=== PATIENT | male | born 1960 | race Caucasian/White ===

== ENCOUNTER → 2021-05-13 14:52 | Outpatient (REF) | payer OTHER, SELFPAY ==
--- NOTE | 2021-05-13 14:55 | CA_ITS ---
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 The visually estimated ejection fraction is between 55-60%. - No obvious valvular pathology seen on this study. - There is mild dilatation of the ascending aorta measuring 4.10 cm. Findings Left Ventricle Normal left ventricular cavity size. There is normal left ventricular wall thickness. The left ventricular systolic function is normal. The visually estimated ejection fraction is between 55-60%. There is no evidence of regional wall motion abnormalities. Diastolic function is normal for age. Right Ventricle Normal right ventricular cavity size and systolic function. Atria Both atria are normal in size. Aortic Valve There is mild calcification of the aortic valve. There is no aortic valve stenosis. There is no aortic valve regurgitation. Mitral Valve The mitral valve appears normal. There is no mitral valve regurgitation. There is no mitral valve stenosis. Pulmonic Valve The pulmonic valve was not well visualized. Tricuspid Valve Normal tricuspid valve structure. There is trace tricuspid valve regurgitation. Tricuspid regurgitation envelope is inadequate for calculation of right ventricular systolic pressure. Great Vessels There is mild dilatation of the ascending aorta measuring 4.10 cm. Venous The inferior vena cava is normal in size and collapses greater than 50% with inspiration. Pericardium/Pleural There is no evidence of pericardial effusion. Prior Study Comparison No prior study available for comparison. Recommendations, Care & Conclusions No obvious valvular pathology seen on this study. Measurements M-Mode Liner Measurements Normals - Women/Men AOV Cusps: 1.70 1.5-2.6 cm/m2 2D Linear Measurements IVSd: 0.84 0.6-0.9/0.6-1.0 cm LVIDd: 4.91 3.9-5.3/4.2-5.9 cm LVIDd Index: 2.15 2.4-3.2/2.2-3.1 cm/m2 LVIDs: 3.50 2.0-3.6 cm LVPWd: 0.91 0.7-1.1 cm Ao Root: 3.10 2.1-3.5 cm LA Diam: 4.10 2.7-3.8/3.0-4.0 cm LAIDs Index: 1.80 1.5-2.3 cm/m2 LV Mass: 182.88 67-162/88-224 g LV Mass Index: 80.21 43-95/49-115 g/m2 LVOT Diam: 2.20 3.0+(-)1.3 cm 2D Systolic Function EF 4C: 55.00 >55% EF 2C: 52.10 >55% EF BiP: 52.50 >55% Mitral Valve MV Pk E: 0.75 MV PK A: 0.76 MV Decel Time: 251.00 E/A: 1.00 E'Lateral: 15.10 E'Medial: 7.83 E/E' Med: 9.60 E/E' Lat: 5.00 PHT: 74.00 MVA PHT: 2.97 Decel [place]: 2.98 Aortic Valve AoV Pk Misael: 1.49 AoV Mn Misael: 1.19 AoV VTI: 0.35 AoV Pk Grad: 9.00 Aov Mn Grad: 6.00 ADOLFO Cont.VTI: 2.84 LVOT LVOT Pk Misael: 1.15 LVOT Mn Misael: 0.85 LVOT VTI: 0.26 LVOT Pk Grad: 5.00 LVOT Mn Grad: 3.00 LVOT Diam: 2.20 LVOT Area: 3.80 Diastolic Function MV Pk E: 0.75 MV Pk A: 0.76 E/A: 1.00 E'Medial: 7.83 E/E' Med: 9.60 E' Laterial: 15.10 E/E' Lat: 5.00 Tricuspid Valve RA Press: 3.00 Great Vessels Aorta Ao Root-2D: 3.10 2.0-3.7 cm Ao Asc: 4.10 2.1-3.4 cm Ao Arch: 3.00 Updated in Other Vendor System with Status of Final Jan Roberts MD electronically signed on 05/15/2021 12:45:57 PM with status of Final
== END ==
LOC: HO.CARD 14:52
PROVIDERS: Visit Provider Nurse Practitioner Family
DX: R01.1 Cardiac murmur, unspecified (principal)
CPT/HCPCS: 93306

== ENCOUNTER 2021-05-24 06:30 | Outpatient (REF) | payer OTHER, SELFPAY ==
[2021-05-24 11:55] LABS: Alanine Aminotransferase 40 U/L (0-40); Albumin Level 4.3 g/dL (3.5-5.0); Alkaline Phosphatase 83 U/L (39-117); Anion Gap 11 (12-20); Aspartate Amino Transferase 25 U/L (5-37); Bilirubin Total 2.1 mg/dL (0.0-1.0); Blood Urea Nitrogen 16 mg/dL (9-16); Calcium 9.7 mg/dL (8.4-10.2); Carbon Dioxide 29 mmol/L (22-29); Chloride 104 mmol/L (96-108); Cholesterol 246 mg/dL; Estimated Glomerular Filt Rate > 60; Glucose Fasting 91 mg/dL (60-99); HDL Cholesterol 36 mg/dL; LDL Cholesterol Calculated 174 mg/dl; Potassium 4.1 mmol/L (3.3-5.1); Sodium 140 mmol/L (135-145); Total Protein 7.4 g/dL (6.5-8.0); Triglycerides 181 mg/dL
[2021-05-24 12:10] LABS: TSH reflex Free T4 1.13 uIU/mL (0.32-4.0)
[2021-05-24 12:43] LABS: Prostate Specific Antigen Scr 2.33 ng/mL (<0.05-4.0)
== END 2021-05-24 06:31 | disposition home or self-care (01) ==
LOC: HO.HMGCLDS 06:30
PROVIDERS: PCP Nurse Practitioner Family; Visit Provider Nurse Practitioner Family
DX: Z12.5 Encounter for screening for malignant neoplasm of prostate (principal); I10 Essential (primary) hypertension
CPT/HCPCS: 36415; 80053; 80061; 84153; 84443

== ENCOUNTER 2021-05-29 09:30 | Outpatient (REF) | payer OTHER, SELFPAY ==
[2021-05-29 11:44] LABS: Bilirubin Direct 0.4 mg/dL (0.0-0.5); Bilirubin Total 1.3 mg/dL (0.0-1.0); Cholesterol 231 mg/dL; HDL Cholesterol 34 mg/dL; LDL Cholesterol Calculated 169 mg/dl; Triglycerides 141 mg/dL
== END 2021-05-29 09:31 | disposition home or self-care (01) ==
LOC: HO.HMGCLDS 09:30
PROVIDERS: PCP Nurse Practitioner Family; Visit Provider Nurse Practitioner Family
DX: R17 Unspecified jaundice (principal); E78.5 Hyperlipidemia, unspecified
CPT/HCPCS: 36415; 80061; 82247; 82248

== ENCOUNTER 2021-06-03 13:51 | Outpatient (REF) | payer OTHER, SELFPAY ==
--- NOTE | ~2021-06-03 | CT_ITS ---
CT SOFT TISSUE NECK WITH CONTRAST CLINICAL INFORMATION: Disease of salivary gland. COMPARISON: Neck CTA 08/18/2017. TECHNIQUE: Following the intravenous administration of 100 mL of Omnipaque 350 intravenous contrast, helical imaging was performed in the axial plane with generation of coronal and sagittal reformatted images. This CT examination was performed using dose optimization techniques as appropriate, variously including the following: *Automated exposure control *Adjustment of mA and/or kV according to patient size (this includes techniques or standardized protocols for targeted exams where dose is matched to indication/reason for exam; i.e. 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 There is a calcification along the medial border of the lesion that has mildly increased in size. There are no new intraparotid lesions. There are nonpathologic size criteria lymph nodes throughout the suprahyoid and infrahyoid neck without pathologic size criteria lymphadenopathy. Orbital soft tissues, the submandibular glands, and the thyroid gland are unremarkable. The laryngeal structures are difficult to evaluate secondary to motion artifact. The cervical arterial vasculature remains widely patent. Imaged upper lungs are clear. There are no retropharyngeal fluid collections. The partially imaged intracranial compartment is unremarkable. Stable rounded sclerotic focus within the clivus when compared to multiple prior studies dated back to 09/01/2016. There is multilevel cervical spondylosis. Mild mucosal thickening within the ethmoid air cells, frontal sinuses, and maxillary sinuses bilaterally. There is rightward deviation of the nasal septum with a large rightward directed septal spur and there is a large tish bullosa within the left middle turbinate. 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 There is a calcification along the medial border of the lesion that has mildly increased in size.
[2021-06-03] MEDS: iohexoL 350 MG/ML 100 ML INFUS..BTL IV (14:40)
== END 2021-06-03 13:52 | disposition home or self-care (01) ==
LOC: HO.CT 13:51
PROVIDERS: Visit Provider Nurse Practitioner Family
DX: K11.9 Disease of salivary gland, unspecified (principal)
CPT/HCPCS: 70491; Q9967

== ENCOUNTER → 2021-07-16 14:36 | Outpatient (BNVA) | payer OTHER, SELFPAY | PROVIDERS: PCP Nurse Practitioner Family; Visit Provider Nurse Practitioner Family ==

== ENCOUNTER 2021-08-10 08:25 | Outpatient (REF) | payer OTHER, SELFPAY ==
--- NOTE | ~2021-08-10 | US_ITS ---
EXAMINATION: US ABDOMEN COMPLETE CLINICAL INFORMATION: Unspecified jaundice. COMPARISON: Ultrasound abdomen 01/18/2014. CT abdomen and pelvis 10/22/2011. TECHNIQUE: Real-time imaging of the abdominal viscera. Technically difficult study secondary to bowel gas and body habitus. FINDINGS: PANCREAS: The pancreas is obscured by overlying gas. ABDOMINAL AORTA: The proximal, mid, and distal segments are normal in caliber. INFERIOR VENA CAVA: Visualized portions are normal. LIVER: The left lobe of liver is not well-visualized. The liver is normal in size. The liver contour is normal. Parenchymal echogenicity is normal. No focal hepatic lesion. There is no intrahepatic biliary duct dilatation seen. GALLBLADDER: Surgically absent. COMMON BILE DUCT: Normal in caliber measuring 0.5 cm in diameter. RIGHT KIDNEY: Normal. No hydronephrosis. No renal calculi or focal parenchymal lesions. The kidney measures 12.4 cm in maximum dimension. LEFT KIDNEY: Normal. No hydronephrosis. No renal calculi or focal parenchymal lesions. The kidney measures 12.2 cm in maximum dimension. SPLEEN: Normal. The spleen measures 10.8 cm in maximum dimension. FREE FLUID: None. US/US abdomen complete IMPRESSION: Left lobe of liver not visualized. The rest of the abdominal ultrasound is unremarkable.
== END 2021-08-10 08:26 | disposition home or self-care (01) ==
LOC: HO.US 08:25
PROVIDERS: PCP Nurse Practitioner Family; Visit Provider Nurse Practitioner Family
DX: R17 Unspecified jaundice (principal)
CPT/HCPCS: 76700

== ENCOUNTER → 2021-09-17 14:24 | Outpatient (BNVA) | payer OTHER, SELFPAY | PROVIDERS: PCP Nurse Practitioner Family; Referring Provider Nurse Practitioner Family; Visit Provider Nurse Practitioner Family ==

== ENCOUNTER 2022-02-03 08:20 | Outpatient (REF) | payer OTHER, SELFPAY ==
[2022-02-03 11:31] LABS: MANUAL DIFF FLAG NO
[2022-02-03 11:51] LABS: Basophils Percent Auto 0.7 % (0-2); Eosinophils Absolute Auto 0.2 X10*3/uL (0.0-0.4); Eosinophils Percent Auto 3.3 % (0-4); Hematocrit 45.2 % (42.0-52.0); Hemoglobin 14.6 g/dl (14.0-18.0); Imm Gran Abs Auto 0.01 X10*3/uL (0.00-0.03); Imm Gran Pct Auto 0.2 % (0.0-0.4); Lymphocytes Absolute Auto 1.7 X10*3/uL (1.2-4.9); Lymphocytes Percent Auto 30.5 % (20-40); Mean Corpuscular HGB Conc 32.3 g/dl (31.0-36.0); Mean Corpuscular Hemoglobin 31.5 pg (27.0-33.0); Mean Corpuscular Volume 97.6 fL (80.0-98.0); Mean Platelet Volume 10.3 fL (9.4-12.4); Monocytes Absolute Auto 0.7 X10*3/uL (0.1-1.2); Monocytes Percent Auto 12.1 % (2-11); Neutrophils Absolute Auto 2.9 x10*3/uL (2.0-8.3); Neutrophils Percent Auto 53.2 % (45-73); Platelet Count 310 X10*3/uL (160-400); Red Blood Count 4.63 X10*6/uL (4.60-5.80); Red Cell Distribution Width 11.8 % (11.0-16.0); White Blood Count 5.4 X10*3/uL (4.8-10.8)
[2022-02-03 12:08] LABS: Cholesterol 213 mg/dL; HDL Cholesterol 36 mg/dL; Iron 110 mcg/dL (45-160); LDL Cholesterol Calculated 136 mg/dl; Percent Iron Saturation 34 % (15-50); Total Iron Binding Capacity 325 mcg/dL (228-428); Triglycerides 206 mg/dL; Unsaturated Iron Binding 215 ug/dL
[2022-02-03 12:30] LABS: Ferritin 525 ng/mL (20-250); TSH reflex Free T4 1.19 uIU/mL (0.32-4.0)
[2022-02-03 12:52] LABS: Vitamin B12 751 pg/mL (200-900)
== END 2022-02-03 08:21 | disposition home or self-care (01) ==
LOC: HO.HMGCLDS 08:20
PROVIDERS: Visit Provider Nurse Practitioner Family
DX: E78.5 Hyperlipidemia, unspecified (principal); R53.83 Other fatigue
CPT/HCPCS: 36415; 80061; 82607; 82728; 82746; 83540; 84443; 85025

== ENCOUNTER 2022-02-28 08:12 | Outpatient (REF) | payer OTHER, SELFPAY ==
[2022-02-28 09:28] LABS: Alanine Aminotransferase 25 U/L (0-40); Albumin Level 4.3 g/dL (3.5-5.0); Alkaline Phosphatase 85 U/L (39-117); Anion Gap 11 (12-20); Aspartate Amino Transferase 19 U/L (5-37); Bilirubin Direct 0.5 mg/dL (0.0-0.5); Bilirubin Total 1.5 mg/dL (0.0-1.0); Blood Urea Nitrogen 23 mg/dL (9-16); Calcium 9.8 mg/dL (8.4-10.2); Carbon Dioxide 25 mmol/L (22-29); Chloride 106 mmol/L (96-108); Estimated Glomerular Filt Rate > 60; Glucose Fasting 96 mg/dL (60-99); Potassium 4.4 mmol/L (3.3-5.1); Sodium 138 mmol/L (135-145); Total Protein 7.4 g/dL (6.5-8.0)
[2022-02-28 09:49] LABS: TSH reflex Free T4 1.34 uIU/mL (0.32-4.0)
[2022-02-28 10:52] LABS: Prostate Specific Antigen Scr 2.34 ng/mL (<0.05-4.0)
== END 2022-02-28 08:13 | disposition home or self-care (01) ==
LOC: HO.LAB 08:12
PROVIDERS: PCP Nurse Practitioner Family; Visit Provider Nurse Practitioner Family
DX: E78.5 Hyperlipidemia, unspecified (principal); Z12.5 Encounter for screening for malignant neoplasm of prostate
CPT/HCPCS: 36415; 80053; 80076; 82248; 84153; 84443

== ENCOUNTER 2022-03-01 08:00 | Outpatient (REF) | payer OTHER, SELFPAY ==
[2022-03-01 11:36] LABS: Appearance Urine CLEAR; Color Urine YELLOW; Glucose Urine UA NEG (NEG); Leukocyte Esterase Urine NEG (NEG); Nitrite Urine NEG (NEG); PH 5.5 (5.0-8.0); Specific Gravity - Urine 1.015 (1.005-1.025); Urine Blood NEG (NEG); Urine Ketones NEG (NEG); Urine Protein NEG (NEG-TRACE)
[2022-03-01 11:51] LABS: Cholesterol 147 mg/dL; HDL Cholesterol 32 mg/dL; LDL Cholesterol Calculated 103 mg/dl; Triglycerides 62 mg/dL
== END 2022-03-01 08:01 | disposition home or self-care (01) ==
LOC: HO.HMGCLDS 08:00
PROVIDERS: PCP Nurse Practitioner Family; Visit Provider Nurse Practitioner Family
DX: E78.5 Hyperlipidemia, unspecified (principal)
CPT/HCPCS: 36415; 80061; 81003

== ENCOUNTER 2022-03-08 08:45 | Outpatient (REF) | payer OTHER, SELFPAY ==
[2022-03-08 11:22] LABS: Iron 57 mcg/dL (45-160); Lipase 32 U/L (8-78); Percent Iron Saturation 19 % (15-50); Total Iron Binding Capacity 293 mcg/dL (228-428); Unsaturated Iron Binding 236 ug/dL
[2022-03-08 11:39] LABS: Ferritin 565 ng/mL (20-250)
== END 2022-03-08 08:46 | disposition home or self-care (01) ==
LOC: HO.LAB 08:45
PROVIDERS: PCP Nurse Practitioner Family; Referring Provider Nurse Practitioner Family; Visit Provider Nurse Practitioner Family
DX: R10.9 Unspecified abdominal pain (principal); R74.8 Abnormal levels of other serum enzymes; K92.2 Gastrointestinal hemorrhage, unspecified; R79.89 Other specified abnormal findings of blood chemistry
CPT/HCPCS: 36415; 81256; 82728; 83540; 83690

== ENCOUNTER → 2022-03-10 15:14 | Outpatient (BNV) | payer OTHER, SELFPAY | PROVIDERS: PCP Nurse Practitioner Family; Referring Provider Nurse Practitioner Family; Visit Provider Internal Medicine Medical Oncology | DX: R79.89 Other specified abnormal findings of blood chemistry (principal) | CPT/HCPCS: 99203; 99213 ==

== ENCOUNTER 2022-03-10 15:55 | Outpatient (REF) | payer OTHER, SELFPAY ==
[2022-03-21 19:57] LABS: Pancreatic Elastase-1 >500 mcg/g
== END 2022-03-10 15:56 | disposition home or self-care (01) ==
LOC: HO.LNP 15:55
PROVIDERS: Visit Provider Nurse Practitioner Family
DX: R10.9 Unspecified abdominal pain (principal)
CPT/HCPCS: 82656

== ENCOUNTER → 2022-07-05 14:57 | Outpatient (BNVA) | payer OTHER, SELFPAY | PROVIDERS: PCP Nurse Practitioner Family | DX: R39.11 Hesitancy of micturition (principal); R33.9 Retention of urine, unspecified | CPT/HCPCS: 51798 ==

== ENCOUNTER 2022-07-14 06:38 | Outpatient (REF) | payer OTHER, SELFPAY ==
[2022-07-14 12:06] LABS: PSA,Total (Free>4and<10) 1.91 ng/mL (0.00-4.00)
== END 2022-07-14 06:39 | disposition home or self-care (01) ==
LOC: HO.HMGCLDS 06:38
PROVIDERS: Visit Provider Urology
DX: R33.9 Retention of urine, unspecified (principal); Z12.5 Encounter for screening for malignant neoplasm of prostate
CPT/HCPCS: 36415; 84153

== ENCOUNTER 2022-07-28 15:19 | Outpatient (REF) | payer OTHER, SELFPAY ==
--- NOTE | ~2022-07-28 | US_ITS ---
EXAMINATION: US PELVIS LIMITED (BLADDER) CLINICAL INFORMATION: Retention of urine, unspecified. COMPARISON: Ultrasound abdomen complete 08/10/2021 and 01/18/2014. TECHNIQUE: Real-time imaging of the bladder. FINDINGS: BLADDER: Bladder is well-distended. Bilateral ureteral jets are demonstrated. Prevoid bladder volume is 686 mL. Postvoid bladder volume is 236 mL. Urinary bladder wall is thickened to 4 mm in diameter. There is floating debris seen dependently within the urinary bladder. ADDITIONAL FINDINGS: Prostate volume is 51 mL. US/US bladder IMPRESSION: Large postvoid residual. Debris within the urinary bladder. Bilateral ureteral jets without evidence of obstructive uropathy..
== END 2022-07-28 15:20 | disposition home or self-care (01) ==
LOC: HO.HMGCX 15:19
DX: R33.9 Retention of urine, unspecified (principal)
CPT/HCPCS: 76857

== ENCOUNTER 2022-08-12 06:37 | Outpatient (REF) | payer OTHER, SELFPAY ==
[2022-08-12 11:24] LABS: MANUAL DIFF FLAG NO
[2022-08-12 11:25] LABS: Appearance Urine Clear; Color Urine Yellow; Glucose Urine UA Negative (Negative); Leukocyte Esterase Urine Negative (Negative); Nitrite Urine Negative (Negative); Urine Blood Negative (Negative); Urine Ketones Negative (Negative); Urine Protein Negative (Neg-Trace)
[2022-08-12 11:31] LABS: Basophils Percent Auto 0.6 % (0-2); Eosinophils Absolute Auto 0.2 X10*3/uL (0.0-0.4); Eosinophils Percent Auto 3.4 % (0-4); Hemoglobin 13.9 g/dl (14.0-18.0); Imm Gran Abs Auto 0.02 X10*3/uL (0.00-0.03); Imm Gran Pct Auto 0.4 % (0.0-0.4); Lymphocytes Absolute Auto 1.7 X10*3/uL (1.2-4.9); Lymphocytes Percent Auto 31.3 % (20-40); Mean Corpuscular HGB Conc 32.3 g/dl (31.0-36.0); Mean Corpuscular Hemoglobin 31.9 pg (27.0-33.0); Mean Corpuscular Volume 98.6 fL (80.0-98.0); Mean Platelet Volume 10.1 fL (9.4-12.4); Monocytes Absolute Auto 0.5 X10*3/uL (0.1-1.2); Monocytes Percent Auto 10.1 % (2-11); Neutrophils Absolute Auto 2.9 x10*3/uL (2.0-8.3); Neutrophils Percent Auto 54.2 % (45-73); Platelet Count 296 X10*3/uL (160-400); Red Blood Count 4.36 X10*6/uL (4.60-5.80); Red Cell Distribution Width 11.6 % (11.0-16.0); White Blood Count 5.4 X10*3/uL (4.8-10.8)
[2022-08-12 11:58] LABS: Alanine Aminotransferase 31 U/L (0-40); Albumin Level 3.9 g/dL (3.5-5.0); Alkaline Phosphatase 87 U/L (39-117); Anion Gap 15 (12-20); Aspartate Amino Transferase 17 U/L (5-37); Bilirubin Total 1.4 mg/dL (0.0-1.0); Blood Urea Nitrogen 17 mg/dL (9-16); Calcium 9.6 mg/dL (8.4-10.2); Carbon Dioxide 28 mmol/L (22-29); Chloride 102 mmol/L (96-108); Cholesterol 198 mg/dL; Estimated Glomerular Filt Rate > 60; Glucose Fasting 96 mg/dL (60-99); HDL Cholesterol 35 mg/dL; LDL Cholesterol Calculated 129 mg/dl; Potassium 4.5 mmol/L (3.3-5.1); Sodium 140 mmol/L (135-145); Total Protein 6.9 g/dL (6.5-8.0); Triglycerides 170 mg/dL
[2022-08-12 12:02] LABS: TSH reflex Free T4 2.35 uIU/mL (0.32-4.0)
== END 2022-08-12 06:38 | disposition home or self-care (01) ==
LOC: HO.HMGCLDS 06:37
PROVIDERS: PCP Nurse Practitioner Family; Visit Provider Nurse Practitioner Family
DX: Z00.00 Encounter for general adult medical examination without abnormal findings (principal)
CPT/HCPCS: 36415; 80053; 80061; 81003; 84443; 85025

== ENCOUNTER → 2022-10-11 14:48 | Outpatient (BNVA) | payer OTHER, SELFPAY | PROVIDERS: Visit Provider Urology | DX: N40.1 Benign prostatic hyperplasia with lower urinary tract symptoms (principal); N13.8 Other obstructive and reflux uropathy; R33.9 Retention of urine, unspecified; Z79.899 Other long term (current) drug therapy | CPT/HCPCS: 51798 ==

== ENCOUNTER 2022-11-04 09:53 | Outpatient (REF) | payer OTHER, SELFPAY ==
--- NOTE | ~2022-11-04 | US_ITS ---
EXAMINATION: US PELVIS LIMITED (BLADDER) CLINICAL INFORMATION: Benign prostatic hyperplasia with lower urinary tract symptoms. COMPARISON: Ultrasound bladder 07/28/2022. Ultrasound abdomen complete 08/10/2021. TECHNIQUE: Real-time imaging of the bladder. FINDINGS: BLADDER: Well distended and normal. Bilateral ureteral jets are demonstrated. Prevoid bladder volume is 397 mL. Postvoid bladder volume is 54.5 mL. Floating debris can be seen within the bladder with trabeculation of the posterior wall. ADDITIONAL FINDINGS: The prostate is enlarged measuring 74 g with a prominent median lobe protruding into the bladder. US/US bladder IMPRESSION: 1. Prostatomegaly with 54.5 mL postvoid residual. 2. Floating debris in the bladder with trabeculation of the posterior wall. 3. Similar findings noted at the time of the prior study although prostate volume appears increased from 51 mL to 74 mL.
[2022-11-04 11:27] LABS: MANUAL DIFF FLAG NO
[2022-11-04 11:53] LABS: Basophils Percent Auto 0.5 % (0-2); Eosinophils Absolute Auto 0.1 X10*3/uL (0.0-0.4); Eosinophils Percent Auto 2.2 % (0-4); Hematocrit 44.3 % (42.0-52.0); Hemoglobin 14.4 g/dl (14.0-18.0); Imm Gran Abs Auto 0.02 X10*3/uL (0.00-0.03); Imm Gran Pct Auto 0.3 % (0.0-0.4); Lymphocytes Absolute Auto 1.8 X10*3/uL (1.2-4.9); Lymphocytes Percent Auto 31.3 % (20-40); Mean Corpuscular HGB Conc 32.5 g/dl (31.0-36.0); Mean Corpuscular Hemoglobin 31.9 pg (27.0-33.0); Mean Corpuscular Volume 98.2 fL (80.0-98.0); Mean Platelet Volume 10.1 fL (9.4-12.4); Monocytes Absolute Auto 0.6 X10*3/uL (0.1-1.2); Monocytes Percent Auto 9.8 % (2-11); Neutrophils Absolute Auto 3.3 x10*3/uL (2.0-8.3); Neutrophils Percent Auto 55.9 % (45-73); Platelet Count 291 X10*3/uL (160-400); Red Blood Count 4.51 X10*6/uL (4.60-5.80); Red Cell Distribution Width 11.5 % (11.0-16.0); White Blood Count 5.8 X10*3/uL (4.8-10.8)
== END 2022-11-04 09:54 | disposition home or self-care (01) ==
LOC: HO.HMGCX 09:53
PROVIDERS: Absent Provider Nurse Practitioner Family; PCP Nurse Practitioner Family; Visit Provider Urology
DX: N40.1 Benign prostatic hyperplasia with lower urinary tract symptoms (principal); N13.8 Other obstructive and reflux uropathy; D64.9 Anemia, unspecified
CPT/HCPCS: 36415; 76857; 85025

== ENCOUNTER → 2022-12-02 14:55 | Outpatient (BNVA) | payer OTHER, SELFPAY | PROVIDERS: PCP Nurse Practitioner Family; Visit Provider Urology | DX: N40.1 Benign prostatic hyperplasia with lower urinary tract symptoms (principal); N13.8 Other obstructive and reflux uropathy; R33.9 Retention of urine, unspecified | CPT/HCPCS: 52000 ==

== ENCOUNTER 2022-12-07 07:12 | Emergency (ER) | payer OTHER, SELFPAY ==
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
[2022-12-07 07:22] VITALS: BP 146/96; BP 169/85; PULSE 66; PULSE 78; RESP 16; TEMP 36.4; O2SAT 96; O2SAT 98; BMI 29.1
--- NOTE | 2022-12-07 07:40 | PC.NURSE ---
patient a/ox4 . imeldarla . heart rate regular at 76 beats per minute . breathing even and unlabored . lungs clear throughout . superficial scratch located to left denominational . skin pink warm and dry abdomen soft , positive bowel sound throughout . patient currently on c-spin precautions in collar . Reporting 8 out of 10 neck pain does . patient changed into a gown and on property assessment monitor at this time . patient is aware of plan of care .
--- NOTE | 2022-12-07 07:45 | PC.NURSE ---
patient to C.T to for images . patient aware of plan of care .
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
--- NOTE | 2022-12-07 09:15 | PC.NURSE ---
Patient has been cleared from C-spine precautions by Dr. Luong after CT results returned . Collar removed . patient aware of plan of care .
[2022-12-07 09:30] VITALS: BP 158/135; PULSE 70; RESP 12; TEMP 36.7; O2SAT 98
--- NOTE | 2022-12-07 09:58 | PC.NURSE ---
A/ox4 . vss . Went over discharge instructions as ordered by provider . patient to return if symptoms worsen . patient to follow up with primary care .no questions at this time
== END 2022-12-07 10:01 | disposition home or self-care (01) ==
PROVIDERS: Emergency Provider Student in an Organized Health Care Education/Training Program; PCP Nurse Practitioner Family
DX: M54.2 Cervicalgia (principal); R51.9 Headache, unspecified; I10 Essential (primary) hypertension; Z79.899 Other long term (current) drug therapy
CPT/HCPCS: 70450; 72125; 99284

== ENCOUNTER 2023-01-03 09:43 | Outpatient (REF) | payer OTHER, SELFPAY ==
--- NOTE | ~2023-01-03 | MR_ITS ---
EXAMINATION: MR BRAIN WITHOUT AND WITH CONTRAST CLINICAL INFORMATION: Head pain in the back and neck. COMPARISON: CT head from 12/07/2021. Brain MRI from 09/01/2016. TECHNIQUE: MRI of the brain was obtained using routine sequences without and following the administration of 10 mL of Gadavist intravenous contrast. FINDINGS: No focal restricted diffusion is demonstrated to suggest acute or subacute cerebral ischemia. No evidence of acute or chronic hemorrhagic products on heme-sensitive imaging. Scattered periventricular and deep white matter T2 FLAIR hyperintensities consistent with mild underlying microangiopathy. Chronic lacunar infarct of the right cerebellar hemisphere. Proportional prominence of the ventricles and sulcal spaces without evidence of obstructive hydrocephalus. No abnormal mass effect. No midline shift. Normal appearance of the pituitary gland. The cerebellar tonsils are positioned at the level the foramen magnum. Normal arterial and venous vascular flow voids are present. No abnormal contrast enhancement. Normal, homogeneous marrow signal. Mild mucosal thickening of the paranasal sinuses. Moderate rightward nasal septal deviation. No signal abnormalities within the mastoids. MR/MR head/brain wo/w con IMPRESSION: 1. No acute intracranial abnormalities. No abnormal intracranial enhancement. 2. Mild underlying microangiopathy and generalized cerebral volume loss. Chronic lacunar infarct of the right cerebellar hemisphere.
== END 2023-01-03 09:44 | disposition home or self-care (01) ==
LOC: HO.MRI 09:43
PROVIDERS: Visit Provider Nurse Practitioner Family
DX: G93.9 Disorder of brain, unspecified (principal)
CPT/HCPCS: 70553; A9585

== ENCOUNTER 2023-01-18 12:07 | Outpatient (REF) | payer OTHER, SELFPAY ==
[2023-01-18 14:38] LABS: MANUAL DIFF FLAG NO
[2023-01-18 14:51] LABS: Basophils Percent Auto 0.5 % (0-2); Eosinophils Absolute Auto 0.1 X10*3/uL (0.0-0.4); Eosinophils Percent Auto 1.3 % (0-4); Hematocrit 44.6 % (42.0-52.0); Hemoglobin 14.8 g/dl (14.0-18.0); Imm Gran Abs Auto 0.01 X10*3/uL (0.00-0.03); Imm Gran Pct Auto 0.2 % (0.0-0.4); Lymphocytes Absolute Auto 1.8 X10*3/uL (1.2-4.9); Lymphocytes Percent Auto 30.4 % (20-40); Mean Corpuscular HGB Conc 33.2 g/dl (31.0-36.0); Mean Corpuscular Volume 96.5 fL (80.0-98.0); Mean Platelet Volume 10.3 fL (9.4-12.4); Monocytes Absolute Auto 0.5 X10*3/uL (0.1-1.2); Monocytes Percent Auto 7.8 % (2-11); Neutrophils Absolute Auto 3.6 x10*3/uL (2.0-8.3); Neutrophils Percent Auto 59.8 % (45-73); Platelet Count 326 X10*3/uL (160-400); Red Blood Count 4.62 X10*6/uL (4.60-5.80); Red Cell Distribution Width 11.6 % (11.0-16.0); White Blood Count 6.1 X10*3/uL (4.8-10.8)
[2023-01-18 14:52] LABS: Prothrombin Time 11.6 SEC (10.0-13.1)
[2023-01-18 14:55] LABS: Partial Thromboplastin Time 36.2 SEC (26.0-36.4)
[2023-01-18 15:16] LABS: Alanine Aminotransferase 23 U/L (0-40); Albumin Level 4.4 g/dL (3.5-5.0); Alkaline Phosphatase 83 U/L (39-117); Anion Gap 12 (12-20); Aspartate Amino Transferase 17 U/L (5-37); Bilirubin Total 2.2 mg/dL (0.0-1.0); Blood Urea Nitrogen 21 mg/dL (9-16); Calcium 9.8 mg/dL (8.4-10.2); Carbon Dioxide 29 mmol/L (22-29); Chloride 105 mmol/L (96-108); Estimated Glomerular Filt Rate > 60; Glucose Random 89 mg/dL (60-115); Iron 55 mcg/dL (45-160); Percent Iron Saturation 19 % (15-50); Potassium 4.6 mmol/L (3.3-5.1); Sodium 141 mmol/L (135-145); Total Iron Binding Capacity 284 mcg/dL (228-428); Total Protein 7.5 g/dL (6.5-8.0); Unsaturated Iron Binding 229 ug/dL
== END 2023-01-18 12:08 | disposition home or self-care (01) ==
LOC: HO.HMGCLDS 12:07
PROVIDERS: Internal Medicine Medical Oncology; PCP Nurse Practitioner Family; Visit Provider Nurse Practitioner Family
DX: Z01.818 Encounter for other preprocedural examination (principal); R79.89 Other specified abnormal findings of blood chemistry; I63.81 Other cerebral infarction due to occlusion or stenosis of small artery
CPT/HCPCS: 36415; 80053; 83540; 85025; 85610; 85730

== ENCOUNTER 2023-01-23 09:32 | Day surgery (SDC) | payer OTHER, SELFPAY ==
[2023-01-19 10:56] VITALS: BMI 29.4
[2023-01-23] VITALS (12 sets, daily range): BP systolic 125–156; BP diastolic 63–102; PULSE 50–72; RESP 14–16; TEMP 36.2–36.3; O2SAT 95–98
--- NOTE | 2023-01-23 09:42 | PC.NURSE ---
no meds taken today
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
[2023-01-23] MEDS: Lactated Ringers 1,000 ML 50 ML IVCONT (09:53)
--- NOTE | 2023-01-23 11:45 | MHC.SHP ---
Pre-Procedural Eval Section A Date of Service: 01/23/23 The patient is an INPATIENT: No Changes since office visit: No Cold of Flu in the past 2 weeks, No New Medical Problems, No Changes in Medication and No Patient answered all questions The History & Physical has been completed within 30 days and I have reviewed it.: Yes Section B Chief Complaint: Benign prostatic hyperplasia with lower urinary tr Allergies: Allergies Allergy/AdvReac Type Severity Reaction Status Date / Time lisinopril AdvReac Intermediate cough Verified 01/19/23 10:46 Plan Diagnosis/Plan: Unchanged ( laser enucleation of the prostate) I have reviewed the history and physical and performed a pertinent physical examination on my patient. No changes have occurred unless specified. Time Spent With Patient Time: Total time managing care of this patient today ____ minutes.
--- NOTE | 2023-01-23 13:01 | P.OP_ITS ---
Operative Note Operative Note Date of Service: 01/23/23 Narrative: PreOperative Diagnosis: Bladder outlet obstruction Post Operative Diagnosis: Bladder outlet obstruction Procedure: GreenLight Laser Enucleation of the prostate Surgeon: Dr Dago Walls Anesthesia: General History of bladder outlet obstruction. Treated with alpha-leslie and other medications. Still with symptoms. On cystoscopy in office has trilobar prostate 75 g on ultrasound. Recommendation for prostate procedure with laser enucleation of prostate. Risks and benefits have been discussed. Focus was placed on development of retrograde ejaculation which is a normal part of this procedure. Procedure: After informed consent was verified the patient was brought to the operating room and placed in a supine position. Anesthesia was administered per protocol. Patient was placed in modified dorsal lithotomy position and prepped and draped in a sterile fashion. Safety pause time-out was confirmed. Antibiotics have been given. A Twenty-four [place] Citizen laser cystoscope was inserted per urethra. No abnormalities were found of the anterior and bulbar urethra. The bladder was examined and both ureteric orifices were seen in their normal positions away from the area of interest. Using a GreenLight laser with settings of 80 w incisions were made at the 5 and 7 o'clock position. The incisions were taken down from the bladder neck down to the level of the veru. These were gradually deepened in order to define the lateral aspects of the median lobe area. Once clearly defined they will also extended in the lateral directions in order to create a deep groove. The median lobe was then ablated and enucleated tissue released into the bladder with the laser power increased to 120 W. Once the median lobe area had been cleared attention was directed to the lateral lobes. Starting with the patient's left lateral lobe. First the 05:00 o'clock groove was further developed. This was moved in the lateral direction to undermine the tissue on the lateral side running from the bladder neck to the prostate apex. Focus was then placed on the laser at the 1 o'clock position to developing a secondary groove down to the level of bladder fibers. The creation of a second deep groove defined a segment of intervening tissue similar to a slice of orange. At the apex of the prostate the 2 grooves were linked the us releasing the intervening tissue. This tissue was then removed with a combination of enucleation and ablation working from the apex toward the bladder neck. A similar procedure was repeated on the patient's right-hand side. The only differences being the position of the lateral groove at he 7 'oclock positioin and the secondary groove at the 11 o'clock position, Otherwise the procedure was developed in a mirror fashion. After the majority of tissue had been debulked remnant tissue was ablated with the side fire laser and the curve of the prostate followed up each side wall clearly defining the anterior remnant strip that remained between the 11 and 1 o'clock positions. When this was had been completed debris and pieces of prostate were removed from the bladder with irrigation. Both ureteric orifices were reviewed again in shown to be patent in away from any areas of energy damage. The apical area was reviewed in any stray ooze was controlled. A 22 [place] Citizen 30 cc balloon Poole catheter was placed over a stylet into the bladder. Clear efflux was obtained upopn irrigation with a Myesha piston syringe. 45 cc was placed in the balloon and gentle traction was placed. A snap was used to hold tension on the catheter to control bleeding during patient moved and transported. A drainage bag was placed. Once transportation is complete to the PACU the snap will be removed. The patient tolerated the procedure well, he was extubated in the operating and transferred in a stable condition to the recovery area. Total Power 190 kW Lasing time 34:49 Pathology: Prostate tissue Drains: Poole catheter
[2023-01-23] MEDS: fentaNYL citrate/PF 100 MCG/2 ML VIAL 25 MCG IVPUSH ×3 (13:19→14:25)
[2023-01-23] MEDS: Acetaminophen 325 MG TABLET 975 MG PO (13:20)
[2023-01-23] MEDS: oxyCODONE HCl Immed Release 5 MG TABLET PO ×2 (13:20→14:33)
[2023-01-23] MEDS: ondansetron HCL 4 MG/2 ML VIAL IVPUSH (15:01)
== END 2023-01-23 15:40 | disposition home or self-care (01) ==
PROVIDERS: PCP Nurse Practitioner Family; Visit Provider Urology
PROC: (CPT 52648; principal; 2023-01-23 11:20)
DX: N40.1 Benign prostatic hyperplasia with lower urinary tract symptoms (principal); N32.0 Bladder-neck obstruction; R39.12 Poor urinary stream; R33.8 Other retention of urine; I10 Essential (primary) hypertension; E78.5 Hyperlipidemia, unspecified; R01.1 Cardiac murmur, unspecified; Z86.73 Personal history of transient ischemic attack (TIA), and cerebral infarction without residual deficits; Z79.899 Other long term (current) drug therapy; Z88.8 Allergy status to other drugs, medicaments and biological substances; F12.90 Cannabis use, unspecified, uncomplicated
CPT/HCPCS: 52649; 88305; J1956; J2405; J3010

== ENCOUNTER → 2023-01-26 10:21 | Outpatient (BNVA) | payer OTHER, SELFPAY | PROVIDERS: PCP Nurse Practitioner Family; Visit Provider Urology | DX: N13.8 Other obstructive and reflux uropathy (principal) | CPT/HCPCS: 51700; 51798 ==

== ENCOUNTER → 2023-01-27 07:52 | Outpatient (REF) | payer OTHER, SELFPAY ==
--- NOTE | 2023-01-27 07:55 | CA_ITS ---
Transthoracic Echocardiogram Patient (Last, First, Middle): Doug Colon, Gender: Male Date of : 1960 Age: 62 Procedure Date: 01/27/2023 Procedure Type: Transthoracic Echocardiogram Location: OP Height: 182.88 cm Weight: 96.62 kg BSA: 2.19 m2 Heart Rate: bpm BP: 128 / 78 mmHg Epic Cadence Specialists: TO Referring MD: Clovis Lopez [facility]- Acquisition Advisor: Rolando Rose MD Symptoms: I77.819 - Aortic ectasia, unspecified site Study Quality: Fair ECG Rhythm: Sinus Conclusions: - 1. Normal LV systolic function with impaired relaxation filling pattern 2. Normal cardiac valvular Doppler 3. Normal RV systolic pressure 4. Mildly dilated ascending aorta at 4.1 cm 5. No gross pericardial effusion Findings Left Ventricle Normal left ventricular size, thickness, and systolic function. The visually estimated ejection fraction is between 65-70%. Spectral Doppler is indicative of an impaired relaxation filling pattern. E/E prime ratio is between 8 and 15 consistent with indeterminate filling pressures. Right Ventricle Normal right ventricular cavity size and systolic function. Atria Both atria are normal in size. There is no evidence of interatrial shunt. Aortic Valve There is mild calcification of the aortic valve. There is no aortic valve stenosis. There is no aortic valve regurgitation. Mitral Valve Normal mitral valve structure and function. There is trace mitral valve regurgitation. There is no mitral valve stenosis. Pulmonic Valve The pulmonic valve is likely normal. Tricuspid Valve Normal tricuspid valve structure. There is trace tricuspid valve regurgitation. The right ventricular systolic pressure is normal. The right ventricular systolic pressure is 13 mmHg. Normal right atrial pressure. There is no evidence of pulmonary hypertension. Great Vessels The pulmonary artery was not well visualized. There is mild dilatation of the ascending aorta measuring 4.10 cm. Venous The inferior vena cava is normal in size and collapses greater than 50% with inspiration. Pericardium/Pleural There is no evidence of pericardial effusion. Prior Study Comparison No significant change compared to prior study dated: 05/13/2021. Measurements 2D Linear Measurements IVSd: 1.16 0.6-0.9/0.6-1.0 cm LVIDd: 4.72 3.9-5.3/4.2-5.9 cm LVIDd Index: 2.16 2.4-3.2/2.2-3.1 cm/m2 LVIDs: 3.47 2.0-3.6 cm LVPWd: 0.78 0.7-1.1 cm LA Diam: 3.20 2.7-3.8/3.0-4.0 cm LAIDs Index: 1.46 1.5-2.3 cm/m2 LV Mass: 198.42 67-162/88-224 g LV Mass Index: 90.60 43-95/49-115 g/m2 LVOT Diam: 2.20 3.0+(-)1.3 cm 2D Systolic Function EF 4C: 65.00 >55% EF 2C: 68.40 >55% EF BiP: 67.70 >55% Mitral Valve MV Pk E: 0.62 MV PK A: 0.70 MV Decel Time: 268.00 E/A: 0.90 E'Lateral: 11.30 E'Medial: 5.11 E/E' Med: 12.20 E/E' Lat: 5.50 PHT: 79.00 MVA PHT: 2.78 Decel Cidra: 2.32 Aortic Valve AoV Pk Misael: 1.76 AoV Mn Misael: 1.19 AoV VTI: 0.37 AoV Pk Grad: 12.00 Aov Mn Grad: 6.00 ADOLFO Cont.VTI: 3.10 LVOT LVOT Pk Misael: 1.46 LVOT Mn Misael: 0.96 LVOT VTI: 0.30 LVOT Pk Grad: 9.00 LVOT Mn Grad: 4.00 LVOT Diam: 2.20 LVOT Area: 3.80 Diastolic Function MV Pk E: 0.62 MV Pk A: 0.70 E/A: 0.90 E'Medial: 5.11 E/E' Med: 12.20 E' Laterial: 11.30 E/E' Lat: 5.50 Right Ventricle TAPSE (mm): 26.30 TVS' Misael: 11.10 Tricuspid Valve TR Pk Misael: 1.55 TR Pk Grad: 10.00 RA Press: 3.00 RVSP: 13.00 Great Vessels Aorta Sinus of Valsalva: 3.44 2.0-3.[address] Ridge: 2.95 1.7-3.4 cm Ao Asc: 4.10 2.1-3.4 cm Ao Arch: 3.50 Pulmonary Valve PV Pk Misael: 2.53 PV Min Misael: 1.72 Peak PV Grad: 26.00 PV Mn Grad: 14.00 Shunting QP:QS: 0.40 Updated in Other Vendor System with Status of Final Rolando Rose MD electronically signed on 01/28/2023 2:05:46 PM with status of Final
== END ==
LOC: HO.CARD 07:52
PROVIDERS: Visit Provider Nurse Practitioner Family
DX: I77.819 Aortic ectasia, unspecified site (principal)
CPT/HCPCS: 93306

== ENCOUNTER 2023-02-02 11:53 | Outpatient (REF) | payer OTHER, SELFPAY ==
[2023-02-02 14:10] LABS: Appearance Urine Clear; Color Urine Dark Yellow; Glucose Urine UA Negative (Negative); Leukocyte Esterase Urine Moderate (2+) (Negative); Nitrite Urine Negative (Negative); Specific Gravity - Urine <= 1.005 (1.005-1.025); UMIC TRIGGER UA YES; Urine Blood Large (3+) (Negative); Urine Ketones Negative (Negative); Urine Protein Negative (Neg-Trace)
[2023-02-02 14:20] LABS: Bacteria Urine None Seen (None Seen); Hyaline Casts Urine 0-2 /LPF (0-2); Squamous Epithelial Cell Urine 0-2 /HPF (0-2); WBC Urine 0-5 /HPF (0-5)
== END 2023-02-02 11:54 | disposition home or self-care (01) ==
LOC: HO.HMGCLDS 11:53
PROVIDERS: PCP Nurse Practitioner Family; Visit Provider Urology
DX: N40.1 Benign prostatic hyperplasia with lower urinary tract symptoms (principal); N13.8 Other obstructive and reflux uropathy
CPT/HCPCS: 81001; 87086

== ENCOUNTER 2023-02-03 05:16 | Emergency (ER) | payer OTHER, SELFPAY ==
--- NOTE | ~2023-02-03 | CT_ITS ---
EXAMINATION: CT ABDOMEN AND PELVIS WITH CONTRAST CLINICAL INFORMATION: Postop pelvic pain. COMPARISON: CT scan of the abdomen and pelvis dated 10/22/2011. TECHNIQUE: Multidetector volumetric images were obtained from the superior aspect of the liver through the pubic symphysis following administration 85 mL of Omnipaque 350 intravenous contrast. Sagittal and coronal reformatted images were obtained on the technologist's workstation. Oral contrast: No This CT examination was performed using dose optimization techniques as appropriate, variously including the following: *Automated exposure control *Adjustment of mA and/or kV according to patient size (this includes techniques or standardized protocols for targeted exams where dose is matched to indication/reason for exam; i.e. extremities or head) *Use of iterative reconstruction technique DLP: 643 mGy-cm FINDINGS: LUNG BASES: Calcified granuloma anterolaterally in the right lower lobe measures 0.3 cm. No pleural or pericardial effusions. LIVER, GALLBLADDER, AND BILIARY TREE: No hepatic abnormality. Status post cholecystectomy. PANCREAS: Unremarkable. SPLEEN: Unremarkable. ADRENAL GLANDS: Unremarkable. KIDNEYS AND URETERS: The kidneys are normal in size, shape, and attenuation. No hydronephrosis, hydroureter, or calculi seen. No perinephric stranding. BLADDER: There is a small mural based nodule along the superior wall with mild adjacent mural thickening. The nodule itself measures approximately 1.0 x 0.7 x 0.6 cm (image 42, series 6; image 59, series 7). GASTROINTESTINAL TRACT: The stomach, small bowel and appendix are unremarkable. The colon and rectum are unremarkable. ABDOMINAL WALL: No significant hernia is appreciated. LYMPH NODES: No lymphadenopathy. VASCULAR: Unremarkable. PELVIC VISCERA: Prostatic postsurgical changes are seen with associated concavity superiorly without definitive abnormality. OSSEOUS STRUCTURES: Unremarkable. CT/CT abdomen pelvis w IV con IMPRESSION: 1. Postsurgical changes in the prostate gland without overt associated abnormality. 2. Small mural based nodule lungs appear margin of the urinary bladder. This is not well-seen on the recent ultrasound studies. Malignancy cannot be excluded. Direct visualization is recommended.
[2023-02-03 05:37] VITALS: BP 113/73; PULSE 64; RESP 16; TEMP 36.5; O2SAT 97; BMI 28.8
[2023-02-03 06:18] VITALS: BP 136/79; PULSE 56; RESP 19; TEMP 36.6; O2SAT 98
[2023-02-03 06:37] LABS: Hematocrit 42.3 % (42.0-52.0); Hemoglobin 14.1 g/dl (14.0-18.0); Mean Corpuscular HGB Conc 33.3 g/dl (31.0-36.0); Mean Corpuscular Hemoglobin 32.1 pg (27.0-33.0); Mean Corpuscular Volume 96.4 fL (80.0-98.0); Mean Platelet Volume 9.3 fL (9.4-12.4); Platelet Count 300 X10*3/uL (160-400); Red Blood Count 4.39 X10*6/uL (4.60-5.80); Red Cell Distribution Width 11.3 % (11.0-16.0); White Blood Count 5.9 X10*3/uL (4.8-10.8)
[2023-02-03 06:40] LABS: Appearance Urine Clear; Color Urine Yellow; Glucose Urine UA Negative (Negative); Leukocyte Esterase Urine Moderate (2+) (Negative); Nitrite Urine Negative (Negative); UMIC TRIGGER UACC YES; Urine Blood Large (3+) (Negative); Urine Ketones Negative (Negative); Urine Protein Negative (Neg-Trace)
[2023-02-03 06:42] LABS: Bacteria Urine None Seen (None Seen); Hyaline Casts Urine 0-2 /LPF (0-2); RBC Urine >20 /HPF (0-2); Squamous Epithelial Cell Urine 0-2 /HPF (0-2); UACC Culture Trigger YES
--- NOTE | 2023-02-03 06:53 | PC.NURSE ---
Report to Robert DIAMOND for continued care.
[2023-02-03 07:13] VITALS: BP 135/73; PULSE 55; RESP 14; TEMP 36.8; O2SAT 97
[2023-02-03 07:14] LABS: Alanine Aminotransferase 22 U/L (0-40); Albumin Level 3.9 g/dL (3.5-5.0); Alkaline Phosphatase 90 U/L (39-117); Anion Gap 11 (12-20); Aspartate Amino Transferase 16 U/L (5-37); Bilirubin Direct 0.3 mg/dL (0.0-0.5); Bilirubin Total 1.5 mg/dL (0.0-1.0); Blood Urea Nitrogen 15 mg/dL (9-16); Calcium 9.4 mg/dL (8.4-10.2); Carbon Dioxide 27 mmol/L (22-29); Chloride 105 mmol/L (96-108); Creatinine Clr Calc Pharmacy 107.4; Estimated Glomerular Filt Rate > 60; Glucose Fasting 86 mg/dL (60-99); Lipase 38 U/L (8-78); Potassium 4.3 mmol/L (3.3-5.1); Sodium 139 mmol/L (135-145); Total Protein 6.7 g/dL (6.5-8.0)
[2023-02-03] MEDS: cefTRIAXone sodium 1 GM in 0.9 % Sodium Chloride 50 ML IV (07:24)
--- NOTE | 2023-02-03 07:45 | ED.GENADULT ---
HPI - General Adult General Chief complaint: General Medical Stated complaint: Post op pain Time Seen by Provider: 02/03/23 06:37 Source: patient Mode of arrival: ambulatory Limitations: no limitations History of Present Illness HPI narrative: 62-year-old male with recent urologic procedure presents with pelvic pain and discomfort. Was doing well the 3 days immediately postop however subsequently, patient has developed painful urination. The pain is a 7109/10. The pain is not radiate. Denies fevers or chills. He also has complained of some mild right low back pain and right groin pain. The symptoms are not worse with movement. He has not tried prior treatment. He has never had pain like this before. He has had some hematuria but that has gotten better. Denies any diarrhea or constipation. He does have some slight leakage since the procedure but nothing significant. Related Data Home Medications Medication Instructions Recorded Confirmed tamsulosin 0.4 mg capsule 1 cap PO BEDTIME 01/19/23 01/19/23 Previous Rx's Medication Instructions Recorded ezetimibe 10 mg tablet (Zetia) 5 mg PO DAILY 90 days #45 tabs 03/14/22 losartan 25 mg tablet 25 mg PO DAILY 90 days #90 tabs 01/22/23 naproxen 500 mg tablet 500 mg PO BID PRN pain 7 days #14 01/23/23 tabs sulfamethoxazole 400 1 tab PO DAILY 5 days #5 tabs 01/23/23 mg-trimethoprim 80 mg tablet (Bactrim) tramadol 50 mg tablet 50 mg PO Q6H PRN pain (scale score 01/23/23 1-3) #8 tabs cephalexin 500 mg tablet 500 mg PO Q12H #14 tabs 02/03/23 phenazopyridine 200 mg tablet 200 mg PO TID PRN pain 6 doses #6 02/03/23 (Pyridium) tabs Allergies Allergy/AdvReac Type Severity Reaction Status Date / Time lisinopril AdvReac Intermediate cough Verified 01/19/23 10:46 Review of Systems Review of Systems: CONSTITUTIONAL: Denies weight loss, fever and chills. HEENT: Denies changes in vision and hearing. RESPIRATORY: Denies SOB and cough. CV: Denies palpitations no CP. GI: Denies abdominal pain, nausea, vomiting and diarrhea. : Positive dysuria and pelvic pain. MSK: Denies myalgia and joint pain. SKIN: Denies rash and pruritus. NEUROLOGICAL: Denies headache and syncope. PSYCHIATRIC: Denies recent changes in mood. Denies anxiety and depression. All other ROS are negative unless in HPI PMFSH Past Medical History Medical History Degenerative disc disease, cervical Elevated cholesterol HTN (hypertension) Lacunar infarction Murmur Retention of urine Surgical History History of carpal tunnel surgery Hx of cholecystectomy Hx of colonoscopy Hx of shoulder surgery Family History Family History Maternal Aunt Diabetes HTN (hypertension) Mother HTN (hypertension) High cholesterol Social History Social History Household Members: Spouse and Children Housing: House Are you a primary direct care counselor to a significant other at home: No Do you presently have visiting nurse or other home services: No Alcohol intake: former Patient Tobacco Use Status: Never used Tobacco e-Cigarette/Vaping Use: Never Used Second Hand Smoke Exposure: No Substance Use Type: Marijuana Advance Directives: No Advance Directives Information Provided: No service: Yes Current occupational status: retired Cognitive needs: No Hearing needs: No Vision needs: No Physical Exam ED Vital Signs: Vital Signs - 24 hr 02/03/23 05:37 02/03/23 06:18 02/03/23 06:18 Temperature 97.7 F 98 F Pulse Rate 64 56 Pulse Rate [Automated] 56 Respiratory Rate 16 19 Blood Pressure 113/73 136/79 Pulse Oximetry 97 98 Oxygen Delivery Method Room Air Room Air 02/03/23 07:13 Temperature 98.2 F Pulse Rate 55 Pulse Rate [Automated] Respiratory Rate 14 Blood Pressure 135/73 Pulse Oximetry 97 Oxygen Delivery Method Room Air BMI result Body Mass Index 28.8 GEN: Well developed, no acute distress, alert, oriented HEENT: Normocephalic, atraumatic, normal external ears, nose appears normal, no oropharyngeal edema or exudates Eyes: Normal to appearance Neck: Supple, no lymphadenopathy Respiratory: Talks in complete sentences, no respiratory distress, clear to auscultation bilaterally Cardiovascular: Regular rate and rhythm, no murmurs rubs or gallops Abdomen: Soft, nontender, nondistended, no guarding, no rebound Back: No CVA tenderness Extremities: No clubbing cyanosis or edema Neurologic: No focal neurologic deficits, cranial nerves 2-12 intact, strength is 5/5 bilaterally, gait normal Skin: No rash : normal external genitalia Course Course Course Narrative: 62-year-old male presents with pelvic pain and dysuria. She is status post urologic procedure. Concerning for postop complication although I doubt at this time. He has no significant tenderness rebound. Will check a CT scan. Patient reports having developed rapid infections in the past will order dose of ceftriaxone. Will check laboratory analysis, urinalysis re-evaluate the patient. Reevaluation(s) Reevaluation #1: Workup is complete. CT scan shows a nodule on the bladder. This was discussed with the patient. He will follow-up with his urologist about this finding. Patient will go ahead and start Keflex 500 mg twice daily until he follows up with his urologist. Medications Administered Discontinued Medications Generic Name Dose Route Start Last Admin Trade Name Freq PRN Reason Stop Dose Admin Ceftriaxone Sodium 1 gm/ 50 mls @ 100 mls/hr 02/03/23 06:59 02/03/23 07:45 Sodium Chloride IV 02/03/23 07:28 Infused ONCE ONE Infusion Iohexol 85 ml 02/03/23 08:00 02/03/23 08:01 Iohexol 350 Mg/Ml 100 Ml Infus..Btl IV 02/03/23 08:01 85 ml ONCE ONE Administration Medical Decision Making Medical Decision Making [facility] Narrative: 62-year-old male presents with pelvic pain and dysuria following a urologic procedure. Examination was benign. Will check a CT scan to rule out postoperative complaints. Will check urinalysis. Will treat at this time for possible urinary tract infection. Differential Diagnosis Differential Diagnoses: The differential diagnosis associated with the presentation includes (UTI, pyelonephritis, postop complication, bladder spasm, dysuria) Pelvic pain, dysuria Admission/Observation Consideration of admission/observation: Escalation of care including admission/observation considered Lab Data [facility] Lab Attestation statement: I reviewed the patient's lab results. 02/03/23 06:29 02/03/23 06:29 Labs: Lab Results 02/03/23 02/03/23 02/03/23 Range/Units 06:29 06:29 06:32 WBC 5.9 (4.8-10.8) X10*3/uL RBC 4.39 L (4.60-5.80) X10*6/uL Hgb 14.1 (14.0-18.0) g/dl Hct 42.3 (42.0-52.0) % MCV 96.4 (80.0-98.0) fL MCH 32.1 (27.0-33.0) pg MCHC 33.3 (31.0-36.0) g/dl RDW 11.3 (11.0-16.0) % Plt Count 300 (160-400) X10*3/uL MPV 9.3 L (9.4-12.4) fL Absolute Nucleated RBC 0.000 (0.0-0.012) X10*3/uL Nucleated RBC % (auto) 0.0 (0.0-0.2) /100WBC Sodium 139 (135-145) mmol/L Potassium 4.3 (3.3-5.1) mmol/L Chloride 105 (96-108) mmol/L Carbon Dioxide 27 (22-29) mmol/L Anion Gap 11 L (12-20) BUN 15 (9-16) mg/dL Creatinine 0.87 (0.5-1.4) mg/dL Estim Creat Clear Calc 107.4 Estimated GFR > 60 Fasting Glucose 86 (60-99) mg/dL Calcium 9.4 (8.4-10.2) mg/dL Total Bilirubin 1.5 H (0.0-1.0) mg/dL Direct Bilirubin 0.3 (0.0-0.5) mg/dL AST 16 (5-37) U/L ALT 22 (0-40) U/L Alkaline Phosphatase 90 (39-117) U/L Total Protein 6.7 (6.5-8.0) g/dL Albumin 3.9 (3.5-5.0) g/dL Lipase 38 (8-78) U/L Urine Color Yellow Urine Appearance Clear Urine pH 5.0 (5.0-9.0) Ur Specific [place] 1.010 (1.005-1.025) Urine Protein Negative (Neg-Trace) mg/dL Urine Glucose (UA) Negative (Negative) mg/dL Urine Ketones Negative (Negative) mg/dL Urine Blood Large (3+) H (Negative) Urine Nitrite Negative (Negative) Ur Leukocyte Esterase Moderate (2+) H (Negative) Urine RBC >20 H (0-2) /HPF Urine WBC 11-20 H (0-5) /HPF Ur Squamous Epith Cells 0-2 (0-2) /HPF Urine Bacteria None Seen (None Seen) Hyaline Casts 0-2 (0-2) /LPF Independent Interpretation I performed an independent interpretation of an: CT Scan (No obvious acute ) External Record Review External record reviewed: Outpatient record (Urologic procedure on 01/23/2023) Prescription Management I considered prescription management with: Pain Medication and Antibiotic Chronic Conditions Patient?s care impacted by: Other (BPH) Discharge Plan Discharge Clinical Impression: Acute pelvic pain, Dysuria, Abnormal radiologic findings on diagnostic imaging of renal pelvis, ureter, or bladder Patient Disposition: Home, Self-Care Instructions: Pelvic Pain in Men (ED), Dysuria (ED) Additional Instructions: I will prescribe Keflex 500 mg twice daily for you. You should take this until he follow-up with urologist. There is no definite indication that there is urinary tract infection however. Additionally, there is a nodule seen on her bladder. This should be followed by urologist as well. Prescriptions: New cephalexin 500 mg tablet 500 mg PO Q12H Qty: 14 0RF phenazopyridine [Pyridium] 200 mg tablet 200 mg PO TID PRN (Reason: pain) Qty: 6 0RF No Action ezetimibe [Zetia] 10 mg tablet 5 mg PO DAILY 90 Days Qty: 45 3RF losartan 25 mg tablet 25 mg PO DAILY 90 Days Qty: 90 3RF tamsulosin 0.4 mg capsule 1 cap PO BEDTIME sulfamethoxazole-trimethoprim [Bactrim] 400-80 mg tablet 1 tab PO DAILY 5 Days Qty: 5 0RF tramadol 50 mg tablet 50 mg PO Q6H PRN (Reason: pain (scale score 1-3)) Qty: 8 0RF naproxen 500 mg tablet 500 mg PO BID PRN (Reason: pain) 7 Days Qty: 14 0RF Referrals: Dago Walls MD [Physician] - 2 days
[2023-02-03] MEDS: iohexoL 350 MG/ML 100 ML INFUS..BTL 85 ML IV (08:01)
== END 2023-02-03 09:39 | disposition home or self-care (01) ==
PROVIDERS: Emergency Provider Emergency Medicine; PCP Nurse Practitioner Family
DX: R10.2 Pelvic and perineal pain (principal); R30.9 Painful micturition, unspecified; R30.0 Dysuria; R93.41 Abnormal radiologic findings on diagnostic imaging of renal pelvis, ureter, or bladder; I10 Essential (primary) hypertension
CPT/HCPCS: 36415; 74177; 80048; 80076; 81001; 83690; 85027; 87086; 96365; 99284; J0696; Q9967

== ENCOUNTER → 2023-03-03 11:23 | Outpatient (BNVA) | payer OTHER, SELFPAY | PROVIDERS: PCP Nurse Practitioner Family; Visit Provider Urology | DX: N40.1 Benign prostatic hyperplasia with lower urinary tract symptoms (principal); N13.8 Other obstructive and reflux uropathy; R39.14 Feeling of incomplete bladder emptying | CPT/HCPCS: 51798 ==

== ENCOUNTER → 2023-05-11 07:29 | Outpatient (BNVA) | payer OTHER, SELFPAY | PROVIDERS: PCP Nurse Practitioner Family; Visit Provider Psychiatry & Neurology Neurology ==

== ENCOUNTER 2023-05-25 11:51 | Outpatient (REF) | payer OTHER, SELFPAY ==
[2023-05-25 13:31] LABS: Alanine Aminotransferase 15 U/L (0-40); Alkaline Phosphatase 80 U/L (39-117); Aspartate Amino Transferase 16 U/L (5-37); Bilirubin Direct 0.6 mg/dL (0.0-0.5); Bilirubin Total 2.8 mg/dL (0.0-1.0)
== END 2023-05-25 11:52 | disposition home or self-care (01) ==
LOC: HO.LAB 11:51
PROVIDERS: PCP Nurse Practitioner Family; Visit Provider Nurse Practitioner Family
DX: R10.9 Unspecified abdominal pain (principal); R17 Unspecified jaundice
CPT/HCPCS: 36415; 80076

== ENCOUNTER → 2023-05-28 20:30 | Outpatient (REF) | payer OTHER, SELFPAY | LOC: HO.SL 20:30 | PROVIDERS: PCP Nurse Practitioner Family; Visit Provider Psychiatry & Neurology Neurology | DX: R06.83 Snoring (principal); G47.10 Hypersomnia, unspecified; I10 Essential (primary) hypertension | CPT/HCPCS: 95810 ==

== ENCOUNTER 2023-06-27 14:51 | Outpatient (AMB) | payer OTHER, SELFPAY ==
[2023-06-27 14:57] VITALS: BP 124/83; PULSE 61; BMI 27.8
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
== END 2023-06-27 16:05 | disposition home or self-care (01) ==
PROVIDERS: PCP Nurse Practitioner Family; Visit Provider Nurse Practitioner Family
DX: Z01.818 Encounter for other preprocedural examination (principal); Z12.11 Encounter for screening for malignant neoplasm of colon
CPT/HCPCS: 99213

== ENCOUNTER → 2023-06-27 14:51 | Outpatient (BNVA) | payer OTHER, SELFPAY | PROVIDERS: PCP Nurse Practitioner Family; Visit Provider Nurse Practitioner Family ==

== ENCOUNTER 2023-06-30 14:21 | Outpatient (REF) | payer OTHER, SELFPAY ==
--- NOTE | ~2023-06-30 | MR_ITS ---
EXAMINATION: MRA NECK WITH AND WITHOUT CONTRAST MRA HEAD WITH AND WITHOUT CONTRAST CLINICAL INFORMATION: History of TIA COMPARISON: MRI brain 01/03/2023 TECHNIQUE: 3D [id number] MR angiography was performed through the brain and neck without the use of intravenous contrast, and source images were reviewed along with rotating MIPs. Finally, bolus IV and postcontrast MR angiography was performed through the craniocervical vasculature. Source images were reviewed and additional volumetric and angled MIPs were independently generated and archived by the 3D laboratory. Stenoses are assessed in accordance with NASCET criteria unless otherwise indicated. Intravenous contrast: 10 mL Gadavist. FINDINGS: MRA HEAD: The anterior and posterior intracranial arterial circulations are normal in caliber. No significant arterial stenoses in no acute arterial occlusions. Suggestion of a 2 mm inferomedially projecting vascular protrusion arising from the right. Traumatic ICA which may reflect a small infundibulum versus aneurysm (image 92, series 3). No high flow vascular malformations. No evidence of arteriovenous shunting lesion. 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 ENT consultation advised. Recommend further characterization with contrast-enhanced neck CT or MRI. Limited imaging of the brain demonstrates mild age-appropriate generalized cerebral volume loss and scattered mild paranasal sinus mucosal disease. MRA NECK: Classic 3 vessel branching pattern of the aortic arch. Origins of the great vessels are widely patent. The common and cervical internal carotid arteries are normal in course and caliber. The left vertebral artery is dominant. No significant ostial stenosis is visualized on either side. Both vertebral arteries are widely patent throughout their extracranial cervical course. MR/MR angio head wo/w con IMPRESSION: 1. No significant arterial steno-occlusive disease within the head or neck. Suggestion of a 2 mm inferomedially projecting vascular protrusion arising from the right. Traumatic ICA which may reflect a small infundibulum versus aneurysm (image 92, series 3). 2. 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 ENT consultation advised. Recommend further characterization with contrast-enhanced neck CT or MRI. Findings to be called to the ordering clinician by a [place] [facility] Physician Field Director.
--- NOTE | ~2023-06-30 | MR_ITS ---
EXAMINATION: MRA NECK WITH AND WITHOUT CONTRAST MRA HEAD WITH AND WITHOUT CONTRAST CLINICAL INFORMATION: History of TIA COMPARISON: MRI brain 01/03/2023 TECHNIQUE: 3D [id number] MR angiography was performed through the brain and neck without the use of intravenous contrast, and source images were reviewed along with rotating MIPs. Finally, bolus IV and postcontrast MR angiography was performed through the craniocervical vasculature. Source images were reviewed and additional volumetric and angled MIPs were independently generated and archived by the [facility] laboratory. Stenoses are assessed in accordance with NASCET criteria unless otherwise indicated. Intravenous contrast: 10 mL Gadavist. FINDINGS: MRA HEAD: The anterior and posterior intracranial arterial circulations are normal in caliber. No significant arterial stenoses in no acute arterial occlusions. Suggestion of a 2 mm inferomedially projecting vascular protrusion arising from the right. Traumatic ICA which may reflect a small infundibulum versus aneurysm (image 92, series 3). No high flow vascular malformations. No evidence of arteriovenous shunting lesion. 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 ENT consultation advised. Recommend further characterization with contrast-enhanced neck CT or MRI. Limited imaging of the brain demonstrates mild age-appropriate generalized cerebral volume loss and scattered mild paranasal sinus mucosal disease. MRA NECK: Classic 3 vessel branching pattern of the aortic arch. Origins of the great vessels are widely patent. The common and cervical internal carotid arteries are normal in course and caliber. The left vertebral artery is dominant. No significant ostial stenosis is visualized on either side. Both vertebral arteries are widely patent throughout their extracranial cervical course. MR/MR angio neck wo/w con IMPRESSION: 1. No significant arterial steno-occlusive disease within the head or neck. Suggestion of a 2 mm inferomedially projecting vascular protrusion arising from the right. Traumatic ICA which may reflect a small infundibulum versus aneurysm (image 92, series 3). 2. 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 ENT consultation advised. Recommend further characterization with contrast-enhanced neck CT or MRI. Findings to be called to the ordering clinician by a [place] [facility] Physician Pattern Hanger.
== END 2023-06-30 14:22 | disposition home or self-care (01) ==
LOC: HO.MRI 14:21
PROVIDERS: PCP Nurse Practitioner Family; Visit Provider Psychiatry & Neurology Neurology
DX: I63.9 Cerebral infarction, unspecified (principal); Z86.73 Personal history of transient ischemic attack (TIA), and cerebral infarction without residual deficits
CPT/HCPCS: 70546; 70549; A9585

== ENCOUNTER 2023-07-04 08:23 | Outpatient (REF) | payer OTHER, SELFPAY ==
--- NOTE | ~2023-07-04 | US_ITS ---
EXAMINATION: US ABDOMEN COMPLETE CLINICAL INFORMATION: Unspecified jaundice. COMPARISON: CT abdomen and pelvis 02/03/2023. Ultrasound abdomen complete 08/10/2021 and 01/18/2014. TECHNIQUE: Real-time imaging of the abdominal viscera. FINDINGS: PANCREAS: Head and body the pancreas are normal. The tail is not well visualized due to bowel gas. ABDOMINAL AORTA: The proximal and mid abdominal aorta are normal in caliber. The distal abdominal aorta is not well visualized due to bowel gas. INFERIOR VENA CAVA: Visualized portions are normal. LIVER: Normal. The liver is normal in size. The liver contour is normal. Parenchymal echogenicity is normal. No focal hepatic lesion. There is no intrahepatic biliary duct dilatation seen. GALLBLADDER: Surgically absent. COMMON BILE DUCT: Normal in caliber measuring 0.5 cm in diameter. RIGHT KIDNEY: Normal. No hydronephrosis. No renal calculi or focal parenchymal lesions. The kidney measures 11.7 cm in maximum dimension. LEFT KIDNEY: Normal. No hydronephrosis. No renal calculi or focal parenchymal lesions. The kidney measures 12.2 cm in maximum dimension. SPLEEN: Normal. The spleen measures 11.0 cm in maximum dimension. FREE FLUID: None. US/US abdomen complete IMPRESSION: Limited visualization of the tail of the pancreas and distal abdominal aorta. Otherwise unremarkable exam.
== END 2023-07-04 08:24 | disposition home or self-care (01) ==
LOC: HO.HMGCX 08:23
PROVIDERS: PCP Nurse Practitioner Family; Visit Provider Nurse Practitioner Family
DX: R17 Unspecified jaundice (principal)
CPT/HCPCS: 76700

== ENCOUNTER 2023-07-19 10:20 | Outpatient (AMB) | payer OTHER, SELFPAY ==
--- NOTE | 2023-07-19 10:30 | MHC.OFFVIS ---
Intake Vital Signs 07/19/23 10:32 Height 6 ft Weight 199 lb 6 oz BMI 27.0 BP 122/76 Blood Pressure Location Lt brachial Position Sitting Respiration 14 Pulse 60 Pulse Source Pulse Oximeter Pulse Oximetry (%) 98 Oxygen Delivery Method Room Air Intake Visit Reasons: follow up-confirmed Intake Note: pt states he does not like the CPAP. Patient states he wears it on and off Allergies lisinopril Adverse Reaction (Intermediate, Verified 07/19/23 10:31) cough PFSH Medical History BPH (benign prostatic hyperplasia) Cerebellar cerebrovascular accident (CVA) without late effect Cerebellar stroke Degenerative disc disease, cervical Elevated cholesterol Tow[place] syndrome HTN (hypertension) Hypersomnia Lacunar infarction Murmur Retention of urine Snoring White matter disease Surgical History History of carpal tunnel surgery Hx of cholecystectomy Hx of colonoscopy Hx of shoulder surgery Family History Maternal Aunt Diabetes HTN (hypertension) Mother HTN (hypertension) High cholesterol Family/Other Heart disease Social History Household Members: Spouse and Children Housing: House Are you a primary career services coordinator to a significant other at home: No Do you presently have visiting nurse or other home services: No Alcohol intake: former Patient Tobacco Use Status: Never used Tobacco e-Cigarette/Vaping Use: Never Used Second Hand Smoke Exposure: No Substance Use Type: Marijuana service: Yes Current occupational status: retired Cognitive needs: No Hearing needs: No Vision needs: No Coding Diagnoses
[2023-07-19 10:32] VITALS: BP 122/76; PULSE 60; RESP 14; O2SAT 98; BMI 27.0
[2023-07-19 10:35] VITALS: BMI 27.0
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
== END 2023-07-19 10:55 | disposition home or self-care (01) ==
PROVIDERS: PCP Nurse Practitioner Family; Visit Provider Psychiatry & Neurology Neurology
DX: G47.33 Obstructive sleep apnea (adult) (pediatric) (principal); I69.398 Other sequelae of cerebral infarction
CPT/HCPCS: 99213

== ENCOUNTER → 2023-07-19 10:20 | Outpatient (BNVA) | payer OTHER, SELFPAY | PROVIDERS: PCP Nurse Practitioner Family; Visit Provider Psychiatry & Neurology Neurology ==

== ENCOUNTER 2023-08-17 16:54 | Outpatient (REF) | payer OTHER, SELFPAY ==
[2023-08-17 17:08] LABS: MANUAL DIFF FLAG NO
[2023-08-17 17:25] LABS: Basophils Percent Auto 0.8 % (0-2); Eosinophils Absolute Auto 0.2 X10*3/uL (0.0-0.4); Hematocrit 40.4 % (42.0-52.0); Hemoglobin 13.2 g/dl (14.0-18.0); Imm Gran Abs Auto 0.01 X10*3/uL (0.00-0.03); Imm Gran Pct Auto 0.2 % (0.0-0.4); Lymphocytes Absolute Auto 1.9 X10*3/uL (1.2-4.9); Lymphocytes Percent Auto 36.4 % (20-40); Mean Corpuscular HGB Conc 32.7 g/dl (31.0-36.0); Mean Corpuscular Hemoglobin 32.4 pg (27.0-33.0); Mean Platelet Volume 10.1 fL (9.4-12.4); Monocytes Absolute Auto 0.5 X10*3/uL (0.1-1.2); Monocytes Percent Auto 9.7 % (2-11); Neutrophils Absolute Auto 2.6 x10*3/uL (2.0-8.3); Neutrophils Percent Auto 48.9 % (45-73); Platelet Count 293 X10*3/uL (160-400); Red Blood Count 4.08 X10*6/uL (4.60-5.80); Red Cell Distribution Width 12.1 % (11.0-16.0); White Blood Count 5.3 X10*3/uL (4.8-10.8)
[2023-08-17 17:50] LABS: Alanine Aminotransferase 19 U/L (0-40); Albumin Level 4.1 g/dL (3.5-5.0); Alkaline Phosphatase 81 U/L (39-117); Anion Gap 10 (12-20); Aspartate Amino Transferase 19 U/L (5-37); Bilirubin Total 2.1 mg/dL (0.0-1.0); Blood Urea Nitrogen 21 mg/dL (9-16); Calcium 9.7 mg/dL (8.4-10.2); Carbon Dioxide 27 mmol/L (22-29); Chloride 106 mmol/L (96-108); Estimated Glomerular Filt Rate > 60; Glucose Random 79 mg/dL (60-115); Potassium 4.2 mmol/L (3.3-5.1); Sodium 139 mmol/L (135-145); Total Protein 7.1 g/dL (6.5-8.0)
[2023-08-17 18:02] LABS: Prostate Specific Antigen 1.54 ng/mL (<0.05-4.0)
[2023-08-17 18:07] LABS: Ferritin 630 ng/mL (20-250)
== END 2023-08-17 16:55 | disposition home or self-care (01) ==
LOC: HO.LAB 16:54
PROVIDERS: Internal Medicine Medical Oncology; PCP Nurse Practitioner Family; Visit Provider Urology
DX: Z12.5 Encounter for screening for malignant neoplasm of prostate (principal); R79.89 Other specified abnormal findings of blood chemistry
CPT/HCPCS: 36415; 80053; 82728; 84153; 85025

== ENCOUNTER 2023-08-24 14:01 | Outpatient (AMB) | payer OTHER, SELFPAY ==
--- NOTE | 2023-08-24 14:10 | MHC.PC.OV ---
Vital Signs 08/24/23 14:11 Height 6 ft Weight 193 lb 4 oz BMI 26.2 BP 132/86 Blood Pressure Location Lt brachial Position Sitting Pulse 56 Pulse Source Pulse Oximeter Pulse Oximetry (%) 96 Oxygen Delivery Method Room Air Intake Visit Reasons: Annual PE Allergies lisinopril Adverse Reaction (Intermediate, Verified 08/24/23 14:12) cough Tobacco use date assessed: 08/24/23 Dental Screening Dental Screen Date: 08/24/23 Did you have a dental visit in the last 12 months?: Yes Did you have a dental problem in the last 6 months where you did not have access to dental care?: No Was dental information given to patient?: Patient has dentist HPI Annual PE HPI Details seeing hematology, seeing GI, seeing urology, seeing neurology. Ferritin is creeping up. will contact hematology. Pt is VERY active at the gym, 7 miles a day approx. Slight anemia, will recheck levels in approx a few weeks HPI Comments History of Present Illness Details Pt is here for a PE. colonoscopy is up to date [facility] Medical History Obstructive sleep apnea Cerebellar stroke Cerebellar cerebrovascular accident (CVA) without late effect Hypersomnia Snoring Guayanilla syndrome BPH (benign prostatic hyperplasia) White matter disease Lacunar infarction Degenerative disc disease, cervical Elevated cholesterol Murmur HTN (hypertension) Retention of urine Surgical History History of carpal tunnel surgery Hx of shoulder surgery Hx of cholecystectomy Hx of colonoscopy Family History Maternal Aunt Diabetes HTN (hypertension) Mother HTN (hypertension) High cholesterol Family/Other Heart disease Social History Household Members: Spouse and Children Housing: House Are you a primary field care coordinator to a significant other at home: No Do you presently have visiting nurse or other home services: No Alcohol intake: former Patient Tobacco Use Status: Never used Tobacco e-Cigarette/Vaping Use: Never Used Second Hand Smoke Exposure: No Substance Use Type: Marijuana service: Yes Current occupational status: retired Cognitive needs: No Hearing needs: No Vision needs: No Questionnaire Thrive Questionnaire Date Thrive assessed: 12/12/22 ROLA-7 AMB Questionnaire ROLA-7 Date ROLA - 7 assessed: 12/12/22 Source: Developed by Drs. Lm Munoz, Brittany Sharp, Maximiliano Michaels and colleagues, with an educational vanessa from [employer]. Review of Systems Const Denies chills and Denies fever(s) Eyes Denies blurry vision ENT Denies vertigo, Denies dizziness and Denies sore throat Card Denies chest pain at rest, Denies chest pain with activity, Denies diaphoresis, Denies dyspnea and Denies dyspnea on exertion Resp Denies cough, Denies dyspnea, Denies dyspnea on exertion and Denies wheezing GI Denies abdominal pain, Denies melena, Denies hematochezia, Denies constipation, Denies diarrhea and Denies loose stools Denies hematuria Musc Denies numbness and Denies tingling Skin/Breast Denies lesions Neuro Denies vertigo, Denies dizziness, Denies numbness and Denies tingling Psych Denies anxiety, Denies depression, Denies homicidal ideation, Denies suicidal ideation and Denies other (substance abuse) Aller/Immun Denies wheezing Physical exam (Primary Care) Vital Signs: Last Vital Signs Pulse 56 08/24/23 14:11 BP 132/86 08/24/23 14:11 Pulse Ox 96 08/24/23 14:11 Oxygen Delivery Method Room Air 08/24/23 14:11 BMI result Body Mass Index 26.2 Tobacco/Smoking Status: Tobacco use Status Tobacco use date assessed 08/24/23 08/24/23 14:16 Patient Tobacco Use Status Never used Tobacco 08/24/23 14:16 e-Cigarette/Vaping Use Never Used 08/24/23 14:16 Thrive Assessment: Date of Thrive Assessment Date Thrive assessed 12/12/22 08/24/23 14:16 Const General: cooperative Nutritional Appearance: well nourished Orientation/consciousness: patient oriented x3 HENMT Head: Yes normal to inspection, Yes normocephalic and Yes atraumatic Ears: TM normal on the right and TM normal on the left Eyes General: appearance normal, both eyes and all related structures Alignment and Position: alignment normal and position normal Neck Neck: Yes normal visual inspection and Yes no lymphadenopathy Resp Effort & Inspection: normal respiratory effort Auscultation: clear to auscultation bilaterally Cardio Rate: regular rate Rhythm: regular rhythm Heart sounds: S1 normal heart sound present, S2 normal heart sound present and Murmur heart sound present systolic GI Palpation (GI): Soft to palpation and nontender Auscultation: normal bowel sounds Male General Exam: Yes normal external exam Testes: no testicular mass Skin Rashes: no rashes Neuro General: patient oriented x3, moves all extremities, no focal motor deficits and deep tendon reflexes 2+ bilaterally Romberg Test: Negative Extrem Right lower extremity: no edema Left lower extremity: no edema Psych Affect: normal affect Attitude: cooperative Thought process: Normal thought process present Assessment and Plan Assessment & Plan (1) Physical exam: Code(s): Z00.00 - Encounter for general adult medical examination without abnormal findings (2) Anemia: Code(s): D64.9 - Anemia, unspecified Orders: Orders Complete Blood Count Auto Diff Today Z00.00 - Encounter for general adult medical examination without abnormal findings TSH reflex Free T4 Today Z00.00 - Encounter for general adult medical examination without abnormal findings Lipid Panel Today Z00.00 - Encounter for general adult medical examination without abnormal findings AMB EKG-In Office Today Z00.00 - Encounter for general adult medical examination without abnormal findings Comprehensive [place]. Panel Fast Today Z00.00 - Encounter for general adult medical examination without abnormal findings UA CC w/rflx Micro + Cult Today Z00.00 - Encounter for general adult medical examination without abnormal findings Coding Level of Care Code Est Pt Prev Care 40-64y(63500) Diagnoses Physical exam Z00.00 Anemia D64.9
[2023-08-24 14:11] VITALS: BP 132/86; PULSE 56; O2SAT 96; BMI 26.2
== END 2023-08-24 15:14 | disposition home or self-care (01) ==
LOC: HO.HMGC 14:01
PROVIDERS: PCP Nurse Practitioner Family; Visit Provider Nurse Practitioner Family
DX: Z00.00 Encounter for general adult medical examination without abnormal findings (principal); D64.9 Anemia, unspecified
CPT/HCPCS: 99396

== ENCOUNTER 2023-08-25 13:55 | Outpatient (AMB) | payer OTHER, SELFPAY ==
--- NOTE | 2023-08-25 14:03 | MHC.OFFVIS ---
Intake Intake Visit Reasons: 6M PSA(set) Intake Note: Patient is Present for Follow Up PSA Urology Medication: None Antibiotic Allergies: None Blood Thinners: Aspirin Pharmacy:[facility] PVR: 0ml Allergies lisinopril Adverse Reaction (Intermediate, Verified 08/25/23 14:04) cough HPI HPI Comments History of Present Illness Details Doug is a pleasant male. He is a patient of Dr. Fatima. He is seen for the following urologic conditions - lower urinary tract symptoms Six month follow-up PVR 0 cc PSA 1.5 Good flow, no nocturia Twelve month follow-up Lower urinary tract symptoms Prior PVR over 100 cc Current therapy Flomax Initial symptoms weakness of stream with hesitancy and intermittent Intervention - 01/19 GreenLight laser prostatectomy Labs - 07/18 1.9 Imaging - 11/17 bladder ultrasound - PVR 55 cc, estimated prostate size 50-60 gm with a protruding median lobe PFSH Medical History Obstructive sleep apnea Cerebellar stroke Cerebellar cerebrovascular accident (CVA) without late effect Hypersomnia Snoring Protivin syndrome BPH (benign prostatic hyperplasia) White matter disease Lacunar infarction Degenerative disc disease, cervical Elevated cholesterol Murmur HTN (hypertension) Retention of urine Surgical History History of carpal tunnel surgery Hx of shoulder surgery Hx of cholecystectomy Hx of colonoscopy Family History Maternal Aunt Diabetes HTN (hypertension) Mother HTN (hypertension) High cholesterol Family/Other Heart disease Social History Household Members: Spouse and Children Housing: House Are you a primary mall plant caretaker to a significant other at home: No Do you presently have visiting nurse or other home services: No Alcohol intake: former Patient Tobacco Use Status: Never used Tobacco e-Cigarette/Vaping Use: Never Used Second Hand Smoke Exposure: No Substance Use Type: Marijuana service: Yes Current occupational status: retired Cognitive needs: No Hearing needs: No Vision needs: No Review of Systems Const Denies chills and Denies fever(s) Card Reports no additional complaints and Denies syncope Resp Denies cough GI Denies abdominal pain and Denies heartburn Reports as per HPI and Denies change in libido Neuro Denies syncope Psych Denies change in libido Endo Denies change in libido Physical Exam Const General: cooperative, healthy appearing, comfortable and no acute distress Orientation/consciousness: patient oriented x3 HEENT Face and sinus: Yes normal facial exam Mouth: moist mucous membranes Neck Neck: Yes normal visual inspection, Yes full ROM and Yes trachea midline Chest Chest palpation & inspection: normal inspection of the chest Resp Effort & Inspection: normal respiratory effort, able to speak in complete sentences and no respiratory distress GI Inspection: Yes normal to inspection Back/Spine/Pelvis Cervical Spine: normal cervical lordosis Thoracic/Lumbar Spine: thoracic and lumbar spine normal to inspection Skin General skin exam: no rashes or lesions noted Neuro General: patient oriented x3, gait normal, tone normal and moves all extremities Extrem General: Yes normal to inspection and Yes capillary refill normal Office Procedures Post Void Residual Post Residual Void Post Void Residual (PVR): 0 49077-[id number] Void Residual by ultrasound Results AMB Urinalysis, Automated UA Leukoctes 0 [place]/uL Last Edit by Sherice Burris [facility] on 08/25/23 14:13 UA Nitrite Negative Last Edit by Sherice Burris [facility] on 08/25/23 14:13 UA Urobilinogen 0.2 mg/dL Last Edit by Sherice Burris [facility] on 08/25/23 14:13 UA Protein 0 mg/dL Last Edit by Sherice Burris [facility] on 08/25/23 14:13 UA pH 7.5 Last Edit by Sherice Burris [facility] on 08/25/23 14:13 UA Blood 0 Apolinar/uL Last Edit by Sherice Burris [facility] on 08/25/23 14:13 UA Specific [place] 1.010 Last Edit by Sherice Burris [facility] on 08/25/23 14:13 UA Ketone Negative Last Edit by Sherice Burris [facility] on 08/25/23 14:13 UA Bilirubin 0 mg/dL Last Edit by Sherice Burris [facility] on 08/25/23 14:13 UA Glucose 0 mg/dL Last Edit by Sherice Burris [facility] on 08/25/23 14:13 Results Reviewed Results Reviewed: Laboratory Last Values Urine pH (Auto) 7.5 08/25/23 14:04 Specific [place] (Auto) 1.010 08/25/23 14:04 Urine Protein (Auto) 0 mg/dL 08/25/23 14:04 Glucose (UA)(Auto) 0 mg/dL 08/25/23 14:04 Urine Ketones (Auto) Negative 08/25/23 14:04 Urine Blood (Auto) 0 Apolinar/uL 08/25/23 14:04 Urine Nitrite (Auto) Negative 08/25/23 14:04 Urine Bilirubin (Auto) 0 mg/dL 08/25/23 14:04 Urine Urobilinogen (Auto) 0.2 mg/dL 08/25/23 14:04 Leukocyte Esterase (Auto) 0 [place]/uL 08/25/23 14:04 Assessment & Plan Assessment & Plan (1) BPH w urinary obs/LUTS: Code(s): N40.1 - Benign prostatic hyperplasia with lower urinary tract symptoms; N13.8 - Other obstructive and reflux uropathy Orders: Orders AMB Post Void Residual by ultrasound Today R39.14 - Feeling of incomplete bladder emptying Prostate Specific Antigen 08/17/23 Z12.5 - Encounter for screening for malignant neoplasm of prostate AMB Urinalysis Automated Today Z13.9 - Encounter for screening, unspecified Patient Instructions: Imaging studies, laboratory and physical exam results were discussed and reviewed in detail. No major barriers to patient understanding were identified. An opportunity to ask questions regarding the treatment plan was provided. All questions were answered. The patient expressed understanding and agreement with the above treatment plan. The patient is aware they should contact our office by phone for worsening of their current condition or the appearance of new urologic symptoms. Compliance is encouraged with any medications and followup testing that is ordered. It is a privilege to participate in the urologic care of your patient. If you have any questions or concerns regarding treatment for the above conditions, or other urologic issues, please do not hesitate to contact me. The office telephone contact is [phone]. This note is constructed using voice recognition software. 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 Yours sincerely, Dr Dago Walls MD, [facility] - Urology Providers of Expert, Compassionate Care for the Genitourinary System Coding Level of Care Code Est Pt Level 3 (64634) Diagnoses BPH w urinary obs/LUTS N40.1; N13.8 CPT Codes Post Residual Void - PVR CPT Code: 20178-[id number] Void Residual by ultrasound ([id number])
== END 2023-08-25 14:24 | disposition home or self-care (01) ==
PROVIDERS: PCP Nurse Practitioner Family; Visit Provider Urology
DX: N40.1 Benign prostatic hyperplasia with lower urinary tract symptoms (principal); N13.8 Other obstructive and reflux uropathy; Z13.9 Encounter for screening, unspecified
CPT/HCPCS: 99213

== ENCOUNTER → 2023-08-25 13:55 | Outpatient (BNVA) | payer OTHER, SELFPAY | PROVIDERS: Visit Provider Urology | DX: N40.1 Benign prostatic hyperplasia with lower urinary tract symptoms (principal); N13.8 Other obstructive and reflux uropathy | CPT/HCPCS: 51798; 81003 ==

== ENCOUNTER 2023-09-06 15:13 | Outpatient (REF) | payer OTHER, SELFPAY ==
[2023-09-06 15:31] LABS: MANUAL DIFF FLAG NO
[2023-09-06 16:57] LABS: Basophils Percent Auto 0.6 % (0-2); Eosinophils Absolute Auto 0.1 X10*3/uL (0.0-0.4); Eosinophils Percent Auto 2.7 % (0-4); Hematocrit 41.3 % (42.0-52.0); Hemoglobin 13.3 g/dl (14.0-18.0); Lymphocytes Percent Auto 41.8 % (20-40); Mean Corpuscular HGB Conc 32.2 g/dl (31.0-36.0); Mean Corpuscular Hemoglobin 32.3 pg (27.0-33.0); Mean Corpuscular Volume 100.2 fL (80.0-98.0); Mean Platelet Volume 10.3 fL (9.4-12.4); Monocytes Absolute Auto 0.4 X10*3/uL (0.1-1.2); Monocytes Percent Auto 9.1 % (2-11); Neutrophils Absolute Auto 2.2 x10*3/uL (2.0-8.3); Neutrophils Percent Auto 45.8 % (45-73); Platelet Count 321 X10*3/uL (160-400); Red Blood Count 4.12 X10*6/uL (4.60-5.80); White Blood Count 4.8 X10*3/uL (4.8-10.8)
[2023-09-06 17:02] LABS: Appearance Urine Clear; Color Urine Yellow; Glucose Urine UA Negative (Negative); Leukocyte Esterase Urine Negative (Negative); Nitrite Urine Negative (Negative); Specific Gravity - Urine 1.015 (1.005-1.025); Urine Blood Negative (Negative); Urine Ketones Negative (Negative); Urine Protein Negative (Neg-Trace)
[2023-09-06 17:45] LABS: Alanine Aminotransferase 15 U/L (0-40); Alkaline Phosphatase 83 U/L (39-117); Anion Gap 12 (12-20); Aspartate Amino Transferase 19 U/L (5-37); Bilirubin Total 2.6 mg/dL (0.0-1.0); Blood Urea Nitrogen 14 mg/dL (9-16); Calcium 9.8 mg/dL (8.4-10.2); Carbon Dioxide 27 mmol/L (22-29); Chloride 104 mmol/L (96-108); Cholesterol 144 mg/dL (<200); Estimated Glomerular Filt Rate > 60; Glucose Fasting 82 mg/dL (60-99); HDL Cholesterol 36 mg/dL (>40); LDL Cholesterol Calculated 94 mg/dL (<100); Sodium 139 mmol/L (135-145); Total Protein 6.9 g/dL (6.5-8.0); Triglycerides 73 mg/dL (<150)
[2023-09-06 17:53] LABS: TSH reflex Free T4 1.31 uIU/mL (0.32-4.0)
== END 2023-09-06 15:14 | disposition home or self-care (01) ==
LOC: HO.LAB 15:13
PROVIDERS: PCP Nurse Practitioner Family; Visit Provider Nurse Practitioner Family
DX: Z00.00 Encounter for general adult medical examination without abnormal findings (principal); I10 Essential (primary) hypertension; E78.5 Hyperlipidemia, unspecified
CPT/HCPCS: 36415; 80053; 80061; 81003; 84443; 85025

== ENCOUNTER 2023-09-20 14:49 | Outpatient (REF) | payer OTHER, SELFPAY ==
[2023-09-20 16:26] LABS: MANUAL DIFF FLAG NO
[2023-09-20 16:35] LABS: Basophils Percent Auto 0.4 % (0-2); Eosinophils Absolute Auto 0.1 X10*3/uL (0.0-0.4); Eosinophils Percent Auto 2.1 % (0-4); Hematocrit 39.9 % (42.0-52.0); Imm Gran Abs Auto 0.01 X10*3/uL (0.00-0.03); Imm Gran Pct Auto 0.2 % (0.0-0.4); Lymphocytes Absolute Auto 1.7 X10*3/uL (1.2-4.9); Lymphocytes Percent Auto 35.8 % (20-40); Mean Corpuscular HGB Conc 32.6 g/dl (31.0-36.0); Mean Corpuscular Hemoglobin 31.7 pg (27.0-33.0); Mean Corpuscular Volume 97.3 fL (80.0-98.0); Mean Platelet Volume 10.2 fL (9.4-12.4); Monocytes Absolute Auto 0.4 X10*3/uL (0.1-1.2); Monocytes Percent Auto 8.1 % (2-11); Neutrophils Absolute Auto 2.6 x10*3/uL (2.0-8.3); Neutrophils Percent Auto 53.4 % (45-73); Platelet Count 284 X10*3/uL (160-400); Red Cell Distribution Width 11.9 % (11.0-16.0); White Blood Count 4.8 X10*3/uL (4.8-10.8)
[2023-09-20 16:51] LABS: Alanine Aminotransferase 17 U/L (0-40); Albumin Level 3.9 g/dL (3.5-5.0); Alkaline Phosphatase 80 U/L (39-117); Aspartate Amino Transferase 22 U/L (5-37); Bilirubin Total 2.1 mg/dL (0.0-1.0); Calcium 9.6 mg/dL (8.4-10.2); Carbon Dioxide 24 mmol/L (22-29); Chloride 107 mmol/L (96-108); Estimated Glomerular Filt Rate > 60; Glucose Random 95 mg/dL (60-115); Potassium 3.9 mmol/L (3.3-5.1); Sodium 140 mmol/L (135-145); Total Protein 6.9 g/dL (6.5-8.0)
[2023-09-20 17:06] LABS: Ferritin 429 ng/mL (20-250)
[2023-09-20 17:14] LABS: Anion Gap 13 (12-20)
[2023-09-20 17:54] LABS: Blood Urea Nitrogen 16 mg/dL (9-16)
== END 2023-09-20 14:50 | disposition home or self-care (01) ==
LOC: HO.HMGCLDS 14:49
PROVIDERS: Visit Provider Internal Medicine Medical Oncology
DX: D64.9 Anemia, unspecified (principal)
CPT/HCPCS: 36415; 80053; 82728; 85025

== ENCOUNTER 2023-10-12 08:29 | Day surgery (SDC) | payer OTHER, SELFPAY ==
[2023-10-10 11:08] VITALS: BMI 26.2
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
[2023-10-12 08:38] VITALS: BMI 25.0
[2023-10-12 08:51] VITALS: BP 137/76; PULSE 62; RESP 18; TEMP 36.4; O2SAT 98; BMI 24.9
--- NOTE | 2023-10-12 09:30 | MHC.SHP ---
Pre-Procedural Eval Section A Date of Service: 10/12/23 Section B Chief Complaint: screening Relevant Family History (Specify if Yes): No Relevant Social History: None Present Medications: see Short Stay Collaborative assessment Medical History: Significant History (BPH (benign prostatic hyperplasia) Cerebellar cerebrovascular accident (CVA) without late effect Cerebellar stroke Degenerative disc disease, cervical Elevated cholesterol [place] syndrome HTN (hypertension) Hypersomnia Lacunar infarction Murmur Retention of urine Snoring White matter disease) History of Previous Operations: Relevant previous surgery/procedure and date(s) (History of prostate surgery History of carpal tunnel surgery Hx of shoulder surgery Hx of cholecystectomy Hx of colonoscopy) Allergies: Allergies Allergy/AdvReac Type Severity Reaction Status Date / Time lisinopril AdvReac Intermediate cough Verified 08/25/23 14:04 Review of Systems Sugical H&P ROS: Negative: Constitution, Cardiovascular, Respiratory, Neurological, Psychiatric, Hem-Onc, Allergic/Immunologic, Gastrointestinal, Genitourinary, Musculoskeletal, Integumentary, Endocrine and Eyes/Ears/Nose/Throat Exam Surgical H&P Exam: Normal: HEENT, Normal: Heart, Normal: Lungs, Normal: Extremities, Normal: Abdomen, Normal: Skin and Normal: Neurological Plan Diagnosis/Plan: Unchanged I have reviewed the history and physical and performed a pertinent physical examination on my patient. No changes have occurred unless specified. Time Spent With Patient Time: Total time managing care of this patient today ____ minutes.
--- NOTE | 2023-10-12 10:29 | P.OP_ITS ---
Operative Note Operative Note Date of Service: 10/12/23 Narrative: Operative Information Procedure Description: Colonoscopy Indication: screening Anesthesia: MAC COLONOSCOPY Instrument: Olympus variable stiffness pediatric scope 190L Colonoscopy Monitoring: Vital signs and clinical assessment, continuous EKG monitoring, Pulse oximetry, Carbon Dioxide monitoring and blood pressure monitoring were done throughout the procedure. Colon withdrawal time was 11 minutes. Procedure: The patient was placed in the left lateral decubitis position and pre-procedure medications were administered. After a digital rectal examination of the ano-rectum, the video colonoscope was inserted into the rectum and advanced through the colon to the cecum/TI. The colonoscope was slowly withdrawn in a retrograde panoramic fashion and the colon mucosa was carefully examined including a retroflexed view of the rectum. Findings and interventions are described below. Procedure Difficulty: moderate Findings: Terminal Ileum-normal Cecum:normal Ascending Colon: normal Transverse Colon -normal Descending Colon:normal Sigmoid Colon: mild diverticulosis Rectum: Retroflexion with small internal hemorrhoids, grade I Anorectum - normal Colon preparation: [place] Bowel Preparation Scale Right colon; 2 Transverse colon: 2 Left colon; 2 (0 = Unprepared colon segment with mucosa not seen due to solid stool that cannot be cleared. 1 = Portion of mucosa of the colon segment seen, but other areas of the colon segment not well seen due to staining, residual stool and/or opaque liquid. 2 = Minor amount of residual staining, small fragments of stool and/or opaque liquid, but mucosa of colon segment seen well. 3 = Entire mucosa of colon segment seen well with no residual staining, small fragments of stool or opaque liquid) Impression and Post Procedure Diagnosis: internal hemorrhoids diverticular disease Plan: High fiber diet leaflet Avoid straining at stool, epsom salts and sitz bath, anusol supps or cream Repeat Colonoscopy in 10 years or earlier if clinically indicated Above findings were reviewed with the patient and relevant handouts were provided if indicated.
[2023-10-12 11:10] VITALS: BP 85/53; PULSE 61; RESP 17; TEMP 36.2; O2SAT 96
[2023-10-12 11:25] VITALS: BP 113/73; PULSE 58; RESP 16; TEMP 36.2; O2SAT 97
== END 2023-10-12 11:57 | disposition home or self-care (01) ==
PROVIDERS: PCP Nurse Practitioner Family; Visit Provider Internal Medicine Gastroenterology
PROC: 0DJD8ZZ Inspection of Lower Intestinal Tract, Via Natural or Artificial Opening Endoscopic (ICD-10-PCS; CPT 45378; principal; 2023-10-12 10:20)
DX: Z12.11 Encounter for screening for malignant neoplasm of colon (principal); K57.30 Diverticulosis of large intestine without perforation or abscess without bleeding; K64.0 First degree hemorrhoids; E78.5 Hyperlipidemia, unspecified; D64.9 Anemia, unspecified; R01.1 Cardiac murmur, unspecified; G47.33 Obstructive sleep apnea (adult) (pediatric); F12.90 Cannabis use, unspecified, uncomplicated; Z86.73 Personal history of transient ischemic attack (TIA), and cerebral infarction without residual deficits
CPT/HCPCS: 45378; J2704

== ENCOUNTER → 2023-10-12 08:29 | Outpatient (BNV) | payer OTHER, SELFPAY | PROVIDERS: PCP Nurse Practitioner Family; Visit Provider Internal Medicine Gastroenterology | DX: Z12.11 Encounter for screening for malignant neoplasm of colon (principal); K64.0 First degree hemorrhoids; K57.30 Diverticulosis of large intestine without perforation or abscess without bleeding | CPT/HCPCS: 45378 ==

== ENCOUNTER 2023-10-25 08:05 | Outpatient (AMB) | payer OTHER, SELFPAY ==
--- NOTE | 2023-10-25 08:15 | MHC.OFFVIS ---
Intake Vital Signs 10/25/23 08:16 Height 6 ft 1 in Weight 189 lb BMI 24.9 BP 119/78 Blood Pressure Location Lt brachial Position Sitting Pulse 72 Intake Visit Reasons: s/p colon lizarraga Intake Note: Patient follow up Colonoscopy results. Patient denies any GI issues. 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 Patient is due to go for colonoscopy this year. Will schedule the procedure. Patient denies any cardiac or respiratory symptoms. On baby aspirin. Diagnosed with sleep apnea and is using currently CPAP machine. Patient is exercising and lost 18 lb in the last 8 weeks. Patient had prostate surgery in November and did okay with anesthesia. Plan Medications New bisacodyl (Dulcolax (bisacodyl)) take 2 tabs at noon the day before your colonoscopy 10 mg (2 x 5 mg) PO ONCE 2 tabs 0RF 1 day Z12.11 - Encounter for screening for malignant neoplasm of colon polyethylene glycol 3350 (Miralax) As directed by gastroenterology department at [facility] 238 grams PO ONCE 238 grams 0RF Z12.11 - Encounter for screening for malignant neoplasm of colon COLONOSCOPY: Findings: Terminal Ileum-normal Cecum:normal Ascending Colon: normal Transverse Colon -normal Descending Colon:normal Sigmoid Colon: mild diverticulosis Rectum: Retroflexion with small internal hemorrhoids, grade I Anorectum - normal Colon preparation: [place] Bowel Preparation Scale Right colon; 2 Transverse colon: 2 Left colon; 2 (0 = Unprepared colon segment with mucosa not seen due to solid stool that cannot be cleared. 1 = Portion of mucosa of the colon segment seen, but other areas of the colon segment not well seen due to staining, residual stool and/or opaque liquid. 2 = Minor amount of residual staining, small fragments of stool and/or opaque liquid, but mucosa of colon segment seen well. 3 = Entire mucosa of colon segment seen well with no residual staining, small fragments of stool or opaque liquid) Impression and Post Procedure Diagnosis: internal hemorrhoids diverticular disease Plan: High fiber diet leaflet Avoid straining at stool, epsom salts and sitz bath, anusol supps or cream Repeat Colonoscopy in 10 years or earlier if clinically indicated TODAY'S VISIT Patient is here today for follow-up and to discuss colonoscopy results. Patient denies any ill effects from the prep, anesthesia procedure itself. Patient had no polyps, internal hemorrhoids found and diverticulosis to sigmoid colon. Patient denies any melena, hematochezia, unintentional weight loss or ribbon like stools. Patient denies any dyspepsia, dysphagia or odynophagia. Patient reports to have good appetite. Patient is exercising every day and last 30 lb so far. Patient reports to be feeling well. High ferritin and has been followed by fur scraper. Patient denies any GI concerning symptoms reports to be feeling well [facility] Medical History Obstructive sleep apnea Cerebellar stroke Cerebellar cerebrovascular accident (CVA) without late effect Hypersomnia Snoring [place] syndrome BPH (benign prostatic hyperplasia) White matter disease Lacunar infarction Degenerative disc disease, cervical Elevated cholesterol Murmur HTN (hypertension) Retention of urine Surgical History H/O nasal septoplasty History of prostate surgery History of carpal tunnel surgery Hx of shoulder surgery Hx of cholecystectomy Hx of colonoscopy Family History Maternal Aunt Diabetes HTN (hypertension) Mother HTN (hypertension) High cholesterol Family/Other Heart disease Social History Household Members: Spouse and Children Housing: House Are you a primary resident care aid to a significant other at home: No Do you presently have visiting nurse or other home services: No Alcohol intake: former Patient Tobacco Use Status: Never used Tobacco e-Cigarette/Vaping Use: Never Used Second Hand Smoke Exposure: No Substance Use Type: Marijuana service: Yes Current occupational status: retired Cognitive needs: No Hearing needs: No Vision needs: No Review of Systems Const Denies weight gain and Denies weight loss ENT Reports no additional complaints, Denies dysphagia and Denies odynophagia Card Reports no additional complaints Resp Reports no additional complaints GI Denies abdominal pain, Denies belching, Denies melena, Denies bloating, Denies change in bowel habits, Denies dysphagia, Denies excessive flatus, Denies dyspepsia, Denies heartburn, Denies diarrhea, Denies loose stools, Denies nausea, Denies odynophagia and Denies vomiting Reports no additional complaints Musc Reports no additional complaints Neuro Reports no additional complaints Psych Reports no additional complaints Endo Reports no additional complaints Physical Exam Vital Signs: Last Vital Signs Pulse 72 10/25/23 08:16 BP 119/78 10/25/23 08:16 BMI result Body Mass Index 24.9 Const General: healthy appearing, no acute distress and well developed Nutritional Appearance: well nourished Orientation/consciousness: patient oriented x3 HEENT Head: Yes normal to inspection, Yes normocephalic and Yes atraumatic Face and sinus: Yes normal facial exam Mouth: Normal oral and palatal mucosa present Throat: Yes posterior oropharynx normal, Yes tonsils normal and Yes uvula midline Eyes General: appearance normal, both eyes and all related structures Neck Neck: Yes normal visual inspection, Yes full ROM and Yes trachea midline Thyroid: Thyroid normal Resp Effort & Inspection: normal respiratory effort, able to speak in complete sentences, no tracheal deviation and symmetric chest movement Auscultation: clear to auscultation bilaterally Cardio Rate: regular rate Heart sounds: S1 normal heart sound present and S2 normal heart sound present GI Inspection: Yes normal to inspection and No distended Palpation (GI): Soft to palpation, not firm, nontender and No hepatosplenomegaly present Auscultation: normal bowel sounds General: Yes no CVA tenderness Back/Spine/Pelvis Back: no CVA tenderness Skin General skin exam: elasticity normal, turgor normal and dry skin Neuro General: patient oriented x3 Psych Appearance: grossly normal Mental Status: mental status grossly normal Affect: normal affect Assessment & Plan Assessment & Plan (1) Elevated bilirubin: Code(s): R17 - Unspecified jaundice (2) Status post colonoscopy: Code(s): Z98.890 - Other specified postprocedural states (3) Diverticulosis: Code(s): K57.90 - Diverticulosis of intestine, part unspecified, without perforation or abscess without bleeding Plan Colonoscopy will be repeated in 10 years, sooner if clinically necessary. Patient denies any melena, hematochezia, unintentional weight loss or ribbon like stools. Patient will be following up in the office to check his liver and bilirubin in 6 months, sooner on as needed basis. Patient is agreeable to this plan and verbalizes understanding of instructions. He was given the opportunity to ask questions and all questions answered. Thank you for allowing me to participate in his care Coding Level of Care Code Est Pt Level 3 (10120) Diagnoses Elevated bilirubin R17 Status post colonoscopy Z98.890 Diverticulosis K57.90 Time Spent (min) 25 Comment 15 minutes spent with patient and additional 10 minutes spent reviewing her records
[2023-10-25 08:16] VITALS: BP 119/78; PULSE 72; BMI 24.9
== END 2023-10-25 08:56 | disposition home or self-care (01) ==
PROVIDERS: PCP Nurse Practitioner Family; Visit Provider Nurse Practitioner Family
DX: R17 Unspecified jaundice (principal); Z98.890 Other specified postprocedural states; K57.90 Diverticulosis of intestine, part unspecified, without perforation or abscess without bleeding
CPT/HCPCS: 99213

== ENCOUNTER → 2023-10-25 08:05 | Outpatient (BNVA) | payer OTHER, SELFPAY | PROVIDERS: PCP Nurse Practitioner Family; Visit Provider Nurse Practitioner Family ==

== ENCOUNTER 2023-12-19 15:35 | Outpatient (REF) | payer OTHER, SELFPAY | END 2023-12-19 15:36 | disposition home or self-care (01) | LOC: HO.LAB 15:35 | PROVIDERS: PCP Nurse Practitioner Family; Visit Provider Internal Medicine Medical Oncology | DX: Z13.89 Encounter for screening for other disorder (principal) ==

== ENCOUNTER 2023-12-21 07:29 | Outpatient (REF) | payer OTHER, SELFPAY ==
[2023-12-21 11:38] LABS: MANUAL DIFF FLAG NO
[2023-12-21 11:55] LABS: Appearance Urine Cloudy; Color Urine Yellow; Glucose Urine UA Negative (Negative); Leukocyte Esterase Urine Negative (Negative); Nitrite Urine Negative (Negative); Specific Gravity - Urine 1.025 (1.005-1.025); Urine Blood Negative (Negative); Urine Ketones Negative (Negative); Urine Protein Negative (Neg-Trace)
[2023-12-21 12:06] LABS: Basophils Percent Auto 0.2 % (0-2); Eosinophils Absolute Auto 0.1 X10*3/uL (0.0-0.4); Eosinophils Percent Auto 1.7 % (0-4); Hematocrit 42.4 % (42.0-52.0); Hemoglobin 13.5 g/dl (14.0-18.0); Imm Gran Abs Auto 0.01 X10*3/uL (0.00-0.03); Imm Gran Pct Auto 0.2 % (0.0-0.4); Lymphocytes Absolute Auto 1.5 X10*3/uL (1.2-4.9); Lymphocytes Percent Auto 35.5 % (20-40); Mean Corpuscular HGB Conc 31.8 g/dl (31.0-36.0); Mean Corpuscular Hemoglobin 31.7 pg (27.0-33.0); Mean Corpuscular Volume 99.5 fL (80.0-98.0); Mean Platelet Volume 10.1 fL (9.4-12.4); Monocytes Absolute Auto 0.4 X10*3/uL (0.1-1.2); Monocytes Percent Auto 8.9 % (2-11); Neutrophils Absolute Auto 2.2 x10*3/uL (2.0-8.3); Neutrophils Percent Auto 53.5 % (45-73); Platelet Count 320 X10*3/uL (160-400); Red Blood Count 4.26 X10*6/uL (4.60-5.80); Red Cell Distribution Width 11.6 % (11.0-16.0); White Blood Count 4.2 X10*3/uL (4.8-10.8)
[2023-12-21 12:36] LABS: Alanine Aminotransferase 19 U/L (0-40); Albumin Level 3.8 g/dL (3.5-5.0); Alkaline Phosphatase 90 U/L (39-117); Anion Gap 9 (12-20); Aspartate Amino Transferase 20 U/L (5-37); Bilirubin Total 2.2 mg/dL (0.0-1.0); Blood Urea Nitrogen 20 mg/dL (9-16); Calcium 9.5 mg/dL (8.4-10.2); Carbon Dioxide 28 mmol/L (22-29); Chloride 106 mmol/L (96-108); Cholesterol 149 mg/dL (<200); Estimated Glomerular Filt Rate > 60; Glucose Fasting 88 mg/dL (60-99); HDL Cholesterol 36 mg/dL (>40); Iron 119 mcg/dL (45-160); LDL Cholesterol Calculated 98 mg/dL (<100); Percent Iron Saturation 47 % (15-50); Potassium 4.2 mmol/L (3.3-5.1); Sodium 139 mmol/L (135-145); Total Iron Binding Capacity 252 mcg/dL (228-428); Total Protein 6.9 g/dL (6.5-8.0); Triglycerides 76 mg/dL (<150); Unsaturated Iron Binding 133 ug/dL
[2023-12-21 12:40] LABS: TSH reflex Free T4 1.73 uIU/mL (0.32-4.0)
[2023-12-21 12:41] LABS: Ferritin 533 ng/mL (20-250)
== END 2023-12-21 07:30 | disposition home or self-care (01) ==
LOC: HO.HMGCLDS 07:29
PROVIDERS: PCP Nurse Practitioner Family; Visit Provider Nurse Practitioner Family
DX: I10 Essential (primary) hypertension (principal); D64.9 Anemia, unspecified; R79.89 Other specified abnormal findings of blood chemistry
CPT/HCPCS: 36415; 80053; 80061; 81003; 82728; 83540; 84443; 85025

== ENCOUNTER 2023-12-25 09:16 | Outpatient (AMB) | payer OTHER, SELFPAY ==
[2023-12-25 09:22] VITALS: BP 150/88; PULSE 65; O2SAT 97; BMI 26.0
--- NOTE | 2023-12-25 09:22 | MHC.PC.OV ---
Vital Signs 12/25/23 09:22 Height 6 ft 1 in Weight 197 lb 6 oz BMI 26.0 BP 150/88 H Blood Pressure Location Lt brachial Position Sitting Pulse 65 Pulse Source Pulse Oximeter Pulse Oximetry (%) 97 Oxygen Delivery Method Room Air Intake Visit Reasons: 4 month follow up Intake Note: Pt is here for HTN and Lipids Allergies lisinopril Adverse Reaction (Intermediate, Verified 12/25/23 09:28) cough Medication List - Last Reconciled 12/25/23 by JAKE Watson aspirin (Adult Aspirin Regimen) 81 mg PO DAILY ezetimibe 5 mg (1/2 x 10 mg) PO DAILY losartan 25 mg PO DAILY 90 days Tobacco use date assessed: 12/25/23 Dental Screening Dental Screen Date: 12/25/23 Did you have a dental visit in the last 12 months?: Yes Did you have a dental problem in the last 6 months where you did not have access to dental care?: No Was dental information given to patient?: Patient has dentist HPI 4 month follow up HPI Details HTN: Blood pressure is managed with losartan 25mg. BP is elevated today, though pt reports it has been in the 120s/70s at home. Denies chest pain, shortness of breath, headache, dizziness, and blurred vision. Pt is following up with hematology due to elevated ferritin. He is also following up with cardiology and urology. [facility] Medical History Obstructive sleep apnea Cerebellar stroke Cerebellar cerebrovascular accident (CVA) without late effect Hypersomnia Snoring [place] syndrome BPH (benign prostatic hyperplasia) White matter disease Lacunar infarction Degenerative disc disease, cervical Elevated cholesterol Murmur HTN (hypertension) Retention of urine Surgical History H/O nasal septoplasty History of prostate surgery History of carpal tunnel surgery Hx of shoulder surgery Hx of cholecystectomy Hx of colonoscopy Family History Maternal Aunt Diabetes HTN (hypertension) Mother HTN (hypertension) High cholesterol Family/Other Heart disease Social History Household Members: Spouse and Children Housing: House Are you a primary progressive care unit registered nurse to a significant other at home: No Do you presently have visiting nurse or other home services: No Alcohol intake: former Patient Tobacco Use Status: Never used Tobacco e-Cigarette/Vaping Use: Never Used Second Hand Smoke Exposure: No Substance Use Type: Marijuana service: Yes Current occupational status: retired Cognitive needs: No Hearing needs: No Vision needs: No Questionnaire PHQ-9 Over the last 2 weeks, how often have you been bothered by any of the following problems? 1. Little interest or pleasure in doing things: not at all 2. Feeling down, depressed, or hopeless: not at all 3. Trouble falling or staying asleep, or sleeping too much: several days 4. Feeling tired or having little energy: not at all 5. Poor appetite or overeating: not at all 6. Feeling bad about yourself - or that you are a failure or have let yourself or your family down: not at all 7. Trouble concentrating on things, such as reading the newspaper or watching television: not at all 8. Moving or speaking so slowly that other people could have noticed. Or the opposite - being so fidgety or restless that you have been moving around a lot more than usual: not at all 9. Thoughts that you would be better off or of hurting yourself in some way: not at all Total score: 1 Depression Screening Interpretation: Negative Depression Screening Done: Yes 96178 - PHQ-9 Billing: Yes Source: Developed by Drs. Lm Munoz, Brittany Sharp, Maximiliano Michaels and colleagues, with an educational vanessa from [employer]. Thrive Questionnaire Date Thrive assessed: 12/25/23 I am a: Patient What is your living situation today?: I have a steady place to live Within the past 12 months, did the food you bought not last and you didn't have the money to get more?: Never true Within the past 12 months, did you worry whether your food would run out before you got money to buy more?: Never true Do you have trouble paying for medicines?: No Do you have trouble getting transportation to medical appointments?: No Do you have trouble paying your heating and electricity bill?: No Do you have trouble taking care of your child, family member or friend?: No Do you have trouble with day-to-day activities such as bathing, preparing meals, shopping, managing finances, etc.?: No Are you currently unemployed and looking for a job?: No Are you interested in more education?: No Please select the resources that you would like help with: None THRIVE Score: 0 AUDIT C Alcohol Use Questionnaire (AUDIT-C) 1. How often do you have a drink containing alcohol?: Never 3. How often do you have six or more drinks on one occasion?: Never Total Score: 0 ROLA-7 AMB Questionnaire ROLA-7 Date ROLA - 7 assessed: 12/25/23 Feeling nervous, anxious, or on edge: 0 = Not at all Not being able to stop or control worryin = Not at all Worrying too much about different things: 0 = Not at all Trouble relaxin = Several days Being so restless that it is hard to sit still: 1 = Several days Becoming easily annoyed or irritable: 0 = Not at all Feeling afraid as if something awful might happen: 0 = Not at all Total ROLA-7 score (0-4 normal; 5-9 mild; 10-14 moderate; 15-21 severe): 2 Source: Developed by Drs. Lm Munoz, Brittany Sharp, Maximiliano Michaels and colleagues, with an educational vanessa from [employer]. ROLA-7 Assessment Billing ROLA-7 Assessment Tool: ROLA-7 Assessment 15551 Review of Systems Const Reports as per HPI Physical exam (Primary Care) Vital Signs: Last Vital Signs Pulse 65 12/25/23 09:22 BP 150/88 H 12/25/23 09:22 Pulse Ox 97 12/25/23 09:22 Oxygen Delivery Method Room Air 12/25/23 09:22 BMI result Body Mass Index 26.0 Tobacco/Smoking Status: Tobacco use Status Tobacco use date assessed 12/25/23 12/25/23 09:30 Patient Tobacco Use Status Never used Tobacco 12/25/23 09:30 e-Cigarette/Vaping Use Never Used 12/25/23 09:30 PHQ-9: PHQ-9 Score PHQ-9: Total score 1 12/25/23 09:33 Depression Screening Interpretation: Negative Thrive Assessment: Date of Thrive Assessment Date Thrive assessed 12/25/23 12/25/23 09:32 Const General: cooperative Orientation/consciousness: patient oriented x3 Resp Effort & Inspection: normal respiratory effort Auscultation: clear to auscultation bilaterally Cardio Rate: regular rate Rhythm: regular rhythm Heart sounds: S1 normal heart sound present, S2 normal heart sound present and Murmur heart sound present systolic Neuro General: patient oriented x3 Extrem Right lower extremity: no edema Left lower extremity: no edema Psych Appearance: grossly normal Mental Status: mental status grossly normal Speech and movement: Normal speech and movement present Affect: normal affect Attitude: cooperative Thought process: Normal thought process present Thought content: Normal thought content present Insight: Good insight present (Psych) Judgement: Good judgement present (Psych) Assessment and Plan Assessment & Plan (1) HTN (hypertension): Code(s): I10 - Essential (primary) hypertension Plan: Continue to monitor at home Plan The patient agreed to the use of a medical office coordinator for this encounter. Scribed for JAKE James by Kavitha Moran medical office coordinator, on 12/25/2023 at 09:40 EST. Orders: Orders Comprehensive [place]. Panel Fast Today I10 - Essential (primary) hypertension TSH reflex Free T4 Today I10 - Essential (primary) hypertension Lipid Panel Today I10 - Essential (primary) hypertension Complete Blood Count Auto Diff Today I10 - Essential (primary) hypertension UA CC w/rflx Micro + Cult Today I10 - Essential (primary) hypertension Medications: Refilled losartan 25 mg PO DAILY 90 tabs 3RF 90 days Coding Level of Care Code Est Pt Level 3 (77385) Diagnoses HTN (hypertension) I10 Additional Codes ROLA-7 Assessment Billing - ROLA-7 Assessment Tool: ROLA-7 Assessment 04471 ([id number])
== END 2023-12-25 09:47 | disposition home or self-care (01) ==
PROVIDERS: PCP Nurse Practitioner Family; Visit Provider Nurse Practitioner Family
DX: I10 Essential (primary) hypertension (principal)
CPT/HCPCS: 99213

== ENCOUNTER 2024-01-12 12:13 | Outpatient (REF) | payer OTHER, SELFPAY ==
[2024-01-12 12:30] LABS: MANUAL DIFF FLAG NO
[2024-01-12 13:28] LABS: Basophils Percent Auto 0.3 % (0-2); Eosinophils Absolute Auto 0.2 X10*3/uL (0.0-0.4); Eosinophils Percent Auto 2.7 % (0-4); Hematocrit 44.2 % (42.0-52.0); Hemoglobin 14.5 g/dl (14.0-18.0); Imm Gran Abs Auto 0.02 X10*3/uL (0.00-0.03); Imm Gran Pct Auto 0.3 % (0.0-0.4); Lymphocytes Absolute Auto 2.1 X10*3/uL (1.2-4.9); Lymphocytes Percent Auto 30.9 % (20-40); Mean Corpuscular HGB Conc 32.8 g/dl (31.0-36.0); Mean Corpuscular Hemoglobin 32.4 pg (27.0-33.0); Mean Corpuscular Volume 98.7 fL (80.0-98.0); Mean Platelet Volume 10.1 fL (9.4-12.4); Monocytes Absolute Auto 0.5 X10*3/uL (0.1-1.2); Monocytes Percent Auto 7.4 % (2-11); Neutrophils Percent Auto 58.4 % (45-73); Platelet Count 301 X10*3/uL (160-400); Red Blood Count 4.48 X10*6/uL (4.60-5.80); Red Cell Distribution Width 11.7 % (11.0-16.0); White Blood Count 6.8 X10*3/uL (4.8-10.8)
[2024-01-12 14:08] LABS: Alanine Aminotransferase 25 U/L (0-40); Alkaline Phosphatase 93 U/L (39-117); Anion Gap 10 (12-20); Aspartate Amino Transferase 48 U/L (5-37); Bilirubin Total 1.9 mg/dL (0.0-1.0); Blood Urea Nitrogen 20 mg/dL (9-16); Calcium 9.5 mg/dL (8.4-10.2); Carbon Dioxide 30 mmol/L (22-29); Chloride 104 mmol/L (96-108); Cholesterol 153 mg/dL (<200); Estimated Glomerular Filt Rate > 60; Glucose Fasting 65 mg/dL (60-99); HDL Cholesterol 39 mg/dL (>40); LDL Cholesterol Calculated 70 mg/dL (<100); Potassium 4.4 mmol/L (3.3-5.1); Sodium 140 mmol/L (135-145); Total Protein 7.4 g/dL (6.5-8.0); Triglycerides 223 mg/dL (<150)
[2024-01-12 14:11] LABS: TSH reflex Free T4 1.99 uIU/mL (0.32-4.0)
[2024-01-12 14:53] LABS: Appearance Urine Clear; Color Urine Yellow; Glucose Urine UA Negative (Negative); Leukocyte Esterase Urine Negative (Negative); Nitrite Urine Negative (Negative); Urine Blood Negative (Negative); Urine Ketones Negative (Negative); Urine Protein Negative (Neg-Trace)
== END 2024-01-12 12:14 | disposition home or self-care (01) ==
LOC: HO.LAB 12:13
PROVIDERS: PCP Nurse Practitioner Family; Referring Provider Internal Medicine Medical Oncology; Visit Provider Nurse Practitioner Family
DX: I10 Essential (primary) hypertension (principal)
CPT/HCPCS: 36415; 80053; 80061; 81003; 84443; 85025

== ENCOUNTER 2024-02-03 08:19 | Outpatient (REF) | payer OTHER, SELFPAY ==
[2024-02-03 08:36] LABS: MANUAL DIFF FLAG NO
[2024-02-03 09:11] LABS: Basophils Percent Auto 0.4 % (0-2); Eosinophils Absolute Auto 0.1 X10*3/uL (0.0-0.4); Eosinophils Percent Auto 1.8 % (0-4); Hematocrit 43.4 % (42.0-52.0); Hemoglobin 14.5 g/dl (14.0-18.0); Lymphocytes Absolute Auto 1.3 X10*3/uL (1.2-4.9); Lymphocytes Percent Auto 28.7 % (20-40); Mean Corpuscular HGB Conc 33.4 g/dl (31.0-36.0); Mean Corpuscular Volume 98.6 fL (80.0-98.0); Mean Platelet Volume 9.7 fL (9.4-12.4); Monocytes Absolute Auto 0.4 X10*3/uL (0.1-1.2); Monocytes Percent Auto 8.9 % (2-11); Neutrophils Absolute Auto 2.7 x10*3/uL (2.0-8.3); Neutrophils Percent Auto 60.2 % (45-73); Platelet Count 281 X10*3/uL (160-400); Red Cell Distribution Width 11.5 % (11.0-16.0); White Blood Count 4.5 X10*3/uL (4.8-10.8)
[2024-02-03 09:50] LABS: Alanine Aminotransferase 22 U/L (0-40); Alkaline Phosphatase 89 U/L (39-117); Anion Gap 10 (12-20); Aspartate Amino Transferase 20 U/L (5-37); Bilirubin Direct 0.4 mg/dL (0.0-0.5); Bilirubin Total 1.4 mg/dL (0.0-1.0); Blood Urea Nitrogen 15 mg/dL (9-16); Calcium 9.5 mg/dL (8.4-10.2); Carbon Dioxide 29 mmol/L (22-29); Chloride 107 mmol/L (96-108); Estimated Glomerular Filt Rate > 60; Glucose Random 96 mg/dL (60-115); Iron 62 mcg/dL (45-160); Percent Iron Saturation 25 % (15-50); Potassium 4.4 mmol/L (3.3-5.1); Sodium 142 mmol/L (135-145); Total Iron Binding Capacity 244 mcg/dL (228-428); Total Protein 7.1 g/dL (6.5-8.0); Unsaturated Iron Binding 182 ug/dL
[2024-02-03 10:09] LABS: Ferritin 363 ng/mL (20-250)
== END 2024-02-03 08:20 | disposition home or self-care (01) ==
LOC: HO.LAB 08:19
PROVIDERS: Internal Medicine Medical Oncology; PCP Nurse Practitioner Family; Visit Provider Nurse Practitioner Family
DX: R74.8 Abnormal levels of other serum enzymes (principal); R79.89 Other specified abnormal findings of blood chemistry
CPT/HCPCS: 36415; 80053; 80076; 82248; 82728; 83540; 85025

== ENCOUNTER 2024-02-06 14:07 | Outpatient (AMB) | payer OTHER, SELFPAY ==
[2024-02-06 14:16] VITALS: BP 134/75; PULSE 66; BMI 25.7
--- NOTE | 2024-02-06 14:16 | MHC.OFFVIS ---
Intake Vital Signs 02/06/24 14:16 Height 6 ft 1 in Weight 194 lb 7.163 oz BMI 25.7 BP 134/75 Blood Pressure Location Lt brachial Position Sitting Pulse 66 Pulse Source Pulse Oximeter Intake Visit Reasons: patient wanted to discuss labs Intake Note: Pt presents to the office today to discuss labs. Pt states he has been feeling very tired lately. He states he had high liver enzyme counts from his blood work and wants to discuss this. Allergies lisinopril Adverse Reaction (Intermediate, Verified 02/06/24 14:17) cough HPI patient wanted to discuss labs HPI Details LAST VISIT Elevated bilirubin Status post colonoscopy Diverticulosis Plan Colonoscopy will be repeated in 10 years, sooner if clinically necessary. Patient denies any melena, hematochezia, unintentional weight loss or ribbon like stools. Patient will be following up in the office to check his liver and bilirubin in 6 months, sooner on as needed basis. Patient is agreeable to this plan and verbalizes understanding of instructions. He was given the opportunity to ask questions and all questions answered. ? TODAY'S VISIT Patient requested visit today to discuss his recent lab results. Patient states that he was working out lost weight and was taking multiple supplements like aminos, protein, creatine. Patient was taking as much as 1000 calories in 1 hour. Patient noticed that his AST went up to 48 in December. Patient does not drink alcohol. Patient stopped taking all the supplements and admits to be feeling more tired than usual. When he was taking supplements he was energized and was able to work out without feeling tired. Blood work was rechecked last week and AST down to 20. However patient admits that his white count went down and RBCs, normal H&H. 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 Follows up in Hematology for elevated ferritin. Patient does have a normal iron study. Patient does not require to have therapeutic phlebotomy yet. FORMERLY [facility], [facility] Medical History Obstructive sleep apnea Cerebellar stroke Cerebellar cerebrovascular accident (CVA) without late effect Hypersomnia Snoring [place] syndrome BPH (benign prostatic hyperplasia) White matter disease Lacunar infarction Degenerative disc disease, cervical Elevated cholesterol Murmur HTN (hypertension) Retention of urine Surgical History H/O nasal septoplasty History of prostate surgery History of carpal tunnel surgery Hx of shoulder surgery Hx of cholecystectomy Hx of colonoscopy Family History Maternal Aunt Diabetes HTN (hypertension) Mother HTN (hypertension) High cholesterol Family/Other Heart disease Social History Household Members: Spouse and Children Housing: House Are you a primary medicare compliance auditor to a significant other at home: No Do you presently have visiting nurse or other home services: No Alcohol intake: former Patient Tobacco Use Status: Never used Tobacco e-Cigarette/Vaping Use: Never Used Second Hand Smoke Exposure: No Substance Use Type: Marijuana service: Yes Current occupational status: retired Cognitive needs: No Hearing needs: No Vision needs: No Review of Systems Const Denies weight gain and Denies weight loss ENT Reports no additional complaints, Denies dysphagia and Denies odynophagia Card Reports no additional complaints Resp Reports no additional complaints GI Denies abdominal pain, Denies belching, Denies melena, Denies bloating, Denies change in bowel habits, Denies dysphagia, Denies excessive flatus, Denies dyspepsia, Denies heartburn, Denies diarrhea, Denies loose stools, Denies nausea, Denies odynophagia and Denies vomiting Reports no additional complaints Musc Reports no additional complaints Neuro Reports no additional complaints Psych Reports no additional complaints Endo Reports no additional complaints Physical Exam Vital Signs: Last Vital Signs Pulse 66 02/06/24 14:16 BP 134/75 02/06/24 14:16 BMI result Body Mass Index 25.7 Const General: healthy appearing, no acute distress and well developed Nutritional Appearance: well nourished Orientation/consciousness: patient oriented x3 Resp Effort & Inspection: normal respiratory effort, able to speak in complete sentences, no tracheal deviation and symmetric chest movement Auscultation: clear to auscultation bilaterally Cardio Rate: regular rate GI Inspection: Yes normal to inspection and No distended Palpation (GI): Soft to palpation, not firm, nontender and No hepatosplenomegaly present Auscultation: normal bowel sounds General: Yes no CVA tenderness Back/Spine/Pelvis Back: no CVA tenderness Skin General skin exam: elasticity normal, turgor normal and dry skin Neuro General: patient oriented x3 Psych Appearance: grossly normal Mental Status: mental status grossly normal Results Reviewed Results Reviewed: Laboratory Tests 01/12/24 01/12/24 01/12/24 12:29 12:29 12:29 Ferritin Total Bilirubin 1.9 H Direct Bilirubin AST 48 H ALT 25 02/03/24 02/03/24 08:36 08:36 Ferritin 363 H Total Bilirubin 1.4 H Direct Bilirubin 0.4 AST 20 ALT 22 Assessment & Plan Assessment & Plan (1) Fatigue: Code(s): R53.83 - Other fatigue Qualifiers: Fatigue type: unspecified Qualified Code(s): R53.83 - Other fatigue (2) Transaminitis: Code(s): R74.01 - Elevation of levels of liver transaminase levels Plan Patient does have a normal liver studies, most likely elevation caused by supplement use. Patient was encouraged to stop taking supplements if he wants to feel better and use some of it he can use only a fraction of the supplements that he used before. Patient will be referred to dietitian to help. He will keep his appointment in April. Will rechecked liver panel and CBC at that time. Patient will call the office if he will have any GI concerning symptoms. Patient is agreeable to this plan and verbalizes understanding of instructions. He was given the opportunity to ask questions and all questions answered. Thank you for allowing me to participate in his care Orders: Orders Liver Panel 2 Months R74.01 - Elevation of levels of liver transaminase levels Complete Blood Count no Diff 2 Months K21.9 - Gastro-esophageal reflux disease without esophagitis Referrals [facility] Nutrition Referral R53.83 - Other fatigue Coding Level of Care Code Est Pt Level 3 (16762) Diagnoses Fatigue, unspecified type R53.83 Fatigue type: unspecified Transaminitis R74.01 Time Spent (min) 25 Comment 15 minutes spent with patient and additional 10 minutes spent reviewing his records
== END 2024-02-06 14:53 | disposition home or self-care (01) ==
PROVIDERS: PCP Nurse Practitioner Family; Visit Provider Nurse Practitioner Family
DX: R53.83 Other fatigue (principal); R74.01 Elevation of levels of liver transaminase levels
CPT/HCPCS: 99213

== ENCOUNTER → 2024-02-06 14:07 | Outpatient (BNVA) | payer OTHER, SELFPAY | PROVIDERS: PCP Nurse Practitioner Family; Visit Provider Nurse Practitioner Family ==

== ENCOUNTER → 2024-02-12 13:48 | Outpatient (REF) | payer OTHER, SELFPAY | LOC: HO.SL 13:48 | PROVIDERS: PCP Nurse Practitioner Family; Visit Provider Psychiatry & Neurology Neurology | DX: G47.33 Obstructive sleep apnea (adult) (pediatric) (principal); R06.83 Snoring; G47.10 Hypersomnia, unspecified | CPT/HCPCS: 95806 ==

== ENCOUNTER → 2024-02-12 13:59 | Outpatient (BNV) | payer OTHER, SELFPAY | PROVIDERS: PCP Nurse Practitioner Family; Visit Provider Psychiatry & Neurology Neurology | DX: G47.33 Obstructive sleep apnea (adult) (pediatric) (principal) | CPT/HCPCS: 95806 ==

== ENCOUNTER 2024-03-26 13:33 | Outpatient (AMB) | payer OTHER, SELFPAY ==
[2024-03-26 13:41] VITALS: BMI 26.2
--- NOTE | 2024-03-26 13:41 | MHC.AMNUTRGE ---
Intake VS Expanded 03/26/24 13:41 03/28/24 12:42 Height 6 ft 1 in 6 ft 1 in Weight 198 lb 13.711 oz 199 lb BMI 26.2 26.3 Intake Visit Reasons: Discuss diet, fatigue Allergies lisinopril Adverse Reaction (Intermediate, Verified 02/06/24 14:17) cough HPI Nutrition Presentation Details Pt presents for MNT for fatigue . Pt was referred by Derrick Jacobs. Pt also has HTN, Dyslipidemia Pt reports working on diet modification to improve his cholesterol by reducing on fat intake, reducing beef/pork/processed meats and having more non starchy vegetables Pt reports also exercising for 1 1/2 hr 6 days a week, and he reports feeling fatigue or tired when sitting down, reports keeping physically active the majority of the time. Pt stressed choosing low fat foods everything due to concerns of dyslipidemia Meal typically consist of B: 6 egg whites , spicy hot sweet 1 cup of coffee 18 oz snack : 1/2 scoop of creatinine amino acid and 1/2 whey protein in water or almond milk - reports reducing on amount of supplements 12: spinach with citizen [place] yogurt, almond milk blueberries 2 pm bran cereal raisin brand almond milk 4 pm steak, salad not butter, sweet potato 6-8 pm soup (vegetables, chicken , potato) fluids: 32 oz/d ETOH-- smoking--- CIC-Imetwue-Rg.Jeor Equation Height 6 ft 1 in Weight 199 lb Resting Metabolic Rate 1760.58 Calculated Activity Level Moderate Activity Calories Needed to Maintain Weight 2728.90 Diagnosis Nutrition problem #1 food nutri know defi As related to (etiology) #1 diagnosis As evidenced by (sign/symptom) #1 food recall Most Recent Diabetes Results: Cholesterol 153 mg/dL (<200) 01/12/24 HDL Cholesterol 39 mg/dL (>40) L 01/12/24 Triglycerides 223 mg/dL (<150) H 01/12/24 Creatinine 0.92 mg/dL (0.5-1.4) 02/03/24 Blood Urea Nitrogen 15 mg/dL (9-16) 02/03/24 Sodium 142 mmol/L (135-145) 02/03/24 Potassium 4.4 mmol/L (3.3-5.1) 02/03/24 Chloride 107 mmol/L (96-108) 02/03/24 Carbon Dioxide 29 mmol/L (22-29) 02/03/24 Calcium 9.5 mg/dL (8.4-10.2) 02/03/24 AST 20 U/L (5-37) 02/03/24 ALT 22 U/L (0-40) 02/03/24 Total Protein 7.1 g/dL (6.5-8.0) 02/03/24 Albumin 4.0 g/dL (3.5-5.0) 02/03/24 [facility] Medical History (Updated 03/07/24 @ 08:59 by Costa Milner CNP) Cerebellar stroke Cerebellar cerebrovascular accident (CVA) without late effect Hypersomnia Snoring [place] syndrome BPH (benign prostatic hyperplasia) White matter disease Lacunar infarction Degenerative disc disease, cervical Elevated cholesterol Murmur HTN (hypertension) Retention of urine Surgical History H/O nasal septoplasty History of prostate surgery History of carpal tunnel surgery Hx of shoulder surgery Hx of cholecystectomy Hx of colonoscopy Family History Maternal Aunt Diabetes HTN (hypertension) Mother HTN (hypertension) High cholesterol Family/Other Heart disease Social History Household Members: Spouse and Children Housing: House Are you a primary ambulatory care coordinator to a significant other at home: No Do you presently have visiting nurse or other home services: No Alcohol intake: former Patient Tobacco Use Status: Never used Tobacco e-Cigarette/Vaping Use: Never Used Second Hand Smoke Exposure: No Substance Use Type: Marijuana service: Yes Current occupational status: retired Cognitive needs: No Hearing needs: No Vision needs: No Assessment & Plan Assessment & Plan (1) Dyslipidemia: Code(s): E78.5 - Hyperlipidemia, unspecified Plan: Discuss healthy eating habits to lessen symptoms of fatigue. Pt reports keeping physically active at the gym 6 x/wk, reports feeling fatigue when sitting down in the evening. Wt: 90 Kg ( 03/2024 ) Est kcal needs as per MSJ: 2700 (40% carb, 30% protein/fat) Est fluid needs as per 25-30 ml/d: 2700 Est prot per day as per 1 g/kg bw: 90 Recommend fiber intake : 8-10 g per day and gradually increase to 25-28 g per day for women and 35-38 g for men or as tolerated Recommend sodium intake per day : less than 2000 mg Educated patient on: ( R = reviewed V = verbalizes understanding N/R = needs review N/A = not applicable Food sources of carbohydrate, adequate serving sizes and its role in various health conditions: R Differences between complex carbohydrates a simple carbohydrates, role of fiber in diet: R V N/R Lean protein sources of foods: R Differences between types of fats and role in diet (mono on saturated fat fatty acids, saturated fatty acids, trans fats): R Food sources of sodium in salt and healthy modifications for heart health in kidney health: R V R/V Vitamins and minerals and nutrient absorption : R Healthy plate method concept: R Physical activity: Benefits a precaution: R importance of hydration: R Patient Instructions: Follow healthy plate method, include monounsaturated fats in your diet (fish twice/wk, nuts, seeds, olive oil, avocado- see list of foods) Include at least a serving of fat when having vitamin D fortified foods , as vit D needs fat for better absorption, consider having 1% milk vs fat free milk or dairy alternatives enriched with Vit D with no fat nor protein Keep hydrated by having fluids with meals/snacks (milk/milk alternatives, juices diluted with water Remember [place] [employer] recommends 150 minutes of physical activity per day, consider exercising every other day to allow the body to rest continue follow up with your doctor for further evaluation of fatigue Coding Level of Care Code Nutr Indiv Intake (50333) Diagnoses Dyslipidemia E78.5 Time Spent (min) 30
[2024-03-28 12:42] VITALS: BMI 26.3
== END 2024-03-26 14:27 | disposition home or self-care (01) ==
PROVIDERS: PCP Nurse Practitioner Family; Visit Provider Dietitian, Registered
DX: E78.5 Hyperlipidemia, unspecified (principal)

== ENCOUNTER → 2024-03-26 13:33 | Outpatient (BNVA) | payer OTHER, SELFPAY | PROVIDERS: PCP Nurse Practitioner Family; Visit Provider Dietitian, Registered | DX: E78.5 Hyperlipidemia, unspecified (principal); Z71.3 Dietary counseling and surveillance | CPT/HCPCS: 97802 ==

== ENCOUNTER 2024-05-08 08:01 | Outpatient (AMB) | payer OTHER, SELFPAY ==
--- NOTE | 2024-05-08 08:02 | MHC.OFFVIS ---
Vital Signs 05/08/24 08:08 Height 6 ft 1 in Weight 200 lb 2.876 oz BMI 26.4 BP 134/74 Blood Pressure Location Lt brachial Position Sitting Pulse 58 Pulse Source Pulse Oximeter Pulse Oximetry (%) 96 Oxygen Delivery Method Room Air Intake Visit Reasons: 6 month follow up Intake Note: Doug presents in office today for a scheduled 6 mos FUV. CC; Pt reports that his sx are still under control. Pt is here today to speak about his most recent lab values. 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 Patient was encouraged to stop taking supplements if he wants to feel better and use some of it he can use only a fraction of the supplements that he used before. Patient will be referred to dietitian to help. He will keep his appointment in April. Will rechecked liver panel and CBC at that time. Patient will call the office if he will have any GI concerning symptoms. Patient is agreeable to this plan and verbalizes understanding of instructions. He was given the opportunity to ask questions and all questions answered. ? Thank you for allowing me to participate in his care Orders Orders Liver Panel 2 Months R74.01 Complete Blood Count no Diff 2 Months K21.9 Referrals [employer] Specialist Nutrition Referral R53.83 TODAY'S VISIT Patient is here today for follow-up and to discuss lab results. Patient denies any GI concerning symptoms. Reports to be feeling well. Continues to exercise daily for up to 2 hours. Liver enzymes normalized. Patient no longer is using protein supplements in high quantity. Patient reports that he saw dietitian and no longer needs to follow-up with her. His diet plan is managed very well right now. Patient was told to try to exercise less often or for less than 2 hours a day. When reviewing dietitian notes she mentioned him trying to exercise every other day and follow-up with the PCP regarding his feeling of tired. Patient had ultrasound that was done last year and it was normal. His liver echogenicity was normal, no hepatomegaly. Patient denies any dyspepsia, dysphagia or odynophagia. Denies any melena, hematochezia, unintentional weight loss or ribbon like stools. [facility] Medical History (Updated 05/08/24 @ 17:11 by Christi Jacobs [facility]) Cerebellar stroke Cerebellar cerebrovascular accident (CVA) without late effect Hypersomnia Snoring [place] syndrome BPH (benign prostatic hyperplasia) White matter disease Lacunar infarction Degenerative disc disease, cervical Elevated cholesterol Murmur HTN (hypertension) Retention of urine Surgical History H/O nasal septoplasty History of prostate surgery History of carpal tunnel surgery Hx of shoulder surgery Hx of cholecystectomy Hx of colonoscopy Family History Maternal Aunt Diabetes HTN (hypertension) Mother HTN (hypertension) High cholesterol Family/Other Heart disease Social History Household Members: Spouse and Children Housing: House Are you a primary animal caregiver to a significant other at home: No Do you presently have visiting nurse or other home services: No Alcohol intake: former Patient Tobacco Use Status: Never used Tobacco e-Cigarette/Vaping Use: Never Used Second Hand Smoke Exposure: No Substance Use Type: Marijuana service: Yes Current occupational status: retired Cognitive needs: No Hearing needs: No Vision needs: No Review of Systems Const Denies weight gain and Denies weight loss ENT Reports no additional complaints, Denies dysphagia and Denies odynophagia Card Reports no additional complaints Resp Reports no additional complaints GI Denies abdominal pain, Denies belching, Denies melena, Denies bloating, Denies change in bowel habits, Denies dysphagia, Denies excessive flatus, Denies dyspepsia, Denies heartburn, Denies diarrhea, Denies loose stools, Denies nausea, Denies odynophagia and Denies vomiting Reports no additional complaints Musc Reports no additional complaints Neuro Reports no additional complaints Psych Reports no additional complaints Endo Reports no additional complaints Physical Exam Vital Signs: Last Vital Signs Pulse 58 05/08/24 08:08 BP 134/74 05/08/24 08:08 Pulse Ox 96 05/08/24 08:08 Oxygen Delivery Method Room Air 05/08/24 08:08 BMI result Body Mass Index 26.4 Const General: healthy appearing, no acute distress and well developed Nutritional Appearance: well nourished Orientation/consciousness: patient oriented x3 HEENT Head: Yes normal to inspection, Yes normocephalic and Yes atraumatic Face and sinus: Yes normal facial exam Mouth: Normal oral and palatal mucosa present Throat: Yes posterior oropharynx normal, Yes tonsils normal and Yes uvula midline Eyes General: appearance normal, both eyes and all related structures Neck Neck: Yes normal visual inspection, Yes full ROM and Yes trachea midline Thyroid: Thyroid normal Resp Effort & Inspection: normal respiratory effort, able to speak in complete sentences, no tracheal deviation and symmetric chest movement Auscultation: clear to auscultation bilaterally Cardio Jugular venous distension: no JVD Rate: regular rate Heart sounds: S1 normal heart sound present, S2 normal heart sound present, no gallops and no murmurs GI Inspection: Yes normal to inspection and No distended Palpation (GI): Soft to palpation, not firm, nontender and No hepatosplenomegaly present Auscultation: normal bowel sounds General: Yes no CVA tenderness Back/Spine/Pelvis Back: no CVA tenderness Skin General skin exam: elasticity normal, turgor normal and dry skin Neuro General: patient oriented x3 Psych Appearance: grossly normal Mental Status: mental status grossly normal Speech and movement: Normal speech and movement present Affect: normal affect Attitude: cooperative Thought process: Normal thought process present Thought content: Normal thought content present Insight: Good insight present (Psych) Judgement: Good judgement present (Psych) Results Reviewed Results Reviewed: Laboratory Tests 02/03/24 08:36 Hgb 14.5 Hct 43.4 MCV 98.6 H MCH 33.0 Ferritin 363 H Total Bilirubin 1.4 H Direct Bilirubin 0.4 AST 20 ALT 22 Assessment & Plan Assessment & Plan (1) Elevated bilirubin: Code(s): R17 - Unspecified jaundice Category: Medical (2) Diverticulosis: Code(s): K57.90 - Diverticulosis of intestine, part unspecified, without perforation or abscess without bleeding (3) [place] syndrome: Code(s): E80.4 - [place] syndrome Category: Medical Plan Continue current diet plan. Increase fluid intake. Continue activity as tolerated. Follow-up with us on as-needed basis. Patient will call our office if he will have any GI concerning symptoms. He is agreeable to this plan and verbalizes understanding of instructions. He was given the opportunity to ask questions and all questions answered. Medications: New polyethylene glycol 3350 (Miralax) 17 grams PO DAILY 510 grams 2RF Coding Level of Care Code Est Pt Level 3 (99689) Diagnoses Elevated bilirubin R17 Diverticulosis K57.90 [place] syndrome E80.4 Time Spent (min) 25 Comment 15 minutes spent with patient and additional 10 minutes spent reviewing his records
[2024-05-08 08:08] VITALS: BP 134/74; PULSE 58; O2SAT 96; BMI 26.4
== END 2024-05-08 09:30 | disposition home or self-care (01) ==
PROVIDERS: PCP Nurse Practitioner Family; Visit Provider Nurse Practitioner Family
DX: R17 Unspecified jaundice (principal); K57.90 Diverticulosis of intestine, part unspecified, without perforation or abscess without bleeding; E80.4 Gilbert syndrome
CPT/HCPCS: 99213

== ENCOUNTER → 2024-05-08 08:01 | Outpatient (BNVA) | payer OTHER, SELFPAY | PROVIDERS: PCP Nurse Practitioner Family; Visit Provider Nurse Practitioner Family ==

== ENCOUNTER 2024-06-18 09:51 | Outpatient (AMB) | payer OTHER, SELFPAY ==
--- NOTE | 2024-06-18 10:05 | MHC.PC.OV ---
Vital Signs 06/18/24 10:09 Height 6 ft 1 in Weight 197 lb BMI 26.0 BP 140/90 H Blood Pressure Location Lt brachial Position Sitting Pulse 63 Pulse Source Pulse Oximeter Pulse Oximetry (%) 98 Oxygen Delivery Method Room Air Intake Visit Reasons: 6 month follow up Intake Note: Patient here for HTN f/u. Allergies lisinopril Adverse Reaction (Intermediate, Verified 06/18/24 11:04) cough Medication List - Last Reconciled 06/18/24 by JAKE Watson aspirin (Adult Aspirin Regimen) 81 mg PO DAILY ezetimibe 5 mg (1/2 x 10 mg) PO DAILY losartan 50 mg PO DAILY 90 days polyethylene glycol 3350 (Miralax) 17 grams PO DAILY rosuvastatin 5 mg PO DAILY Tobacco use date assessed: 12/25/23 Dental Screening Dental Screen Date: 12/25/23 HPI 6 month follow up HPI Details HTN: Blood pressure is managed with losartan 25mg. Pt's blood pressure is elevated today. He reports that it is elevated at home as well. Will increase losartan from 25mg to 50mg. Denies chest pain, shortness of breath, headache, dizziness, and blurred vision. [facility] Medical History Cerebellar stroke Cerebellar cerebrovascular accident (CVA) without late effect Hypersomnia Snoring [place] syndrome BPH (benign prostatic hyperplasia) White matter disease Lacunar infarction Degenerative disc disease, cervical Elevated cholesterol Murmur HTN (hypertension) Retention of urine Surgical History H/O nasal septoplasty History of prostate surgery History of carpal tunnel surgery Hx of shoulder surgery Hx of cholecystectomy Hx of colonoscopy Family History Maternal Aunt Diabetes HTN (hypertension) Mother HTN (hypertension) High cholesterol Family/Other Heart disease Social History Household Members: Spouse and Children Housing: House Are you a primary acute care nurse to a significant other at home: No Do you presently have visiting nurse or other home services: No Alcohol intake: former Patient Tobacco Use Status: Never used Tobacco e-Cigarette/Vaping Use: Never Used Second Hand Smoke Exposure: No Substance Use Type: Marijuana service: Yes Current occupational status: retired Cognitive needs: No Hearing needs: No Vision needs: No Questionnaire PHQ-9 Over the last 2 weeks, how often have you been bothered by any of the following problems? 1. Little interest or pleasure in doing things: not at all 2. Feeling down, depressed, or hopeless: not at all 3. Trouble falling or staying asleep, or sleeping too much: not at all 4. Feeling tired or having little energy: not at all 5. Poor appetite or overeating: not at all 6. Feeling bad about yourself - or that you are a failure or have let yourself or your family down: not at all 7. Trouble concentrating on things, such as reading the newspaper or watching television: not at all 8. Moving or speaking so slowly that other people could have noticed. Or the opposite - being so fidgety or restless that you have been moving around a lot more than usual: not at all 9. Thoughts that you would be better off or of hurting yourself in some way: not at all Total score: 0 Depression Screening Interpretation: Negative Depression Screening Done: Yes 11620 - PHQ-9 Billing: Yes Source: Developed by Drs. Lm Munoz, Brittany Sharp, Maximiliano Michaels and colleagues, with an educational vanessa from [employer]. Thrive Questionnaire Date Thrive assessed: 12/25/23 I am a: Patient What is your living situation today?: I have a steady place to live Within the past 12 months, did the food you bought not last and you didn't have the money to get more?: Never true Within the past 12 months, did you worry whether your food would run out before you got money to buy more?: Never true Do you have trouble paying for medicines?: No Do you have trouble getting transportation to medical appointments?: No Do you have trouble paying your heating and electricity bill?: No Do you have trouble taking care of your child, family member or friend?: No Do you have trouble with day-to-day activities such as bathing, preparing meals, shopping, managing finances, etc.?: No Are you currently unemployed and looking for a job?: No Are you interested in more education?: No Please select the resources that you would like help with: Housing/Fdc Currently or been in a relationship where the following occur: No concerns reported THRIVE Score: 0 AUDIT C Alcohol Use Questionnaire (AUDIT-C) 1. How often do you have a drink containing alcohol?: Never Total Score: 0 Score Reviewed/Action Taken: No ROLA-7 AMB Questionnaire ROLA-7 Date ROLA - 7 assessed: 06/18/24 Feeling nervous, anxious, or on edge: 0 = Not at all Not being able to stop or control worryin = Not at all Worrying too much about different things: 0 = Not at all Trouble relaxin = Not at all Being so restless that it is hard to sit still: 0 = Not at all Becoming easily annoyed or irritable: 0 = Not at all Feeling afraid as if something awful might happen: 0 = Not at all Total ROLA-7 score (0-4 normal; 5-9 mild; 10-14 moderate; 15-21 severe): 0 Source: Developed by Drs. Lm Munoz, Brittany Sharp, Maximiliano Michaels and colleagues, with an educational vanessa from [employer]. ROLA-7 Assessment Billing ROLA-7 Assessment Tool: ROLA-7 Assessment 72630 Review of Systems Const Reports as per HPI Physical exam (Primary Care) Vital Signs: Last Vital Signs Pulse 63 06/18/24 10:09 BP 140/90 H 06/18/24 10:09 Pulse Ox 98 06/18/24 10:09 Oxygen Delivery Method Room Air 06/18/24 10:09 BMI result Body Mass Index 26.0 Tobacco/Smoking Status: Tobacco use Status Tobacco use date assessed 12/25/23 06/18/24 10:06 Patient Tobacco Use Status Never used Tobacco 06/18/24 10:06 e-Cigarette/Vaping Use Never Used 06/18/24 10:06 PHQ-9: PHQ-9 Score PHQ-9: Total score 0 06/18/24 10:12 Depression Screening Interpretation: Negative Thrive Assessment: Date of Thrive Assessment Date Thrive assessed 12/25/23 06/18/24 10:06 Currently or been in a relationship where the following occur: No concerns reported Const General: cooperative Orientation/consciousness: patient oriented x3 Resp Effort & Inspection: normal respiratory effort Auscultation: clear to auscultation bilaterally Cardio Rate: regular rate Rhythm: regular rhythm Heart sounds: S1 normal heart sound present, S2 normal heart sound present and Murmur heart sound present systolic Neuro General: patient oriented x3 Extrem Right lower extremity: no edema Left lower extremity: no edema Psych Appearance: grossly normal Mental Status: mental status grossly normal Speech and movement: Normal speech and movement present Affect: normal affect Attitude: cooperative Thought process: Normal thought process present Thought content: Normal thought content present Insight: Good insight present (Psych) Judgement: Good judgement present (Psych) Assessment and Plan Assessment & Plan (1) HTN (hypertension): Code(s): I10 - Essential (primary) hypertension Plan: Increasing losartan from 25mg to 50mg Plan The patient agreed to the use of a medical front desk coordinator for this encounter. Scribed for JAKE James by Kavitha Moran medical front desk coordinator, on 06/18/2024 at 10:25 EST. Orders: Orders Complete Blood Count Auto Diff Today I10 - Essential (primary) hypertension Comprehensive [place]. Panel Fast Today I10 - Essential (primary) hypertension UA CC w/rflx Micro + Cult Today I10 - Essential (primary) hypertension Lipid Panel Today I10 - Essential (primary) hypertension TSH reflex Free T4 Today I10 - Essential (primary) hypertension Medications: Changed From losartan 25 mg PO DAILY 90 days 90 tabs 3RF To losartan 50 mg PO DAILY 90 days 90 tabs 3RF Coding Level of Care Code Est Pt Level 3 (73695) Diagnoses HTN (hypertension) I10 Additional Codes ROLA-7 Assessment Billing - ROLA-7 Assessment Tool: ROLA-7 Assessment 92285 ([id number])
[2024-06-18 10:09] VITALS: BP 140/90; PULSE 63; O2SAT 98; BMI 26.0
== END 2024-06-18 11:16 | disposition home or self-care (01) ==
PROVIDERS: PCP Nurse Practitioner Family; Visit Provider Nurse Practitioner Family
DX: I10 Essential (primary) hypertension (principal)
CPT/HCPCS: 99213

== ENCOUNTER 2024-07-22 08:11 | Outpatient (REF) | payer OTHER, SELFPAY ==
[2024-07-22 10:13] LABS: MANUAL DIFF FLAG NO
[2024-07-22 10:16] LABS: Appearance Urine Clear; Color Urine Yellow; Glucose Urine UA Negative (Negative); Leukocyte Esterase Urine Negative (Negative); Nitrite Urine Negative (Negative); PH 5.5 (5.0-9.0); Urine Blood Negative (Negative); Urine Ketones Negative (Negative); Urine Protein Negative (Neg-Trace)
[2024-07-22 10:20] LABS: Basophils Percent Auto 0.5 % (0-2); Eosinophils Absolute Auto 0.1 X10*3/uL (0.0-0.4); Eosinophils Percent Auto 0.9 % (0-4); Hematocrit 40.7 % (42.0-52.0); Hemoglobin 13.5 g/dl (14.0-18.0); Imm Gran Abs Auto 0.02 X10*3/uL (0.00-0.03); Imm Gran Pct Auto 0.3 % (0.0-0.4); Lymphocytes Absolute Auto 1.4 X10*3/uL (1.2-4.9); Lymphocytes Percent Auto 22.2 % (20-40); Mean Corpuscular HGB Conc 33.2 g/dl (31.0-36.0); Mean Corpuscular Hemoglobin 33.2 pg (27.0-33.0); Mean Platelet Volume 9.8 fL (9.4-12.4); Monocytes Absolute Auto 0.6 X10*3/uL (0.1-1.2); Monocytes Percent Auto 8.9 % (2-11); Neutrophils Absolute Auto 4.3 x10*3/uL (2.0-8.3); Neutrophils Percent Auto 67.2 % (45-73); Platelet Count 304 X10*3/uL (160-400); Red Blood Count 4.07 X10*6/uL (4.60-5.80); Red Cell Distribution Width 11.8 % (11.0-16.0); White Blood Count 6.4 X10*3/uL (4.8-10.8)
[2024-07-22 11:25] LABS: Anion Gap 12 (12-20)
[2024-07-22 11:30] LABS: Alanine Aminotransferase 23 U/L (0-40); Albumin Level 3.8 g/dL (3.5-5.0); Alkaline Phosphatase 62 U/L (39-117); Aspartate Amino Transferase 20 U/L (5-37); Bilirubin Total 2.2 mg/dL (0.0-1.0); Blood Urea Nitrogen 15 mg/dL (9-16); Calcium 9.3 mg/dL (8.4-10.2); Carbon Dioxide 26 mmol/L (22-29); Chloride 106 mmol/L (96-108); Cholesterol 127 mg/dL (<200); Estimated Glomerular Filt Rate > 60; Glucose Fasting 98 mg/dL (60-99); HDL Cholesterol 46 mg/dL (>40); LDL Cholesterol Calculated 69 mg/dL (<100); Sodium 140 mmol/L (135-145); Total Protein 6.7 g/dL (6.5-8.0); Triglycerides 64 mg/dL (<150)
== END 2024-07-22 08:12 | disposition home or self-care (01) ==
LOC: HO.HMGCLDS 08:11
PROVIDERS: PCP Nurse Practitioner Family; Visit Provider Nurse Practitioner Family
DX: I10 Essential (primary) hypertension (principal)
CPT/HCPCS: 36415; 80053; 80061; 81003; 84443; 85025

== ENCOUNTER 2024-07-23 13:40 | Outpatient (AMB) | payer OTHER, SELFPAY ==
--- NOTE | 2024-07-23 13:40 | A.OFFPC_ITS ---
Vital Signs 07/23/24 13:41 Height 6 ft 1 in Weight 198 lb BMI 26.1 BP 114/80 Blood Pressure Location Lt brachial Position Sitting Pulse 60 Pulse Source Pulse Oximeter Pulse Oximetry (%) 94 Oxygen Delivery Method Room Air Intake Visit Reasons: pre op - no ekg/labs needed Intake Note: pt is here for pre op, no ekg or labs needed. EKG will be done at cardiology appt: Rt shoulder, Dr. Betancourt (MONISHA) 08/05/24 Humanities Coordinator Required: No Accompanied by: Self / Same As Patient Allergies lisinopril Adverse Reaction (Intermediate, Verified 07/23/24 13:47) cough Medication List - Last Reconciled 07/23/24 by JAKE Watson aspirin (Adult Aspirin Regimen) 81 mg PO DAILY ezetimibe 5 mg (1/2 x 10 mg) PO DAILY losartan 50 mg PO DAILY 90 days rosuvastatin 5 mg PO DAILY Tobacco use date assessed: 07/23/24 Dental Screening Dental Screen Date: 07/23/24 Did you have a dental visit in the last 12 months?: Yes Did you have a dental problem in the last 6 months where you did not have access to dental care?: Yes Was dental information given to patient?: Patient has dentist HPI pre op - no ekg/labs needed HPI Details Pt is here for a pre-op evaluation. He is scheduled to undergo right shoulder surgery on 08/05. No labs are needed. Pt will be cleared by cardiology before surgery and will have an EKG through them. Pt has a hx of anemia. He does report some fatigue. Will repeat labs. [facility] Medical History Cerebellar stroke Cerebellar cerebrovascular accident (CVA) without late effect Hypersomnia Snoring [place] syndrome BPH (benign prostatic hyperplasia) White matter disease Lacunar infarction Degenerative disc disease, cervical Elevated cholesterol Murmur HTN (hypertension) Retention of urine Surgical History H/O nasal septoplasty History of prostate surgery History of carpal tunnel surgery Hx of shoulder surgery Hx of cholecystectomy Hx of colonoscopy Family History Maternal Aunt Diabetes HTN (hypertension) Mother HTN (hypertension) High cholesterol Family/Other Heart disease Social History Household Members: Spouse and Children Housing: House Are you a primary social worker palliative care to a significant other at home: No Do you presently have visiting nurse or other home services: No Alcohol intake: former Patient Tobacco Use Status: Never used Tobacco e-Cigarette/Vaping Use: Never Used Second Hand Smoke Exposure: No Substance Use Type: Marijuana service: Yes Current occupational status: retired Cognitive needs: No Hearing needs: No Vision needs: No Questionnaire PHQ-9 Over the last 2 weeks, how often have you been bothered by any of the following problems? 1. Little interest or pleasure in doing things: not at all 2. Feeling down, depressed, or hopeless: not at all 3. Trouble falling or staying asleep, or sleeping too much: not at all 4. Feeling tired or having little energy: not at all 5. Poor appetite or overeating: not at all 6. Feeling bad about yourself - or that you are a failure or have let yourself or your family down: not at all 7. Trouble concentrating on things, such as reading the newspaper or watching television: not at all 8. Moving or speaking so slowly that other people could have noticed. Or the opposite - being so fidgety or restless that you have been moving around a lot more than usual: not at all 9. Thoughts that you would be better off or of hurting yourself in some way: not at all Total score: 0 Depression Screening Interpretation: Negative Depression Screening Done: Yes 02142 - PHQ-9 Billing: Yes Source: Developed by Drs. Lm Munoz, Brittany Sharp, Maximiliano Michaels and colleagues, with an educational vanessa from [employer]. Thrive Questionnaire Date Thrive assessed: 07/23/24 I am a: Patient What is your living situation today?: I have a steady place to live Within the past 12 months, did the food you bought not last and you didn't have the money to get more?: Never true Within the past 12 months, did you worry whether your food would run out before you got money to buy more?: Never true Do you have trouble paying for medicines?: No Do you have trouble getting transportation to medical appointments?: No Do you have trouble paying your heating and electricity bill?: No Do you have trouble taking care of your child, family member or friend?: No Do you have trouble with day-to-day activities such as bathing, preparing meals, shopping, managing finances, etc.?: No Are you currently unemployed and looking for a job?: No Are you interested in more education?: No Please select the resources that you would like help with: None Currently or been in a relationship where the following occur: No concerns reported THRIVE Score: 0 AUDIT C Alcohol Use Questionnaire (AUDIT-C) 1. How often do you have a drink containing alcohol?: Never 3. How often do you have six or more drinks on one occasion?: Never Total Score: 0 Score Reviewed/Action Taken: Yes ROLA-7 AMB Questionnaire ROLA-7 Date ROLA - 7 assessed: 07/23/24 Feeling nervous, anxious, or on edge: 0 = Not at all Not being able to stop or control worryin = Not at all Worrying too much about different things: 0 = Not at all Trouble relaxin = Not at all Being so restless that it is hard to sit still: 0 = Not at all Becoming easily annoyed or irritable: 0 = Not at all Feeling afraid as if something awful might happen: 0 = Not at all Total ROLA-7 score (0-4 normal; 5-9 mild; 10-14 moderate; 15-21 severe): 0 Source: Developed by Drs. Lm Munoz, Brittany Sharp, Maximiliano Michaels and colleagues, with an educational vanessa from [employer]. ROLA-7 Assessment Billing ROLA-7 Assessment Tool: ROLA-7 Assessment 33008 Review of Systems Const Denies chills and Denies fever(s) Eyes Denies blurry vision ENT Denies vertigo, Denies dizziness and Denies sore throat Card Denies chest pain at rest, Denies chest pain with activity, Denies diaphoresis, Denies dyspnea and Denies dyspnea on exertion Resp Denies cough, Denies dyspnea, Denies dyspnea on exertion and Denies wheezing GI Denies abdominal pain, Denies melena, Denies hematochezia, Denies constipation, Denies diarrhea and Denies loose stools Denies hematuria Musc Denies numbness and Denies tingling Skin/Breast Denies lesions Neuro Denies vertigo, Denies dizziness, Denies numbness and Denies tingling Psych Denies anxiety, Denies depression, Denies homicidal ideation, Denies suicidal ideation and Denies other (substance abuse) Aller/Immun Denies wheezing Physical exam (Primary Care) Vital Signs: Last Vital Signs Pulse 60 07/23/24 13:41 BP 114/80 07/23/24 13:41 Pulse Ox 94 07/23/24 13:41 Oxygen Delivery Method Room Air 07/23/24 13:41 BMI result Body Mass Index 26.1 Tobacco/Smoking Status: Tobacco use Status Tobacco use date assessed 07/23/24 07/23/24 13:49 Patient Tobacco Use Status Never used Tobacco 07/23/24 13:40 e-Cigarette/Vaping Use Never Used 07/23/24 13:40 PHQ-9: PHQ-9 Score PHQ-9: Total score 0 07/23/24 13:57 Depression Screening Interpretation: Negative Thrive Assessment: Date of Thrive Assessment Date Thrive assessed 07/23/24 07/23/24 13:42 Currently or been in a relationship where the following occur: No concerns reported Const General: cooperative Nutritional Appearance: well nourished Orientation/consciousness: patient oriented x3 Neck Neck: Yes no lymphadenopathy Resp Effort & Inspection: normal respiratory effort Auscultation: clear to auscultation bilaterally Cardio Rate: regular rate Rhythm: regular rhythm Heart sounds: S1 normal heart sound present, S2 normal heart sound present and Murmur heart sound present (systolic murmur (faint)) Neuro General: patient oriented x3 Psych Appearance: grossly normal Mental Status: mental status grossly normal Speech and movement: Normal speech and movement present Affect: normal affect Attitude: cooperative Thought process: Normal thought process present Thought content: Normal thought content present Insight: Good insight present (Psych) Judgement: Good judgement present (Psych) Assessment and Plan Assessment & Plan (1) Anemia: Code(s): D64.9 - Anemia, unspecified Plan: Labs ordered (2) Pre-op evaluation: Code(s): Z01.818 - Encounter for other preprocedural examination Plan The patient agreed to the use of a medical instrument technician for this encounter. Scribed for JAKE James by Kavitha Moran, medical instrument technician, on 07/23/2024 at 14:00 EST. Orders: Orders Complete Blood Count Auto Diff Today D64.9 - Anemia, unspecified Ferritin Today D64.9 - Anemia, unspecified Vitamin B12 and Folate Today D64.9 - Anemia, unspecified IRON PROFILE Today D64.9 - Anemia, unspecified Coding Level of Care Code Est Pt Prev Care 40-64y(23342) Diagnoses Anemia D64.9 Pre-op evaluation Z01.818 Additional Codes ROLA-7 Assessment Billing - ROLA-7 Assessment Tool: ROLA-7 Assessment 35116 ([id number])
[2024-07-23 13:41] VITALS: BP 114/80; PULSE 60; O2SAT 94; BMI 26.1
== END 2024-07-23 15:30 | disposition home or self-care (01) ==
PROVIDERS: PCP Nurse Practitioner Family; Visit Provider Nurse Practitioner Family
DX: Z01.818 Encounter for other preprocedural examination (principal); D64.9 Anemia, unspecified
CPT/HCPCS: 99214

== ENCOUNTER 2024-07-23 14:16 | Outpatient (REF) | payer OTHER, SELFPAY ==
[2024-07-23 16:18] LABS: MANUAL DIFF FLAG NO
[2024-07-23 16:23] LABS: Basophils Percent Auto 0.5 % (0-2); Eosinophils Absolute Auto 0.1 X10*3/uL (0.0-0.4); Eosinophils Percent Auto 1.1 % (0-4); Hematocrit 41.6 % (42.0-52.0); Hemoglobin 13.8 g/dl (14.0-18.0); Imm Gran Abs Auto 0.02 X10*3/uL (0.00-0.03); Imm Gran Pct Auto 0.3 % (0.0-0.4); Lymphocytes Absolute Auto 1.5 X10*3/uL (1.2-4.9); Lymphocytes Percent Auto 23.3 % (20-40); Mean Corpuscular HGB Conc 33.2 g/dl (31.0-36.0); Mean Corpuscular Hemoglobin 33.3 pg (27.0-33.0); Mean Corpuscular Volume 100.2 fL (80.0-98.0); Mean Platelet Volume 9.8 fL (9.4-12.4); Monocytes Absolute Auto 0.7 X10*3/uL (0.1-1.2); Monocytes Percent Auto 10.1 % (2-11); Neutrophils Absolute Auto 4.2 x10*3/uL (2.0-8.3); Neutrophils Percent Auto 64.7 % (45-73); Platelet Count 333 X10*3/uL (160-400); Red Blood Count 4.15 X10*6/uL (4.60-5.80); Red Cell Distribution Width 11.9 % (11.0-16.0); White Blood Count 6.5 X10*3/uL (4.8-10.8)
[2024-07-23 20:51] LABS: Iron 89 mcg/dL (45-160); Percent Iron Saturation 33 % (15-50); Total Iron Binding Capacity 267 mcg/dL (228-428); Unsaturated Iron Binding 178 ug/dL
[2024-07-23 21:06] LABS: Ferritin 484 ng/mL (20-250)
[2024-07-23 21:20] LABS: Folate 11.2 ng/mL (> or = 4.0); Vitamin B12 583 pg/mL (200-900)
== END 2024-07-23 14:17 | disposition home or self-care (01) ==
LOC: HO.HMGCLDS 14:16
PROVIDERS: PCP Nurse Practitioner Family; Visit Provider Nurse Practitioner Family
DX: D64.9 Anemia, unspecified (principal)
CPT/HCPCS: 36415; 82607; 82728; 82746; 83540; 85025

== ENCOUNTER 2024-09-11 10:05 | Outpatient (AMB) | payer OTHER, SELFPAY ==
[2024-09-11 10:09] VITALS: BP 138/76; PULSE 72; O2SAT 98; BMI 26.8
--- NOTE | 2024-09-11 10:09 | MHC.PC.OV ---
Vital Signs 09/11/24 10:09 Height 6 ft 1 in Weight 203 lb BMI 26.8 BP 138/76 Blood Pressure Location Rt brachial Position Sitting Pulse 72 Pulse Source Pulse Oximeter Pulse Oximetry (%) 98 Oxygen Delivery Method Room Air Intake Visit Reasons: Annual PE - see comments Intake Note: pt is here for annual exam Caregivers Homecare Required: No Accompanied by: Self / Same As Patient Allergies lisinopril Adverse Reaction (Intermediate, Verified 09/11/24 10:45) cough Medication List - Last Reconciled 09/11/24 by JAKE Watson aspirin (Adult Aspirin Regimen) 81 mg PO DAILY docusate sodium (Colace) 100 mg PO BID 90 days ezetimibe 5 mg (1/2 x 10 mg) PO DAILY losartan 50 mg PO DAILY 90 days rosuvastatin 5 mg PO DAILY Tobacco use date assessed: 07/23/24 Dental Screening Dental Screen Date: 07/23/24 HPI Annual PE - see comments HPI Details Pt is here for a PE. Will order labs. Colon screen is up to date. Due for PSA, will order. Denies dribbling with urination, weak stream, and frequent nocturia. Pt c/o fatigue. Will order further labs. Pt is following up with urology, neurology, hematology/oncology, and cardiology. [facility] Medical History Cerebellar stroke Cerebellar cerebrovascular accident (CVA) without late effect Hypersomnia Snoring [place] syndrome BPH (benign prostatic hyperplasia) White matter disease Lacunar infarction Degenerative disc disease, cervical Elevated cholesterol Murmur HTN (hypertension) Retention of urine Surgical History H/O nasal septoplasty History of prostate surgery History of carpal tunnel surgery Hx of shoulder surgery Hx of cholecystectomy Hx of colonoscopy Family History Maternal Aunt Diabetes HTN (hypertension) Mother HTN (hypertension) High cholesterol Family/Other Heart disease Social History Household Members: Spouse and Children Housing: House Are you a primary ambulatory care nurse to a significant other at home: No Do you presently have visiting nurse or other home services: No Alcohol intake: former Patient Tobacco Use Status: Never used Tobacco e-Cigarette/Vaping Use: Never Used Second Hand Smoke Exposure: No Substance Use Type: Marijuana service: Yes Current occupational status: retired Cognitive needs: No Hearing needs: No Vision needs: No Questionnaire PHQ-9 Over the last 2 weeks, how often have you been bothered by any of the following problems? 50458 - PHQ-9 Billing: Patient declined-do not bill Source: Developed by Drs. Lm Munoz, Maximiliano Samano and colleagues, with an educational vanessa from [email or web address]. Thrive Questionnaire Date Thrive assessed: 06/18/24 I am a: Patient What is your living situation today?: I have a steady place to live Within the past 12 months, did the food you bought not last and you didn't have the money to get more?: Never true Within the past 12 months, did you worry whether your food would run out before you got money to buy more?: Never true Do you have trouble paying for medicines?: No Do you have trouble getting transportation to medical appointments?: No Do you have trouble paying your heating and electricity bill?: No Do you have trouble taking care of your child, family member or friend?: No Do you have trouble with day-to-day activities such as bathing, preparing meals, shopping, managing finances, etc.?: No Are you currently unemployed and looking for a job?: No Are you interested in more education?: No Please select the resources that you would like help with: None Currently or been in a relationship where the following occur: No concerns reported THRIVE Score: 0 ROLA-7 AMB Questionnaire ROLA-7 Date ROLA - 7 assessed: 07/23/24 Source: Developed by Drs. Lm Munoz, Brittany Sharp, Maximiliano Michaels and colleagues, with an educational vanessa from [email or web address]. ROLA-7 Assessment Billing ROLA-7 Assessment Tool: pt declined-do not bill Review of Systems Const Denies chills and Denies fever(s) Eyes Denies blurry vision ENT Denies vertigo, Denies dizziness and Denies sore throat Card Denies chest pain at rest, Denies chest pain with activity, Denies diaphoresis, Denies dyspnea and Denies dyspnea on exertion Resp Denies cough, Denies dyspnea, Denies dyspnea on exertion and Denies wheezing GI Denies abdominal pain, Denies melena, Denies hematochezia, Denies constipation, Denies diarrhea and Denies loose stools Denies hematuria Musc Denies numbness and Denies tingling Skin/Breast Denies lesions Neuro Denies vertigo, Denies dizziness, Denies numbness and Denies tingling Psych Denies anxiety, Denies depression, Denies homicidal ideation, Denies suicidal ideation and Denies other (substance abuse) Aller/Immun Denies wheezing Physical exam (Primary Care) Vital Signs: Last Vital Signs Pulse 72 09/11/24 10:09 BP 138/76 09/11/24 10:09 Pulse Ox 98 09/11/24 10:09 Oxygen Delivery Method Room Air 09/11/24 10:09 BMI result Body Mass Index 26.8 Tobacco/Smoking Status: Tobacco use Status Tobacco use date assessed 07/23/24 09/11/24 10:11 Patient Tobacco Use Status Never used Tobacco 09/11/24 10:11 e-Cigarette/Vaping Use Never Used 09/11/24 10:11 Thrive Assessment: Date of Thrive Assessment Date Thrive assessed 06/18/24 09/11/24 10:11 Currently or been in a relationship where the following occur: No concerns reported Const General: cooperative Nutritional Appearance: well nourished Orientation/consciousness: patient oriented x3 HENMT Head: Yes normal to inspection, Yes normocephalic and Yes atraumatic Ears: TM's normal bilaterally Eyes General: appearance normal, both eyes and all related structures Alignment and Position: alignment normal and position normal Neck Neck: Yes normal visual inspection, Yes no lymphadenopathy and Yes supple Resp Effort & Inspection: normal respiratory effort Auscultation: clear to auscultation bilaterally Cardio Rate: regular rate Rhythm: regular rhythm Heart sounds: S1 normal heart sound present, S2 normal heart sound present and Murmur heart sound present systolic GI Palpation (GI): Soft to palpation and nontender Auscultation: normal bowel sounds Male General Exam: Yes normal external exam Penis: normal penis Scrotum: scrotum normal, testes descended bilaterally and no inguinal hernias Testes: no testicular mass Skin Rashes: no rashes Neuro General: patient oriented x3, moves all extremities, no focal motor deficits and deep tendon reflexes 2+ bilaterally Romberg Test: Negative Extrem Right lower extremity: no edema Left lower extremity: no edema Psych Appearance: grossly normal Mental Status: mental status grossly normal Speech and movement: Normal speech and movement present Affect: normal affect Attitude: cooperative Thought process: Normal thought process present Thought content: Normal thought content present Insight: Good insight present (Psych) Judgement: Good judgement present (Psych) Coding Level of Care Code Est Pt Prev Care 40-64y(64546) Diagnoses Physical exam Z00. Dilation of aorta I77.819 Fatigue, unspecified type R53.83 Fatigue type: unspecified Screening PSA (prostate specific antigen) Z12.5 Assessment & Plan Assessment & Plan (1) Physical exam: Code(s): Z00.00 - Encounter for general adult medical examination without abnormal findings Category: Medical Plan: Labs ordered (2) Dilation of aorta: Code(s): I77.819 - Aortic ectasia, unspecified site Category: Medical Plan: sees cardiology, will order echo (3) Fatigue: Code(s): R53.83 - Other fatigue Category: Medical Qualifiers: Fatigue type: unspecified Qualified Code(s): R53.83 - Other fatigue Plan: Labs ordered (4) Screening PSA (prostate specific antigen): Code(s): Z12.5 - Encounter for screening for malignant neoplasm of prostate Category: Medical Plan: PSA ordered Plan The patient agreed to the use of a medical office coordinator for this encounter. Scribed for JAKE James by Kavitha Moran medical office coordinator, on 09/11/2024 at 10:20 EST. Orders: Orders Comprehensive [place]. Panel Fast Today Z00.00 - Encounter for general adult medical examination without abnormal findings UA CC w/rflx Micro + Cult Today Z00.00 - Encounter for general adult medical examination without abnormal findings Lipid Panel Today Z00.00 - Encounter for general adult medical examination without abnormal findings IRON PROFILE Today R53.83 - Other fatigue Complete Blood Count Auto Diff Today Z00.00 - Encounter for general adult medical examination without abnormal findings TSH reflex Free T4 Today Z00.00 - Encounter for general adult medical examination without abnormal findings CA echo transthoracic complete Today I77.819 - Aortic ectasia, unspecified site Ferritin Today R53.83 - Other fatigue Vitamin B12 and Folate Today R53.83 - Other fatigue Testosterone, Free/Total Today R53.83 - Other fatigue Prostate Specific Antigen Scr Today Z12.5 - Encounter for screening for malignant neoplasm of prostate Medications: New docusate sodium (Colace) 100 mg PO BID 90 days 180 caps 0RF
== END 2024-09-11 14:22 | disposition home or self-care (01) ==
PROVIDERS: PCP Nurse Practitioner Family; Visit Provider Nurse Practitioner Family
DX: Z00.00 Encounter for general adult medical examination without abnormal findings (principal); I77.819 Aortic ectasia, unspecified site; R53.83 Other fatigue; Z12.5 Encounter for screening for malignant neoplasm of prostate

== ENCOUNTER → 2024-09-11 10:05 | Outpatient (BNVA) | payer OTHER, SELFPAY | PROVIDERS: PCP Nurse Practitioner Family; Visit Provider Nurse Practitioner Family ==

== ENCOUNTER 2024-09-12 08:23 | Outpatient (REF) | payer OTHER, SELFPAY ==
[2024-09-12 10:13] LABS: MANUAL DIFF FLAG NO
[2024-09-12 10:22] LABS: Basophils Percent Auto 0.7 % (0-2); Eosinophils Absolute Auto 0.1 X10*3/uL (0.0-0.4); Eosinophils Percent Auto 2.6 % (0-4); Hematocrit 42.5 % (42.0-52.0); Hemoglobin 13.9 g/dl (14.0-18.0); Imm Gran Abs Auto 0.01 X10*3/uL (0.00-0.03); Imm Gran Pct Auto 0.2 % (0.0-0.4); Lymphocytes Absolute Auto 1.4 X10*3/uL (1.2-4.9); Lymphocytes Percent Auto 33.3 % (20-40); Mean Corpuscular HGB Conc 32.7 g/dl (31.0-36.0); Mean Corpuscular Hemoglobin 32.7 pg (27.0-33.0); Mean Platelet Volume 9.8 fL (9.4-12.4); Monocytes Absolute Auto 0.5 X10*3/uL (0.1-1.2); Neutrophils Absolute Auto 2.2 x10*3/uL (2.0-8.3); Neutrophils Percent Auto 52.2 % (45-73); Platelet Count 254 X10*3/uL (160-400); Red Blood Count 4.25 X10*6/uL (4.60-5.80); Red Cell Distribution Width 11.4 % (11.0-16.0); White Blood Count 4.3 X10*3/uL (4.8-10.8)
[2024-09-12 10:25] LABS: Appearance Urine Clear; Color Urine Yellow; Glucose Urine UA Negative (Negative); Leukocyte Esterase Urine Negative (Negative); Nitrite Urine Negative (Negative); Urine Blood Negative (Negative); Urine Ketones Negative (Negative); Urine Protein Negative (Neg-Trace)
[2024-09-12 11:02] LABS: Alanine Aminotransferase 23 U/L (0-40); Alkaline Phosphatase 77 U/L (39-117); Anion Gap 10 (12-20); Aspartate Amino Transferase 22 U/L (5-37); Bilirubin Total 2.6 mg/dL (0.0-1.0); Blood Urea Nitrogen 13 mg/dL (9-16); Carbon Dioxide 29 mmol/L (22-29); Chloride 105 mmol/L (96-108); Cholesterol 132 mg/dL (<200); Estimated Glomerular Filt Rate > 60; Glucose Fasting 104 mg/dL (60-99); HDL Cholesterol 43 mg/dL (>40); Iron 106 mcg/dL (45-160); LDL Cholesterol Calculated 70 mg/dL (<100); Percent Iron Saturation 41 % (15-50); Potassium 4.2 mmol/L (3.3-5.1); Sodium 140 mmol/L (135-145); Total Iron Binding Capacity 258 mcg/dL (228-428); Total Protein 6.9 g/dL (6.5-8.0); Triglycerides 98 mg/dL (<150); Unsaturated Iron Binding 152 ug/dL
[2024-09-12 11:27] LABS: Ferritin 527 ng/mL (20-250); TSH reflex Free T4 1.62 uIU/mL (0.32-4.0)
[2024-09-12 11:30] LABS: Vitamin B12 613 pg/mL (200-900)
[2024-09-19 13:07] LABS: Testosterone, Free 49.8 pg/mL (35.0-155.0); Testosterone, Total 405 ng/dL (250-1100)
== END 2024-09-12 08:24 | disposition home or self-care (01) ==
LOC: HO.HMGCLDS 08:23
PROVIDERS: PCP Nurse Practitioner Family; Visit Provider Nurse Practitioner Family
DX: Z00.00 Encounter for general adult medical examination without abnormal findings (principal); R53.83 Other fatigue; Z12.5 Encounter for screening for malignant neoplasm of prostate
CPT/HCPCS: 36415; 80053; 80061; 81003; 82607; 82728; 82746; 83540; 84153; 84402; 84403; 84443; 85025

== ENCOUNTER → 2024-10-04 13:49 | Outpatient (REF) | payer OTHER, SELFPAY ==
--- NOTE | 2024-10-04 13:53 | CA_ITS ---
Transthoracic Echocardiogram Patient (Last, First, Middle): Doug Colon, Gender: Male Date of : 1960 Age: 64 Procedure Date: 10/04/2024 Procedure Type: Transthoracic Echocardiogram Location: OP Height: 182.88 cm Weight: 88.45 kg BSA: 2.11 m2 Heart Rate: bpm BP: 140 / 78 mmHg Business Services Vice President: TO Referring MD: Clovis Lopez [facility]- Chipper: Rolando Rose MD Symptoms: I77.819 - Aortic ectasia, unspecified site Study Quality: Fair/contrast ECG Rhythm: Sinus Conclusions: - 1. Normal LV ejection fraction 60 65% with grade 1 diastolic dysfunction 2. Ainx-ul-fflahptv pulmonic stenosis with peak gradient of 31 mm Hg 3. Mildly dilated ascending aorta at 4.1 cm 4. No gross pericardial effusion Findings Procedure Information Contrast agent, definity, is being given per protocol without apparent complications. Left Ventricle Normal left ventricular size, thickness, and systolic function. The visually estimated ejection fraction is between 60-65%. Spectral Doppler is indicative of an impaired relaxation filling pattern. E/E prime ratio is <8, consistent with normal filling pressures. Evidence suggests grade I (mild) diastolic dysfunction. Right Ventricle Normal right ventricular cavity size. There is normal right ventricular systolic function. There is mildly increased right ventricular wall thickness. Atria The left atrium is mildly dilated. There is no evidence of interatrial shunt. The right atrium is likely dilated. Aortic Valve The aortic valve was not well visualized. There is mild calcification of the aortic valve. There is no aortic valve stenosis. There is no aortic valve regurgitation. Mitral Valve The mitral valve was not well visualized. There is no mitral valve regurgitation. There is no mitral valve stenosis. Pulmonic Valve The pulmonic valve was not well visualized. There is mild to moderate stenosis. Peak PV gradient is calculated at 32 mmHg. Tricuspid Valve The tricuspid valve was not well visualized. Tricuspid regurgitation envelope is inadequate for calculation of right ventricular systolic pressure. Great Vessels The aorta was not well visualized. The pulmonary artery was not well visualized. There is mild dilatation of the ascending aorta measuring 4.10 cm. Venous The inferior vena cava is normal in size and collapses greater than 50% with inspiration. Pericardium/Pleural There is no evidence of pericardial effusion. Prior Study Comparison Changes noted compared to prior study dated: 01/27/2023. ejbj-os-wojyqsak pulmonic stenosis noted by gradient on this study. Measurements 2D Linear Measurements IVSd: 0.99 0.6-0.9/0.6-1.0 cm LVIDd: 4.63 3.9-5.3/4.2-5.9 cm LVIDd Index: 2.19 2.4-3.2/2.2-3.1 cm/m2 LVIDs: 3.42 2.0-3.6 cm LVPWd: 0.82 0.7-1.1 cm LA Diam: 3.40 2.7-3.8/3.0-4.0 cm LAIDs Index: 1.61 1.5-2.3 cm/m2 LV Mass: 175.46 67-162/88-224 g LV Mass Index: 83.16 43-95/49-115 g/m2 LVOT Diam: 2.30 3.0+(-)1.3 cm 2D Systolic Function EF 4C: 62.40 >55% EF 2C: 60.10 >55% EF BiP: 60.90 >55% Mitral Valve MV Pk E: 0.61 MV PK A: 0.55 MV Decel Time: 243.00 E/A: 1.10 E'Lateral: 8.70 E'Medial: 6.09 E/E' Med: 10.00 E/E' Lat: 7.00 PHT: 71.00 MVA PHT: 3.10 Decel Ware: 2.51 Aortic Valve AoV Pk Misael: 1.74 AoV Mn Misael: 1.23 AoV VTI: 0.40 AoV Pk Grad: 12.00 Aov Mn Grad: 7.00 ADOLFO Cont.VTI: 3.01 LVOT LVOT Pk Misael: 1.32 LVOT Mn Misael: 0.83 LVOT VTI: 0.29 LVOT Pk Grad: 7.00 LVOT Mn Grad: 3.00 LVOT Diam: 2.30 LVOT Area: 4.15 Diastolic Function MV Pk E: 0.61 MV Pk A: 0.55 E/A: 1.10 E'Medial: 6.09 E/E' Med: 10.00 E' Laterial: 8.70 E/E' Lat: 7.00 Right Ventricle TAPSE (mm): 28.60 TVS' Misael: 11.10 Tricuspid Valve RA Press: 8.00 Great Vessels Aorta Sinus of Valsalva: 3.51 2.0-3.5 cm Ao Asc: 4.10 2.1-3.4 cm Ao Arch: 3.50 Pulmonary Valve PV Pk Misael: 2.83 PV Min Misael: 1.90 Peak PV Grad: 32.00 PV Mn Grad: 17.00 Shunting QP:QS: 0.50 Updated in Other Vendor System with Status of Final Rolando Rose MD electronically signed on 10/04/2024 3:53:19 PM with status of Final
== END ==
LOC: HO.CARD 13:49
PROVIDERS: PCP Nurse Practitioner Family; Visit Provider Nurse Practitioner Family
DX: I77.819 Aortic ectasia, unspecified site (principal)
CPT/HCPCS: 93306; Q9957

== ENCOUNTER → 2024-10-04 13:53 | Outpatient (BNV) | payer OTHER, SELFPAY | PROVIDERS: PCP Nurse Practitioner Family; Visit Provider Internal Medicine Cardiovascular Disease | DX: I77.810 Thoracic aortic ectasia (principal) | CPT/HCPCS: 93306 ==

== ENCOUNTER 2024-10-21 15:01 | Outpatient (AMB) | payer OTHER, SELFPAY ==
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
== END 2024-10-21 15:26 | disposition home or self-care (01) ==
PROVIDERS: PCP Nurse Practitioner Family; Visit Provider Psychiatry & Neurology Neurology
DX: G47.33 Obstructive sleep apnea (adult) (pediatric) (principal); I69.30 Unspecified sequelae of cerebral infarction
CPT/HCPCS: 99214

== ENCOUNTER 2024-12-05 10:53 | Outpatient (AMB) | payer OTHER, SELFPAY ==
--- NOTE | 2024-12-05 11:21 | MHC.OFFVIS ---
Intake Visit Reasons: 1y/PVR/PSA(set) Intake Note: Patient is Present for 1Y Follow Up PSA/PVR Urology Medication: None Antibiotic Allergies: None Blood Thinners: Aspirin Pharmacy:[facility] PVR: 0ml TODAY'S PVR:0ML'S Greeting Card Writer Required: No Allergies lisinopril Adverse Reaction (Intermediate, Verified 12/05/24 11:24) cough HPI Comments Details: Doug is a pleasant male. He is a patient of Dr. Fatima. He is seen for the following urologic conditions - lower urinary tract symptoms Twelve month follow-up PVR 0 PSA stable, testosterone stable Lower urinary tract symptoms Prior PVR over 100 cc Current therapy Flomax Initial symptoms weakness of stream with hesitancy and intermittent Intervention - 01/19 GreenLight laser prostatectomy Labs - 07/18 1.9, 09/19 P 1.9, T 400 Imaging - 11/17 bladder ultrasound - PVR 55 cc, estimated prostate size 50-60 gm with a protruding median lobe PFSH Medical History Frozen shoulder Cerebellar stroke Cerebellar cerebrovascular accident (CVA) without late effect Hypersomnia Snoring [place] syndrome BPH (benign prostatic hyperplasia) White matter disease Lacunar infarction Degenerative disc disease, cervical Elevated cholesterol Murmur HTN (hypertension) Retention of urine Surgical History H/O nasal septoplasty History of prostate surgery History of carpal tunnel surgery Hx of shoulder surgery Hx of cholecystectomy Hx of colonoscopy Family History Maternal Aunt Diabetes HTN (hypertension) Mother HTN (hypertension) High cholesterol Family/Other Heart disease Social History Household Members: Spouse and Children Housing: House Are you a primary resident care technician to a significant other at home: No Do you presently have visiting nurse or other home services: No Alcohol intake: former Patient Tobacco Use Status: Never used Tobacco e-Cigarette/Vaping Use: Never Used Second Hand Smoke Exposure: No Substance Use Type: Marijuana service: Yes Current occupational status: retired Cognitive needs: No Hearing needs: No Vision needs: No Review of Systems Const Denies chills and Denies fever(s) Card Reports no additional complaints and Denies syncope Resp Denies cough GI Denies abdominal pain and Denies heartburn Reports as per HPI and Denies change in libido Neuro Denies syncope Psych Denies change in libido Endo Denies change in libido Physical Exam Const General: cooperative, healthy appearing, comfortable and no acute distress Orientation/consciousness: patient oriented x3 HEENT Face and sinus: Yes normal facial exam Mouth: moist mucous membranes Neck Neck: Yes normal visual inspection, Yes full ROM and Yes trachea midline Chest Chest palpation & inspection: normal inspection of the chest Resp Effort & Inspection: normal respiratory effort, able to speak in complete sentences and no respiratory distress GI Inspection: Yes normal to inspection Back/Spine/Pelvis Cervical Spine: normal cervical lordosis Thoracic/Lumbar Spine: thoracic and lumbar spine normal to inspection Skin General skin exam: no rashes or lesions noted Neuro General: patient oriented x3, gait normal, tone normal and moves all extremities Extrem General: Yes normal to inspection and Yes capillary refill normal Office Procedures Post Void Residual Post Residual Void Post Void Residual (PVR): 0 77445-[id number] Void Residual by ultrasound Results AMB Urinalysis, Automated UA Leukoctes 0 [place]/uL Last Edit by NJ Phillips on 12/05/24 11:36 UA Nitrite Negative Last Edit by NJ Phillips on 12/05/24 11:36 UA Urobilinogen 0.2 mg/dL Last Edit by NJ Phillips on 12/05/24 11:36 UA Protein 0 mg/dL Last Edit by NJ Phillips on 12/05/24 11:36 UA pH 6.0 Last Edit by NJ Phillips on 12/05/24 11:36 UA Blood 0 Apolinar/uL Last Edit by NJ Phillips on 12/05/24 11:36 UA Specific Newton 1.015 Last Edit by NJ Phillips on 12/05/24 11:36 UA Ketone Negative Last Edit by NJ Phillips on 12/05/24 11:36 UA Bilirubin 0 mg/dL Last Edit by NJ Phillips on 12/05/24 11:36 UA Glucose 0 mg/dL Last Edit by NJ Phillips on 12/05/24 11:36 Results Reviewed Results Reviewed: Laboratory Last Values Urine pH (Auto) 6.0 12/05/24 11:36 Specific [place] (Auto) 1.015 12/05/24 11:36 Urine Protein (Auto) 0 mg/dL 12/05/24 11:36 Glucose (UA)(Auto) 0 mg/dL 12/05/24 11:36 Urine Ketones (Auto) Negative 12/05/24 11:36 Urine Blood (Auto) 0 Apolinar/uL 12/05/24 11:36 Urine Nitrite (Auto) Negative 12/05/24 11:36 Urine Bilirubin (Auto) 0 mg/dL 12/05/24 11:36 Urine Urobilinogen (Auto) 0.2 mg/dL 12/05/24 11:36 Leukocyte Esterase (Auto) 0 [place]/uL 12/05/24 11:36 Assessment & Plan Assessment & Plan (1) BPH w urinary obs/LUTS: Code(s): N40.1 - Benign prostatic hyperplasia with lower urinary tract symptoms; N13.8 - Other obstructive and reflux uropathy Category: Medical Plan Twelve month follow-up Orders: Orders AMB Urinalysis Automated Today Z13.9 - Encounter for screening, unspecified Prostate Specific Antigen 364 Days N13.8 - Other obstructive and reflux uropathy, N40.1 - Benign prostatic hyperplasia with lower urinary tract symptoms Patient Instructions: Imaging studies, laboratory and physical exam results were discussed and reviewed in detail. No major barriers to patient understanding were identified. An opportunity to ask questions regarding the treatment plan was provided. All questions were answered. The patient expressed understanding and agreement with the above treatment plan. The patient is aware they should contact our office by phone for worsening of their current condition or the appearance of new urologic symptoms. Compliance is encouraged with any medications and followup testing that is ordered. It is a privilege to participate in the urologic care of your patient. If you have any questions or concerns regarding treatment for the above conditions, or other urologic issues, please do not hesitate to contact me. The office telephone contact is [phone]. This note is constructed using voice recognition software. While every effort has been made to ensure accuracy water pollution control technician errors may have been included. Yours sincerely, Dr Dago Walls MD, ABIEL [facility] - Urology Providers of Expert, Compassionate Care for the Genitourinary System Coding Level of Care Code Est Pt Level 4 (47038) Diagnoses BPH w urinary obs/LUTS N40.1; N13.8 CPT Codes Post Residual Void - PVR CPT Code: 40356-Nznu Void Residual by ultrasound ([id number])
--- OUTSIDE RECORDS SUMMARY | 2024-12-05 11:37 | XMS_ITS ---
Author Name [facility] Organization Unknown Results Test Name/Text Value Interpretation Date Range Source Iron Satn MFr SerPl 32%(calc) Normal [id number] 20 - 48 [facility] Iron SerPl-mCnc 88mcg/dL Normal [id number] 50 - 180 [facility] TIBC SerPl-mCnc 272mcg/dL(calc ) Normal [id number] 250 - 425 [facility] UGT1A1 gene Mut Anl Bld/T See Below Abnormal [id number] [facility] Retics # 98225ynjai/uL Normal [id number] 07860 - 39143 [facility]/100 RBC NFr Auto 1.9% Normal [id number] [facility] BUN/Creat SerPl SEE NOTE: Normal [id number] 6 - 22 [facility] eGFRcr SerPlBld CKD-EPI 2020 100mL/min/1.73 m2 Normal [id number] - [facility] Albumin SerPl-mCnc 4.1g/dL Normal [id number] 3.6 - 5. 1 [facility] Albumin/Glob SerPl 1.7(calc) Normal [id number] 1 - 2.5 [facility] BUN SerPl-mCnc 21mg/dL Normal [id number] 7 - 25 QU EST CO2 SerPl-sCnc 27mmol/L Normal [id number] 20 - 32 QU EST Calcium SerPl-mCnc 9.3mg/dL Normal [id number] 8.6 - 10 .3 [facility] ALT SerPl-cCnc 17U/L Normal [id number] 9 - 46 QU [facility] Glucose SerPl-mCnc 86mg/dL Normal [id number] 65 - 99 [facility] AST SerPl-cCnc 20U/L Normal [id number] 10 - 35 QU EST Sodium SerPl-sCnc 138mmol/L Normal [id number] 135 - 146 [facility] Globulin Ser Calc-mCnc 2.4g/dL(calc) Normal [id number] 1.9 - 3.7 [facility] Bilirub SerPl-mCnc 2.1mg/dL Above high normal [id number] 0.2 - 1.2 [facility] ALP SerPl-cCnc 68U/L Normal [id number] 35 - 144 QU EST Prot SerPl-mCnc 6.5g/dL Normal [id number] 6.1 - 8.1 Q [facility] Potassium SerPl-sCnc 4.3mmol/L Normal [id number] 3.5 - 5.3 [facility] Chloride SerPl-sCnc 104mmol/L Normal [id number] 98 - 11 0 [facility] Creat SerPl-mCnc 0.78mg/dL Normal [id number] 0.7 - 1.35 [facility] Ferritin SerPl-mCnc 301ng/mL Normal [id number] 24 - 38 0 [facility] MCHC RBC Auto-mCnc 32.1g/dL Normal [id number] 32 - 36 [facility] PMV Bld Gene-Varinder 10.2fL Normal [id number] 7.5 - 12 .5 [facility] Platelet # Bld Auto 267Thousand/uL Normal [id number] 14 0 - 400 [facility] Eosinophil # Bld Auto 168cells/uL Normal [id number] 15 - 500 [facility] MCH RBC Qn Auto 32.6pg Normal [id number] 27 - 33 Q [facility] Basophils/leuk NFr Bld Auto 0.8% Normal [id number] [facility] Monocytes # Bld Auto 454cells/uL Normal [id number] 200 - 950 [facility] Hgb Bld-mCnc 13.4g/dL Normal [id number] 13.2 - 17.1 QU EST MCV RBC Auto 101.7fL Above high normal [id number] 80 - 1 00 [facility] WBC # Bld Auto 5.1Thousand/uL Normal [id number] 3.8 - 1 0.8 [facility] RBC # Bld Auto 4.11Million/uL Below low normal [id number] 4.2 - 5.8 [facility] Basophils # Bld Auto 41cells/uL Normal [id number] 0 - 2 00 [facility] Eosinophil/leuk NFr Bld Auto 3.3% Normal [id number] [facility] RDW RBC Auto-Rto 10.7% Below low normal [id number] 11 - 15 [facility] Hct VFr Bld Auto 41.8% Normal [id number] 38.5 - 50 [facility] Lymphocytes # Bld Auto 1418cells/uL Normal [id number] 850 - 3900 [facility] Neutrophils # Bld Auto 3019cells/uL Normal [id number] 1500 - 7800 [facility] Neutrophils/leuk NFr Bld Auto 59.2% Normal [id number] [facility] Monocytes/leuk NFr Bld Auto 8.9% Normal [id number] [facility] Lymphocytes/leuk NFr Bld Auto 27.8% Normal [id number] [facility] G6PD RBC-cCnt 0.5U/gHgb Below low normal [id number] 7 - 20 .5 [facility] History of Medication Use Medication Directions Dispensed Refills Start Date End Date Stat us gadobutrol (GADAVIST) injection 18 mL 18 mL, Intravenous, Once in imaging, contrast, Starting on Mon11/13/24 at 0916, For 1 dose, Radiology Appointment 11/16/2024 11/26/9999 completed amLODIPine-valsarta n (EXFORGE) 5-160 MG per tablet Take 1 tablet by mouth daily. 10/13/2024 11/26/9999 active docusate sodium (COLACE) 100 MG capsule 1 capsule (100 mg total) by Mouth/Oral Cavity route every 12 hours. 10/13/2024 11/26/9999 active losartan (COZAAR) 50 MG tablet Take 1 tablet (50 mg total) by mouth daily. 10/13/2024 11/26/9999 aborted losartan (COZAAR) 25 MG tablet Take 2 tablets (50 mg total) by mouth every morning. 08/04/2024 active rosuvastatin (CRESTOR) 5 MG tablet Take 1 tablet (5 mg total) by mouth daily. 03/23/2024 active ezetimibe (ZeTIA) 10 MG tablet Take 0.5 tablets (5 mg total) by mouth every morning. 10/11/2023 active Aspirin Low Dose 81 MG EC tablet Take 1 tablet (81 mg total) by mouth nightly. 10/11/2023 active losartan (COZAAR) 25 MG tablet Take 1 tablet (25 mg total) by mouth every morning. 10/11/2023 active Problems Problem Status Onset Date Problem Type Date of Resoluti on Source Abnormal EKG active 2023-10-05 [facility]Act [facility] Aneurysm of ascending aorta without rupture active 2023-10-16 ProblemAct [facility] High bilirubin active 2023-10-[address] Right ventricular dilation active 2024-10-10 ProblemAct [facility] High cholesterol active 2023-10-02 ProblemAct [facility] Mixed hyperlipidemia active 2023-10-15 ProblemAct [facility] Elevated ferritin level active 2023-10-02 ProblemAct [facility] Obstructive sleep apnea active 2023-10-16 ProblemAct [facility] Nonrheumatic pulmonary valve stenosis active 2024-10-10 ProblemAct [facility] Primary hypertension active 2023-10-02 ProblemAct [facility] Stroke active 2023-10-02 ProblemAct [facility] Personal history of COVID-19 active 2023-10-02 ProblemAct [facility]
--- OUTSIDE RECORDS SUMMARY | 2024-12-05 11:37 | XMS_ITS | Continuity of Care Document ---
Author Organization [place] - [facility], [facility] Address [address] [place] [address] Care Team Providers Care Orchard Pruner Name Role Phone ORLIN URIBE Referring Provider [phone] Assessment Encounter Date Assessment Date Assessment LastModified by Organization Details LastModified Time 11/29/2024 11/29/2024 Based on review of PSG patient does not meet criteria for placement of the INSPIRE device. His TIANNA/AHI is outside the range of our implant center (15-65). Recommend in-lab sleep study that may provide more accurate data regarding his sleep disordered breathing. Patient suspects he has moderate to severe disease and the home sleep study was an underestimatio n. His fiberoptic examination of his pharynx and larynx was benign. He does have a moderate caudal deflection of the septum as apparently after his septoplasty repair he had some nasal trauma. [email or web address] Not available 11/29/2024 12:11:52 Plan of Treatment Reminders Order Date Submit Date Provider Last Modified By Organization Details Last Modified Time Details Appointments None recorded. Lab None recorded. Referral None recorded. Procedures polysomnogr aphy (PROC) - in lab PSG please. pt was not a candidate for inspire base don home psg data. 2024 025 [email or web address] Erika Portillo MD, 100 [facility], [address], [address], 14:23:00 Surgeries None recorded. Imaging None recorded. Medication Orders None recorded. Patient TargetsNo targets recorded. Patient InstructionsNo instructions recorded. Reason for Referral None Reported. Problems Name Problem SNOMED Code Status Onset Date Resolution Date Notes Provider Name and Address Organization Details Recorded Time Obstructive sleep apnea syndrome 68606358 Active 2023 NAYA MUNGUIA MD 100 [facility] [address], [place], [address], [facility] 13:24:59 Deviated nasal septum 628634617 Active 2023 NAYA MUNGUIA MD [address] [address], [place], [address], [facility] [place] 13:25:07 Hypertrophy of nasal turbinates 77942501 Active 2023 NAYA MUNGUIA MD [address] [address], [place], [address], [facility] [place] 13:25:07 Problem Notes None recorded. Procedures Surgical History Date Name Laterality Status Provider Name and Address Organization Details Recorded Time 11/29/2024 FOL_DP completed NAYA MUNGUIA MD [address] [address], [place], [address], [facility] 11/29/2024 12:10:58 Imaging Results None recorded. Procedure Notes None recorded. Medical Equipment None Reported. Medications Name Sig Start Date Stop Date Status Note LastModified by Organization Details LastModified Time losartan 50 mg tablet TAKE 1 TABLET BY MOUTH DAILY active Not Available Not Available No t Available aspirin 81 mg tablet,delayed release TAKE 1 TABLET BY MOUTH DAILY active Not Available Not Available No t Available losartan 25 mg tablet TAKE 1 TABLET BY MOUTH DAILY active Not Available Not Available No t Available docusate sodium 100 mg capsule TAKE 1 CAPSULE BY MOUTH TWICE DAILY active Not Available Not Available No t Available polyethylene glycol 3350 17 gram/dose oral powder MIX AND TAKE 17 GRAMS BY MOUTH DAILY active Not Available Not Available No t Available naproxen 500 mg tablet TAKE 1 TABLET BY MOUTH TWICE DAILY FOR 30 DAYS active Not Available Not Available No t Available oxycodone 5 mg tablet TAKE 1 TO 2 TABLETS BY MOUTH EVERY 4 TO 6 HOURS NEEDED FOR 5 DAYS active Not Available Not Available No t Available ezetimibe 10 mg tablet TAKE 1/2 TABLET BY MOUTH DAILY active Not Available Not Available No t Available rosuvastatin 5 mg tablet active Not Available Not Available No t Available amlodipine 5 mg-valsartan 160 mg tablet TAKE 1 TABLET BY MOUTH DAILY active Not Available Not Available No t Available Vitals None Recorded Social History None recorded. Functional Status None recorded. Mental Status None recorded. Family History Nothing Reported. Medical History No medical history recorded. Past Encounters Encounter ID Performer Location Encounter Start Date Encounter Closed Date Diagnosis/Indication Diagnosis SNOMED-CT Code Diagnosis ICD10 Code Diagnosis Note [id number] NAYA MUNGUIA MD [facility] [address] [address] 11/29/2024 11:12:06 11/29/2024 12:10:43 Obstructive sleep apnea syndrome 93133716 G47.33 Health Concerns Section Related Observation LastModified by Organization Detai ls LastModified Time None Recorded Concern Status LastModified by Organization Details LastModified Time None Recorded Payers Encounter Date Sequence Insurance Name Policy Number Policy Piper Covered Member ID Piper Member ID Guarantor Name 11/29/2024 1 [facility] [id number] Delia Isaiah [id number] Doug Isaiah Notes Date Note Type Note Provider Name and Address Organization Details Recorded Time 11/29/2024 text/html OSA3/[address] [facility] 25REI 13.8central and mixed - none recordedCPAP trial - intolerant as mask slipped. 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
--- OUTSIDE RECORDS SUMMARY | 2024-12-05 11:37 | XMS_ITS | Data Portability ---
Author Organization [place] - [facility], Allergy Address 100 [facility] [address] [place] [address] Care Team Providers Care Blower Blast Furnace Name Role Phone ORLIN URIBE Referring Provider [phone] Assessment Encounter Date Assessment Date Assessment LastModified [...] base don home psg data. 2024 025 [email or web address] Erika Portillo MD, [address], [facility] [address], [place], [address], 14:23:00 Surgeries None recorded. Imaging None recorded. Medication Orders None recorded. Patient TargetsNo targets recorded. Patient InstructionsNo instructions recorded. Reason for Referral None Reported. Problems Name Problem SNOMED Code Status Onset Date Resolution Date Notes Provider Name and Address Organization Details Recorded Time Obstructive sleep apnea syndrome 62149664 Active 2023 NAYA MUNGUIA MD 100 [facility] [address], [place], [address], [facility] - [facility] 13:24:59 Deviated nasal septum 346879716 Active 2023 NAYA MUNGUIA MD 100 [facility] [address], [place], [address], [facility] - [facility] [place] 13:25:07 Hypertrophy of nasal turbinates 65414015 Active 2023 NAYA MUNGUIA MD 100 [facility] [address], [place], [address], [facility] [place] 13:25:07 Problem Notes None recorded. Procedures Surgical History Date Name Laterality Status Provider Name and Address Organization Details Recorded Time 11/29/2024 FOL_DP completed NAYA MUNGUIA MD [address] [address], [place], [address], [facility] 11/29/2024 12:10:58 Imaging Results None recorded. [...] SNOMED-CT Code Diagnosis ICD10 Code Diagnosis Note [id number] NAYA MUNGUIA MD [facility] [address] [address] 11/29/2024 11:12:06 11/29/2024 12:10:43 Obstructive sleep apnea syndrome 94881618 G47.33 Health Concerns Section Related Observation LastModified by Organization Detai ls LastModified Time None Recorded Concern Status LastModified by Organization Details LastModified Time None Recorded Advance Directives Directive None Recorded Payers Encounter Date Sequence Insurance Name Policy Number Policy Piper Covered Member ID Piper Member ID Guarantor Name 11/29/2024 1 [id number] Delia Colon [id number] Doug Isaiah Notes Date Note Type Note Provider Name and Address Organization Details Recorded Time 11/29/2024 text/html OSA3/[address] Brown 25REI 13.8central and mixed - none recordedCPAP trial - intolerant as mask slipped. 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 - [facility] 11/29/2024 12:13:03
== END 2024-12-05 11:54 | disposition home or self-care (01) ==
PROVIDERS: PCP Nurse Practitioner Family; Visit Provider Urology
DX: N40.1 Benign prostatic hyperplasia with lower urinary tract symptoms (principal); N13.8 Other obstructive and reflux uropathy; Z13.9 Encounter for screening, unspecified
CPT/HCPCS: 99214

== ENCOUNTER → 2024-12-05 10:53 | Outpatient (BNVA) | payer OTHER, SELFPAY | PROVIDERS: PCP Nurse Practitioner Family; Visit Provider Urology | DX: N40.1 Benign prostatic hyperplasia with lower urinary tract symptoms (principal); N13.8 Other obstructive and reflux uropathy | CPT/HCPCS: 51798; 81003 ==

== ENCOUNTER 2024-12-11 07:27 | Outpatient (AMB) | payer OTHER, SELFPAY ==
--- OUTSIDE RECORDS SUMMARY | 2024-12-11 07:30 | XMS_ITS | Continuity of Care Document ---
Author Organization [place] - [facility], [facility] Address [address] [place] [address] Care Team Providers Care Bulk Sugar Handler Name Role Phone ORLIN URIBE Referring Provider [phone] Assessment Encounter Date Assessment Date Assessment LastModified [...] base don home psg data. 2024 025 Erika Portillo MD, 100 [facility], [address], [address], 14:23:00 Surgeries None recorded. Imaging None recorded. Medication Orders None recorded. Patient TargetsNo targets recorded. Patient InstructionsNo instructions recorded. Reason for Referral None Reported. Problems Name Problem SNOMED Code Status Onset Date Resolution Date Notes Provider Name and Address Organization Details Recorded Time Obstructive sleep apnea syndrome 53181511 Active 2023 NAYA MUNGUIA MD 100 [facility] [address], [place], [address], [facility] 13:24:59 Deviated nasal septum 168723298 Active 2023 NAYA MUNGUIA MD [address] [address], [place], [address], [facility] [place] 13:25:07 Hypertrophy of nasal turbinates 64070874 Active 2023 NAYA MUNGUIA MD [address] [address], [place], [address], [facility] [place] 13:25:07 Problem Notes None recorded. Procedures Surgical History Date Name Laterality Status Provider Name and Address Organization Details Recorded Time 11/29/2024 FOL_DP completed NAYA MUNGUIA MD [address] [address], [place], [address], [facility] 11/29/2024 [...] SNOMED-CT Code Diagnosis ICD10 Code Diagnosis Note [id number] NAYA MUNGUIA MD [facility] [address] [address] 11/29/2024 11:12:06 11/29/2024 12:10:43 Obstructive sleep apnea syndrome 82773672 G47.33 Health Concerns Section Related Observation LastModified by Organization Detai ls LastModified Time None Recorded Concern Status LastModified by Organization Details LastModified Time None Recorded Payers Encounter Date Sequence Insurance Name Policy Number Policy Piper Covered Member ID Piper Member ID Guarantor Name 11/29/2024 1 [id number] Delia Isaiah [id number] Doug Isaiah Notes Date Note Type Note Provider Name and Address Organization Details Recorded Time 11/29/2024 text/html OSA3/[address] Brown 25[place] 13.8central and mixed - none recordedCPAP trial - intolerant as mask slipped. 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
--- OUTSIDE RECORDS SUMMARY | 2024-12-11 07:30 | XMS_ITS | Data Portability ---
Author Organization [place] - [facility], Allergy Address 100 [facility] 100 [place] [address] Care Team Providers Care Senior Marketing Analyst Name Role Phone ORLIN URIBE Referring Provider [phone] Assessment Encounter Date Assessment Date Assessment LastModified [...] base don home psg data. 2024 025 [id number] Erika Portillo MD, [address], [place], [address], 14:23:00 Surgeries None recorded. Imaging None recorded. Medication Orders None recorded. Patient TargetsNo targets recorded. Patient InstructionsNo instructions recorded. Reason for Referral None Reported. Problems Name Problem SNOMED Code Status Onset Date Resolution Date Notes Provider Name and Address Organization Details Recorded Time Obstructive sleep apnea syndrome 09291618 Active 2023 NAYA MUNGUIA MD 100 [facility], [place], [address], [facility] - [facility] 13:24:59 Deviated nasal septum 340460961 Active 2023 NAYA MUNGUIA MD 100 [facility] 100, [place], [address], [facility] - [facility] [place] 13:25:07 Hypertrophy of nasal turbinates 97598926 Active 2023 NAYA MUNGUIA MD 100 [facility] 100, [place], [address], [facility] [place] 13:25:07 Problem Notes None recorded. Procedures Surgical History Date Name Laterality Status Provider Name and Address Organization Details Recorded Time 11/29/2024 FOL_DP completed NAYA MUNGUIA MD [address] [address], [place], [address], [facility] 11/29/2024 12:10:58 Imaging Results None recorded. [...] SNOMED-CT Code Diagnosis ICD10 Code Diagnosis Note [id number] NAYA MUNGUIA MD [facility] [address] [address] 11/29/2024 11:12:06 11/29/2024 12:10:43 Obstructive sleep apnea syndrome 43708078 G47.33 Health Concerns Section Related Observation LastModified by Organization Detai ls LastModified Time None Recorded Concern Status LastModified by Organization Details LastModified Time None Recorded Advance Directives Directive None Recorded Payers Encounter Date Sequence Insurance Name Policy Number Policy Piper Covered Member ID Piper Member ID Guarantor Name 11/29/2024 1 [facility] [id number] Delia Colon [id number] Doug Isaiah Notes Date Note Type Note Provider Name and Address Organization Details Recorded Time 11/29/2024 text/html OSA3/[address] 25[place]I 13.8central and mixed - none recordedCPAP trial - intolerant as mask slipped. 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
--- NOTE | 2024-12-11 07:37 | A.OFFVIS_ITS ---
Vital Signs 12/11/24 07:43 Height 6 ft 1 in Weight 200 lb BMI 26.4 BP 144/69 H Blood Pressure Location Rt brachial Position Sitting Pulse 56 Intake Visit Reasons: lipoma bicep Intake Note: Patient scheduled today's appointment for lipoma on rt bicep. Present for yrs. Patient c/o: bothersome. Stile Ripsaw Operator Required: No Accompanied by: Self / Same As Patient Allergies lisinopril Adverse Reaction (Intermediate, Verified 12/11/24 07:42) cough Medication List - Last Reconciled 12/11/24 by Josh Johnson MD amlodipine-valsartan 5-160 mg 1 tab PO DAILY aspirin (Adult Aspirin Regimen) 81 mg PO DAILY docusate sodium (Colace) 100 mg PO BID 90 days ezetimibe 5 mg (1/2 x 10 mg) PO DAILY losartan 50 mg PO DAILY 90 days rosuvastatin 5 mg PO DAILY HPI Comments Details: Patient presents with a symptomatic enlarging right antecubital fossa lipoma. He would like to have it removed. He has had multiple lipomas excised in the past. Patient was known to me from the past. [facility] Medical History Frozen shoulder Cerebellar stroke Cerebellar cerebrovascular accident (CVA) without late effect Hypersomnia Snoring [place] syndrome BPH (benign prostatic hyperplasia) White matter disease Lacunar infarction Degenerative disc disease, cervical Elevated cholesterol Murmur HTN (hypertension) Retention of urine Surgical History H/O nasal septoplasty History of prostate surgery History of carpal tunnel surgery Hx of shoulder surgery Hx of cholecystectomy Hx of colonoscopy Family History Maternal Aunt Diabetes HTN (hypertension) Mother HTN (hypertension) High cholesterol Family/Other Heart disease Social History Household Members: Spouse and Children Housing: House Are you a primary health care marketing manager to a significant other at home: No Do you presently have visiting nurse or other home services: No Alcohol intake: former Patient Tobacco Use Status: Never used Tobacco e-Cigarette/Vaping Use: Never Used Second Hand Smoke Exposure: No Substance Use Type: Marijuana service: Yes Current occupational status: retired Cognitive needs: No Hearing needs: No Vision needs: No Physical Exam Vital Signs: Last Vital Signs Pulse 56 12/11/24 07:43 BP 144/69 H 12/11/24 07:43 BMI result Body Mass Index 26.4 Extrem Other: Patient was a roughly 4 x 3 cm right antecubital fossa lipoma. Office Procedures Excision Details: Risks, benefits, alternatives of excision of right antecubital fossa lipoma reviewed with the patient and included but not limited to bleeding, infection, recurrence, numbness, pain, scarring, and the patient wishes to proceed. All questions answered. Consent site. After appropriate positioning, patient underwent % lidocaine and Betadine prep and a longitudinal incision made over the lipoma in question. This was uneventfully excised/enucleated. As a multi lobular lipoma measuring roughly 4 x 3 cm taken out in piecemeal fashion. Specimen sent to pathology. Wound was irrigated, secured hemostasis, and closed using running subcuticular 3-0 Vicryl suture followed by Steri-Strips and sterile dressings. Patient tolerated procedure well. 21977-hljts/arms/legs 3.1-4cm Procedure code (CPT) selection complete Office Meds lidocaine 1 %-epinephrine 1:100,000 injection solution Performing Provider: Josh Johnson MD Performing Location: [facility] Administered by: Josh Johnson MD on 12/11/24 08:31 Dose Route Admin Location Dispensed Lot Number Expiration Date NDC Assistant Grocery 10 mL Infiltration 10 mL Assessment & Plan Assessment & Plan (1) Lipoma of arm: Code(s): D1. - Benign lipomatous neoplasm of skin and subcutaneous tissue of unspecified limb Category: Surgical Plan: Patient was been given local instructions including avoiding strenuous activities next few weeks time, ice to the wound periodically, Tylenol or Motrin for pain, and may shower in 2 days removing on the outside dressing. All questions answered. Patient will see me as directed or p.r.n.. Orders: Orders Surgical Today - Benign lipomatous neoplasm of skin and subcutaneous tissue of unspecified limb AMB Excision Today - Benign lipomatous neoplasm of skin and subcutaneous tissue of unspecified limb Medications: New lidocaine-epinephrine 1 %-1:100,000 10 mL Infiltration ONCE 30 mL 0RF - Benign lipomatous neoplasm of skin and subcutaneous tissue of unspecified limb Coding Level of Care Code Est Pt Level 5 (63961) Diagnoses Lipoma of arm D17.20 CPT Codes Trunk/Arms/Legs - CPT: 15375-mkcey/arms/legs 3.1-4cm ([id number])
[2024-12-11 07:43] VITALS: BP 144/69; PULSE 56; BMI 26.4
== END 2024-12-11 08:00 | disposition home or self-care (01) ==
PROVIDERS: PCP Nurse Practitioner Family; Visit Provider Surgery
DX: D17.21 Benign lipomatous neoplasm of skin and subcutaneous tissue of right arm (principal)
CPT/HCPCS: 11404; 99214

== ENCOUNTER 2024-12-11 07:27 | Outpatient (REF) | payer OTHER, SELFPAY | END 2024-12-11 07:28 | disposition home or self-care (01) | LOC: HO.LNP 07:27 | PROVIDERS: PCP Nurse Practitioner Family; Visit Provider Surgery | DX: D17.21 Benign lipomatous neoplasm of skin and subcutaneous tissue of right arm (principal) | CPT/HCPCS: 11404; 88304 ==

== ENCOUNTER 2024-12-18 08:22 | Outpatient (AMB) | payer OTHER, SELFPAY ==
--- OUTSIDE RECORDS SUMMARY | 2024-12-18 08:32 | XMS_ITS | Data Portability ---
Author Organization [place] - [facility], Allergy Address [address] [place] [address] Care Team Providers Care Access Control Officer Name Role Phone ORLIN URIBE Referring Provider [phone] Assessment Encounter Date Assessment Date Assessment LastModified [...] Lab None recorded. Referral None recorded. Procedures polysomnog arlette (PROC) - in lab PSG please. pt was not a candidate for inspire base don home psg data. 2024 025 [facility] Sleep Medicine Services, [address] , [place], [address], 12:06:18 Surgeries None recorded. Imaging None recorded. Medication Orders None recorded. Patient TargetsNo targets recorded. Patient InstructionsNo instructions recorded. Reason for Referral None Reported. Problems Name Problem SNOMED Code Status Onset Date Resolution Date Notes Provider Name and Address Organization Details Recorded Time Obstructive sleep apnea syndrome 44822684 Active 2023 NAYA MUNGUIA MD 100 [facility] 100, [place], [address], [facility] - [facility] [place] 13:24:59 Deviated nasal septum 621019624 Active 2023 NAYA MUNGUIA MD 100 [facility] 100, [place], [address], [facility] - [facility] [place] 13:25:07 Hypertrophy of nasal turbinates 12822372 Active 2023 NAYA MUNGUIA MD 100 [facility] 100, [place], [address], [facility] - [facility] [place] 13:25:07 Problem Notes None recorded. Procedures Surgical History Date Name Laterality Status Provider Name and Address Organization Details Recorded Time 11/29/2024 FOL_DP completed NAYA MUNGUIA MD [address] [address], [place], [address], [facility] - [facility] 11/29/2024 12:10:58 Imaging Results None recorded. Procedure [...] SNOMED-CT Code Diagnosis ICD10 Code Diagnosis Note [id number] NAYA MUNGUIA MD [facility] [address] [address] 11/29/2024 11:12:06 11/29/2024 12:10:43 Obstructive sleep apnea syndrome 49927057 G47.33 Health Concerns Section Related Observation LastModified by Organization Detai ls LastModified Time None Recorded Concern Status LastModified by Organization Details LastModified Time None Recorded Advance Directives Directive None Recorded Payers Encounter Date Sequence Insurance Name Policy Number Policy Piper Covered Member ID Piper Member ID Guarantor Name 11/29/2024 1 [facility] [id number] Delia Colon [id number] Doug Colon Notes Date Note Type Note Provider Name and Address Organization Details Recorded Time 11/29/2024 text/html OSA3/[address] 25[place] 13.8central and mixed - none recordedCPAP trial - intolerant as mask slipped. 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
--- OUTSIDE RECORDS SUMMARY | 2024-12-18 08:33 | XMS_ITS | Continuity of Care Document ---
Author Organization [place] - [facility], [facility] Address 100 [place] [address] Care Team Providers Care Information Management Specialist Name Role Phone ORLIN URIBE Referring Provider [phone] Assessment Encounter Date Assessment Date Assessment LastModified [...] base don home psg data. 2024 025 [facility] Sleep Medicine Services, [address] [facility], [place], [address], 12:06:18 Surgeries None recorded. Imaging None recorded. Medication Orders None recorded. Patient TargetsNo targets recorded. Patient InstructionsNo instructions recorded. Reason for Referral None Reported. Problems Name Problem SNOMED Code Status Onset Date Resolution Date Notes Provider Name and Address Organization Details Recorded Time Obstructive sleep apnea syndrome 93020401 Active 2023 NAYA MUNGUIA MD 100 [facility] 100, [place], [address], [facility] 13:24:59 Deviated nasal septum 860310751 Active 2023 NAYA MUNGUIA MD 100 [facility] 100, [place], [address], [facility] - [facility] [place] 13:25:07 Hypertrophy of nasal turbinates 88121670 Active 2023 NAYA MUNGUIA MD [address] [place] [address], [place], [address], [facility] [place] 13:25:07 Problem Notes None recorded. Procedures Surgical History Date Name Laterality Status Provider Name and Address Organization Details Recorded Time 11/29/2024 FOL_DP completed NAYA MUNGUIA MD [address] [place] [address], [place], [address], [facility] 11/29/2024 12:10:58 Imaging Results None recorded. [...] SNOMED-CT Code Diagnosis ICD10 Code Diagnosis Note [id number] NAYA MUNGUIA MD [facility] [address] [address] 11/29/2024 11:12:06 11/29/2024 12:10:43 Obstructive sleep apnea syndrome 17451403 G47.33 Health Concerns Section Related Observation LastModified by Organization Detai ls LastModified Time None Recorded Concern Status LastModified by Organization Details LastModified Time None Recorded Payers Encounter Date Sequence Insurance Name Policy Number Policy Piper Covered Member ID Piper Member ID Guarantor Name 11/29/2024 1 [facility] [id number] Delia Colon [id number] Doug Colon Notes Date Note Type Note Provider Name and Address Organization Details Recorded Time 11/29/2024 text/html OSA3/[address] 25[place] 13.8central and mixed - none recordedCPAP trial - intolerant as mask slipped. 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 11/29/2024 12:13:03
--- NOTE | 2024-12-18 08:43 | A.OFFVIS_ITS ---
Intake Visit Reasons: 1wk EXC Rt bicep Intake Note: Patient here s/p lipoma excision on Rt bicep. Reports incision healing well. Patient c/o: denies pain, oozing, redness. itch. Master Data Analyst Required: No Accompanied by: Self / Same As Patient Allergies lisinopril Adverse Reaction (Intermediate, Verified 12/18/24 08:44) cough HPI Comments Details: Patient presents for follow-up status post right upper extremity lipoma excision. No wound issues or complaints PFSH Medical History Frozen shoulder Cerebellar stroke Cerebellar cerebrovascular accident (CVA) without late effect Hypersomnia Snoring [place] syndrome BPH (benign prostatic hyperplasia) White matter disease Lacunar infarction Degenerative disc disease, cervical Elevated cholesterol Murmur HTN (hypertension) Retention of urine Surgical History H/O nasal septoplasty History of prostate surgery History of carpal tunnel surgery Hx of shoulder surgery Hx of cholecystectomy Hx of colonoscopy Family History Maternal Aunt Diabetes HTN (hypertension) Mother HTN (hypertension) High cholesterol Family/Other Heart disease Social History Household Members: Spouse and Children Housing: House Are you a primary lawn care worker to a significant other at home: No Do you presently have visiting nurse or other home services: No Alcohol intake: former Patient Tobacco Use Status: Never used Tobacco e-Cigarette/Vaping Use: Never Used Second Hand Smoke Exposure: No Substance Use Type: Marijuana service: Yes Current occupational status: retired Cognitive needs: No Hearing needs: No Vision needs: No Physical Exam Extrem Other: Incision well healed. Assessment & Plan Assessment & Plan (1) Status post excision of lipoma: Code(s): Z98.890 - Other specified postprocedural states; Z86.018 - Personal history of other benign neoplasm Category: Medical Plan Patient was been given local instructions including avoiding strenuous activities next few weeks time and otherwise follow-up p.r.n.. All questions answered. Coding Level of Care Code Global (99761) Diagnoses Status post excision of lipoma Z98.890; Z86.018
== END 2024-12-18 08:57 | disposition home or self-care (01) ==
LOC: HO.HGS 08:22
PROVIDERS: PCP Nurse Practitioner Family; Visit Provider Surgery
DX: Z98.890 Other specified postprocedural states (principal); Z86.018 Personal history of other benign neoplasm
CPT/HCPCS: 99024

== ENCOUNTER → 2025-01-06 19:30 | Outpatient (REF) | payer OTHER, SELFPAY ==
--- OUTSIDE RECORDS SUMMARY | 2025-01-06 20:47 | XMS_ITS | Encounter Summary ---
Author Organization [facility] Address [address] [place] [address] Care Team Providers Care Fashion Supervisor Name Role Phone Darryn [place] MD Unavailable [phone] Clovis Lopez MD Primary Care Provider [phone] Nomi Self MD Unavailable [phone] Encounter Details Date Type Department Care Team (Late st Contact Info) Description 10/18/2024 Scanned Document [facility] Cancer [place] [facility]: Oncology and Hematology [address] [place] [address] Provider, External, [address] [place] [address] Social History Tobacco Use Types Packs/Day Years Used Date Smoking Tobacco: Never Smokeless Tobacco: Never Alcohol Use Standard Drinks/Week Comments Not Currently 0 (1 standard drink = 0.6 oz pur e alcohol) Physical Activity Answer Date Recorded On average, how many days pe r week do you engage in moderate to strenuous exercise (like a brisk walk)? 7 days 10/10/2024 On average, how many minutes do you exercise per day at this level? 120 min 10/10/2024 Sex and Gender Information Value Date Recorded Sex Assigned at Male 10/02/2023 9:10 AM EST Gender Identity Male 10/02/2023 9:10 AM EST Sexual Orientation Heterosexual (straight) 10/02 9:10 AM EST documented as of this encounter Plan of Treatment Upcoming Encounters Date Type Department Care Team (Late st Contact Info) Description 02/24/2025 1:00 PM EDT Office Visit [facility] Cardiology [address] [place] [address] Nomi Self MD [address] [place], [place] [id number] 06/02/2025 9:30 AM EDT Office Visit [facility] Cancer [place] [facility]: Oncology and Hematology [address] [place] [address] Eleonora Live MD [address] [address] documented as of this encounter Visit Diagnoses Not on filedocumented in this encounter Care Teams Fashion Supervisor Relationship Specialty Start Date End Date Clovis Lopez MD [address] [facility] [place] [address] PCP - General Family Medicine 10/04/23 Darryn [place] MD [address] [place] [address] Physician Otolaryngology 10/04/23 Nomi Self MD [address] [place] [address] Primary Cv Tech Cardiovascular Disease 01/18/24 documented as of this encounter
--- OUTSIDE RECORDS SUMMARY | 2025-01-06 20:47 | XMS_ITS | Data Portability ---
Author Organization [place] - [facility], Allergy Address [address] [place] [address] Care Team Providers Care Box Storage Worker Name Role Phone ORLIN URIBE Referring Provider [phone] Assessment Encounter Date Assessment Date Assessment LastModified [...] home psg data. 2024 025 [facility] Sleep Medicine Services, [address] , [place], [address], 12:06:18 Surgeries None recorded. Imaging None recorded. Medication Orders None recorded. Patient TargetsNo targets recorded. Patient InstructionsNo instructions recorded. Reason for Referral None Reported. Problems Name Problem SNOMED Code Status Onset Date Resolution Date Notes Provider Name and Address Organization Details Recorded Time Obstructive sleep apnea syndrome 24967989 Active 2023 NAYA MUNGUIA MD 100 [facility] 100, [place], [address], [facility] - [facility] [place] 13:24:59 Deviated nasal septum 967618551 Active 2023 NAYA MUNGUIA MD 100 [facility] 100, [place], [address], [facility] - [facility] [place] 13:25:07 Hypertrophy of nasal turbinates 35306277 Active 2023 NAYA MUNGUIA MD 100 [facility] 100, [place], [address], [facility] - [facility] [place] 13:25:07 Problem Notes None recorded. Procedures Surgical History Date Name Laterality Status Provider Name and Address Organization Details Recorded Time 11/29/2024 FOL_DP completed NAYA MUNGUIA MD [address] [address], [place], [address], [facility] - [facility] 11/29/2024 12:10:58 Imaging Results None recorded. Procedure [...] SNOMED-CT Code Diagnosis ICD10 Code Diagnosis Note [id number] NAYA MUNGUIA MD [facility] [address] [address] 11/29/2024 11:12:06 11/29/2024 12:10:43 Obstructive sleep apnea syndrome 10830975 G47.33 Health Concerns Section Related Observation LastModified by Organization Detai ls LastModified Time None Recorded Concern Status LastModified by Organization Details LastModified Time None Recorded Advance Directives Directive None Recorded Payers Encounter Date Sequence Insurance Name Policy Number Policy Piper Covered Member ID Piper Member ID Guarantor Name 11/29/2024 1 [facility] [id number] Delia Colon [id number] Doug Colon Notes Date Note Type Note Provider Name and Address Organization Details Recorded Time 11/29/2024 text/html OSA3/[address] 25REI 13.8central and mixed - none recordedCPAP trial - intolerant as mask slipped. 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
--- OUTSIDE RECORDS SUMMARY | 2025-01-06 20:47 | XMS_ITS | Encounter Summary ---
Author Organization [facility] Address [address] [place] [id number] Care Team Providers Care Web Retailer Name Role Phone Darryn Birch MD Unavailable [phone] Clovis Lopez MD Primary Care Provider [phone] Nomi Self MD Unavailable [phone] Encounter Details Date Type Department Care Team (Late st Contact Info) Description 10/05/2023 Scanned Document [facility] PRIMARY [facility]ARE SCAN Primary Care, Scan Social History Tobacco Use Types Packs/Day Years Used Date Smoking Tobacco: Never Smokeless Tobacco: Never Alcohol Use Standard Drinks/Week Comments Not Currently 0 (1 standard drink = 0.6 oz pur e alcohol) Sex and Gender Information Value Date Recorded Sex Assigned at Male 10/02/2023 9:10 AM EST Gender Identity Male 10/02/2023 9:10 AM EST Sexual Orientation Heterosexual (straight) 10/02 9:10 AM EST documented as of this encounter Plan of Treatment Upcoming Encounters Date Type Department Care Team (Late Contact Info) Description 02/24/2025 1:00 PM EDT Office Visit [facility] Cardiology [address] [place] [id number] Nomi Self MD [address] [facility] [address] [place] [address] 06/02/2025 9:30 AM EDT Office Visit [facility]: Oncology and Hematology [address] [place] [phone] Eleonora Live MD [address] [address] documented as of this encounter Visit Diagnoses Not on filedocumented in this encounter Care Teams Web Retailer Relationship Specialty Start Date End Date Clovis Lopez MD [address] [facility] [place] [address] PCP - General Family Medicine 10/04/23 Darryn Birch MD [address] [place] [id number] Physician Otolaryngology 10/04/23 Nomi Self MD [address] [place] [address] Primary Obstetrics Scrub Nurse Cardiovascular Disease 01/18/24 documented as of this encounter
--- OUTSIDE RECORDS SUMMARY | 2025-01-06 20:47 | XMS_ITS | Clinical Summary ---
Author Organization [facility] Address [address] [place] [address] Care Team Providers Care Solar Site Assessment Specialist Name Role Phone Darryn Birch MD Unavailable [phone] Clovis Lopez MD Primary Care Provider [phone] Nomi Self MD Unavailable [phone] Allergies Active Allergy Reactions Criticality Noted Date Comments Lisinopril Cough Low 10/02/2023 Medications Medication Sig Dispensed Refills Start Date End Date Status Aspirin Low Dose 81 MG EC tablet Take 1 tablet (81 mg total) by mouth nightly. 09/22/2023 Active ezetimibe (ZeTIA) 10 MG tablet Take 0.5 tablets (5 mg total) by mouth every morning. 08/29/2023 Active rosuvastatin (CRESTOR) 5 MG tabletIndications:C erebrovascular accident (CVA), unspecified mechanism (HCC) Take 1 tablet (5 mg total) by mouth daily. 90 tablet 3 03/21/2024 Active docusate sodium (COLACE) 100 MG capsule 1 capsule (100 mg total) by Mouth/Oral Cavity route every 12 hours. 09/11/2024 Active amLODIPine-valsarta n (EXFORGE) 10-320 MG per tabletIndications:P rimary hypertension Take 1 tablet by mouth daily. 90 tablet 3 12/19/2024 12/14/2025 Active amLODIPine-valsarta n (EXFORGE) 5-160 MG per tabletIndications:P rimary hypertension Take 1 tablet by mouth daily. 90 tablet 3 10/10/2024 12/19/2024 Discontinued (Dose adjustment) Active Problems Problem Noted Date Diagnosed Date Nonrheumatic pulmonary valve stenosis 10/10/2024 Right ventricular dilation 10/10/2024 Obstructive sleep apnea 10/16/2023 Aneurysm of ascending aorta without rupture 09/28 Mixed hyperlipidemia 10/15/2023 Abnormal EKG 10/05/2023 Assessment & Plan (10/05/2023 8:52 AM EST): Unable to retrieve prior EKG or Echo from PCP for comparison. Patient states that he has had abnormal EKGs in the past and undergoes routine Echocardiograms by his PCP for monitoring but has never been evaluated by Cardiology. Pre-Operative cardiac consult scheduled for cardiac risk stratification. Primary hypertension 10/02/2023 Assessment & Plan (10/02/2023 1:57 PM EST): Controlled. Continue current medication regimen as detailed below. -Losartan 25 mg by mouth every morning Follow up with your PCP as previously recommended for ongoing monitoring and management. High cholesterol 10/02/2023 Assessment & Plan (10/02/2023 1:59 PM EST): Stable. Continue current medication regimen as detailed below. Follow up with your PCP as previously recommended for ongoing monitoring and management. Stroke 10/02/2023 Assessment & Plan (10/02/2023 2:00 PM EST): Stable. Continue Aspirin 81 mg daily as previously prescribed. Follow up with your PCP as previously recommended for ongoing monitoring and management. Gilbert syndrome 10/02/2023 Assessment & Plan (10/02/2023 2:01 PM EST): Stable. Follow up with your PCP and Gastroenterolgist as previously recommended for ongoing monitoring and management. Elevated ferritin level 10/02/2023 Assessment & Plan (10/02/2023 2:02 PM EST): Stable. Patient is followed by Hematology for chronic elevated ferritin level and hemochromatosis. Notes reviewed with patient in [employer] portal. Follow up with Hematology as previously recommended for ongoing monitoring and management. Personal history of COVID-19 10/02/2023 Assessment & Plan (10/02/2023 2:03 PM EST): Patient with personal history of Covid in 2021 with mild, non-cardiopulmonary symptoms. All symptoms have since fully resolved. Follow up with your PCP as previously recommended for ongoing monitoring and management. 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); Gilbert syndrome; Indirect hyperbilirubinemia; G6PD deficiency 12/02/2024 Telephone [facility]: Oncology and Hematology [address] [place] [facility] [place] [address] Brandy Cheathamecca 12/02/2024 Travel 11/13/2024 8:13 AM EST - 11/13/2024 11:59 PM EST Hospital Encounter [facility] Radiology [facility] [address] [place] [phone] Nomi Self MD Right ventricular dilation; Nonrheumatic pulmonary valve stenosis Discharge Disposition: Home or Self Care 10/18/2024 9:30 AM EST Consult [facility]: Oncology and Hematology [address] [place] [facility] [place] [address] Nomi Self MD Araoye, Mojisola O, MD 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); Indirect hyperbilirubinemia 10/18/2024 Scanned Document [facility]: Oncology and Hematology [address] [place] [address] Bree Roy MD 10/18/2024 Orders Only [facility]: Oncology and Hematology [address] [place] [address] Bree Roy MD 10/18/2024 Scanned Document [facility]: Oncology and Hematology [address] [place] [address] Bree Roy MD 10/18/2024 Travel 10/11/2024 Orders Only [facility] Cardiology [address] [place] [address] Cardiology, Scan 10/10/2024 8:15 AM EST Office Visit [facility] Cardiology [address] [place] [address] Nomi Self MD Right ventricular dilation (Primary Dx); Cerebrovascular accident (CVA), unspecified mechanism (HCC); Primary hypertension; Obstructive sleep apnea; Mixed hyperlipidemia; Aneurysm of ascending aorta without rupture (HCC); Nonrheumatic pulmonary valve stenosis; Elevated ferritin 10/10/2024 Travel 10/09/2024 Orders Only [facility] Cardiology [address] [place] [address] Nomi Self MD from Last 3 Months Family History Medical History Relation Name Comments Degenerative disc disease Brother 1 Heart disease Brother 2 Kidney disease Brother 2 No Known Problems Brother 3 No Known Problems Brother 4 Cirrhosis Father Macular degeneration Mother Heart disease Sister 1 Heart disease Sister 2 Relation Name Status Comments Brother 1 Alive Brother 2 Alive Brother 3 Alive Brother 4 Alive Father Mother Alive Sister 1 Alive Sister 2 Alive Social History Tobacco Use Types Packs/Day Years Used Date Smoking Tobacco: Never Smokeless Tobacco: Never Tobacco Cessation:Counseling Given: Not Answered Alcohol Use Standard Drinks/Week Comments Not Currently [...] Orientation Heterosexual (straight) 10/02 9:10 AM EST Last Filed Vital Signs Vital Sign Reading Time Taken Comments Blood Pressure 132/77 12/02/2024 10:03 AM EST Pulse 60 12/02/2024 10:03 AM EST Temperature 36.8 ??C (98.2 ??F) 12/02/2024 10:[address] Respiratory Rate 16 12/02/2024 10:03 AM EST Oxygen Saturation 97% 12/02/2024 10:03 AM EST Inhaled Oxygen Concentration - - Weight 94 kg (207 lb 3.2 oz) 12/02/2024 10:03 AM EST Height 185.4 cm (6' 1 ) 10/10/2024 8:06 AM EST Body Mass Index 27.34 10/10/2024 8:06 AM EST Plan of Treatment Upcoming Encounters Date Type Department Care Team (Late st Contact Info) Description 02/24/2025 1:00 PM EDT Office Visit [facility] Cardiology [address] [place] [address] Nomi Self MD [address] [place] [address] 06/02/2025 9:30 AM EDT Office Visit [facility]: Oncology and Hematology [address] [place] [facility] [place] [address] Eleonora Live MD [address] [place] [address] Health Maintenance Due Date Last Done Comments Hepatitis C Virus Screening 1961 HIV Screening 1974 DTaP/Tdap/Td Vaccines (1 - Tdap) 1980 Pneumococcal Vaccines 50+ (1 of 2 - PCV) 1980 Colonoscopy 2006 Zoster (Shingles) Vaccine (1 of 2) 2011 Influenza Vaccine 06/27/2024 COVID-19 Vaccine ( - 2023-2 5 season) 2024 RSV Vaccine 60 years and old er and Patients (1 - 1-dose 75+ series) 2036 Hepatitis B Vaccines Aged Out No long er eligible based on patient's age to complete this topic Procedures Procedure Name Priority Date/Time Associated Diagnosis Comments MRI CARDIAC MORPH+FUNCTION W W/O CONTRAST Routine 11/13/2024 10:48 AM EST Right ventricular dilation Nonrheumatic pulmonary valve stenosis FERRITIN Routine 10/31/2024 8:17 AM EST 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) IRON AND TOTAL IRON BINDING CAPACITY Routine 10/31/2024 8:17 AM EST 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) RETICULOCYTE COUNT Routine 10/31/2024 8: 17 AM EST 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) COMPREHENSIVE METABOLIC PANEL Routine 10/31/2024 8:17 AM EST 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) COMPLETE BLOOD COUNT, WITH DIFFERENTIAL Routine 10/31/2024 8:17 AM EST 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) UGT1A1 GENE POLYMORPHISM (TA REPEAT) Routine 10/31/2024 8:17 AM EST Indirect hyperbilirubinemia [id number] DEHYDROGENASE (G6PD), QUANTITATIVE Routine 10/31/2024 8:17 AM EST Indirect hyperbilirubinemia COMPREHENSIVE METABOLIC PANEL Routine 10/31/2024 8:15 AM EST Right ventricular dilation Nonrheumatic pulmonary valve stenosis ECG 12-LEAD Routine 10/10/2024 7:58 AM EST Aneurysm of ascending aorta without rupture (HCC) LIPID PANEL REFLEX DIRECT LDL Routine 10/09/2024 10:19 AM EST from Last 3 Months Results * MRI Cardiac morph+function w w/o contrast (11/13/2024 10:48 AM EST) Anatomical Region Laterality Modality Heart Magnetic Resonan ce 11/13/2024 12:1 1 PM EST Impressions 11/13/2024 4:39 PM EST 1. Normal left ventricular size. ??Normal left ventricular systolic function. ??LVEF: 65 %. Nonspecific delayed myocardial enhancement is seen at the RV insertion site. 2. Normal right ventricular size. Normal right ventricular systolic function. RVEF: 67 %. Prominent appearing right ventricular wall. No evidence of delayed myocardial enhancement. Prominent appearing right ventricular wall. 3. Trileaflet pulmonic valve with decreased opening resulting in a mild to moderate stenosis with a peak gradient of 32 mmHg. There is a small regurgitant volume of 11 mL. 4. Mild biatrial enlargement. 5. Dilated and tortuous ascending aorta measuring up to 4 cm on axial human resources services specialist images. Narrative 11/13/2024 4:39 PM EST EXAM: MRI CARDIAC MORPH+FUNCTION W W/O CONTRAST on 11/13/2024 8:26 AM CLINICAL HISTORY: DOUG PEREZ is a 64 years old Male with a submitted history of Pulmonic stenosis, RV dilation. ADDITIONAL HISTORY: Right ventricular dilation, Nonrheumatic pulmonary valve stenosis COMPARISONS: None TECHNIQUE: [employer] 3.0T MRI scanner. Morphologic and dynamic cine imaging were performed in multiple projections. Amount mL of Gadavist was administered for delayed enhancement imaging. Flow quantification sequences were obtained. Post-processing included volume calculations, which were performed by the interpreting physician on an independent workstation. PATIENT INFORMATION: Height: 185 cm, Weight: 92.1 kg FINDINGS: Aorta: The visualized thoracic aorta is somewhat tortuous and dilated measuring up to 4 cm Pulmonary artery: The main pulmonary artery is normal in size. ?? Systemic and pulmonary venous return: Conventional. Cardiac Chambers: The cardiac chambers demonstrate normal atrioventricular and ventriculoarterial concordance. Coronaries: Not specifically imaged. Left Ventricle: The left ventricular size is normal. The left ventricular systolic function is globally normal. No segmental wall motion abnormalities are seen. There is normal myocardial thickness throughout the left ventricle. Post contrast images demonstrate no evidence of an ischemic scar. Nonspecific delayed myocardial enhancement is seen at the RV insertion site. No thrombus is seen, though exam was not tailored for evaluation. Absolute/Indexed to BSA (Mosteller BSA method). SAX3D Stack LV Function ? Ejection Fraction: ??65 ??%, ?? *Normal 57-77% / Mildly depressed 41-56 / Moderate 30-40 / Severe <30% ?? Stroke Volume: ??143 ??ml ? End-Diastolic Volume Index: ??101 ??ml/m??, ?? *Normal 57-105 / Mildly increased 106-117 / Moderate 118-129 / Severe >129 ml/m2 ?? End-Systolic Volume Index: ??35.7 ??ml/m? End-Diastolic Volume: ??221 ??ml, ?? *Normal 106-214 / Mildly increased 215-241 / Moderate 242-268 / Severe >268 mL ?? End-Systolic Volume: ??77.6 ??ml ? Heart Rate: ??54 ??bpm ? Peak Filling Rate: ??562 ??ml/s ? Peak Ejection Rate: ??855 ??ml/s ? Cardiac Output: ??7.7 ??l/min ? Cardiac Index: ??3.55 ??l/min/m? Stroke Volume Index: ??65.7 ??ml/m? Mass Phase: ??133(ED) ??g ? End-Diastolic Mass: ??133 ??g ? End-Systolic Mass: ??130 ??g ? Mass Index Phase: ??61(ED) ??g/m? End-Diastolic Mass Index: ??61 ??g/m??, ?? *Normal 49-85 / Mildly increased 86- 94 / Moderate 95-103 / Severe >103 g/m2 ?? End-Systolic Mass Index: ??60 ??g/m? SAX2D Parameters ? LV End Diastolic Diameter: ??53 ??mm, ?? Normal < 62 mm ?? LV End Systolic Diameter: ??38 ??mm, ? Anterior septal wall: ??11 ??mm, ?? Normal <12 mm ?? Posterior ??wall: ??7 ??mm, ?? Normal <11 mm ?? Right Ventricle: The right ventricular size is normal. The right systolic ventricular function is globally 67. No segmental wall motion abnormalities or aneurysms are seen. ?? Post contrast images demonstrate no myocardial delayed enhancement. No thrombus is seen, though exam was not tailored for evaluation. Prominent appearing right ventricular wall thickness. Absolute/Indexed to BSA (Mosteller BSA method). SAX3D Stack RV Function ? Ejection Fraction: ??67 ??%, ??*Normal 52-72% / Mildly depressed 41-52 / Moderate 30-40 / Severe <30% ?? Stroke Volume: ??151 ??ml ? End-Diastolic Volume Index: ??104 ??ml/m??, ??*Normal 61-121 / Mildly increased 122-136 / Moderate 137-151 / Severe >151 mL/m2 ?? End-Systolic Volume Index: ??34.7 ??ml/m? End-Diastolic Volume: ??227 ??ml, ??*Normal 118 250 / Mild 251 283 / Moderate 284 316 / Severe >316 mL ?? End-Systolic Volume: ??75.6 ??ml ? Heart Rate: ??54 ??bpm ? Peak Filling Rate: ??673 ??ml/s ? Peak Ejection Rate: ??971 ??ml/s ? Cardiac Output: ??8.2 ??l/min ? Cardiac Index: ??3.76 ??l/min/m? Stroke Volume Index: ??69.6 ??ml/m? Left atrium: The left atrium is mildly enlarged (21-30 cm2). The left atrium measures 24 cm2. Right atrium: The right atrium is mildly enlarged (21-30 cm2). The right atrium measures 26 cm2. Aortic valve: Trace aortic regurgitation with a regurgitant volume of 5 cc. Pulmonic valve: The pulmonic valve is trileaflet (best seen on series 34). There is thickening of the valve with decreased opening. Peak systolic velocity was measured at 2.84 m/s corresponding to a gradient of 32 mmHg which is in keeping with a mild to moderate pulmonic stenosis. Right and left pulmonary arteries appear normal in caliber. Also noted was mild pulmonic regurgitation with a regurgitant volume of 11 cc. Phase-contrast aorta: Forward flow of 127 mL Phase-contrast pulmonic artery: Forward flow of 131 mL Qp/Qs: Normal Qp:Qs Mitral valve: No significant mitral stenosis. Mild mitral regurgitation (regurgitant volume of 9 cc). Tricuspid valve: No significant tricuspid stenosis. Mild tricuspid regurgitation regurgitant volume of 11 cc). Pericardium: No pericardial thickening, abnormal enhancement or pericardial effusion is identified. Lungs and pleura: No pleural effusions. Visualized upper abdominal organs: Unremarkable. *Reference ranges: Cuevas et al. Heart Journal, Cardiovascular imaging. 2019, 20:2266-5177. Procedure Note Denny Hernandez MD - 11/13/2024 EXAM: MRI CARDIAC MORPH+FUNCTION W W/O CONTRAST on 11/13/2024 8:26 AM CLINICAL HISTORY: DOUG PEREZ is a 64 years old Male with a submitted history ofPulmonic stenosis, RV dilation. ADDITIONAL HISTORY: Right ventricular dilation, Nonrheumatic pulmonary valve stenosis COMPARISONS: None TECHNIQUE: [employer] 3.0T MRI scanner. Morphologic and dynamic cineimaging were performed in multiple projections. Amount mL of Gadavist wasadministered for delayed enhancement imaging. Flow quantificationsequences were obtained. Post-processing included volume calculations, which were performed by theinterpreting physician on an independent workstation. PATIENT INFORMATION: Height: 185 cm, Weight: 92.1 kg FINDINGS: Aorta: The visualized thoracic aorta is somewhat tortuous and dilatedmeasuring up to 4 cm Pulmonary artery: The main pulmonary artery is normal in size. Systemic and pulmonary venous return: Conventional. Cardiac Chambers: The cardiac chambers demonstrate normal atrioventricularand ventriculoarterial concordance. Coronaries: Not specifically imaged. Left Ventricle: The left ventricular size is normal. The left ventricularsystolic function is globally normal. No segmental wall motionabnormalities are seen. There is normal myocardial thickness throughoutthe left ventricle. Post contrast images demonstrate no evidence of an ischemic scar. Nonspecific delayedmyocardial enhancement is seen at the RV insertion site. No thrombus isseen, though exam was not tailored for evaluation. Absolute/Indexed to BSA (Mosteller BSA method). SAX3D Stack LV Function Ejection Fraction: 65 %, *Normal 57-77% / Mildly depressed 41-56 /Moderate 30-40 / Severe <30% Stroke Volume: 143 ml End-Diastolic Volume Index: 101 ml/m??, *Normal 57-105 / Mildlyincreased 106-117 / Moderate 118-129 / Severe >129 ml/m2 End-Systolic Volume Index: 35.7 ml/m?? End-Diastolic Volume: 221 ml, *Normal 106-214 / Mildly [id number] / Moderate 242-268 / Severe >268 mL End-Systolic Volume: 77.6 ml Heart Rate: 54 bpm Peak Filling Rate: 562 ml/s Peak Ejection Rate: 855 ml/s Cardiac Output: 7.7 l/min Cardiac Index: 3.55 l/min/m?? Stroke Volume Index: 65.7 ml/m?? Mass Phase: 133(ED) g End-Diastolic Mass: 133 g End-Systolic Mass: 130 g Mass Index Phase: 61(ED) g/m?? End-Diastolic Mass Index: 61 g/m??, *Normal 49-85 / Mildly [id number] / Moderate 95-103 / Severe >103 g/m2 End-Systolic Mass Index: 60 g/m?? SAX2D Parameters LV End Diastolic Diameter: 53 mm, Normal < 62 mm LV End Systolic Diameter: 38 mm, Anterior septal wall: 11 mm, Normal <12 mm Posterior wall: 7 mm, Normal <11 mm Right Ventricle: The right ventricular size is normal. The right systolicventricular function is globally 67. No segmental wall motionabnormalities or aneurysms are seen. Post contrast images demonstrate nomyocardial delayed enhancement. No thrombus is seen, though exam was not tailored for evaluation. Prominent appearingright ventricular wall thickness. Absolute/Indexed to BSA (Mosteller BSA method). SAX3D Stack RV Function Ejection Fraction: 67 %, *Normal 52-72% / Mildly depressed 41-52 /Moderate 30-40 / Severe <30% Stroke Volume: 151 ml End-Diastolic Volume Index: 104 ml/m??, *Normal 61-121 / Mildlyincreased 122-136 / Moderate 137-151 / Severe >151 mL/m2 End-Systolic Volume Index: 34.7 ml/m?? End-Diastolic Volume: 227 ml, *Normal 118 250 / Mild 251 283 /Moderate 284 316 / Severe >316 mL End-Systolic Volume: 75.6 ml Heart Rate: 54 bpm Peak Filling Rate: 673 ml/s Peak Ejection Rate: 971 ml/s Cardiac Output: 8.2 l/min Cardiac Index: 3.76 l/min/m?? Stroke Volume Index: 69.6 ml/m?? Left atrium: The left atrium is mildly enlarged (21-30 cm2). The leftatrium measures 24 cm2. Right atrium: The right atrium is mildly enlarged (21-30 cm2). The rightatrium measures 26 cm2. Aortic valve: Trace aortic regurgitation with a regurgitant volume of 5cc. Pulmonic valve: The pulmonic valve is trileaflet (best seen on series 34).There is thickening of the valve with decreased opening. Peak systolicvelocity was measured at 2.84 m/s corresponding to a gradient of 32 mmHgwhich is in keeping with a mild to moderate pulmonic stenosis. Right and left pulmonary arteries appearnormal in caliber. Also noted was mild pulmonic regurgitation with aregurgitant volume of 11 cc. Phase-contrast aorta: Forward flow of 127 mL Phase-contrast pulmonic artery: Forward flow of 131 mL Qp/Qs: Normal Qp:Qs Mitral valve: No significant mitral stenosis. Mild mitral regurgitation(regurgitant volume of 9 cc). Tricuspid valve: No significant tricuspid stenosis. Mild tricuspidregurgitation regurgitant volume of 11 cc). Pericardium: No pericardial thickening, abnormal enhancement orpericardial effusion is identified. Lungs and pleura: No pleural effusions. Visualized upper abdominal organs: Unremarkable. *Reference ranges: Cuevas et al. Heart Journal, Cardiovascularimaging. 2019, 20:2310-7393. IMPRESSION: 1. Normal left ventricular size. Normal left ventricular systolicfunction. LVEF: 65 %. Nonspecific delayed myocardial enhancement is seenat the RV insertion site. 2. Normal right ventricular size. Normal right ventricular systolicfunction. RVEF: 67 %. Prominent appearing right ventricular wall. Noevidence of delayed myocardial enhancement. Prominent appearing rightventricular wall. 3. Trileaflet pulmonic valve with decreased opening resulting in a mild tomoderate stenosis with a peak gradient of 32 mmHg. There is a smallregurgitant volume of 11 mL. 4. Mild biatrial enlargement. 5. Dilated and tortuous ascending aorta measuring up to 4 cm on axialscout images. 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 This genotype is associated with Gilbert syndrome and the poor metabolizer (PM) phenotype. This individual may be at increased risk for toxicity from medications that inhibit or are inactivated by UGT1A1. This individual is also predicted to have a diminished capacity for the detoxification of the active metabolite of irinotecan, SN-38, leading to increased hematological and gastrointestinal toxicities if he/she is administered irinotecan. Please consult a clinical pharmacist and the package insert for additional information. Laboratory results and submitted clinical information reviewed by Ken Toscano, Ph.D.,[facility]. Uridine diphosphate glucuronosyltransferase 1A1 (UGT1A1) is primarily responsible for the glucuronidation and detoxification of SN-38, the active metabolite of irinotecan (Camptosar). Inserter Promotional Item of the UGT1A1 gene is influenced by the length of a polymorphic TA repeat in the promoter. The presence of seven TA dinucleotides (TA7, UGT1A1*28, [id number]) is associated with reduced lithographic camera operator of the UGT1A1 gene and decreased SN-38 glucuronidation. Homozygosity for the TA7 polymorphism is a common cause of Gilbert syndrome and is associated with a decreased capacity for the detoxification SN-38. Individuals who are homozygous for the TA7 polymorphism have a higher risk of side effects such as neutropenia and diarrhea if they are administered irinotecan. These observations have prompted the FDA to issue a boxed warning. The TA7 polymorphism in the UGT1A1 gene (NM [id number]) is detected by polymerase chain reaction (PCR) amplification of a portion of the UGT1A1 promoter region in the presence of a fluorescently-labeled primer. The amplified product is detected on an automated DNA sequencer. Incidental findings, such as the detection of TA repeat length variations other than the TA7 polymorphism, are possible. This assay does not detect other variants in the UGT1A1 gene which may impair irinotecan detoxification. Although rare, false positive or false negative results may occur. All results should be interpreted in the context of clinical findings, relevant history, and other laboratory data. Additional information regarding the significance of gene-drug interactions can be found in a number of places, including the irinotecan package insert, FDA websites, the Clinical Pharmacogenetics Implementation Consortium (CPIC) (https://cpicpgx.org/), as well as PharmGKB (http://www.pharmgkb.org) and the primary literature. Health care providers may also contact your local [facility] genetic counselor or call [phone] ([phone]) for assistance with the interpretation of these results. This test was developed and its analytical performance characteristics have been determined by [facility]. It has not been cleared or approved by FDA. This assay has been validated pursuant to the CLIA regulations and is used for clinical purposes. A portion of the testing [place] [facility] [place] Reviewed and signed by Laboratory results and submitted clinical information reviewed by Ken Toscano, Ph.D.,[facility], Signed on 11/08/2024 at 13:12 Peripheral Blood 10/31/2024 8:17 AM EST 10/31/2024 8:18 AM EST Narrative [facility] - 11/08/2024 4:20 PM EST FASTING:YES FASTING: YES Eleonora Live MD GENETIC TESTING DM [facility], [address] [place] [address] * Iron, Total & Unsaturated Iron Binding Capacity, Transferrin Saturation (10/31/2024 8:17 AM EST) [facility] Iron 88 50 - 180 mcg/dL [facility] Total Iron Binding Capacity 272 250 - 425 mcg/dL (calc) [facility] Iron Saturation 32 20 - 48 % (calc) [facility] Blood Blood specimen / Unknown 10/31/2024 8:17 AM EST 10/31/2024 8:18 AM EST Narrative [facility] - 11/08/2024 4:20 PM EST FASTING:YES FASTING: YES Eleonora Live MD LAB BLOOD ORDERABLE S [facility] [address] [place] [phone] * (ABNORMAL) Lokaxim-7-Ihltahmkf Dehydrogenase (G6PD), Quantitative (10/31/2024 8:17 AM EST) [facility] B-6-Lqcwfpfyc Dehydrogenase 0.5(L) 7.0 - 20.5 U/g Hgb [facility] Blood Blood specimen / Unknown 10/31/2024 8:17 AM EST 10/31/2024 8:18 AM EST Narrative [facility] - 11/08/2024 4:20 PM EST FASTING:YES FASTING: YES Eleonora Live MD LAB BLOOD ORDERABLE S Performing Organization Address [facility] Co de Phone Number [facility] [address] [place] [address] * (ABNORMAL) Complete Blood Count, with Differential (10/31/2024 8:17 AM EST) [facility] White Blood Cell Count 5.1 3.8 - 10.8 Thousand/ uL [facility] Red Blood Cell Count 4.11(L) 4.20 - 5.80 Million/u L [facility] Hemoglobin 13.4 13.2 - 17.1 g/dL [facility] Hematocrit 41.8 38.5 - 50.0 % [facility] MCV 101.7(H) 80.0 - 100.0 fL [facility] MCH 32.6 27.0 - 33.0 pg [facility] MCHC 32.1 32.0 - 36.0 g/dL [facility] [place] Comment: For adults, a slight decrease in the calculated MCHC value (in the range of 30 to 32 g/dL) is most likely not clinically significant; however, it should be interpreted with caution in correlation with other red cell parameters and the patient's clinical condition. RDW 10.7(L) 11.0 - 15.0 % [facility] Platelet Count 267 140 - 400 Thousand/ uL [facility] MPV 10.2 7.5 - 12.5 fL [facility] Abs Neutrophils Auto 3,019 1,500 - 7,800 cells/uL [facility] [employer] Abs Lymphocytes Auto 1,418 850 - 3,900 cells/uL [facility] Abs Monocytes Auto 454 200 - 950 cells/uL [facility] Abs Eosinophils Auto 168 15 - 500 cells/uL [facility] Abs Basophils Auto 41 0 - 200 cells/uL [facility] Neutrophils Auto 59.2 % [facility] Lymphocytes Auto 27.8 % [facility] Monocytes Auto 8.9 % [facility] Eosinophils Auto 3.3 % [facility] Basophils Auto 0.8 % [facility] Blood Blood specimen / Unknown 10/31/2024 8:17 AM EST 10/31/2024 8:18 AM EST Narrative [facility] - 11/08/2024 4:20 PM EST FASTING:YES FASTING: YES Eleonora Live MD LAB BLOOD ORDERABLE S Performing Organization Address [facility] de Phone Number [facility] [address] [place] [address] * Reticulocyte Count (10/31/2024 8:17 AM EST) Reticulocyte Count 1.9 % [facility] Reticulocyte, Absolute 78,090 25,000 - 90,000 cells/uL [facility] Blood Blood specimen / Unknown 10/31/2024 8:17 AM EST 10/31/2024 8:18 AM EST Narrative [facility] - 11/08/2024 4:20 PM EST FASTING:YES FASTING: YES Eleonora Live MD LAB BLOOD ORDERABLE S Performing Organization Address City/State/[facility] Co de Phone Number [employer] [address] [place] [address] * Ferritin (10/31/2024 8:17 AM EST) Pathologist [facility] Ferritin 301 24 - 380 ng/mL [facility] Blood Blood specimen / Unknown 10/31/2024 8:17 AM EST 10/31/2024 8:18 AM EST Narrative [facility] - 11/08/2024 4:20 PM EST FASTING:YES FASTING: YES Eleonora Live MD LAB BLOOD ORDERABLE S Performing Organization Address [facility]/ZIP Co de Phone Number [employer] [facility] [address] [place] [address] * (ABNORMAL) Comprehensive Metabolic Panel (10/31/2024 8:17 AM EST) Only the most recent of2 resultswithin the time period is included. [facility] Glucose 86 65 - 99 mg/dL [facility] Comment: ? Fasting reference interval Blood Urea Nitrogen (BUN) 21 7 - 25 mg/dL [facility] Creatinine 0.78 0.70 - 1.35 mg/dL [facility] Creatinine w/ eGFR 100 > OR = 60 mL/min/1. 73m2 [facility] BUN/Creatinine Ratio SEE NOTE: 6 (calc) [facility] Comment: ?? Not Reported: BUN and Creatinine are within ?? reference range. ? Sodium 138 135 - 146 mmol/L [facility] Potassium 4.3 3.5 - 5.3 mmol/L [facility] Chloride 104 98 - 110 mmol/L [facility] CO2 27 20 - 32 mmol/L [facility] Calcium 9.3 8.6 - 10.3 mg/dL [facility] Protein, Total 6.5 6.1 - 8.1 g/dL [facility] Albumin 4.1 3.6 - 5.1 g/dL [facility] Globulin 2.4 1.9 - 3.7 g/dL (calc) [facility] Albumin/Globuli n Ratio 1.7 1.0 - 2.5 (calc) [facility] Bilirubin, Total 2.1(H) 0.2 - 1.2 mg/dL [facility] Alkaline Phosphatase 68 35 - 144 U/L [facility] Aspartate Aminotrans (AST) 20 10 - 35 U/L [facility] Alanine Aminotrans (ALT) 17 9 - 46 U/L [facility] Blood Blood specimen / Unknown 10/31/2024 8:17 AM EST 10/31/2024 8:18 AM EST Narrative [facility] - 11/08/2024 4:20 PM EST FASTING:YES FASTING: YES Eleonora Live MD LAB BLOOD ORDERABLE S Performing Organization Address City/State/[facility] Co de Phone Number [employer] [address] [place] [phone] * ECG 12 lead (10/10/2024 7:58 AM EST) Pathologist [facility] Ventricular rate 57 BPM EKG [facility] Atrial rate 57 BPM EKG [facility] P-R interval 290 ms EKG [facility] QRS duration 86 ms EKG [facility] Q-T interval 386 ms EKG [facility] QTC calculation (Bazett) 375 ms EKG [facility] P axis 60 degrees EKG [facility] R axis 61 degrees EKG [facility] T axis 61 degrees EKG [facility] 10/10/2024 7:58 AM EST Narrative EKG [facility] - 10/10/2024 8:24 AM EST Sinus bradycardia with 1st degree A-V block Early repolarization Otherwise normal ECG When compared with ECG of 01-Aug-2024 14:19, No significant change was found Confirmed by MD Self Jordan ([id number]) on 10/10/2024 8:24:38 AM Procedure Note Nomi Self MD - 10/10/2024 Sinus bradycardia with 1st degree A-V block Early repolarization Otherwise normal ECG When compared with ECG of 01-Aug-2024 14:19, No significant change was found Confirmed by MD Self Jordan ([id number]) on 10/10/2024 8:24:38 AM Nomi Self MD ECG ORDERABLES Performing Organization Address City/[facility]/ZIP Co de Phone Number EKG [facility] * Lipid Panel Reflex Direct LDL (10/09/2024 10:19 AM EST) Cholesterol, Total 118 <200 mg/dL [facility] Cholesterol, HDL 44 > OR = 40 mg/dL [facility] Triglycerides 60 <150 mg/dL [facility] LDL Cholesterol 60 mg/dL (calc) [facility] Comment: Reference range: <100 Desirable range <100 mg/dL for primary prevention; ?? <70 mg/dL for patients with CHD or diabetic patients with > or = 2 CHD risk factors. LDL-C is now calculated using the Davi-Mansfield calculation, which is a validated novel method providing better accuracy than the Friedewald equation in the estimation of LDL-C. Davi SS et al. RHONA. 2013;310(19): 0303-0953 (http://education.Admitly/faq/DQT178) Cholesterol/HDL Ratio 2.7 <5.0 (calc) [facility] Non HDL Chol. (LDL+VLDL) 74 <130 mg/dL (calc) [facility] Comment: For patients with diabetes plus 1 major ASCVD risk factor, treating to a non-HDL-C goal of <100 mg/dL (LDL-C of <70 mg/dL) is considered a therapeutic option. 10/09/2024 10:1 9 AM EST 10/09/2024 10:19 AM EST Narrative [facility] - 10/10/2024 12:51 AM EST FASTING:YES FASTING: YES Nomi Self MD LAB BLOOD ORDERABLES Performing Organization Address [facility]/ZIP Co de Phone Number [facility] [employer] [address] [place] [phone] from Last 3 Months Care Teams Solar Site Assessment Specialist Relationship Specialty Start Date End Date Clovis Lopez MD [address] [place] [address] PCP - General Family Medicine 10/04/23 Darryn Birch MD [facility] [address] [place] [address] Physician Otolaryngology 10/04/23 Nomi Self MD [address] [place] [address] Primary Rubber Mixer Cardiovascular Disease 01/18/24
--- OUTSIDE RECORDS SUMMARY | 2025-01-06 20:47 | XMS_ITS | Encounter Summary ---
Author Organization [facility] Address [address] [place] [address] Care Team Providers Care Design Cell Engineer Name Role Phone Darryn Birch MD Unavailable [phone] Clovis Lopez MD Primary Care Provider [phone] Nomi Self MD Unavailable [phone] Encounter Details Date Type Department Care Team (Late st Contact Info) Description 10/18/2024 Scanned Document [facility] [place] [facility]: Oncology and Hematology [address] [place] [address] Provider, External, [address] [place] [address] Social History Tobacco Use Types Packs/Day Years [...] Description 02/24/2025 1:00 PM EDT Office Visit [facility] Cardiology [address] [place] [address] Nomi Self MD [address] [place], [place] [id number] 06/02/2025 9:30 AM EDT Office Visit [facility] [place] [facility]: Oncology and Hematology [address] [place] [address] Eleonora Live MD [address] [address] documented as of this encounter Visit Diagnoses Not on filedocumented in this encounter Care Teams Design Cell Engineer Relationship Specialty Start Date End Date Clovis Lopez MD [address] [facility] [place] [address] PCP - General Family Medicine 10/04/23 Darryn Birch MD [address] [place] [address] Physician Otolaryngology 10/04/23 Nomi Self MD [address] [place] [address] Primary Aircraft Engine Mechanic Supervisor Cardiovascular Disease 01/18/24 documented as of this encounter
== END ==
LOC: HO.SL 19:30
PROVIDERS: PCP Nurse Practitioner Family; Visit Provider Psychiatry & Neurology Neurology
DX: R53.83 Other fatigue (principal); G47.33 Obstructive sleep apnea (adult) (pediatric)
CPT/HCPCS: 95810

== ENCOUNTER → 2025-01-06 21:00 | Outpatient (BNV) | payer OTHER, SELFPAY | PROVIDERS: PCP Nurse Practitioner Family; Visit Provider Psychiatry & Neurology Neurology | DX: G47.33 Obstructive sleep apnea (adult) (pediatric) (principal) | CPT/HCPCS: 95810 ==

== ENCOUNTER 2025-02-26 08:14 | Outpatient (AMB) | payer OTHER, SELFPAY ==
--- NOTE | 2025-02-26 08:21 | AM.OFFWIN_ITS ---
Intake Vital Signs 02/26/25 08:23 Weight 201 lb BP 140/90 H Position Sitting Pulse 68 Pulse Source Pulse Oximeter Pulse Oximetry (%) 94 Oxygen Delivery Method Room Air Intake Visit Reasons: EP back spasms Intake Note: Patient here for upper back pain with deep breathing that started a few days ago. Patient Tobacco Use Status: Never used Tobacco Allergies lisinopril Adverse Reaction (Intermediate, Verified 02/26/25 08:24) cough Do you need a note to return to daycare/school/sports/work: No HPI HPI Comments History of Present Illness Details History - The patient is a 64-year-old male pres enting with pain in mid back with deep inspiration. - The breathing difficulty began one to two weeks ago, possibly related to exercise, with pain described as severe upon deep breathing. - Over three days, pain has been consist ent and excruciating with deep breath attempts. - No fever, significant shortness of cheng ath, or wheezing present. Mild cough noted without changes. 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 - Pt states he has a history of Pulmonar y fibrosis, managed under a piano mechanic but never accompanied by such pain. - Pain somewhat alleviated by oxycodone previously taken for unrelated nasal surgery. - Regular exercise remains part of patie nt's routine; can manage intensive ab workouts without issue/pain to his back. - Patient acknowledges no need for inhal ers historically but remains committed to evaluating lung health due to occupational exposure. Physical Exam General: Cooperative, healthy appearing, comfortable and no acute distress Orientation/consciousness: Patient oriented x3 Limitations: No limitations Head: Normal to inspection Ears: Hearing grossly normal bilaterally, external ears normal and TM's normal bilaterally Nose: Normal external nose present, Normal nares present and No nasal discharge present Face and sinus: Normal facial exam and Yes sinuses nontender Mouth: Normal oral and palatal mucosa present and moist mucous membranes Throat: Yes tonsils normal, Yes uvula midline. Posterior oropharynx erythema Eyes: Appearance normal, both eyes and all related structures Neck: Normal visual inspection Respiratory: Clear to auscultation bilaterally. Normal respiratory effort, able to speak in complete sentences, no respiratory distress, not tachypneic, no tripod positioning and no use of accessory muscles. Cardiovascular: Regular rate and rhythm. Normal S1 and S2 Skin: No rashes or lesions noted Neuro: Patient oriented x3 Extremities: Normal to inspection and Yes no clubbing, cyanosis or edema PFSH Medical History Frozen shoulder Cerebellar stroke Cerebellar cerebrovascular accident (CVA) without late effect Hypersomnia Snoring [place] syndrome BPH (benign prostatic hyperplasia) White matter disease Lacunar infarction Degenerative disc disease, cervical Elevated cholesterol Murmur HTN (hypertension) Retention of urine Surgical History H/O nasal septoplasty History of prostate surgery History of carpal tunnel surgery Hx of shoulder surgery Hx of cholecystectomy Hx of colonoscopy Family History Maternal Aunt Diabetes HTN (hypertension) Mother HTN (hypertension) High cholesterol Family/Other Heart disease Social History Household Members: Spouse and Children Housing: House Are you a primary transition of care specialist to a significant other at home: No Do you presently have visiting nurse or other home services: No Alcohol intake: former Patient Tobacco Use Status: Never used Tobacco e-Cigarette/Vaping Use: Never Used Second Hand Smoke Exposure: No Substance Use Type: Marijuana service: Yes Current occupational status: retired Cognitive needs: No Hearing needs: No Vision needs: No Review of Systems Const All systems reviewed & are unremarkable except as noted in HPI and below Physical Exam Vital Signs: Last Vital Signs Pulse 68 02/26/25 08:23 BP 140/90 H 02/26/25 08:23 Pulse Ox 94 02/26/25 08:23 Oxygen Delivery Method Room Air 02/26/25 08:23 Assessment & Plan Assessment & Plan (1) Pleuritic pain: Code(s): R07.81 - Pleurodynia Plan: O2 sat 94%, based on past med hx of pulmonary fibrosis, will get a CXR. A chest x-ray will be conducted to assess any respiratory concerns due to the patient's condition and history of concrete dust exposure. Investigation results will guide whether further pulmonary consultation or interventions are needed. Observation for symptom trends remains crucial, and gradual resumption of exercise is suggested, limited to tolerability and symptom expression. Inhalers are not currently indicated due to absence of respiratory distress or cough. Patient was informed and verbally consented to the use of an ambient scribe for clinic note documentation during this visit Orders: Orders XR chest 2V Today R05.9 - Cough, unspecified Coding Level of Care Code Est Pt Level 4 (60977) Diagnoses Pleuritic pain R07.81
--- OUTSIDE RECORDS SUMMARY | 2025-02-26 08:22 | XMS_ITS | Encounter Summary ---
Author Organization [facility] Address [address] [place] [address] Care Team Providers Care Transition Manager Name Role Phone Darryn Birch MD Unavailable [phone] Clovis Lopez MD Primary Care Provider [phone] Nomi Self MD Unavailable [phone] Encounter Details Date Type Department Care Team (Late st Contact Info) Description 10/18/2024 Scanned Document [facility]: Oncology and Hematology [address] [place] [address] Provider, External, [address] [place] [address] Social History Tobacco Use Types Packs/Day Years [...] Care Team (Late st Contact Info) Description 06/02/2025 1:00 PM EDT Office Visit [facility]: Oncology and Hematology [address] [place] [address] Eleonora Live MD [address] [address] 07/21/2025 10:00 AM EDT Office Visit [facility] Cardiology [address] [place] [address] Nomi Self MD [address] [place] [address] documented as of this encounter Visit Diagnoses Not on filedocumented in this encounter Care Teams Transition Manager Relationship Specialty Start Date End Date Clovis Lopez MD [address] [facility] [place] [address] PCP - General Family Medicine 10/04/23 Darryn Birch MD [address] [place] [address] Physician Otolaryngology 10/04/23 Nomi Self MD [address] [place] [address] Primary Filtration Supervisor Cardiovascular Disease 01/18/24 documented as of this encounter
--- OUTSIDE RECORDS SUMMARY | 2025-02-26 08:22 | XMS_ITS | Encounter Summary ---
Author Organization [facility] Address [address] [place] [address] Care Team Providers Care Academic Tutor Name Role Phone Darryn Birch MD Unavailable [phone] Clovis Lopez MD Primary Care Provider [phone] Nomi Self MD Unavailable [phone] Encounter Details Date Type Department Care Team (Late st Contact Info) Description 10/05/2023 Scanned Document [facility] PRIMARY CARE SCAN Primary Care, Scan Social [...] Department Care Team (Late Contact Info) Description 06/02/2025 1:00 PM EDT Office Visit [facility] [place] at [facility]: Oncology and Hematology [address] [place] [address] Eleonora Live MD [address] [address] 07/21/2025 10:00 AM EDT Office Visit [facility] Cardiology [address] [place] [address] Nomi Self MD [address] [place] [address] documented as of this encounter Visit Diagnoses Not on filedocumented in this encounter Care Teams Academic Tutor Relationship Specialty Start Date End Date Cloivs Lopez MD [address] [facility] [place] [address] PCP - General Family Medicine 10/04/23 Darryn Birch MD [address] [place] [address] Physician Otolaryngology 10/04/23 Nomi Self MD [address] [place] [address] Primary Calender Runner Cardiovascular Disease 01/18/24 documented as of this encounter
--- OUTSIDE RECORDS SUMMARY | 2025-02-26 08:22 | XMS_ITS | Encounter Summary ---
Author Organization [facility] Address [address] [place], [place] [id number] Care Team Providers Care Attendant Campground Name Role Phone Darryn Birch MD Unavailable [phone] Clovis Lopez MD Primary Care Provider [phone] Nomi Self MD Unavailable [phone] Encounter Details Date Type Department Care Team (Late st Contact Info) Description 12/02/2024 Telephone [facility]: Oncology and Hematology [address] [place] [address] Buffy Cheatham [address] [place], [place] [address] Social History Tobacco Use Types Packs/Day Years [...] Description 06/02/2025 1:00 PM EDT Office Visit [facility]: Oncology and Hematology [address] [place] [address] Eleonora Live MD [address] [address] 07/21/2025 10:00 AM EDT Office Visit [facility] Cardiology [address] [place] [address] Nomi Self MD [address] [place] [address] documented as of this encounter Visit Diagnoses Not on filedocumented in this encounter Care Teams Attendant Campground Relationship Specialty Start Date End Date Clovis Lopez MD [address] [place] [address] PCP - General Family Medicine 10/04/23 Darryn Birch MD [address] [place] [address] Physician Otolaryngology 10/04/23 Nomi Self MD [address] [place] [address] Primary Medical Massage Therapist Cardiovascular Disease 01/18/24 documented as of this encounter
--- OUTSIDE RECORDS SUMMARY | 2025-02-26 08:22 | XMS_ITS | Encounter Summary ---
Author Organization [facility] Address [address] [place] [address] Care Team Providers Care Charge Operator Name Role Phone Darryn Birch MD Unavailable [phone] Clovis Lopez MD Primary Care Provider Nomi Self MD Unavailable [phone] Encounter Details Date Type Department Care Team (Late st Contact Info) Description 10/18/2024 Scanned Document [facility]: Oncology and Hematology [address] [place] [address] Provider, External, [address] [place] [address] Social History Tobacco Use Types Packs/Day Years [...] Description 06/02/2025 1:00 PM EDT Office Visit [facility]: Oncology and Hematology [address] [place] [address] Eleonora Live MD [address] [address] 07/21/2025 10:00 AM EDT Office Visit [facility] Cardiology [address] [place] [address] Nomi Self MD [address] [place] [address] documented as of this encounter Visit Diagnoses Not on filedocumented in this encounter Care Teams Charge Operator Relationship Specialty Start Date End Date Clovis Lopez MD [address] [facility] [address] PCP - General Family Medicine 10/04/23 Darryn Birch MD [address] [place] [address] Physician Otolaryngology 10/04/23 Nomi Self MD [address] [place] [address] Primary Seat Joiner Cardiovascular Disease 01/18/24 documented as of this encounter
[2025-02-26 08:23] VITALS: BP 140/90; PULSE 68; O2SAT 94
--- OUTSIDE RECORDS SUMMARY | 2025-02-26 08:23 | XMS_ITS | Clinical Summary ---
Author Organization [facility] Address [address] [place] [address] Care Team Providers Care Yarn Examiner Skeins Name Role Phone Darryn Birch MD Unavailable [phone] Clovis Lopez MD Primary Care Provider [phone] Nomi Self MD Unavailable [phone] Allergies Active Allergy Reactions Criticality Noted Date Comments Lisinopril Cough Low 10/02/2023 Medications Medication Sig Dispensed Refills Start Date End Date Status Aspirin Low Dose 81 MG EC tablet Take 1 tablet (81 mg total) by mouth nightly. 09/22/2023 Active ezetimibe (ZeTIA) 10 MG tablet Take 0.5 tablets (5 mg total) by mouth every morning. 08/29/2023 Active docusate sodium (COLACE) 100 MG capsule 1 capsule (100 mg total) by Mouth/Oral Cavity route every 12 hours. 09/11/2024 Active amLODIPine-valsart an (EXFORGE) 10-320 MG per tabletIndications: Primary hypertension Take 1 tablet by mouth daily. 90 tablet 3 12/19/2024 12/14/2025 Active rosuvastatin (CRESTOR) 5 MG tabletIndications: Cerebrovascular accident (CVA), unspecified mechanism (HCC) TAKE 1 TABLET(5 MG) BY MOUTH DAILY 90 tablet 3 02/24/2025 Active rosuvastatin (CRESTOR) 5 MG tabletIndications: Cerebrovascular accident (CVA), unspecified mechanism (HCC) Take 1 tablet (5 mg total) by mouth daily. 90 tablet 3 03/21/2024 02/24/2025 Discontinued Active Problems Problem Noted Date Diagnosed Date [...] and hemochromatosis. Notes reviewed with patient in [facility] portal. Follow up with Hematology as previously recommended for ongoing monitoring and management. Personal history of COVID-19 10/02/2023 Assessment & Plan (10/02/2023 2:03 PM EST): Patient with personal history of Covid in 2021 with mild, non-cardiopulmonary symptoms. All symptoms have since fully resolved. Follow up with your PCP as previously recommended for ongoing monitoring and management. Encounters Date Type Department Care Team Description 02/22/2025 Refill [facility] Cardiology [address] [address] Nomi Self MD Medication Refill 02/18/2025 Orders Only [address] [address] Nomi Self MD Primary hypertension (Primary Dx); Cerebrovascular accident (CVA), unspecified mechanism (HCC); Mixed hyperlipidemia 02/17/[address] [address] Nomi Self MD 12/02/2024 10:00 AM EST Office Visit [facility] at [facility]: Oncology and Hematology [address] [place] [address] Eleonora Live MD 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); Gilbert syndrome; Indirect hyperbilirubinemia; G6PD deficiency 12/02/2024 Telephone [facility] at [facility]: Oncology and Hematology [address] [place] [address] Buffy Cheatham 12/02/2024 Travel from Last 3 Months Family History Medical [...] Description 06/02/2025 1:00 PM EDT Office Visit [facility] [place] at [facility]: Oncology and Hematology [address] [place] [address] Eleonora Live MD [address] [address] 07/21/2025 10:00 AM EDT Office Visit [facility] Cardiology [address] [place] [address] Nomi Self MD 100 [facility] [address] [place] [address] Health Maintenance Due Date Last Done Comments Hepatitis C Virus Screening 1961 HIV Screening 1974 DTaP/Tdap/Td Vaccines (1 - Tdap) 1980 Pneumococcal Vaccines 50+ (1 of 2 - PCV) 1980 Colonoscopy 2006 Zoster (Shingles) Vaccine (1 of 2) 2011 Influenza Vaccine 06/27/2024 COVID-19 Vaccine (1 - 2023-2 5 season) 2024 RSV Vaccine 60 years and old er and Patients (1 - 1-dose 75+ series) 2036 Hepatitis B Vaccines Aged Out No long er eligible based on patient's age to complete this topic Care Teams Yarn Examiner Skeins Relationship Specialty Start Date End Date Clovis Lopez MD [address] [place] [address] PCP - General Family Medicine 10/04/23 Darryn Birch MD 15 [facility] [address] [place] [address] Physician Otolaryngology 10/04/23 Nomi Self MD [address] [place] [address] Primary Business Transformation Manager Cardiovascular Disease 01/18/24
--- OUTSIDE RECORDS SUMMARY | 2025-02-26 08:23 | XMS_ITS | Encounter Summary ---
Author Organization [facility] Address [address] [place] [address] Care Team Providers Care Hospice Plan Administrator Name Role Phone Darryn Birch MD Unavailable [phone] Clovis Lopez MD Primary Care Provider [phone] Nomi Self MD Unavailable [phone] Reason for Visit * Reason Comments Medication Refill Encounter Details Date Type Department Care Team (Late st Contact Info) Description 02/22/2025 Refill [facility] Cardiology [address] [place] [address] Nomi Self MD [address] [place] [address] [place] [address] Medication Refill Social History Tobacco Use Types Packs/Day Years [...] Description 06/02/2025 1:00 PM EDT Office Visit [facility] Cancer [place] at [facility]: Oncology and Hematology [address] [place] [facility] [place] [address] Eleonora Live MD [address] [address] 07/21/2025 10:00 AM EDT Office Visit [facility] Cardiology [address] [place] [address] Nomi Self MD [address] [place] [address] documented as of this encounter Visit Diagnoses Diagnosis Cerebrovascular accident (CVA), unspecified mechanism (HCC) documented in this encounter Care Teams Hospice Plan Administrator Relationship Specialty Start Date End Date Clovis Lopez MD [address] [place] [address] PCP - General Family Medicine 10/04/23 Darryn Birch MD [address] [address] Physician Otolaryngology 10/04/23 Nomi Self MD [address] [place] [address] Primary Weight Control Engineer Cardiovascular Disease 01/18/24 documented as of this encounter
== END 2025-02-26 08:51 | disposition home or self-care (01) ==
PROVIDERS: PCP Nurse Practitioner Family; Visit Provider Physician Assistant
DX: R07.81 Pleurodynia (principal)

== ENCOUNTER 2025-02-26 08:14 | Outpatient (REF) | payer OTHER, SELFPAY ==
--- NOTE | ~2025-02-26 | XR_ITS ---
EXAMINATION: XR CHEST 2 VIEWS HISTORY: R05.9 - Cough, unspecified COMPARISON: Comparison is made with the prior examination dated 02/11/2019. FINDINGS: PA and lateral views of the chest are submitted. The lungs are expanded and clear. There is no pleural effusion, pneumothorax, or pulmonary vascular congestion. The heart is normal in size. The aorta is tortuous. There is mild degenerative disc disease of the spine. XR/XR chest 2V IMPRESSION: No acute cardiopulmonary abnormality. Electronically signed by: Lm Gillespie MD 02/26/2025 08:59 AM EDT
--- OUTSIDE RECORDS SUMMARY | 2025-02-26 09:10 | XMS_ITS | Data Portability ---
Author Organization [place] [facility], Allergy Address [address] [place] [address] Care Team Providers Care Hydration Plant Operator Name Role Phone ORLIN URIBE Referring Provider [phone] Assessment Encounter Date Assessment Date Assessment LastModified [...] base don home psg data. 2024 025 [facility], [address] , [place], [address], 12:06:18 Surgeries None recorded. Imaging None recorded. Medication Orders None recorded. Patient TargetsNo targets recorded. Patient InstructionsNo instructions recorded. Reason for Referral None Reported. Problems Name Problem SNOMED Code Status Onset Date Resolution Date Notes Provider Name and Address Organization Details Recorded Time Obstructive sleep apnea syndrome 55619769 Active 2023 NAYA MUNGUIA MD 100 [facility] [address], [place], [address], [facility] [place] 13:24:59 Deviated nasal septum 917469966 Active 2023 NAYA MUNGUIA MD 100 [facility], [place], [address], [facility] [place] 13:25:07 Hypertrophy of nasal turbinates 38975253 Active 2023 NAYA MUNGUIA MD 100 [facility] [address], [place], [address], [facility] [place] 13:25:07 Problem Notes None recorded. Procedures Surgical History Date Name Laterality Status Provider Name and Address Organization Details Recorded Time 11/29/2024 FOL_DP completed NAYA MUNGUIA MD [address] [address], [place], [address], [facility] 11/29/2024 12:10:58 Imaging Results None recorded. [...] SNOMED-CT Code Diagnosis ICD10 Code Diagnosis Note [id number] NAYA MUNGUIA MD [facility] [address] [address] 11/29/2024 11:12:06 11/29/2024 12:10:43 Obstructive sleep apnea syndrome 85414172 G47.33 Health Concerns Section Related Observation LastModified by Organization Detai ls LastModified Time None Recorded Concern Status LastModified by Organization Details LastModified Time None Recorded Advance Directives Directive None Recorded Payers Encounter Date Sequence Insurance Name Policy Number Policy Piper Covered Member ID Piper Member ID Guarantor Name 11/29/2024 1 [facility] [id number] Delia Colon [id number] Doug Colon Notes Date Note Type Note Provider Name and Address Organization Details Recorded Time 11/29/2024 text/html OSA3/[address] Brown 25REI 13.8central and mixed - none recordedCPAP trial - intolerant as mask slipped. 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
--- OUTSIDE RECORDS SUMMARY | 2025-02-26 09:10 | XMS_ITS | Encounter Summary ---
Author Organization [facility] Address [address] [place] [address] Care Team Providers Care Order Picker/Assembler Name Role Phone Darryn Birch MD Unavailable [phone] Colvis Lopez MD Primary Care Provider Nomi Self MD Unavailable [phone] Encounter Details Date Type Department Care Team (Late st Contact Info) Description 10/18/2024 Scanned Document [facility]: Oncology and Hematology [address] [place] [address] Provider, External, [address] [place] [address] Social History Tobacco Use Types Packs/Day Years [...] Description 06/02/2025 1:00 PM EDT Office Visit [facility]: Oncology and Hematology [address] [place] [address] Eleonora Live MD [address] [address] 07/21/2025 10:00 AM EDT Office Visit [facility] Cardiology [address] [place] [address] Nomi Self MD [address] [place] [address] documented as of this encounter Visit Diagnoses Not on filedocumented in this encounter Care Teams Order Picker/Assembler Relationship Specialty Start Date End Date Clovis Lopez MD 262 [facility] [place] [address] PCP - General Family Medicine 10/04/23 Darryn Birch MD 15 Lois [address] [place] [address] Physician Otolaryngology 10/04/23 Nomi Self MD [address] [place] [address] Primary Grain Mill Worker Cardiovascular Disease 01/18/24 documented as of this encounter
--- OUTSIDE RECORDS SUMMARY | 2025-02-26 09:10 | XMS_ITS | Encounter Summary ---
Author Organization [facility] Address [address] [place] [address] Care Team Providers Care Fun House Operator Name Role Phone Darryn Birch MD Unavailable [phone] Clovis Lopez MD Primary Care Provider [phone] Nomi Self MD Unavailable [phone] Encounter Details Date Type Department Care Team (Late st Contact Info) Description 10/18/2024 Scanned Document [facility]: Oncology and Hematology [address] [place] [address] Provider, External, [address] [place] [address] Social History Tobacco Use Types Packs/Day Years [...] Description 06/02/2025 1:00 PM EDT Office Visit [facility]: Oncology and Hematology [address] [place] [address] Eleonora Live MD [address] [address] 07/21/2025 10:00 AM EDT Office Visit [facility] Cardiology [address] [place] [address] Nomi Self MD [address] [place] [address] documented as of this encounter Visit Diagnoses Not on filedocumented in this encounter Care Teams Fun House Operator Relationship Specialty Start Date End Date Clovis Lopez MD 262 [facility] [address] PCP - General Family Medicine 10/04/23 Darryn Birch MD 15 [address]is [address] [place] [address] Physician Otolaryngology 10/04/23 Nomi Self MD [address] [place] [address] Primary Podiatry Professor Cardiovascular Disease 01/18/24 documented as of this encounter
--- OUTSIDE RECORDS SUMMARY | 2025-02-26 09:10 | XMS_ITS | Encounter Summary ---
Author Organization [facility] Address [address] [place], [place] [address] Care Team Providers Care Firefighter Type One Name Role Phone Darryn Birch MD Unavailable [phone] Clovis Lopez MD Primary Care Provider [phone] Nomi Self MD Unavailable [phone] Encounter Details Date Type Department Care Team (Late st Contact Info) Description 12/02/2024 Telephone [facility]: Oncology and Hematology [address] [place] [address] Buffy Cheatham [address] [place], [place] [address] Social History Tobacco Use Types Packs/Day Years [...] Description 06/02/2025 1:00 PM EDT Office Visit [facility]: Oncology and Hematology [address] [place] [address] Eleonora Live MD [address] [address] 07/21/2025 10:00 AM EDT Office Visit [facility] Cardiology [address] [place] [address] Nomi Self MD [address] [place] [address] documented as of this encounter Visit Diagnoses Not on filedocumented in this encounter Care Teams Firefighter Type One Relationship Specialty Start Date End Date Clovis Lopez MD 262 [facility] [place] [address] PCP - General Family Medicine 10/04/23 Darryn Birch MD 15 [address] [place] [address] Physician Otolaryngology 10/04/23 Nomi Self MD [address] [place] [address] Primary Drosophere Operator Cardiovascular Disease 01/18/24 documented as of this encounter
--- OUTSIDE RECORDS SUMMARY | 2025-02-26 09:10 | XMS_ITS | Encounter Summary ---
Author Organization [facility] Address [address] [place] [address] Care Team Providers Care Bar Attendant Name Role Phone Darryn Birch MD Unavailable [phone] Clovis Lopez MD Primary Care Provider [phone] Nomi Self MD Unavailable [phone] Reason for Visit * Reason Comments Medication Refill Encounter Details Date Type Department Care Team (Late st Contact Info) Description 02/22/2025 Refill [facility] Cardiology [address] [place] [address] Nomi Self MD [address] [place] [address] [place] [address] Medication Refill Social History Tobacco Use Types [...] Description 06/02/2025 1:00 PM EDT Office Visit [facility] Cancer [place] at [facility]: Oncology and Hematology [address] [place] [facility] [place] [address] Eleonora Live MD [address] [address] 07/21/2025 10:00 AM EDT Office Visit [facility] Cardiology [address] [place] [address] Nomi Self MD [address] [place] [address] documented as of this encounter Visit Diagnoses Diagnosis Cerebrovascular accident (CVA), unspecified mechanism (HCC) documented in this encounter Care Teams Bar Attendant Relationship Specialty Start Date End Date Clovis Lopez MD 262 [place] [address] PCP - General Family Medicine 10/04/23 Darryn Birch MD [address] [address] Physician Otolaryngology 10/04/23 Nomi Self MD [address] [place] [address] Primary Soaking Pits Supervisor Cardiovascular Disease 01/18/24 documented as of this encounter
--- OUTSIDE RECORDS SUMMARY | 2025-02-26 09:10 | XMS_ITS | Clinical Summary ---
Author Organization [facility] Address [address] [place] [address] Care Team Providers Care Transformation Architect Name Role Phone Darryn Birch MD Unavailable [phone] Clovis Lopez MD Primary Care Provider [phone] Nomi Self MD Unavailable [phone] Allergies Active Allergy Reactions Criticality Noted [...] and hemochromatosis. Notes reviewed with patient in [facility] portal. Follow up with Hematology as previously [...] Type Department Care Team Description 02/22/[address] 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); Gilbert syndrome; Indirect hyperbilirubinemia; G6PD deficiency 12/02/2024 Telephone [facility] at [facility]: Oncology and Hematology [address] [place] [address] Buffy Cheatham 12/02/2024 Travel from Last 3 [...] Description 06/02/2025 1:00 PM EDT Office Visit [facility] [place] at [facility]: Oncology and Hematology [address] [place] [address] Eleonora Live MD [address] [address] 07/21/2025 10:00 AM EDT Office Visit [facility] Cardiology [address] [place] [address] Nomi Self MD 100 [facility] [address] [place] [address] Health Maintenance Due Date Last Done Comments [...] age to complete this topic Care Teams Transformation Architect Relationship Specialty Start Date End Date Clovis Lopez MD [address] [place] [address] PCP - General Family Medicine 10/04/23 Darryn Birch MD 15 [facility] [address] [place] [address] Physician Otolaryngology 10/04/23 Nomi Self MD [address] [place] [address] Primary Supervisor Bleach Plant Cardiovascular Disease 01/18/24
--- OUTSIDE RECORDS SUMMARY | 2025-02-26 09:10 | XMS_ITS | Encounter Summary ---
Author Organization [facility] Address [address] [place] [address] Care Team Providers Care Polisher Aluminum Name Role Phone Darryn Birch MD Unavailable [phone] Clovis Lopez MD Primary Care Provider [phone] Nomi Self MD Unavailable [phone] Encounter Details Date Type Department Care Team (Late st Contact Info) Description 10/05/2023 Scanned Document [facility] PRIMARY CARE SCAN Primary Care, Scan [...] 06/02/2025 1:00 PM EDT Office Visit [facility] [place] at [facility]: Oncology and Hematology [address] [place] [address] Eleonora Live MD [address] [address] 07/21/2025 10:00 AM EDT Office Visit [facility] Cardiology [address] [place] [address] Nomi Self MD [address] [place] [address] documented as of this encounter Visit Diagnoses Not on filedocumented in this encounter Care Teams Polisher Aluminum Relationship Specialty Start Date End Date Clovis Lopez MD 262 [place] [address] PCP - General Family Medicine 10/04/23 Darryn Birch MD 15 Lois Mitchell [address] [place] [address] Physician Otolaryngology 10/04/23 Nomi Self MD [address] [place] [address] Primary Rouge Miller Cardiovascular Disease 01/18/24 documented as of this encounter
== END 2025-02-26 08:15 | disposition home or self-care (01) ==
LOC: HO.HMGCX 08:14
PROVIDERS: PCP Nurse Practitioner Family; Visit Provider Physician Assistant
DX: R07.81 Pleurodynia (principal)
CPT/HCPCS: 71046

== ENCOUNTER → 2025-02-26 08:46 | Outpatient (BNV) | payer OTHER, SELFPAY | PROVIDERS: PCP Nurse Practitioner Family; Visit Provider Radiology Diagnostic Radiology | DX: R05.9 Cough, unspecified (principal) | CPT/HCPCS: 71046 ==

== ENCOUNTER 2025-03-17 11:01 | Outpatient (AMB) | payer OTHER, SELFPAY ==
--- OUTSIDE RECORDS SUMMARY | 2025-03-17 11:04 | XMS_ITS | Encounter Summary ---
Author Organization [facility] Address [address] [place], [place] [address] Care Team Providers Care Rn Internship Name Role Phone Darryn Birch MD Unavailable [phone] Clovis Lopez MD Primary Care Provider Nomi Self MD Unavailable [phone] Encounter Details Date Type Department Care Team (Late st Contact Info) Description 10/05/2023 Scanned Document [facility] PRIMARY CARE SCAN Primary Care, Scan Social History Tobacco Use Types Packs/Day Years Used Date Smoking Tobacco: Never Smokeless Tobacco: Never Alcohol Use Standard Drinks/Week Comments Not Currently 0 (1 standard drink = 0.6 oz pur e alcohol) Sex and Gender Information Value Date Recorded Sex Assigned at Male 10/02/2023 9:10 AM EST Legal Sex Male 7:09 PM EST Gender Identity Male 10/02/2023 9:10 AM EST Sexual Orientation Heterosexual (straight) 10/02 9:10 AM EST documented as of this encounter Plan of Treatment Upcoming Encounters Date Type Department Care Team (Late st Contact Info) Description 06/02/2025 1:00 PM EDT Office Visit [facility] [place] at [facility]: Oncology and Hematology [address] [place] [address] Eleonora Live MD [address] [address] 07/21/2025 10:00 AM EDT Office Visit [facility] Cardiology [address] [place] [address] Nomi Self MD [address] [place], [place] [address] documented as of this encounter Visit Diagnoses Not on filedocumented in this encounter Care Teams Rn Internship Relationship Specialty Start Date End Date Clovis Lopez MD [address] [place] [address] PCP - General Family Medicine 10/04/23 Darryn Birch MD 15 Lois [address] [place] [address] Physician Otolaryngology 10/04/23 Nomi Self MD [address] [place] [address] Primary Asphalt Tamping Machine Operator Cardiovascular Disease 01/18/24 documented as of this encounter
--- OUTSIDE RECORDS SUMMARY | 2025-03-17 11:04 | XMS_ITS | Encounter Summary ---
Author Organization Formerly [facility] Address [address] [place] [address] Care Team Providers Care Diaphragm Builder Name Role Phone Darryn Birch MD Unavailable [phone] Clovis Lopez MD Primary Care Provider Nomi Self MD Unavailable [phone] Encounter Details Date Type Department Care Team (Late st Contact Info) Description 10/18/2024 Scanned Document [facility] [place] at [facility]: Oncology and Hematology [address] [place] [address] Provider, External, [address] [place] [address] Social History Tobacco Use Types Packs/Day Years [...] 06/02/2025 1:00 PM EDT Office Visit [facility] [place] at [facility]: Oncology and Hematology [address] [place] [address] Eleonora Live MD [address] [place] [address], [place] [address] 07/21/2025 10:00 AM EDT Office Visit [facility] Cardiology [address] [place] [address] Nomi Self MD [address] [place] [address] documented as of this encounter Visit Diagnoses Not on filedocumented in this encounter Care Teams Diaphragm Builder Relationship Specialty Start Date End Date Clovis Lopez MD [address] [place] [address] PCP - General Family Medicine 10/04/23 Darryn Birch MD [address] [address] Physician Otolaryngology 10/04/23 Noim Self MD [address] [place] [address] Primary Wind Turbine Mechanic Cardiovascular Disease 01/18/24 documented as of this encounter
--- OUTSIDE RECORDS SUMMARY | 2025-03-17 11:04 | XMS_ITS | Encounter Summary ---
Author Organization Formerly [facility] Address [address] [place] [address] Care Team Providers Care Leaf Sticker Name Role Phone Darryn Birch MD Unavailable [phone] Clovis Lopez MD Primary Care Provider Nomi Self MD Unavailable [phone] Encounter Details Date Type Department Care Team (Late st Contact Info) Description 10/18/2024 Scanned Document [facility] [place] at [facility]: Oncology and Hematology [address] [place] [address] Provider, External, [address] [place] [address] Social History Tobacco Use Types Packs/Day Years [...] 06/02/2025 1:00 PM EDT Office Visit [facility] [place] at [facility]: Oncology and Hematology [address] [facility] [place] [address] Eleonora Live MD [address] [place] [address], [place] [address] 07/21/2025 10:00 AM EDT Office Visit [facility] Cardiology [address] [place] [address] Nomi Self MD [address] [place] [address] documented as of this encounter Visit Diagnoses Not on filedocumented in this encounter Care Teams Leaf Sticker Relationship Specialty Start Date End Date Clovis Lopez MD [address] [place] [address] PCP - General Family Medicine 10/04/23 Darryn Birch MD [address] [address] Physician Otolaryngology 10/04/23 Nomi Self MD [address] [place] [address] Primary Data Processing Mechanic Cardiovascular Disease 01/18/24 documented as of this encounter
--- OUTSIDE RECORDS SUMMARY | 2025-03-17 11:04 | XMS_ITS | Clinical Summary ---
Author Organization [facility] Address [address] [place] [address] Care Team Providers Care Taxation Agent Name Role Phone Darryn Birch MD Unavailable [phone] Clovis Lopez MD Primary Care Provider [phone] Nomi Self MD Unavailable [phone] Allergies Active Allergy Reactions Criticality Noted Date Comments Lisinopril Cough Low 10/02/2023 Medications Aspirin Low Dose 81 MG EC tablet Take 1 tablet (81 mg total) by mouth nightly. 09/22/20 23 Active ezetimibe (ZeTIA) 10 MG tablet Take 0.5 tablets (5 mg total) by mouth every morning. 08/29/20 23 Active docusate sodium (COLACE) 100 MG capsule 1 capsule (100 mg total) by Mouth/Oral Cavity route every 12 hours. 09/11/20 24 Active amLODIPine-valsa rtan (EXFORGE) 10-320 MG per tabletIndication s:Primary hypertension Take 1 tablet by mouth daily. 90 tablet 3 12/19/19 25 026 Active rosuvastatin (CRESTOR) 5 MG tabletIndication s:Cerebrovascula r accident (CVA), unspecified mechanism (HCC) TAKE 1 TABLET(5 MG) BY MOUTH DAILY 90 tablet 3 02/25/20 25 Active rosuvastatin (CRESTOR) 5 MG tabletIndication s:Cerebrovascula r accident (CVA), unspecified mechanism (HCC) Take 1 tablet (5 mg total) by mouth daily. 90 tablet 3 03/21/20 24 025 Discontinued Active Problems Problem Noted Date Diagnosed [...] and hemochromatosis. Notes reviewed with patient in [employer] portal. Follow up with Hematology as previously [...] Type Department Care Team Description 02/22/2025 Refill [facility] Cardiology [address] [address] Nomi Self MD Medication Refill 02/18/2025 Orders Only [facility] Cardiology [address] [address] Nomi Self MD Primary hypertension (Primary Dx); Cerebrovascular accident (CVA), unspecified mechanism (HCC); Mixed hyperlipidemia 02/17/2025 Telephone [facility] Cardiology [address] [phone] Nomi Self MD from Last 3 Months [...] Office Visit [facility] [place] at [facility]: Oncology and Hematology [address] [place] [address] Eleonora Live MD [address] [address] 07/21/2025 10:00 AM EDT Office Visit [facility] Cardiology [address] [place] [address] Nomi Self MD [address] [place] [address] Health Maintenance Due Date Last Done Comments [...] on patient's age to complete this topic Insurance [facility] Care Teams Taxation Agent Relationship Specialty Start Date End Date Clovis Lopez MD [address] [place] [address] PCP - General Family Medicine 10/04/23 Darryn Birch MD 15 [facility] [address] [place] [address] Physician Otolaryngology 10/04/23 Nomi Self MD [address] [place] [facility] [address] [place] [address] Primary Roll Or Tape Edge Machine Operator Cardiovascular Disease 01/18/24
--- OUTSIDE RECORDS SUMMARY | 2025-03-17 11:04 | XMS_ITS | Encounter Summary ---
Author Organization [facility] Address [address] [place] [address] Care Team Providers Care Java Technical Architect Name Role Phone Darryn Birch MD Unavailable [phone] Clovis Lopez MD Primary Care Provider [phone] Nomi Self MD Unavailable [phone] Encounter Details Date Type Department Care Team (Late st Contact Info) Description 12/02/2024 Telephone [facility] [place] at [facility]: Oncology and Hematology [address] [place] [address] Buffy Cheatham [address] [place], [place] [address] Social History Tobacco Use Types Packs/Day Years [...] 06/02/2025 1:00 PM EDT Office Visit [facility] [place] at [facility]: Oncology and Hematology [address] [place] [facility] [place] [address] Eleonora Live MD [address] [place] [address], [place] [address] 07/21/2025 10:00 AM EDT Office Visit [facility] Cardiology [address] [place] [address] Nomi Self MD [address] [place] [address] documented as of this encounter Visit Diagnoses Not on filedocumented in this encounter Care Teams Java Technical Architect Relationship Specialty Start Date End Date Clovis Lopez MD [address] [place] [address] PCP - General Family Medicine 10/04/23 Darryn Birch MD [address] [address] Physician Otolaryngology 10/04/23 Nomi Self MD [address] [place] [address] Primary Front End Java Developer Cardiovascular Disease 01/18/24 documented as of this encounter
--- OUTSIDE RECORDS SUMMARY | 2025-03-17 11:04 | XMS_ITS | Data Portability ---
Author Organization [facility], Allergy Address [address] [place] [address] Care Team Providers Care Technical Engineer Name Role Phone ORLIN URIBE Referring Provider [phone] Assessment Encounter Date Assessment Date Assessment LastModified [...] base don home psg data. 2024 025 [facility] Sleep Medicine Services, [address] , [place], [address], 12:06:18 Surgeries None recorded. Imaging None recorded. Medication Orders None recorded. Patient TargetsNo targets recorded. Patient InstructionsNo instructions recorded. Reason for Referral None Reported. Problems Name Problem SNOMED Code Status Onset Date Resolution Date Notes Provider Name and Address Organization Details Recorded Time Obstructive sleep apnea syndrome 13662124 Active 2023 NAYA MUNGUIA MD 100 [facility] 100, [place], [address], [facility] [place] 13:24:59 Deviated nasal septum 521552121 Active 2023 NAYA MUNGUIA MD 100 [facility] 100, [place], [address], [facility] [place] 13:25:07 Hypertrophy of nasal turbinates 14392708 Active 2023 NAYA MUNGUIA MD 100 [facility] 100, [place], [address], [facility] - [facility] [place] 13:25:07 Problem Notes None recorded. Procedures Surgical History Date Name Laterality Status Provider Name and Address Organization Details Recorded Time 11/29/2024 FOL_DP completed NAYA MUNGUIA MD [address] [address], [place], [address], [facility] - [facility] 11/29/2024 12:10:58 Imaging Results None recorded. Procedure [...] SNOMED-CT Code Diagnosis ICD10 Code Diagnosis Note [id number] NAYA MUNGUIA MD [facility] [address] [address] 11/29/2024 11:12:06 11/29/2024 12:10:43 Obstructive sleep apnea syndrome 61960456 G47.33 Health Concerns Section Related Observation LastModified by Organization Detai ls LastModified Time None Recorded Concern Status LastModified by Organization Details LastModified Time None Recorded Advance Directives Directive None Recorded Payers Encounter Date Sequence Insurance Name Policy Number Policy Piper Covered Member ID Piper Member ID Guarantor Name 11/29/2024 1 [facility] [id number] Delia Colon [id number] Doug Colon Notes Date Note Type Note Provider Name and Address Organization Details Recorded Time 11/29/2024 text/html OSA3/[address] 25REI 13.8central and mixed - none recordedCPAP trial - intolerant as mask slipped. 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 - [facility] 11/29/2024 12:13:03
[2025-03-17 11:07] VITALS: BP 138/90; PULSE 60; O2SAT 95
--- NOTE | 2025-03-17 11:07 | AM.OFFWIN_ITS ---
Intake Vital Signs 03/17/25 11:07 Weight 200 lb BP 138/90 H Blood Pressure Location Lt brachial Position Sitting Pulse 60 Pulse Source Pulse Oximeter Pulse Oximetry (%) 95 Oxygen Delivery Method Room Air Intake Visit Reasons: EP-body poison justina Intake Note: Patient here for poison justina on arms, legs and back of neck. Patient Tobacco Use Status: Never used Tobacco Allergies lisinopril Adverse Reaction (Intermediate, Verified 03/17/25 11:07) cough Do you need a note to return to daycare/school/sports/work: No HPI HPI Comments History of Present Illness Details History of Present Illness - The patient is a 64-year-old male pres enting with what he thinks is poison justina. - He states he has had it before, descri bed as itchy, and spreading, affecting the left forearm spreading to his left elbow. - The most recent episode began after ex posure to plant roots, while building a wall. - The patient has previously used oral p rednisone for management, states he always needs prednisone , it spreads easily on him and he will be working on this wall and around the plant for the next 12 days. - He states steriod creams don't work Physical Exam General: Cooperative, healthy appearing, comfortable, no acute distress and well developed Orientation: Patient oriented x3 Limitations: No limitations Head: Normal to inspection Ears: Hearing grossly normal bilaterally Nose: Normal External nose present Face and sinus: Normal facial exam Eyes: Appearance normal, both eyes and all related structures Neck: Normal visual inspection and Yes full ROM Respiratory: Normal respiratory effort and able to speak in complete sentences. Skin: left foream extending from wrist to elbow has raised, erythematous rash, no warmth noted, no drainage, no vesicles. Neuro: Patient oriented x3 Extremities: Normal to inspection [facility] Medical History Frozen shoulder Cerebellar stroke Cerebellar cerebrovascular accident (CVA) without late effect Hypersomnia Snoring [place] syndrome BPH (benign prostatic hyperplasia) White matter disease Lacunar infarction Degenerative disc disease, cervical Elevated cholesterol Murmur HTN (hypertension) Retention of urine Surgical History H/O nasal septoplasty History of prostate surgery History of carpal tunnel surgery Hx of shoulder surgery Hx of cholecystectomy Hx of colonoscopy Family History Maternal Aunt Diabetes HTN (hypertension) Mother HTN (hypertension) High cholesterol Family/Other Heart disease Social History Household Members: Spouse and Children Housing: House Are you a primary career resource specialist to a significant other at home: No Do you presently have visiting nurse or other home services: No Alcohol intake: former Patient Tobacco Use Status: Never used Tobacco e-Cigarette/Vaping Use: Never Used Second Hand Smoke Exposure: No Substance Use Type: Marijuana service: Yes Current occupational status: retired Cognitive needs: No Hearing needs: No Vision needs: No Review of Systems Const All systems reviewed & are unremarkable except as noted in HPI and below Physical Exam Vital Signs: Last Vital Signs Pulse 60 03/17/25 11:07 BP 138/90 H 03/17/25 11:07 Pulse Ox 95 03/17/25 11:07 Oxygen Delivery Method Room Air 03/17/25 11:07 Assessment & Plan Assessment & Plan (1) Contact dermatitis: Code(s): L25.9 - Unspecified contact dermatitis, unspecified cause Qualifiers: Contact dermatitis type: allergic Contact dermatitis trigger: non-food plants Qualified Code(s): L23.7 - Allergic contact dermatitis due to plants, except food Plan: The patient was diagnosed with likely contact dermatitis and prescribed a 12-day tapering course of prednisone, beginning at 40 mg with gradual reduction, along with a topical triamcinolone cream for itching. The regimen aims to control symptoms and prevent recurrence while minimizing side effects. The medications are to be picked up and initiated promptly with prednisone taken in the morning to avoid sleep disruption. Patient was instructed to take Benadryl at night, if needed, for itching. Protective clothing during outdoor activities was recommended to prevent future exposures. There are no additional diagnostic tests planned, and the treatment efficacy will be monitored based on symptom resolution. Patient was informed and verbally consented to the use of an ambient scribe for clinic note documentation during this visit. Medications: New prednisone see taper instructions; 40 mg Daily x3 days, 30 mg daily x3 days, 20 mg daily x3 days, 10 mg daily x3 days 10 mg PO DIRECTED 30 tabs 0RF triamcinolone acetonide 0.1% 1 appl topical BID 80 grams 0RF Coding Level of Care Code Est Pt Level 3 (11115) Diagnoses Allergic contact dermatitis due to plants, except food L23.7 Contact dermatitis type: allergic Contact dermatitis trigger: non-food plants
== END 2025-03-17 11:37 | disposition home or self-care (01) ==
PROVIDERS: PCP Nurse Practitioner Family; Visit Provider Physician Assistant
DX: L23.7 Allergic contact dermatitis due to plants, except food (principal)

== ENCOUNTER → 2025-03-17 11:01 | Outpatient (BNVA) | payer OTHER, SELFPAY | PROVIDERS: PCP Nurse Practitioner Family; Visit Provider Physician Assistant ==

== ENCOUNTER 2025-05-09 07:27 | Outpatient (AMB) | payer OTHER, SELFPAY ==
[2025-05-09 07:32] VITALS: BP 114/84; BMI 26.0
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
== END 2025-05-09 08:00 | disposition home or self-care (01) ==
LOC: HO.HSMS 07:27
PROVIDERS: PCP Nurse Practitioner Family; Visit Provider Psychiatry & Neurology Neurology
DX: G47.33 Obstructive sleep apnea (adult) (pediatric) (principal); Z86.73 Personal history of transient ischemic attack (TIA), and cerebral infarction without residual deficits
CPT/HCPCS: 99214

== ENCOUNTER → 2025-05-09 07:27 | Outpatient (BNVA) | payer OTHER, SELFPAY | PROVIDERS: PCP Nurse Practitioner Family; Visit Provider Psychiatry & Neurology Neurology | DX: G47.33 Obstructive sleep apnea (adult) (pediatric) (principal); I63.9 Cerebral infarction, unspecified ==

== ENCOUNTER 2025-08-02 19:49 | Emergency (ER) | payer OTHER, SELFPAY ==
--- NOTE | ~2025-08-02 | XR_ITS ---
CLINICAL HISTORY: b l Lower back pain 3 views lumbar spine Comparison: None provided Findings: Minimal height loss of the L1 and L2 are age indeterminate by radiographs. No significant listhesis. Degenerative disc changes, osteophytes, sclerosis, and facet arthropathy are multifocal. Sacrum and SI joints are mostly obscured. Degenerative changes include the partially imaged hips. Surgical clips and moderate to severe stool burden noted in the imaged abdomen. IMPRESSION: Degenerative changes include facet arthropathy by radiographs. This document has been electronically signed by: Madhav Cordoba MD on 08/02/2025 20:44:02
--- NOTE | ~2025-08-02 | CT_ITS ---
CLINICAL HISTORY: Lower Abd Groin Pain; LLE Weakness Pain CT abdomen and pelvis with contrast Comparison: CT of the abdomen and pelvis from 02/03/2023 Findings: Mild bibasilar atelectasis and scarring. Minimal-borderline cardiomegaly. No significant change in solid abdominal organs by CT. The gallbladder is surgically absent. No new or enlarging lymphadenopathy by CT. No small bowel obstruction. Severe stool burden is present, including the cecum. Imaged appendix is within normal limits (image 61 of series 8). Vascular calcifications are redemonstrated. Prostate gland measures 6 cm transverse. Mild wall thickening of the urinary bladder is nonspecific. Multilevel Schmorl's nodes with mild/minimal chronic appearing height losses. Left os acetabulum redemonstrated with mild-moderate osteoarthritis of the hips, left worse than right. Capsular calcifications again noted in the of the left hip. Small left L2 transverse process fracture now appears old/chronic with sclerosis. Facet arthropathy is multifocal. IMPRESSION: 1. Severe stool burden. No small bowel obstruction. 2. Mild wall thickening of the urinary bladder. 3. Degenerative changes, including left hip. This document has been electronically signed by: Madhav Cordoba MD on 08/03/2025 01:32:31
--- NOTE | ~2025-08-02 | CT_ITS ---
CLINICAL HISTORY: LLE Weakness x48 hours CT head without contrast Comparison: Head CT from 12/07/2022 Findings: No acute intracranial hemorrhage. No midline shift or hydrocephalus. No large arterial territorial infarction by CT. Mild volume loss is generalized. Minimal low-density of the left basal ganglia region extending to left insula are nonspecific and may reflect mild white matter lesions or perivascular space, without significant change from 2022. Small old right PICA branch infarction unchanged in cerebellum. Mucosal thickening noted in the imaged paranasal sinuses. Trace left mastoid effusion. No acute skull fracture. Old nasal bone fractures/deformities of the partially imaged in the [id number]. The orbits are within normal limits. No skull fracture. IMPRESSION: No acute intracranial abnormality by CT This document has been electronically signed by: Madhav Cordoba MD on 08/03/2025 01:31:39
--- NOTE | 2025-08-02 19:57 | ED_ITS ---
HPI - General Adult General Chief complaint: Back Pain/Injury Stated complaint: back and hip pain Time Seen by Provider: 08/02/25 22:16 Source: patient Mode of arrival: ambulatory Limitations: no limitations History of Present Illness ED Provider: Juan Francisco HERMAN HPI narrative: The patient is a 65-year-old male with a history of Gilbert's syndrome, anemia, previous CVA, hypertension, BPH, and previous parotid mass presenting to the ED for evaluation of bilateral low back pain worse on the right as well as lower abdominal pain which radiates through his left groin and down his left leg with reported weakness and pain with movement or weight-bearing with the left lower extremity. Patient reports symptoms began atraumatically on . The patient reports he goes to the gym 6 times a week, also goes on frequent hikes, does admit he went on a hike and to the gym but denies any significant change in his activity level, denies near fall or fall. The patient denies associated distal paresthesias, reports pain is markedly increased with the attempted flexion at the left hip, or crossing the left leg over the right knee. Patient reports pain and weakness is so severe he must assist movement of his leg with his upper extremities. The patient denies fever/chills, nausea, vomiting, or other systemic complaint. The patient denies radiation of pain into the scrotum, denies any scrotal swelling, erythema, or penile lesions or discharge. The patient denies associated bowel/bladder incontinence, urinary retention, or saddle paresthesias. The patient denies spinal surgical history. Related Data Home Medications ?Medication ?Instructions ?Recorded ?Confirmed rosuvastatin 5 mg tablet 5 mg PO DAILY 05/08/2412/18 amlodipine 5 mg-valsartan 160 mg 1 tab PO DAILY 12/18/24 tablet Previous Rx's ?Medication ?Instructions ?Recorded docusate sodium 100 mg capsule 100 mg PO BID #180 caps 12/16/24 ezetimibe 10 mg tablet 5 mg (1/2 x 10 mg) PO DAILY #45 01/28/25 tabs prednisone 10 mg tablet 10 mg PO DIRECTED #30 tab s 03/17/25 triamcinolone acetonide 0.1 % 1 appl topical BID #80 g nancy 03/17/25 topical cream aspirin 81 mg tablet,delayed 81 mg PO DAILY #30 tabs 0 06/16/25 release (Adult Aspirin Regimen) acetaminophen 500 mg capsule 1,000 mg (2 x 500 mg) PO .q8 PRN 08/03/25 fever or pain #30 caps cyclobenzaprine 10 mg tablet 10 mg PO TID PRN muscle s pasm #14 08/03/25 tabs ibuprofen 600 mg tablet 600 mg PO Q8H PRN fever or p ain 08/03/25 #30 tabs Allergies Allergy/AdvReac Type Severity Reaction Status Date / Time lisinopril AdvReac Intermediate cough Verified 08/02/25 20:01 Review of Systems 2 Review of Systems: Yes all other systems are reviewed and are negative [facility] Past Medical History Medical History (Updated 08/03/25 @ 03:59 by Juan Francisco Lafleur PA-C) First degree AV block Pulmonic stenosis Frozen shoulder Cerebellar stroke Cerebellar cerebrovascular accident (CVA) without late effect Hypersomnia Snoring York syndrome BPH (benign prostatic hyperplasia) White matter disease Lacunar infarction Degenerative disc disease, cervical Elevated cholesterol Murmur HTN (hypertension) Retention of urine Surgical History H/O nasal septoplasty History of prostate surgery History of carpal tunnel surgery Hx of shoulder surgery Hx of cholecystectomy Hx of colonoscopy Family History Family History Maternal Aunt Diabetes HTN (hypertension) Mother HTN (hypertension) High cholesterol Family/Other Heart disease Social History Social History Household Members: Spouse and Children Housing: House Are you a primary direct care worker to a significant other at home: No Do you presently have visiting nurse or other home services: No Alcohol intake: former Patient Tobacco Use Status: Never used Tobacco Smoked in Last 30 Days: No e-Cigarette/Vaping Use: Never Used Second Hand Smoke Exposure: No Use of substances other than those prescribed or required for medical reasons: No Substance Use Type: Marijuana Advance Directives: No Advance Directives Information Provided: No service: Yes Current occupational status: retired Cognitive needs: No Hearing needs: No Vision needs: No Physical Exam ED Vital Signs: Vital Signs - 24 hr 08/02/25 19:58 08/03/25 01:04 Temperature 98.6 F 98.7 F Pulse Rate 69 66 Respiratory Rate 20 18 Blood Pressure 142/77 H 119/63 Pulse Oximetry 98 97 Oxygen Delivery Method Room Air Room Air BMI result Body Mass Index 26.9 CONSTITUTIONAL: The patient appears non-toxic, well nourished and in no acute distress. Vital signs as documented. HEAD: Atraumatic, normocephalic. EYES: EOMs intact, pupils equal, conjunctiva clear, no exudate. ENT: Nares patent, no discharge. Airway patent, no audible stridor, visible mucosa is pink and moist without noted lesions. NECK: Trachea is midline, no obvious masses or gross abnormalities. CHEST: Symmetric movement, normal appearance. LUNGS: LS present and CTAB, no w/r/r. Non-labored work of breathing. CARDIAC: Regular Rhythm, S1/S2 appreciated, no murmurs, rubs or gallops. ABDOMEN: Abdomen soft and non-tender x4 quadrants, no palpable masses or organomegaly. : Deferred. BACK: Mild tenderness to palpation of the right SI joint and lower right paraspinal area, no bony tenderness, crepitus, or step-off. EXTREMITIES: Normal tone, patient reports inability to flex at the left hip secondary to pain which he describes as weakness, distal CSM is intact, 2+ DP/PT pulses. Moves all other extremities spontaneously without reported pain. No obvious acute injury or deformity noted. NEURO: Alert and oriented x3, CN II-XII intact. Cerebellar Functioning intact with the exception of heel to carr on the left which patient reports is secondary to pain. No sensory or motor deficits. Speech clear and appropriate. PSYCH: normal affect, appropriate eye contact, fluid speech, with appropriate response to questioning. No reported suicidality or homicidality. SKIN: Warm, dry, color appropriate, normal turgor. No rashes noted. NIH Stroke Scale Internal: Initial- Upon Arrival Level of Consciousness: Alert Level of Consciousness Questions: Answers both questions correctly Level of Consciousness Commands: Performs both tasks correctly Best Gaze: Normal Visual: No visual loss Facial Palsy: Normal Motor Arm (Right): No drift Motor Arm (Left): No drift Motor Leg (Right): No drift Motor Leg (Left): Some effort against gravity (Appears secondary to pain rather than weakness.) Limb Ataxia: Present in one limb Sensory: Normal Best Language: No aphasia Dysarthia: Normal Extinction and Inattention: No abnormality Score: 3 Course Course Course Narrative: This is a Rapid Medical Examination (RME) performed by Bony Smith PA-C in triage. Full HPI, ROS, assessment and treatment plan per primary provider in the Main ED. Hx: 65 yo M hx of HTN, CVA, here b/l lower back pain w/ radiation to right leg and left groin x3 days. reports doing a LE work out, went fishing, and then went on a long walk prior to onset of sx. is currently taking creatine. no saddle anesthesia, no bowel/bladder incontinence or retention, no urinary sx, scrotal swelling. attempted head/ice and naproxen without improvement. Plan: labs, UA, XR Medications Administered Discontinued Medications Generic Name Dose Route Start Last Admin Trade Name Freq PRN Reason Stop Dose Admin Acetaminophen 975 mg 08/03/25 01:45 08/03/25 02:16 Acetaminophen 325 Mg Tablet PO 08/03/25 01:46 975 mg ONCE ONE Administration Cyclobenzaprine HCl 10 mg 08/03/25 01:45 08/03/25 02:16 Cyclobenzaprine Hcl 10 Mg Tablet PO 08/03/25 01:46 10 mg ONCE ONE Administration Sodium Chloride 1,000 mls @ 999 mls/hr 08/02/25 22:45 08/03/25 00:44 Ns IV 08/02/25 23:45 Infused .Q1H1M MUNIRA Infusion Iohexol 85 ml 08/02/25 23:33 08/02/25 23:35 Iohexol 350 Mg/Ml 100 Ml Infus..Btl IV 08/02/25 23:34 85 ml ONCE ONE Administration Ketorolac Tromethamine 15 mg 08/03/25 01:45 08/03/25 02:16 Ketorolac Tromethamine 15 Mg/Ml Vial IVPUSH 08/03/25 01:46 15 mg ONCE ONE Administration Lidocaine 1 patch 08/03/25 01:45 08/03/25 02:17 Lidocaine 4 % Patch Adh..Patch TRANSDERMA 08/03/25 01:46 1 patch ONCE ONE Administration Protocol Medical Decision Making Medical Decision Making MDM Narrative: 12:07 AM 08/03/2025 (Bony HERMAN): The patient is a 65-year-old male with a history of Gilbert's syndrome, anemia, previous CVA, hypertension, BPH, and previous parotid mass presenting to the ED for evaluation of right low back pain radiating into the left groin and down the left leg which began atraumatically . Patient works out regularly and also goes hiking but denies any recent falls or trauma. The patient in the ED is unable to flex at the left hip secondary to pain which he also describes as weakness, however distal CSM is intact with full strength with plantar flexion and dorsiflexion. The patient does not appear toxic, laboratory evaluation is reassuring with no leukocytosis, significant anemia, electrolyte abnormality, or LUIS. The patient's LFTs are unremarkable, lipase is normal. Urinalysis is negative for infection or microscopic hematuria. The patient has no symptoms of cauda equina syndrome. The patient will be sent for CT head as well as CT abdomen and pelvis with contrast to evaluate for neurologic pathology, or intra-abdominal mass effect or other acute intra-abdominal pathology. 1:39 AM 08/03/2025 (Bony HERMAN): The patient's CT head is negative for acute intracranial pathology, CT abdomen shows significant stool burden and some thickening of the urinary bladder without evidence of bowel obstruction or other acute intra-abdominal pathology. The CT does demonstrate left-sided os acetabulum, with [id number] osteoarthritis of the bilateral hips, left worse than right. There are also capsular calcifications noted of the left hip, and multifocal facet arthropathy is noted. The patient's UA has resulted in his negative for evidence of infection, patient is denying urinary symptoms. The patient's symptoms may be musculoskeletal in nature, patient is in no acute distress on re-evaluation, scrolling his phone without evidence of discomfort while lying still. We will treat with Toradol, lidocaine patch, Tylenol, Flexeril, and we will reassess. 3:56 AM 08/03/2025 (Bony HERMAN): Patient reports improvement in symptoms in his requesting discharge home. At this time we will discharge with anti- inflammatories and muscle relaxers. Admission/Observation Consideration of admission/observation: Escalation of care including admission/observation considered Lab Data MDM Lab Attestation statement: I reviewed the patient's lab results. 08/02/25 01:00 08/02/25 20:07 Labs: Lab Results 08/02/25 08/02/25 08/02/25 Range/Units 01:00 20:07 23:06 WBC 7.7 (4.8-10.8) X10*3/uL RBC 3.96 L (4.60-5.80) X10*6/uL Hgb 13.1 L (14.0-18.0) g/dl Hct 38.5 L (42.0-52.0) % MCV 97.2 (80.0-98.0) fL MCH 33.1 H (27.0-33.0) pg MCHC 34.0 (31.0-36.0) g/dl RDW 11.4 (11.0-16.0) % Plt Count 235 (160-400) X10*3/uL MPV 9.3 L (9.4-12.4) fL Immature Gran % (Auto) 0.3 (0.0-0.4) % Neut % (Auto) 60.9 (45-73) % Lymph % (Auto) 22.0 (20-40) % Riley % (Auto) 12.2 H (2-11) % Eos % (Auto) 4.2 H (0-4) % Baso % (Auto) 0.4 (0-2) % Lymph # (Auto) 1.7 (1.2-4.9) X10*3/uL Riley # (Auto) 0.9 (0.1-1.2) X10*3/uL Eos # (Auto) 0.3 (0.0-0.4) X10*3/uL Baso # (Auto) 0.0 (0.0-0.2) X10*3/uL Abs Immat Gran (auto) 0.02 (0.00-0.03) X10*3/uL Absolute Neuts (auto) 4.7 (2.0-8.3) x10*3/uL Absolute Nucleated RBC 0.000 (0.0-0.012) X10*3/uL Nucleated RBC % (auto) 0.0 (0.0-0.2) /100WBC Sodium 141 (135-145) mmol/L Potassium 4.2 (3.3-5.1) mmol/L Chloride 107 (96-108) mmol/L Carbon Dioxide 28 (22-29) mmol/L Anion Gap 10 L (12-20) BUN 21 H (9-16) mg/dL Creatinine 1.20 (0.5-1.4) mg/dL Estim Creat Clear Calc 68.2 Estimated GFR > 60 Random Glucose 87 (60-115) mg/dL Calcium 9.5 (8.4-10.2) mg/dL Magnesium 2.0 (1.6-2.6) mg/dL Total Bilirubin 1.5 H (0.0-1.0) mg/dL AST 23 (5-37) U/L ALT 25 (0-40) U/L Alkaline Phosphatase 83 (39-117) U/L Total Creatine Kinase 104 (38-174) U/L Total Protein 6.9 (6.5-8.0) g/dL Albumin 4.0 (3.5-5.0) g/dL Lipase 33 (8-78) U/L Urine Color Yellow Urine Appearance Clear Urine pH 7.0 (5.0-9.0) Ur Specific [place] 1.010 (1.005-1.025) Urine Protein Negative (Neg-Trace) mg/dL Urine Glucose (UA) Negative (Negative) mg/dL Urine Ketones Negative (Negative) mg/dL Urine Blood Negative (Negative) Urine Nitrite Negative (Negative) Ur Leukocyte Esterase Negative (Negative) 08/02/25 Range/Units 23:22 WBC (4.8-10.8) X10*3/uL RBC (4.60-5.80) X10*6/uL Hgb (14.0-18.0) g/dl Hct (42.0-52.0) % MCV (80.0-98.0) fL MCH (27.0-33.0) pg MCHC (31.0-36.0) g/dl RDW (11.0-16.0) % Plt Count (160-400) X10*3/uL MPV (9.4-12.4) fL Immature Gran % (Auto) (0.0-0.4) % Neut % (Auto) (45-73) % Lymph % (Auto) (20-40) % Riley % (Auto) (2-11) % Eos % (Auto) (0-4) % Baso % (Auto) (0-2) % Lymph # (Auto) (1.2-4.9) X10*3/uL Riley # (Auto) (0.1-1.2) X10*3/uL Eos # (Auto) (0.0-0.4) X10*3/uL Baso # (Auto) (0.0-0.2) X10*3/uL Abs Immat Gran (auto) (0.00-0.03) X10*3/uL Absolute Neuts (auto) (2.0-8.3) x10*3/uL Absolute Nucleated RBC (0.0-0.012) X10*3/uL Nucleated RBC % (auto) (0.0-0.2) /100WBC Sodium (135-145) mmol/L Potassium (3.3-5.1) mmol/L Chloride (96-108) mmol/L Carbon Dioxide (22-29) mmol/L Anion Gap (12-20) BUN (9-16) mg/dL Creatinine (0.5-1.4) mg/dL Estim Creat Clear Calc Estimated GFR Random Glucose (60-115) mg/dL Calcium (8.4-10.2) mg/dL Magnesium (1.6-2.6) mg/dL Total Bilirubin (0.0-1.0) mg/dL AST (5-37) U/L ALT (0-40) U/L Alkaline Phosphatase (39-117) U/L Total Creatine Kinase 92 (38-174) U/L Total Protein (6.5-8.0) g/dL Albumin (3.5-5.0) g/dL Lipase (8-78) U/L Urine Color Urine Appearance Urine pH (5.0-9.0) Ur Specific [place] (1.005-1.025) Urine Protein (Neg-Trace) mg/dL Urine Glucose (UA) (Negative) mg/dL Urine Ketones (Negative) mg/dL Urine Blood (Negative) Urine Nitrite (Negative) Ur Leukocyte Esterase (Negative) Radiology Impression Discussion of test interpretation with radiology: I have reviewed the radiologist's reading. Radiologist Impression: CT abdomen and pelvis with contrast Comparison: CT of the abdomen and pelvis from 02/03/2023 Findings: Mild bibasilar atelectasis and scarring. Minimal-borderline cardiomegaly. No significant change in solid abdominal organs by CT. The gallbladder is surgically absent. No new or enlarging lymphadenopathy by CT. No small bowel obstruction. Severe stool burden is present, including the cecum. Imaged appendix is within normal limits (image 61 of series 8). Vascular calcifications are redemonstrated. Prostate gland measures 6 cm transverse. Mild wall thickening of the urinary bladder is nonspecific. Multilevel Schmorl's nodes with mild/minimal chronic appearing height losses. Left os acetabulum redemonstrated with mild-moderate osteoarthritis of the hips, left worse than right. Capsular calcifications again noted in the of the left hip. Small left L2 transverse process fracture now appears old/chronic with sclerosis. Facet arthropathy is multifocal. IMPRESSION: 1. Severe stool burden. No small bowel obstruction. 2. Mild wall thickening of the urinary bladder. 3. Degenerative changes, including left hip. This document has been electronically signed by: Madhav Cordoba MD on 08/03/2025 01:32:31 CT head without contrast Comparison: Head CT from 12/07/2022 Findings: No acute intracranial hemorrhage. No midline shift or hydrocephalus. No large arterial territorial infarction by CT. Mild volume loss is generalized. Minimal low-density of the left basal ganglia region extending to left insula are nonspecific and may reflect mild white matter lesions or perivascular space, without significant change from 2022. Small old right PICA branch infarction unchanged in cerebellum. Mucosal thickening noted in the imaged paranasal sinuses. Trace left mastoid effusion. No acute skull fracture. Old nasal bone fractures/deformities of the partially imaged in the [id number]. The orbits are within normal limits. No skull fracture. IMPRESSION: No acute intracranial abnormality by CT This document has been electronically signed by: Madhav Cordoba MD on 08/03/2025 01:31:39 3 views lumbar spine Comparison: None provided Findings: Minimal height loss of the L1 and L2 are age indeterminate by radiographs. No significant listhesis. Degenerative disc changes, osteophytes, sclerosis, and facet arthropathy are multifocal. Sacrum and SI joints are mostly obscured. Degenerative changes include the partially imaged hips. Surgical clips and moderate to severe stool burden noted in the imaged abdomen. IMPRESSION: Degenerative changes include facet arthropathy by radiographs. This document has been electronically signed by: Madhav Cordoba MD on 08/02/2025 20:44:02 Discharge Plan Discharge Clinical Impression: Musculoskeletal strain, Lumbar radiculopathy, Arthritis of left hip Patient Disposition: Home, Self-Care Instructions: Muscle Strain (ED), Osteoarthritis (ED), Lumbar Radiculopathy (ED), Musculoskeletal Pain (ED) Additional Instructions: Thank you for choosing [facility]'s Emergency Department for your care today. Thankfully your laboratory evaluation, head CT, abdominopelvic CT, lumbar spine x-ray, urinalysis, and exam today are all reassuring. At this time there is no indication for admission to the hospital or continued ED observation, and it is safe to discharge you home. Your pain appears to be related to a musculoskeletal strain compounded by underlying arthritic changes of your left hip and lumbar spine. Your pain improved following interventions here in the ED. You should take alternating (staggered) doses of ibuprofen 600mg and Tylenol 1000mg every 4 hours as needed for any additional pain. Please rest the area, and apply ice for 20 minutes every hour. Please stay well hydrated and get plenty of rest. As a part of your care plan, you have also been prescribed a muscle relaxer. Please take this medication only for severe pain or spasm that is not relieved by ibuprofen and/or Tylenol. Muscle relaxer medications can carry high risk of unintentional addiction and abuse. Take this medication only as directed and only if absolutely necessary. This medicine can make you drowsy, you are not allowed to drive, operate heavy machinery, or be the sole care provider for children while taking this medication. We have treated you with a lidocaine patch, if you find this provides you significant relief additional patches can be purchased at any local pharmacy without a prescription. Please follow up with your primary care physician for re-evaluation, additional management of your symptoms, and continued preventative care. If you do not have a primary care physician, please call the [facility] at [phone] to establish a new primary care physician. While waiting to establish your new primary care physician, you can call our Walk-in Care Clinic at [phone] for non-emergency needs. Please return to the emergency department if you develop a severe or sudden change in your symptoms, a fever over 100.4 that does not improve with Tylenol or Ibuprofen, recurrent vomiting, or any other new or worsening symptoms or concerns. Prescriptions: New acetaminophen 500 mg capsule 1,000 mg PO .q8 PRN (Reason: fever or pain) Qty: 30 0RF cyclobenzaprine 10 mg tablet 10 mg PO TID PRN (Reason: muscle spasm) Qty: 14 0RF ibuprofen 600 mg tablet 600 mg PO Q8H PRN (Reason: fever or pain) Qty: 30 0RF No Action docusate sodium 100 mg capsule 100 mg PO BID Qty: 180 1RF ezetimibe 10 mg tablet 5 mg PO DAILY Qty: 45 1RF aspirin [Adult Aspirin Regimen] 81 mg tablet,delayed release (DR/EC) 81 mg PO DAILY Qty: 30 6RF amlodipine-valsartan 5-160 mg tablet 1 tab PO DAILY prednisone 10 mg tablet 10 mg PO DIRECTED Qty: 30 0RF Rx Instructions: see taper instructions; 40 mg Daily x3 days, 30 mg daily x3 days, 20 mg daily x3 days, 10 mg daily x3 days triamcinolone acetonide 0.1 % cream 1 appl topical BID Qty: 80 0RF rosuvastatin 5 mg tablet 5 mg PO DAILY Referrals: Clovis Lopez, NOTEMAN-BC [Primary Care Provider, Internal Medicine] Clinical Impression: Lumbar radiculopathy; Arthritis of left hip; Musculoskeletal strain Print Language: Armenian
[2025-08-02 19:58] VITALS: BP 142/77; PULSE 69; RESP 20; TEMP 37; O2SAT 98; BMI 26.9
--- OUTSIDE RECORDS SUMMARY | 2025-08-02 20:07 | XMS_ITS | Encounter Summary ---
Author Organization [facility] Address [address] [place] [address] Care Team Providers Care Cooling Pan Tender Name Role Phone Darryn Birch MD Unavailable [phone] Clovis Lopez MD Primary Care Provider Nomi Self MD Unavailable [phone] Encounter Details Date Type Department Care Team (Late st Contact Info) Description 12/02/2024 Telephone [facility] [place] at [facility]: Oncology and Hematology [address] [place] [address] Buffy Cheatham [address] [place], [place] [id number] Social History Tobacco Use Types Packs/Day Years [...] Care Team (Late st Contact Info) Description 07/16/2026 8:15 AM EDT Office Visit [facility] Cardiology [place] [address] [place] [address] Nomi Self MD [address] [place] [address] documented as of this encounter Visit Diagnoses Not on filedocumented in this encounter Care Teams Cooling Pan Tender Relationship Specialty Start Date End Date Clovis Lopez MD [address] [place] [address] PCP - General Family Medicine 10/04/23 Darryn Birch MD [address] [place] [address] Physician Otolaryngology 10/04/23 Nomi Self MD [address] [place] [address] Primary Ore Crusher Cardiovascular Disease 01/18/24 documented as of this encounter
--- OUTSIDE RECORDS SUMMARY | 2025-08-02 20:07 | XMS_ITS | Encounter Summary ---
Author Organization [facility] Address [address] [place] [address] Care Team Providers Care Supervisor Travel Information Center Name Role Phone Darryn Birch MD Unavailable [phone] Clovis Lopez MD Primary Care Provider Nomi Self MD Unavailable [phone] Encounter Details Date Type Department Care Team (Late st Contact Info) Description 10/18/2024 Scanned Document [facility] Cancer [place] at [facility]: Oncology and Hematology [address] [place] [address] Provider, External, [address] [place] [address] Social History Tobacco Use Types Packs/Day Years [...] Department Care Team (Late Contact Info) Description 07/16/2026 8:15 AM EDT Office Visit [facility] Cardiology [place] [address] [facility] [address] [facility] [address] [place] [address] Nomi Self MD [address] [place] [address] documented as of this encounter Visit Diagnoses Not on filedocumented in this encounter Care Teams Supervisor Travel Information Center Relationship Specialty Start Date End Date Clovis Lopez MD [address] [place] [address] PCP - General Family Medicine 10/04/23 Darryn Birch MD [address] [place] [address] Physician Otolaryngology 10/04/23 Nomi Self MD [address] [place] [address] Primary Food Or Baggage Handling [place] Cardiovascular Disease 01/18/24 documented as of this encounter
--- OUTSIDE RECORDS SUMMARY | 2025-08-02 20:07 | XMS_ITS | Clinical Summary ---
Author Organization [facility] Address [address] [place] [address] Care Team Providers Care Associate Professor Of English Name Role Phone Darryn Birch MD Unavailable [phone] Clovis Lopez MD Primary Care Provider Nomi Self MD Unavailable [phone] Allergies Active Allergy Reactions Criticality Noted Date Comments Lisinopril Cough Low 10/02/2023 Medications Aspirin Low Dose 81 MG EC tablet Take 1 tablet (81 mg total) by mouth nightly. 3 Active ezetimibe (ZeTIA) 10 MG tablet Take 0.5 tablets (5 mg total) by mouth every morning. 3 Active docusate sodium (COLACE) 100 MG capsule 1 capsule (100 mg total) by Mouth/Oral Cavity route every 12 hours. 4 Active rosuvastatin (CRESTOR) 5 MG tabletIndications :Cerebrovascular accident (CVA), unspecified mechanism (HCC) TAKE 1 TABLET(5 MG) BY MOUTH DAILY 90 tablet 3 5 Active amLODIPine-valsar kumari (EXFORGE) 10-320 MG per tabletIndications :Primary hypertension Take 1 tablet by mouth daily. 90 tablet 3 5 06/15/20 26 Active Active Problems Problem Noted Date Diagnosed Date [...] and hemochromatosis. Notes reviewed with patient in [facility] portal. Follow up with Hematology as previously recommended for ongoing monitoring and management. Personal history of COVID-19 10/02/2023 Assessment & Plan (10/02/2023 2:03 PM EST): Patient with personal history of Covid in 2021 with mild, non-cardiopulmonary symptoms. All symptoms have since fully resolved. Follow up with your PCP as previously recommended for ongoing monitoring and management. Encounters Date Type Department Care Team Description 07/21/2025 10:00 AM EDT Office Visit [facility] Cardiology [address] [place] [phone] Nomi Self MD Aneurysm of ascending aorta without rupture (Primary Dx); Mixed hyperlipidemia ; Nonrheumatic pulmonary valve stenosis; Obstructive sleep apnea; Primary hypertension ; Right ventricular dilation; Cerebrovascular accident (CVA), unspecified mechanism (HCC) 07/21/2025 Travel 06/20/2025 9:00 AM EDT Office Visit [facility] [place] [facility]: Oncology and Hematology [address] [facility] [place] [address] Eleonora Live MD 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 7 days 07/21/2025 On average, how many minutes do you exercise per day at this level? 90 min 07/21/2025 Sex and Gender Information Value Date Recorded Sex Assigned at Male 10/02/2023 9:10 AM EST Legal Sex Male 7:09 PM EST Gender Identity Male 10/02/2023 9:10 AM EST Sexual Orientation Heterosexual (straight) 10/02 9:10 AM EST Last Filed Vital Signs Vital Sign Reading Time Taken Comments Blood Pressure 140/82 07/21/2025 9:40 AM EDT Pulse 58 07/21/2025 9:40 AM EDT Temperature 36.3 C (97.4 F) 06/20/2025 8:56 AM EDT Respiratory Rate 16 06/20/2025 8:56 AM EDT Oxygen Saturation 98% 07/21/2025 9:40 AM EDT Inhaled Oxygen Concentration - - Weight 92.2 kg (203 lb 3.2 oz) 07/21/2025 9:40 A M EDT Height 182.9 cm (6') 07/21/2025 9:40 AM EDT Body Mass Index 27.56 07/21/2025 9:40 AM EDT Plan of Treatment Upcoming Encounters Date Type Department Care Team (Late st Contact Info) Description 07/16/2026 8:15 AM EDT Office Visit [facility] Cardiology [place] [address] [facility] [address] [facility] [address] [place] [phone] Nomi Self MD [address] [place] [address] Health Maintenance Due Date Last Done Comments Hepatitis C Virus Screening 1961 HIV Screening 1974 DTaP/Tdap/Td Vaccines (1 - Tdap) 1980 Pneumococcal Vaccines 50+ (1 of 2 - PCV) 1980 Colonoscopy 2006 Zoster (Shingles) Vaccine (1 of 2) 2011 COVID-19 Vaccine ( - 2023-2 5 season) 2024 Influenza Vaccine 06/27/2025 RSV Vaccine 60 years and old er and Patients (1 - 1-dose 75+ series) 2036 Hepatitis B Vaccines Aged Out No long er eligible based on patient's age to complete this topic Procedures Procedure Name Priority Date/Time Associated Diagnosis Comments ECG 12-LEAD Routine 07/21/2025 9:34 AM EDT Aneurysm of ascending aorta without rupture POCT COMPLETE BLOOD COUNT (ONCOLOGY - INTERFACED NO CHARGE) Routine 06/20/2025 8:51 AM EDT Hemochromatosis associated with mutation in HFE gene VITAMIN B12 Routine 06/20/2025 8:51 AM EDT Hemochromatosis associated with mutation in HFE gene FOLATE LEVEL Routine 06/20/2025 8:51 AM EDT Hemochromatosis associated with mutation in HFE gene FERRITIN Routine 06/20/2025 8:51 AM EDT Hemochromatosis associated with mutation in HFE gene IRON AND TOTAL IRON BINDING CAPACITY Routine 06/20/2025 8:51 AM EDT Hemochromatosis associated with mutation in HFE gene HEMOGLOBIN A1C WITH ESTIMATED AVERAGE GLUCOSE Routine 05/29/2025 3:31 PM EDT Hemochromatosis associated with mutation in HFE gene TSH REFLEX TO FREE T4 Routine 05/29/2025 3:30 PM EDT Hemochromatosis associated with mutation in HFE gene COMPREHENSIVE METABOLIC PANEL Routine 05/29/2025 3:26 PM EDT Primary hypertension Mixed hyperlipidemia LIPID PANEL REFLEX DIRECT LDL Routine 05/29/2025 3:26 PM EDT Mixed hyperlipidemia ABO/RH Routine 05/29/2025 3:24 PM EDT Gilbert syndrome from Last 3 Months Results * ECG 12 lead (07/21/2025 9:34 AM EDT) Pathologist [facility] Ventricular rate [address] [facility] Atrial rate 58 BPM EKG [facility] P-R interval 264 ms EKG [facility] QRS duration 94 ms EKG [facility] Q-T interval 414 ms EKG [facility] QTC calculation (Bazett) [address] [facility] P axis 64 degrees EKG [facility] R axis 63 degrees EKG [facility] T axis 59 degrees EKG [facility] 07/21/2025 9:34 AM EDT Narrative EKG [facility] - 07/21/2025 10:04 AM EDT Sinus bradycardia with 1st degree A-V block Early repolarization Otherwise normal ECG When compared with ECG of 10-Oct-2024 07:58, No significant change was found Confirmed by MD Self Jordan ([id number]) on 07/21/2025 10:04:29 AM Procedure Note Nomi Self MD - 07/21/2025 Sinus bradycardia with 1st degree A-V block Early repolarization Otherwise normal ECG When compared with ECG of 10-Oct-2024 07:58, No significant change was found Confirmed by MD Self Jordan ([id number]) on 07/21/2025 10:04:29 AM Nomi Self MD ECG ORDERABLES Final Result EKG [facility] * (ABNORMAL) POCT Complete Blood Count (Oncology) (06/20/2025 8:51 AM EDT) White Blood Cell Count 5.3 4.0 - 11.0 Thou/uL 06/20/2025 9:08 AM EDT [facility] Red Blood Cell Count 4.13(L) 4.50 - 6.20 Mil/uL 06/20/2025 9:08 AM EDT [facility] Hemoglobin 13.5 13.0 - 17.7 g/dL 06/20/2025 9:08 AM EDT [facility] Hematocrit 41.2 39.0 - 54.0 % 06/20/2025 9:08 AM EDT [facility] MCV 100 80 - 100 fL 06/20/2025 9:08 AM EDT [facility] MCH 32.7(H) 27.0 - 31.0 pg 06/20/2025 9:08 AM EDT [facility] MCHC 32.8 30.0 - 36.0 g/dL 06/20/2025 9:08 AM EDT [facility] RDW 11.3(L) 11.5 - 14.5 % 06/20/2025 9:08 AM EDT [facility] Platelet Count 285 150 - 450 Thou/uL 06/20/2025 9:08 AM EDT [facility] MPV 9.4 7.5 - 12.5 fL 06/20/2025 9:08 AM EDT [facility] Neutrophils Auto 72.2 % 06/20/20 9:08 AM EDT [facility] Abs Neutrophils Auto 3.85 2.00 - 7.50 Thou/uL 06/20/2025 9:08 AM EDT [facility] Lymphocytes Auto 18.9 % 06/20/20 9:08 AM EDT [facility] Abs Lymphocytes Auto 1.01(L) 1.50 - 4.50 Thou/uL 06/20/2025 9:08 AM EDT [facility] Basophils Auto 0.7 % 06/20/2025 9:08 AM EDT [facility] Abs Basophils Auto 0.04 0.00 - 0.20 Thou/uL 06/20/2025 9:08 AM EDT [facility] Eosinophils Auto 0.9(H) 0.00 - 0.70 % 06/20/2025 9:08 AM EDT [facility] Abs Eosinophils Auto 0.05 0.00 - 0.70 Thou/uL 06/20/2025 9:08 AM EDT [facility] Monocytes Auto 7.1 % 06/20/2025 9:08 AM EDT [facility] Abs Monocytes Auto 0.38 0.20 - 1.50 Thou/uL 06/20/2025 9:08 AM EDT [facility] Immature Granulocytes 0.2 % 06/20/2025 9:08 AM EDT [facility] Abs Immature Granulocytes <0.04 0.00 - 0.10 Thou/uL 06/20/2025 9:08 AM EDT [facility] Blood Blood specimen / Unknown 06/20/2025 8:51 AM EDT 06/20/2025 9:08 AM EDT us Eleonora Live MD POCT ORDERABLES - ONCOLOGY Final Result [facility] [address] [place] [address], [place] * (ABNORMAL) Iron and Total Iron Binding Capacity (06/20/2025 8:51 AM EDT) [facility] Iron 51(L) 53 - 167 ug/dL 06/20/2025 1:04 PM EDT [facility] UIBC 204 112 - 346 ug/dL 06/20/2025 1:04 PM EDT [facility] Total Iron Binding Capacity 255 100 - 400 ug/dL 06/20/2025 1:04 PM EDT [facility] Iron Sat 20 20 - 50 % 06/20/2025 1:04 PM EDT [facility] Blood Blood specimen / Unknown 06/20/2025 8:51 AM EDT 06/20/2025 12:32 PM EDT Eleonora Live MD LAB BLOOD ORDERABLES Final Result [facility] [address] [place] [address], [facility] [address] [place] [address] * Folate Level (06/20/2025 8:51 AM EDT) [facility] Folate, Serum 12.4 >7.2 ng/mL 06/20/2025 6:[address] [facility] Blood Blood specimen / Unknown 06/20/2025 8:51 AM EDT 06/20/2025 12:32 PM EDT us Eleonora Live MD LAB BLOOD ORDERABLES Final Result [address] [address], [address] [address] * FERRITIN (06/20/2025 8:51 AM EDT) Ferritin 400 30 - 400 ug/L 06/20/2025 1:04 PM EDT [facility] Blood Blood specimen / Unknown 06/20/2025 8:51 AM EDT 06/20/2025 12:32 PM EDT us Eleonora Live MD LAB BLOOD ORDERABLES Final Result [address] [address], [address] [address] * VITAMIN B12 (06/20/2025 8:51 AM EDT) Vitamin B12 859 243 - 894 pg/mL 06/20/2025 6:[address] [facility] Blood Blood specimen / Unknown 06/20/2025 8:51 AM EDT 06/20/2025 12:32 PM EDT us Eleonora Live MD LAB BLOOD ORDERABLES Final Result [address] [address], [address] [address] * Hemoglobin A1c with Estimated Average Glucose (05/29/2025 3:31 PM EDT) Hemoglobin A1C 4.6 <5.7 % [facility] Comment: For the purpose of screening for the presence of diabetes: <5.7% Consistent with the absence of diabetes 5.7-6.4% Consistent with increased risk for diabetes (prediabetes) > or =6.5% Consistent with diabetes This assay result is consistent with a decreased risk of diabetes. Currently, no consensus exists regarding use of hemoglobin A1c for diagnosis of diabetes in children. According to [place] Diabetes [employer] (ADA) guidelines, hemoglobin A1c <7.0% represents optimal control in non- diabetic patients. Different metrics may apply to specific patient populations. Standards of Medical Care in Diabetes(ADA). Estimated Average Glucose (mg/dL) 85 mg/dL [facility] Estimated Average Glucose (mmol/L) 4.7 mmol/L [facility] Blood Blood specimen / Unknown 05/29/2025 3:31 PM EDT 05/29/2025 3:31 PM EDT Eleonora Live MD LAB BLOOD ORDERABLES Final Result Performing Organization Address [facility] Co de Phone Number [facility] [address] [place] [phone] * TSH REFLEX FREE T4 (05/29/2025 3:30 PM EDT) TSH reflex Free T4 1.89 0.40 - 4.50 mIU/L [facility] Blood Blood specimen / Unknown 05/29/2025 3:30 PM EDT 05/29/2025 3:30 PM EDT Narrative [facility] - 05/30/2025 4:50 AM EDT FASTING:NO FASTING: NO Eleonora Live MD LAB BLOOD ORDERABLES Final Result Performing Organization Address [facility] de Phone Number [facility] [address] [place] [phone] * Lipid Panel Reflex Direct LDL (05/29/2025 3:26 PM EDT) Cholesterol, Total 140 <200 mg/dL [facility] Cholesterol, HDL 48 > OR = 40 mg/dL [facility] Triglycerides 131 <150 mg/dL [facility] LDL Cholesterol 71 mg/dL (calc) [facility] Comment: Reference range: <100 Desirable range <100 mg/dL for primary prevention; <70 mg/dL for patients with CHD or diabetic patients with > or = 2 CHD risk factors. LDL-C is now calculated using the Nichole calculation, which is a validated novel method providing better accuracy than the Friedewald equation in the estimation of LDL-C. Davi SS et al. RHONA. 2013;310(19): 4097-7664 (http://education.Ideapod/faq/BNX342) Cholesterol/HDL Ratio 2.9 <5.0 (calc) [facility] Non HDL Chol. (LDL+VLDL) 92 <130 mg/dL (calc) [facility] Comment: For patients with diabetes plus 1 major ASCVD risk factor, treating to a non-HDL-C goal of <100 mg/dL (LDL-C of <70 mg/dL) is considered a therapeutic option. Blood Blood specimen / Unknown 05/29/2025 3:26 PM EDT 05/29/2025 3:26 PM EDT Narrative [facility] - 05/30/2025 9:33 AM EDT FASTING:NO FASTING: NO Nomi Self MD LAB BLOOD ORDERABLES Final Re sult [facility] [address] [place] [phone] * (ABNORMAL) Comprehensive Metabolic Panel (05/29/2025 3:26 PM EDT) Pathologist [facility] Glucose 96 65 - 139 mg/dL [facility] Comment: Non-fasting reference interval Blood Urea Nitrogen (BUN) 21 7 - 25 mg/dL [facility] Creatinine 0.88 0.70 - 1.35 mg/dL [facility] Creatinine w/ eGFR 96 > OR = 60 mL/min/1. 73m2 [facility] BUN/Creatinine Ratio SEE NOTE: 6 - 22 (calc) [facility] Comment: Not Reported: BUN and Creatinine are within reference range. Sodium 140 135 - 146 mmol/L [facility] Potassium 4.5 3.5 - 5.3 mmol/L [facility] Chloride 104 98 - 110 mmol/L [facility] CO2 28 20 - 32 mmol/L [facility] Calcium 9.3 8.6 - 10.3 mg/dL [facility] Protein, Total 6.8 6.1 - 8.1 g/dL [facility] Albumin 4.2 3.6 - 5.1 g/dL [facility] Globulin 2.6 1.9 - 3.7 g/dL (calc) [facility] Albumin/Globuli n Ratio 1.6 1.0 - 2.5 (calc) [facility] Bilirubin, Total 1.7(H) 0.2 - 1.2 mg/dL [facility] Alkaline Phosphatase 60 35 - 144 U/L [facility] Aspartate Aminotrans (AST) 20 10 - 35 U/L [facility] Alanine Aminotrans (ALT) 23 9 - 46 U/L [facility] Blood Blood specimen / Unknown 05/29/2025 3:26 PM EDT 05/29/2025 3:26 PM EDT Narrative [employer] - 05/30/2025 9:33 AM EDT FASTING:NO FASTING: NO Nomi Self MD LAB BLOOD ORDERABLES Final Re sult Performing Organization Address [facility] Co de Phone Number [facility] [address] [place] [phone] * ABO/Rh (05/29/2025 3:24 PM EDT) ABO Group O [facility] Rh Type RH(D) POSITIVE [facility] Comment: For additional information, please refer to http://education.Ideapod/faq/DFF800 (This link is being provided for informational/ educational purposes only.) Blood 05/29/2025 3:24 PM EDT 05/29/2025 3:25 PM EDT Narrative [facility] - 05/30/2025 1:32 PM EDT FASTING:NO FASTING: NO Eleonora Live MD BLOOD BANK TEST ORDERABLES Final Result Performing Organization Address [facility] Co de Phone Number [facility] [address] [place] [phone] from Last 3 Months Insurance [facility] Care Teams Associate Professor Of English Relationship Specialty Start Date End Date Clovis Lopez MD [address] [place] [address] PCP - General Family Medicine 10/04/23 Darryn Birch MD [address] [place] [id number] Physician Otolaryngology 10/04/23 Nomi Self MD [address] [facility] [address] [place] [address] Primary Lapidarist Cardiovascular Disease 01/18/24
--- OUTSIDE RECORDS SUMMARY | 2025-08-02 20:07 | XMS_ITS ---
Author Name [facility] Organization Unknown Results Test Name/Text Value Interpretation Date Range Source Vit B12 SerPl-mCnc 859.0 pg/mL 06/20/2025 243 - 89 4 [facility] Folate SerPl-mCnc 12.4 ng/mL 06/20/2025 7.2 - [facility] TIBC SerPl-mCnc 255.0 ug/dL 06/20/2025 100 - 400 H [facility] Iron Satn MFr SerPl 20.0 % 06/20/2025 20 - 50 [facility] UIBC SerPl-mCnc 204.0 ug/dL 06/20/2025 112 - 346 H [facility] Iron SerPl-mCnc 51.0 ug/dL Below low normal 06/20/2025 53 - 167 [facility] Ferritin SerPl-mCnc 400.0 ug/L 06/20/2025 30 - 400 [facility] PMV Bld Auto 9.4 fL 06/20/2025 7.5 - 12.5 [facility] Basophils/leuk NFr Bld Auto 0.7 % 06/20/2025 [facility] Monocytes num Bld Auto 0.38 Thou/uL 06/20/2025 0.2 - 1.5 [facility] RBC num Bld Auto 4.13 Mil/uL Below low normal 06/20/2025 4.5 - 6.2 [facility] Monocytes/leuk NFr Bld Auto 7.1 % 06/20/2025 [facility] MCHC RBC Auto-mCnc 32.8 g/dL 06/20/2025 30 - 36 [facility] Eosinophil/leuk NFr Bld Auto 0.9 % Above high normal 06/20/2025 0 - 0.7 [facility] Lymphocytes num Bld Auto 1.01 Thou/uL Below low normal 06/20/2025 1.5 - 4.5 [facility] WBC num Bld Auto 5.3 Thou/uL 06/20/2025 4 - 11 [facility] Platelet num Bld Auto 285.0 Thou/uL 06/20/2025 150 - 450 [facility] Imm Granulocytes/leuk NFr Bld Auto 0.2 % 06/20/2025 [facility] Neutrophils/leuk NFr Bld Auto 72.2 % 06/20/2025 [facility] Basophils num Bld Auto 0.04 Thou/uL 06/20/2025 0 - 0.2 [facility] Eosinophil num Bld Auto 0.05 Thou/uL 06/20/2025 0 - 0.7 [facility] MCV RBC Auto 100.0 fL 06/20/2025 80 - 100 [facility] Neutrophils num Bld Auto 3.85 Thou/uL 06/20/2025 2 - 7.5 [facility] Imm Granulocytes num Bld Auto <0.04 Thou/uL 06/20/2025 0 - 0.1 [facility] RDW RBC Auto-Rto 11.3 % Below low normal 06/20/2025 11.5 - 14.5 [facility] Hct VFr Bld Auto 41.2 % 06/20/2025 39 - 54 HH CCT Hgb Bld-mCnc 13.5 g/dL 06/20/2025 13 - 17.7 [facility] MCH RBC Qn Auto 32.7 pg Above high normal 06/20/2025 27 - 31 [facility] Lymphocytes/leuk NFr Bld Auto 18.9 % 06/20/2025 [facility] HbA1c MFr Bld 4.6 % Normal 05/30/2025 - 5.7 [facility] Est. average glucose Bld gHb Est-sCnc 4.7 mmol/L 05/30/2025 [facility] Est. average glucose Bld gHb Est-mCnc 85.0 mg/dL 05/30/2025 [facility] TSH SerPl-aCnc 1.89 mIU/L Normal 05/30/2025 0.4 - 4.[address] Cholest/HDLc SerPl 2.9 (calc) Normal 05/30/2025 - 5 [facility] LDLc SerPl Calc-mCnc 71.0 mg/dL (calc) Normal 05/30/2025 [facility] HDLc SerPl-mCnc 48.0 mg/dL Normal 05/30/2025 - QU EST NonHDLc SerPl-mCnc 92.0 mg/dL (calc) Normal 05/30/2025 - 130 [facility] Trigl SerPl-mCnc 131.0 mg/dL Normal 05/30/2025 - 150 [facility] Cholest SerPl-mCnc 140.0 mg/dL Normal 05/30/2025 - 200 [facility] Creat SerPl-mCnc 0.88 mg/dL Normal 05/30/2025 0.7 - 1.35 [facility] CO2 SerPl-sCnc 28.0 mmol/L Normal 05/30/2025 20 - 32 QU EST ALT SerPl-cCnc 23.0 U/L Normal 05/30/2025 9 - 46 [facility] T Prot SerPl-mCnc 6.8 g/dL Normal 05/30/2025 6.1 - 8.[address] Bilirub SerPl-mCnc 1.7 mg/dL Above high normal 05/30/2025 0. 2 - 1.2 [facility] Sodium SerPl-sCnc 140.0 mmol/L Normal 05/30/2025 135 - 14 6 [facility] Calcium SerPl-mCnc 9.3 mg/dL Normal 05/30/2025 8.6 - 10.3 [facility] Globulin Ser Calc-mCnc 2.6 g/dL (calc) Normal 05/30/2025 1.9 - 3.7 [facility] Chloride SerPl-sCnc 104.0 mmol/L Normal 05/30/2025 98 - 1 10 [facility] eGFRcr SerPlBld CKD-EPI 2020 96.0 mL/min/1.73m2 Normal 05/30/2025 - [facility] Albumin SerPl-mCnc 4.2 g/dL Normal 05/30/2025 3.6 - 5.1 [facility] Albumin/Glob SerPl 1.6 (calc) Normal 05/30/2025 1 - 2.5 [facility] ALP SerPl-cCnc 60.0 U/L Normal 05/30/2025 35 - 144 [facility] Potassium SerPl-sCnc 4.5 mmol/L Normal 05/30/2025 3.5 - 5 .3 [facility] Glucose SerPl-mCnc 96.0 mg/dL Normal 05/30/2025 65 - 139 [facility] AST SerPl-cCnc 20.0 U/L Normal 05/30/2025 10 - 35 [facility] BUN SerPl-mCnc 21.0 mg/dL Normal 05/30/2025 7 - [address] BUN/Creat SerPl SEE NOTE: 05/30/2025 6 - [address] Rh Bld RH(D) POSITIVE 05/30/2025 [facility] ABO Group Bld O 05/30/2025 [facility] G6PD RBC-cCnt 0.5 U/g Hgb Below low normal 11/08/2024 7 - 20 .5 [facility] Ferritin SerPl-mCnc 301.0 ng/mL Normal 11/08/2024 24 - 38 0 [facility] UGT1A1 gene Mut Anl Bld/T See Below Abnormal 11/08/2024 [facility] Iron SerPl-mCnc 88.0 mcg/dL Normal 11/08/2024 50 - 180 Q [facility] Iron Satn MFr SerPl 32.0 % (calc) Normal 11/08/2024 20 - 48 [facility] TIBC SerPl-mCnc 272.0 mcg/dL (calc) Normal 11/08/2024 250 - 425 [facility] Calcium SerPl-mCnc 9.3 mg/dL Normal 11/08/2024 8.6 - 10.3 [facility] Prot SerPl-mCnc 6.5 g/dL Normal 11/08/2024 6.1 - 8.[address] ALT SerPl-cCnc 17.0 U/L Normal 11/08/2024 9 - 46 [facility] AST SerPl-cCnc 20.0 U/L Normal 11/08/2024 10 - 35 [facility] T Sodium SerPl-sCnc 138.0 mmol/L Normal 11/08/2024 135 - 14 6 [facility] Potassium SerPl-sCnc 4.3 mmol/L Normal 11/08/2024 3.5 - 5 .3 [facility] BUN SerPl-mCnc 21.0 mg/dL Normal 11/08/2024 7 - [address] Albumin/Glob SerPl 1.7 (calc) Normal 11/08/2024 1 - 2.5 [facility] Glucose SerPl-mCnc 86.0 mg/dL Normal 11/08/2024 65 - 99 [facility] Chloride SerPl-sCnc 104.0 mmol/L Normal 11/08/2024 98 - 1 10 [facility] BUN/Creat SerPl SEE NOTE: Normal 11/08/2024 6 - [address] Albumin SerPl-mCnc 4.1 g/dL Normal 11/08/2024 3.6 - 5.1 [facility] Creat SerPl-mCnc 0.78 mg/dL Normal 11/08/2024 0.7 - 1.35 [facility] CO2 SerPl-sCnc 27.0 mmol/L Normal 11/08/2024 20 - 32 [facility] EST eGFRcr SerPlBld CKD-EPI 2020 100.0 mL/min/1.73m2 Normal 11/08/2024 - [facility] Globulin Ser Calc-mCnc 2.4 g/dL (calc) Normal 11/08/2024 1.9 - 3.7 [facility] ALP SerPl-cCnc 68.0 U/L Normal 11/08/2024 35 - 144 [facility] Bilirub SerPl-mCnc 2.1 mg/dL Above high normal 11/08/2024 0. 2 - 1.2 [facility] Retics/100 RBC NFr Auto 1.9 % Normal 11/08/2024 [facility] Retics # 44673.0 cells/uL Normal 11/08/2024 07020 - 9000 0 [facility] Lymphocytes/leuk NFr Bld Auto 27.8 % Normal 11/08/2024 [facility] Lymphocytes # Bld Auto 1418.0 cells/uL Normal 11/08/2024 850 - 3900 [facility] MCV RBC Auto 101.7 fL Above high normal 11/08/2024 80 - 100 [facility] MCHC RBC Auto-mCnc 32.1 g/dL Normal 11/08/2024 32 - 36 [facility] Neutrophils # Bld Auto 3019.0 cells/uL Normal 11/08/2024 1500 - 7800 [facility] RBC # Bld Auto 4.11 Million/uL Below low normal 11/08/2024 4 .2 - 5.8 [facility] RDW RBC Auto-Rto 10.7 % Below low normal 11/08/2024 11 - 15 [facility] Basophils # Bld Auto 41.0 cells/uL Normal 11/08/2024 0 - 200 [facility] Monocytes # Bld Auto 454.0 cells/uL Normal 11/08/2024 200 - 950 [facility] Hgb Bld-mCnc 13.4 g/dL Normal 11/08/2024 13.2 - 17.1 [facility] T MCH RBC Qn Auto 32.6 pg Normal 11/08/2024 27 - [address] Platelet # Bld Auto 267.0 Thousand/uL Normal 11/08/2024 140 - 400 [facility] Monocytes/leuk NFr Bld Auto 8.9 % Normal 11/08/2024 [facility] Neutrophils/leuk NFr Bld Auto 59.2 % Normal 11/08/2024 [facility] PMV Bld Gene-Varinder 10.2 fL Normal 11/08/2024 7.5 - 12.5 [facility] Basophils/leuk NFr Bld Auto 0.8 % Normal 11/08/2024 [facility] WBC # Bld Auto 5.1 Thousand/uL Normal 11/08/2024 3.8 - 10 .8 [facility] Eosinophil # Bld Auto 168.0 cells/uL Normal 11/08/2024 15 - 500 [facility] Eosinophil/leuk NFr Bld Auto 3.3 % Normal 11/08/2024 [facility] Hct VFr Bld Auto 41.8 % Normal 11/08/2024 38.5 - 50 QU EST History of Medication Use Medication Directions Dispensed Refills Start Date End Date Stat us amLODIPine-valsarta n (EXFORGE) 10-320 MG per tablet Take 1 tablet by mouth daily. 12/19/2024 active amLODIPine-valsarta n (EXFORGE) 5-160 MG per tablet Take 1 tablet by mouth daily. 10/10/2024 active losartan (COZAAR) 25 MG tablet Take 2 tablets (50 mg total) by mouth every morning. 09/22/2023 10/10/2024 active ezetimibe (ZeTIA) 10 MG tablet Take 0.5 tablets (5 mg total) by mouth every morning. 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 ProblemAct H [facility] Obstructive sleep apnea active 2023-10-16 ProblemAct [facility] Elevated ferritin level active 2023-10-02 ProblemAct [facility] Abnormal EKG active 2023-10-05 ProblemAct [facility] Nonrheumatic pulmonary valve stenosis active 2024-10-10 ProblemAct [facility] Aneurysm of ascending aorta without rupture active 2023-10-16 ProblemAct [facility] High cholesterol active 2023-10-02 ProblemAct H [facility] Mixed hyperlipidemia active 2023-10-15 ProblemAct [facility] Right ventricular dilation active 2024-10-10 ProblemAct [facility] Stroke active 2023-10-02 ProblemAct [facility] Encounters Encounter Type Encounter Reason Primary Diagnosis Location Date Ambulatory Aneurysm of the ascending aorta, without rupture Aneurysm of the ascending aorta, without rupture [place] 07/21/2025 Ambulatory Hereditary hemochromatosis Hereditary hemochromatosis [place] 06/20/2025 Ambulatory Hereditary hemochromatosis Hereditary hemochromatosis [place] 12/02/2024 Ambulatory Cardiomegaly Cardiomegaly [place] 11/13/2024 Ambulatory Hereditary hemochromatosis Hereditary hemochromatosis [place] 10/18/2024 Ambulatory Cardiomegaly Cardiomegaly [place] 10/10/2024 Ambulatory Essential (primary) hypertension Essential (primary) hypertension [place] 08/01/2024 Ambulatory Cerebral infarction, unspecified Cerebral infarction, unspecified [place] 03/25/2024 Ambulatory Essential (primary) hypertension Essential (primary) hypertension [place] 03/25/2024 Ambulatory Mixed hyperlipidemia Mixed hyperlipidemia [place] 10/16/2023 Ambulatory Encounter for other preprocedural examination Encounter for other preprocedural examination [place] 10/02/2023 Care Team Organization Name Specialty Phone Email Start Date End Da te [place] RONY [facility] 06/20/2025 [facility] 10/18/2023 [place] ORLIN URIBE [facility] 10/16/2023 [place] AUSTIN BUCHANAN Primary [facility] 10/02/2023 10/16/20 23 [place] 10/02/2023 10/02/2023 [place] 10/02/2023 [place] ORLIN URIBE [facility]
--- OUTSIDE RECORDS SUMMARY | 2025-08-02 20:07 | XMS_ITS | Encounter Summary ---
Author Organization [facility] Address [address] [place] [address] Care Team Providers Care Agricultural Service Worker Name Role Phone Darryn Birch MD Unavailable [phone] Clovis Lopez MD Primary Care Provider Nomi Self MD Unavailable [phone] Encounter Details Date Type Department Care Team (Late st Contact Info) Description 10/18/2024 Scanned Document [facility] Cancer [place] [facility]: Oncology and Hematology [address] [place] [address] Provider, External, [address] [place] [address] Social History Tobacco Use Types Packs/Day Years [...] Description 07/16/2026 8:15 AM EDT Office Visit [facility] [place] [address] [place] [address] Nomi Self MD [address] [place] [address] documented as of this encounter Visit Diagnoses Not on filedocumented in this encounter Care Teams Agricultural Service Worker Relationship Specialty Start Date End Date Clovis Lopez MD [address] [place] [address] PCP - General Family Medicine 10/04/23 Darryn Birch MD [address] [place] [address] Physician Otolaryngology 10/04/23 Nomi Self MD [address] [place] [address] Primary Electric Arc Furnace Operator Cardiovascular Disease 01/18/24 documented as of this encounter
--- OUTSIDE RECORDS SUMMARY | 2025-08-02 20:07 | XMS_ITS | Encounter Summary ---
Author Organization [facility] Address [address] [place] [address] Care Team Providers Care Soap Chipper Name Role Phone Darryn Birch MD Unavailable [phone] Clovis Lopez MD Primary Care Provider [phone] Nomi Self MD Unavailable [phone] Encounter Details Date Type Department Care Team (Late st Contact Info) Description 10/05/2023 Scanned Document [facility] PRIMARY CARE SCAN Primary Care, Scan Social [...] Description 07/16/2026 8:15 AM EDT Office Visit [facility] [place] [address] [place] [phone] Nomi Self MD [address] [place] [address] documented as of this encounter Visit Diagnoses Not on filedocumented in this encounter Care Teams Soap Chipper Relationship Specialty Start Date End Date Clovis Lopez MD [address] [place] [address] PCP - General Family Medicine 10/04/23 Darryn Birch MD 15 [facility] [address] [place] [address] Physician Otolaryngology 10/04/23 oNmi Self MD [address] [facility] [address] [place] [address] Primary Franchise Manager Cardiovascular Disease 01/18/24 documented as of this encounter
[2025-08-02 20:15] LABS: Hematocrit 38.5 % (42.0-52.0); Hemoglobin 13.1 g/dl (14.0-18.0); Imm Gran Abs Auto 0.02 X10*3/uL (0.00-0.03); Imm Gran Pct Auto 0.3 % (0.0-0.4); Lymphocytes Absolute Auto 1.7 X10*3/uL (1.2-4.9); MANUAL DIFF FLAG NO; Mean Corpuscular HGB Conc 34.0 g/dl (31.0-36.0); Mean Corpuscular Hemoglobin 33.1 pg (27.0-33.0); Mean Corpuscular Volume 97.2 fL (80.0-98.0); NRBC Abs Auto 0.000 X10*3/uL (0.0-0.012); NRBC Pct Auto 0.0 /100WBC (0.0-0.2); Platelet Count 235 X10*3/uL (160-400); Red Blood Count 3.96 X10*6/uL (4.60-5.80); White Blood Count 7.7 X10*3/uL (4.8-10.8)
[2025-08-02 20:30] LABS: Alanine Aminotransferase 25 U/L (0-40); Albumin Level 4.0 g/dL (3.5-5.0); Alkaline Phosphatase 83 U/L (39-117); Anion Gap 10 (12-20); Aspartate Amino Transferase 23 U/L (5-37); Blood Urea Nitrogen 21 mg/dL (9-16); Calcium 9.5 mg/dL (8.4-10.2); Carbon Dioxide 28 mmol/L (22-29); Chloride 107 mmol/L (96-108); Creatinine Clr Calc Pharmacy 68.2; Estimated Glomerular Filt Rate > 60; Lipase 33 U/L (8-78); Magnesium 2.0 mg/dL (1.6-2.6); Potassium 4.2 mmol/L (3.3-5.1); Sodium 141 mmol/L (135-145); Total Protein 6.9 g/dL (6.5-8.0)
[2025-08-02] MEDS: iohexoL 350 MG/ML 100 ML INFUS..BTL 85 ML IV (23:35)
[2025-08-02 23:36] LABS: Appearance Urine Clear; Glucose Urine UA Negative (Negative); PH 7.0 (5.0-9.0); Specific Gravity - Urine 1.010 (1.005-1.025)
[2025-08-03 01:04] VITALS: BP 119/63; PULSE 66; RESP 18; TEMP 37.1; O2SAT 97
[2025-08-03] MEDS: Lidocaine 4 % Patch ADH..PATCH 1 PATCH TRANSDERMA (02:17)
[2025-08-03 04:04] VITALS: BP 139/65; PULSE 67; RESP 16; TEMP 36.8; O2SAT 95
== END 2025-08-03 04:05 | disposition home or self-care (01) ==
PROVIDERS: Physician Assistant; Physician Assistant Medical; Emergency Provider Emergency Medicine; PCP Nurse Practitioner Family
DX: S39.012A Strain of muscle, fascia and tendon of lower back, initial encounter (principal); M54.16 Radiculopathy, lumbar region; M19.90 Unspecified osteoarthritis, unspecified site; I10 Essential (primary) hypertension; D64.9 Anemia, unspecified; E80.4 Gilbert syndrome; Z86.73 Personal history of transient ischemic attack (TIA), and cerebral infarction without residual deficits; Z79.899 Other long term (current) drug therapy; X50.3XXA Overexertion from repetitive movements, initial encounter; Y93.89 Activity, other specified; Y92.89 Other specified places as the place of occurrence of the external cause; Y99.8 Other external cause status
CPT/HCPCS: 36415; 70450; 72100; 74177; 80053; 81003; 82550; 83690; 83735; 85025; 96361; 96374; 99285; J1885; Q9967

== ENCOUNTER → 2025-08-02 20:00 | Outpatient (BNV) | payer OTHER, SELFPAY | PROVIDERS: PCP Nurse Practitioner Family; Visit Provider Radiology Neuroradiology | DX: M54.50 Low back pain, unspecified (principal) | CPT/HCPCS: 70450; 72100; 74177 ==

== ENCOUNTER 2025-10-21 10:48 | Outpatient (REF) | payer OTHER, SELFPAY ==
[2025-10-21 13:13] LABS: Appearance Urine Clear; Glucose Urine UA Negative (Negative); PH 5.5 (5.0-9.0); Specific Gravity - Urine 1.010 (1.005-1.025)
--- OUTSIDE RECORDS SUMMARY | 2025-10-21 14:00 | XMS_ITS | Encounter Summary ---
Author Organization [facility] Address [address] [place] [address] Care Team Providers Care Backer Up Name Role Phone Darryn Birch MD Unavailable [phone] Clovis Lopez MD Primary Care Provider [phone] Nomi Self MD Unavailable [phone] Encounter Details Date Type Department Care Team (Late st Contact Info) Description 10/05/2023 Scanned Document [facility] PRIMARY CARE SCAN Primary Care, Scan Social [...] as of this encounter Plan of Treatment Not on file documented as of this encounter Visit Diagnoses Not on filedocumented in this encounter Care Teams Backer Up Relationship Specialty Start Date End Date Clovis Lopez MD [address] [facility] [place] [address] PCP - General Family Medicine 10/04/23 Darryn Birch MD 15 Lois Mitchell [address] [place] [address] Physician Otolaryngology 10/04/23 Nomi Self MD [address] [place] [address] Primary Computer Support Specialist Cardiovascular Disease 01/18/24 documented as of this encounter
--- OUTSIDE RECORDS SUMMARY | 2025-10-21 14:00 | XMS_ITS | Encounter Summary ---
Author Organization [facility] Address [address] [place] [address] Care Team Providers Care Artist Suspect Name Role Phone Darryn Birch MD Unavailable [phone] Clovis Lopez MD Primary Care Provider [phone] Nomi Self MD Unavailable [phone] Encounter Details Date Type Department Care Team (Late st Contact Info) Description 10/18/2024 Scanned Document [facility] Cancer [place] at [facility]: Oncology and Hematology [address] [place] [address] Provider, External, [address] [place] [address] Social History Tobacco Use Types Packs/Day Years [...] on filedocumented in this encounter Care Teams Artist Suspect Relationship Specialty Start Date End Date Clovis Lopez MD [address] [place] [address] PCP - General Family Medicine 10/04/23 Darryn Birch MD 15 [facility] [address] [place] [address] Physician Otolaryngology 10/04/23 Nomi Self MD [address] [place] [address] Primary Boil Off Machine Operator Cloth Cardiovascular Disease 01/18/24 documented as of this encounter
--- OUTSIDE RECORDS SUMMARY | 2025-10-21 14:00 | XMS_ITS | Clinical Summary ---
Author Organization [facility] Address [address] [place] [address] Care Team Providers Care District Sales Leader Name Role Phone Darryn Birch MD Unavailable [phone] Clovis Lopez MD Primary Care Provider Nomi Self MD Unavailable [phone] Allergies Active Allergy Reactions Criticality Noted [...] and hemochromatosis. Notes reviewed with patient in [place] portal. Follow up with Hematology as previously [...] Description 07/21/2025 10:00 AM EDT Office Visit [facility] Cardiology [address] [place] [address] Nomi Self MD Aneurysm of ascending aorta without rupture (Primary Dx); Mixed hyperlipidemia ; Nonrheumatic pulmonary valve stenosis; Obstructive sleep apnea; Primary hypertension ; Right ventricular dilation; Cerebrovascular accident (CVA), unspecified mechanism (HCC) from Last 3 Months Family History Medical [...] 07/21/2025 9:40 AM EDT Plan of Treatment Health Maintenance Due Date Last Done Comments Hepatitis C Virus Screening 1961 HIV Screening 1974 DTaP/Tdap/Td Vaccines (1 - Tdap) 1980 Pneumococcal Vaccines 50+ (1 of 2 - PCV) 1980 Colonoscopy 2006 RSV Vaccine 50 years and old er and Patients (1 - Risk 50-74 years 1-dose series) 2011 Zoster (Shingles) Vaccine (1 of 2) 2011 Influenza Vaccine 06/27/2025 COVID-19 Vaccine (1 - 2023-2 5 season) 2025 Hepatitis B Vaccines Aged Out No long er eligible based on patient's age to complete this topic Procedures Procedure Name Priority Date/Time Associated Diagnosis Comments ECG 12-LEAD Routine 07/21/2025 9:34 AM EDT Aneurysm of ascending aorta without rupture from Last 3 Months Results * ECG 12 lead (07/21/2025 9:34 AM EDT) Pathologist [facility] Ventricular rate 58 BPM EKG [facility] Atrial rate 58 BPM EKG [facility] P-R interval 264 ms EKG [facility] QRS duration 94 ms EKG [facility] Q-T interval 414 ms EKG [facility] QTC calculation (Bazett) 406 ms EKG [facility] P axis 64 degrees EKG [facility] R axis 63 degrees EKG [facility] T axis 59 degrees EKG [facility] 07/21/2025 9:34 AM EDT Narrative EKG [facility] - 07/21/2025 10:04 AM EDT Sinus bradycardia [...] significant change was found Confirmed by MD Aramis, Nomi ([id number]) on 07/21/2025 10:04:29 AM Nomi Self MD ECG ORDERABLES Final Result EKG [facility] from Last 3 Months Insurance [facility] Care Teams District Sales Leader Relationship Specialty Start Date End Date Clovis Lopez MD [address] [place] [address] PCP - General Family Medicine 10/04/23 Darryn Birch MD 15 [facility] [address] [place] [address] Physician Otolaryngology 10/04/23 Nomi Self MD [address] [place] [address] Primary Cat Scanner Operator Cardiovascular Disease 01/18/24
--- OUTSIDE RECORDS SUMMARY | 2025-10-21 14:00 | XMS_ITS | Encounter Summary ---
Author Organization [facility] Address [address] [place] [address] Care Team Providers Care Air Brake Tester Name Role Phone Darryn Birch MD Unavailable [phone] Clovis Lopez MD Primary Care Provider [phone] Nomi Self MD Unavailable [phone] Encounter Details Date Type Department Care Team (Late st Contact Info) Description 10/18/2024 Scanned Document [facility] Cancer [place] at [facility]: Oncology and Hematology [address] [place] [address] Provider, External, [address] [place] [address] Social History Tobacco Use Types Packs/Day Years [...] on filedocumented in this encounter Care Teams Air Brake Tester Relationship Specialty Start Date End Date Clovis Lopez MD [address] [place] [address] PCP - General Family Medicine 10/04/23 Darryn Birch MD 15 [facility] [address] [place] [address] Physician Otolaryngology 10/04/23 Nomi Self MD [address] [place] [address] Primary Converter Supervisor Cardiovascular Disease 01/18/24 documented as of this encounter
[2025-10-21 14:15] LABS: MANUAL DIFF FLAG NO
[2025-10-21 14:34] LABS: Hematocrit 45.8 % (42.0-52.0); Hemoglobin 14.7 g/dl (14.0-18.0); Imm Gran Abs Auto 0.02 X10*3/uL (0.00-0.03); Imm Gran Pct Auto 0.2 % (0.0-0.4); Lymphocytes Absolute Auto 1.3 X10*3/uL (1.2-4.9); Mean Corpuscular HGB Conc 32.1 g/dl (31.0-36.0); Mean Corpuscular Hemoglobin 32.1 pg (27.0-33.0); Mean Corpuscular Volume 100.0 fL (80.0-98.0); NRBC Abs Auto 0.000 X10*3/uL (0.0-0.012); NRBC Pct Auto 0.0 /100WBC (0.0-0.2); Platelet Count 265 X10*3/uL (160-400); Red Blood Count 4.58 X10*6/uL (4.60-5.80); White Blood Count 9.1 X10*3/uL (4.8-10.8)
[2025-10-21 14:53] LABS: Alanine Aminotransferase 34 U/L (0-40); Albumin Level 4.3 g/dL (3.5-5.0); Alkaline Phosphatase 84 U/L (39-117); Anion Gap 8 (12-20); Aspartate Amino Transferase 35 U/L (5-37); Blood Urea Nitrogen 16 mg/dL (9-16); Calcium 9.6 mg/dL (8.4-10.2); Carbon Dioxide 29 mmol/L (22-29); Chloride 107 mmol/L (96-108); Cholesterol 125 mg/dL (<200); Estimated Glomerular Filt Rate > 60; HDL Cholesterol 42 mg/dL (>40); Potassium 4.3 mmol/L (3.3-5.1); Sodium 140 mmol/L (135-145); Total Protein 7.3 g/dL (6.5-8.0); Triglycerides 102 mg/dL (<150)
== END 2025-10-21 10:49 | disposition home or self-care (01) ==
LOC: HO.HMGCLDS 10:48
PROVIDERS: PCP Nurse Practitioner Family; Visit Provider Nurse Practitioner Family
DX: I10 Essential (primary) hypertension (principal); E55.9 Vitamin D deficiency, unspecified
CPT/HCPCS: 36415; 80053; 80061; 81003; 82306; 84443; 85025

== ENCOUNTER 2025-10-25 11:26 | Outpatient (REF) | payer OTHER, SELFPAY ==
[2025-10-25 13:33] LABS: Resp Syncy Virus RNA Qual PCR NEGATIVE (Negative); SARS COV2 PCR INHOUSE NEGATIVE (Negative)
== END 2025-10-25 11:27 | disposition home or self-care (01) ==
LOC: HO.LNP 11:26
PROVIDERS: PCP Nurse Practitioner Family; Visit Provider Physician Assistant
DX: J20.9 Acute bronchitis, unspecified (principal); J06.9 Acute upper respiratory infection, unspecified
CPT/HCPCS: 87637

== ENCOUNTER 2025-10-25 11:26 | Outpatient (AMB) | payer OTHER, SELFPAY ==
--- OUTSIDE RECORDS SUMMARY | 2025-10-25 11:29 | XMS_ITS | Encounter Summary ---
Author Organization [facility] Address [address] [place] [address] Care Team Providers Care Detail Manager Name Role Phone Darryn Birch MD Unavailable Clovis Lopez MD Primary Care Provider Nomi Self MD Unavailable [phone] Encounter Details Date Type Department Care Team (Late st Contact Info) Description 10/18/2024 Scanned Document [facility] Cancer [place] at [facility]: Oncology and Hematology [address] [place] [phone] Provider, External, [address] [place] [address] Social History Tobacco Use Types Packs/Day Years [...] on filedocumented in this encounter Care Teams Detail Manager Relationship Specialty Start Date End Date Clovis Lopez MD [address] [place] [address] PCP - General Family Medicine 10/04/23 Darryn Birch MD 15 [facility] [address] [place] [address] Physician Otolaryngology 10/04/23 Nomi Self MD [address] [place] [id number] Primary Art Psychotherapist Cardiovascular Disease 01/18/24 documented as of this encounter
--- OUTSIDE RECORDS SUMMARY | 2025-10-25 11:29 | XMS_ITS | Encounter Summary ---
Author Organization [facility] Address [address] [place] [address] Care Team Providers Care Catalyst Operator Gasoline Name Role Phone Darryn Birch MD Unavailable [phone] Clovis Lopez MD Primary Care Provider Nomi Self MD Unavailable [phone] Encounter Details Date Type Department Care Team (Late st Contact Info) Description 10/05/2023 Scanned Document [facility] PRIMARY CARE SCAN Primary Care, Scan [...] on filedocumented in this encounter Care Teams Catalyst Operator Gasoline Relationship Specialty Start Date End Date Clovis Lopez MD [address] [place] [address] PCP - General Family Medicine 10/04/23 Darryn Birch MD [address] [place] [address] Physician Otolaryngology 10/04/23 Nomi Self MD [address] [place] [address] Primary Nerve Specialist Cardiovascular Disease 01/18/24 documented as of this encounter
--- OUTSIDE RECORDS SUMMARY | 2025-10-25 11:29 | XMS_ITS | Clinical Summary ---
Author Organization [facility] Address [address] [place], [place] [address] Care Team Providers Care Pillow Filler Name Role Phone Darryn Birch MD Unavailable [phone] Clovis Lopez MD Primary Care Provider [phone] Nomi Self MD Unavailable Allergies Active Allergy Reactions Criticality Noted Date [...] and hemochromatosis. Notes reviewed with patient in [employer] software portal. Follow up with Hematology as previously recommended for ongoing monitoring and management. Personal history of COVID-19 10/02/2023 Assessment & Plan (10/02/2023 2:03 PM EST): Patient with personal history of Covid in 2021 with mild, non-cardiopulmonary symptoms. All symptoms have since fully resolved. Follow up with your PCP as previously recommended for ongoing monitoring and management. Family History Medical History Relation Name Comments [...] patient's age to complete this topic Insurance [facility] Care Teams Pillow Filler Relationship Specialty Start Date End Date Clovis Lopez MD [address] [place] [address] PCP - General Family Medicine 10/04/23 Darryn Birch MD [address] [place] [address] Physician Otolaryngology 10/04/23 Nomi Self MD [address] [place] [address] Primary Blow Mold Operator Cardiovascular Disease 01/18/24
--- OUTSIDE RECORDS SUMMARY | 2025-10-25 11:29 | XMS_ITS | Encounter Summary ---
Author Organization [facility] Address [address] [place] [address] Care Team Providers Care Carbide Tool Maker Name Role Phone Darryn Birch MD Unavailable [phone] Clovis Lopez MD Primary Care Provider Nomi Self MD Unavailable [phone] Encounter Details Date Type Department Care Team (Late st Contact Info) Description 10/18/2024 Scanned Document [facility] [place] [facility]: Oncology and Hematology [address] [place] [id number] Provider, External, [address] [place] [address] Social History Tobacco Use Types Packs/Day Years [...] on filedocumented in this encounter Care Teams Carbide Tool Maker Relationship Specialty Start Date End Date Clovis Lopez MD [address] [place] [address] PCP - General Family Medicine 10/04/23 Darryn Birch MD [facility] [address] [place] [address] Physician Otolaryngology 10/04/23 Nomi Self MD [address] [place] [id number] Primary Obstetrics/Gynecology Nurse Cardiovascular Disease 01/18/24 documented as of this encounter
--- OUTSIDE RECORDS SUMMARY | 2025-10-25 11:29 | XMS_ITS | Data Portability ---
Author Organization [place] [facility], Allergy Address [address] [address] Care Team Providers Care Carpenter Apprentice Name Role Phone ORLIN URIBE Referring Provider [phone] Assessment Encounter Date Assessment Date Assessment LastModified [...] base don home psg data. 2024 025 [facility] Sleep Medicine Services, [address] , [place], [address], 12:06:18 Surgeries None recorded. Imaging None recorded. Medication Orders None recorded. Patient TargetsNo targets recorded. Patient InstructionsNo instructions recorded. Reason for Referral None Reported. Problems Name Problem SNOMED Code Status Onset Date Resolution Date Notes Provider Name and Address Organization Details Recorded Time Obstructive sleep apnea syndrome 10540283 Active 2023 NAYA MUNGUIA MD 100 [facility], [address], [place], [address], [facility] 13:24:59 Deviated nasal septum 569834386 Active 2023 NAYA MUNGUIA MD 100 [place] [facility] 100, [place], [address], [facility] [place] 13:25:07 Hypertrophy of nasal turbinates 95287152 Active 2023 NAYA MUNGUIA MD [address] [place] [address] 100, [place], [address], [facility] [place] 13:25:07 Problem Notes None recorded. Procedures Surgical History Date Name Laterality Status Provider Name and Address Organization Details Recorded Time 11/29/2024 FOL_DP completed NAYA MUNGUIA MD [address] [place] [address], [place], [address], [facility] 11/29/2024 12:10:58 Imaging Results None recorded. [...] Diagnosis SNOMED-CT Code Diagnosis ICD10 Code Diagnosis IMO Codes Diagnosis Note [id number] NAYA MUNGUIA MD [facility] [address] [address] 11/29/2024 11:12:06 11/29/2024 12:10:43 Obstructive sleep apnea syndrome 16524952 G47.33 Health Concerns Section Related Observation LastModified by Organization Detai ls LastModified Time None Recorded Concern Status LastModified by Organization Details LastModified Time None Recorded Advance Directives Directive None Recorded Payers Insurance Date Sequence Insurance Name Policy Number Policy Piper Covered Member ID Piper Member ID Guarantor Name 02/14/2025 1 [facility] [id number] Delia Colon [id number] Doug Cardwell Notes Date Note Type Note Provider Name and Address Organization Details Recorded Time 11/29/2024 text/html ROS as noted in the HPI OSA02/12/[address] 25REI 13.8central and mixed - none recordedCPAP trial - intolerant as mask slipped. 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 - [facility] 11/29/2024 12:13:03
[2025-10-25 11:41] VITALS: BP 122/70; PULSE 65; RESP 16; TEMP 36.6; O2SAT 96; BMI 28.6
--- NOTE | 2025-10-25 11:41 | AM.OFFWIN_ITS ---
Intake Vital Signs 10/25/25 11:41 Height 6 ft Weight 95.708 kg BMI 28.6 BP 122/70 Blood Pressure Location Lt brachial Position Sitting Respiration 16 Pulse 65 Pulse Source Pulse Oximeter Temp 97.8 F Temp Source Oral Pulse Oximetry (%) 96 Oxygen Delivery Method Room Air Intake Visit Reasons: EP Flu symptoms Intake Note: Pt is here today c/o coughing up phelgm x5days Patient Tobacco Use Status: Never used Tobacco Allergies lisinopril Adverse Reaction (Intermediate, Verified 10/25/25 11:43) cough HPI HPI Comments History of Present Illness Details Chief Complaint: ?Bad cough with a lot of phlegm.? History of Present Illness: 19-year-old patient presents with a 5-da y history of worsening productive cough associated with ?a lot of phlegm,? intermittent body aches, and new hemoptysis noted overnight. Patient felt somewhat improved yesterday and spent most of the day outdoors, after which cough intensified and persisted throughout the night. Denies prior doxycycline use. On chronic low-dose antiplatelet therapy (baby aspirin) and reports taking ?Kirvin? (patient did not specify further details; medication name and indication unclear). Past medical history notable for pulmonary stenosis. No recent alcohol use; maintains active lifestyle. Allergic to lisinopril (cough). Concern today is possible infection given elevated white blood cell count on recent laboratory work. Patient with acute productive cough and hemoptysis, mild wheeze, and recent leukocytosis. Differential includes viral bronchitis vs early community-acquired pneumonia. Testing and empiric therapy initiated today. Problem #1: Acute productive cough / possible pneumonia Assessment: 5-day productive cough with hemoptysis, mild expiratory wheeze, elevated WBC and neutrophils. Concern for bacterial bronchitis or early pneumonia; viral etiologies (influenza, COVID-19, RSV) also under consideration. Plan: * Nasal swab for influenza, COVID-19, and RSV. * Empiric doxycycline 100 mg PO twice daily for 7 days. * Prednisone 20 mg PO daily for 5 days. * Provider will notify patient if any viral test is positive; ?no news is good news? if negative. * Return for worsening dyspnea, persistent hemoptysis, fever, or other conc erning symptoms. Problem #2: Pulmonary stenosis (history) Assessment: Chronic condition; no acute changes reported today. Plan: Orders placed today: Influenza/COVID-19/RSV NAAT swab; prescriptions for doxycycline and prednisone sent electronically. Differentials * Viral bronchitis (influenza, COVID-19, RSV): Supported by acute onset of productive cough, body aches, and exposure history; viral testing pending. * Community-acquired pneumonia (bacterial): Considered due to new hemoptysis, elevated WBC and neutrophils, and mild expiratory wheeze; empiric antibiotic therapy initiated. * Acute bronchitis (bacterial): Productive cough and leukocytosis may also be consistent with bacterial bronchitis, though less likely than pneumonia given hemoptysis. * Exacerbation of pulmonary stenosis: Less likely, as no acute changes or symptoms directly attributable to underlying cardiac condition were noted on exam or history. * Other causes of hemoptysis (e.g., medication effect from antiplatelet therapy): Patient is on low-dose aspirin, which may contribute to bleeding risk, but context and associated symptoms suggest infection is more likely. [facility] Medical History First degree AV block Pulmonic stenosis Frozen shoulder Cerebellar stroke Cerebellar cerebrovascular accident (CVA) without late effect Hypersomnia Snoring Auburn syndrome BPH (benign prostatic hyperplasia) White matter disease Lacunar infarction Degenerative disc disease, cervical Elevated cholesterol Murmur HTN (hypertension) Retention of urine Surgical History H/O nasal septoplasty History of prostate surgery History of carpal tunnel surgery Hx of shoulder surgery Hx of cholecystectomy Hx of colonoscopy Family History Maternal Aunt Diabetes HTN (hypertension) Mother HTN (hypertension) High cholesterol Family/Other Heart disease Social History Household Members: Spouse and Children Housing: House Are you a primary foster care social worker to a significant other at home: No Do you presently have visiting nurse or other home services: No Alcohol intake: former Patient Tobacco Use Status: Never used Tobacco e-Cigarette/Vaping Use: Never Used Second Hand Smoke Exposure: No Substance Use Type: Marijuana service: Yes Current occupational status: retired Cognitive needs: No Hearing needs: No Vision needs: No Review of Systems Narrative Review of Systems: * Constitutional: reports body aches. * Respiratory: productive cough, hemoptysis, mild wheezing (previously louder yesterday). Const All systems reviewed & are unremarkable except as noted in HPI and below Physical Exam Exam Exam: Physical Exam: * General: alert and conversational. O X 4 * Cardiovascular: regular rate and rhythm. * Respiratory: faint wheeze on expiration; otherwise clear to auscultation. * Neuro: 2-12 CN intact Vital Signs: Last Vital Signs Temp 97.8 F 10/25/25 11:41 Pulse 65 10/25/25 11:41 Resp 16 10/25/25 11:41 BP 122/70 10/25/25 11:41 Pulse Ox 96 10/25/25 11:41 Oxygen Delivery Method Room Air 10/25/25 11:41 BMI result Body Mass Index 28.6 Assessment & Plan Assessment & Plan (1) Acute bronchitis: Code(s): J20.9 - Acute bronchitis, unspecified Plan Appearance: Alert.? Oriented X3.? No acute distress.? Head: Normocephalic, atraumatic, no step-offs or deformities Eyes: Pupils equal, round and reactive to light.? ENT: Pharynx normal.??External ears normal, TMs normal bilaterally and EAC's normal. No pain with manipulation of external ears bilaterally. No mastoid tenderness. Neck: Normal inspection.? Neck supple.? CVS: Normal heart rate and rhythm.? Pulses normal.? Respiratory: No respiratory distress.? Breath sounds normal.? Abdomen: Soft and nontender.? Skin: Skin warm and dry.? Normal skin color.? Normal skin turgor.? Extremities: No lower extremity edema.? No calf ttp. 5/5 strength to bilateral upper and lower extremities Back: No midline tenderness, no C-spine tenderness, full range of motion, no CVA tenderness bilaterally Neuro: Oriented X 3.? No motor deficit.? No sensory deficit. CN 2-12 intact Orders: Orders SARS-CoV2/FLU/RSV Today J06.9 - Acute upper respiratory infection, unspecified Medications: New prednisone 20 mg PO DAILY 5 tabs 0RF 5 days albuterol sulfate 90 mcg/actuation 2 puffs inhalation Q6H PRN 6.7 grams 0RF shortness of breath or wheezing doxycycline hyclate 100 mg PO BID 14 caps 0RF 7 days Coding Level of Care Code Est Pt Level 3 (33497) Diagnoses Acute bronchitis J20.9
== END 2025-10-25 12:53 | disposition home or self-care (01) ==
PROVIDERS: PCP Nurse Practitioner Family; Visit Provider Physician Assistant
DX: J20.9 Acute bronchitis, unspecified (principal)

== ENCOUNTER 2025-10-27 09:03 | Outpatient (REF) | payer OTHER, SELFPAY ==
--- NOTE | ~2025-10-27 | XR_ITS ---
EXAMINATION: XR CHEST CLINICAL INFORMATION: R05.9 - Cough, unspecified COMPARISON: February 26, 2025 TECHNIQUE: 2 views of the chest were obtained. 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 Lungs are clear. There is no sign of pleural effusion. Heart size is within normal limits. There are mild degenerative changes with disc space narrowing and minimal osteophyte formation in the thoracic spine. XR/XR chest 2V IMPRESSION: No acute disease. Electronically signed by: Gatito Barrios MD 10/27/2025 10:20 AM SAM
== END 2025-10-27 09:04 | disposition home or self-care (01) ==
LOC: HO.HMGCX 09:03
PROVIDERS: PCP Nurse Practitioner Family; Visit Provider Nurse Practitioner Family
DX: R05.9 Cough, unspecified (principal); I77.819 Aortic ectasia, unspecified site; R53.83 Other fatigue; Z13.31 Encounter for screening for depression; Z13.39 Encounter for screening examination for other mental health and behavioral disorders; J02.9 Acute pharyngitis, unspecified
CPT/HCPCS: 71046; 96127

== ENCOUNTER 2025-10-27 09:03 | Outpatient (AMB) | payer OTHER, SELFPAY ==
[2025-10-27 09:09] VITALS: BP 124/72; PULSE 70; TEMP 36.3; O2SAT 96; BMI 28.7
--- NOTE | 2025-10-27 09:09 | MHC.PC.OV ---
Vital Signs 10/27/25 09:09 Height 6 ft Weight 212 lb BMI 28.7 BP 124/72 Blood Pressure Location Lt brachial Position Sitting Pulse 70 Pulse Source Pulse Oximeter Temp 97.3 F Temp Source Oral Pulse Oximetry (%) 96 Oxygen Delivery Method Room Air Intake Visit Reasons: Annual PE - see comments Allergies lisinopril Adverse Reaction (Intermediate, Verified 10/27/25 09:09) cough Tobacco use date assessed: 10/27/25 Fall risk assessment: No Falls in past year Last assessed Fall Risk: 10/27/25 Dental Screening Dental Screen Date: 10/27/25 Did you have a dental visit in the last 12 months?: Yes Did you have a dental problem in the last 6 months where you did not have access to dental care?: No Was dental information given to patient?: Patient has dentist HPI Annual PE - see comments HPI Details History of Present Illness The patient is a 65 year old individual presenting for a physical exam. The patient reports currently having a cold, which was previously diagnosed as acute bronchitis, and is slowly improving. The patient's health maintenance includes an up-to-date colon screening and regular follow-ups with a contracts director, a naphthalene operator/oncologist, and a urologist for PSA monitoring. Recent blood work is stable, with an LDL of 63. Health Maintenance The patient is undergoing a physical exam. Blood work was ordered and reviewed, and results are stable, including an LDL of 63. The patient's colon screening is up to date, and the patient continues to follow up with cardiology, hematology/oncology, and urology for PSA monitoring. Social History Review of Systems - General: Reports feeling well despite a current cold. Denies fevers or chills. - Respiratory: Denies increased shortness of breath. - Cardiovascular: Denies chest pain. - Gastrointestinal: Denies abdominal pain, blood in stool, constipation, or diarrhea. - Psychiatric: Denies suicidal or homicidal ideation. Physical Exam General: Cooperative, healthy appearing, comfortable, no acute distress and well developed Orientation: Patient oriented x3 Limitations: No limitations Head: Normal to inspection Ears: Hearing grossly normal bilaterally Nose: Normal external nose present Face and sinus: Normal facial exam Eyes: Appearance normal, both eyes and all related structures Neck: Normal visual inspection and Yes full ROM, no lyphadenopathy Respiratory: Some scattered rhonchi, diagnosed as acute bronchitis Cardiovascular: Regular rate and rhythm. Normal S1 and S2 GI: Normal to inspection. Soft to palpation and nontender : Testicles without masses/lesions and no hernias appreciated Skin: No rashes or lesions noted Neuro: Patient oriented x3 Extremities: Normal to inspection Results - Labs: Recent blood work is stable with an LDL of 63. Plan 1. Acute Bronchitis The patient was previously diagnosed with acute bronchitis and reports slow improvement. Physical exam today is notable for scattered rhonchi. A chest X-ray will be ordered to rule out other pathology. Discussion Notes I informed the patient that although their cold symptoms are slowly getting better, I will order a chest x-ray to ensure there are no other issues. We reviewed the stable blood work results, including the impressive LDL of 63. Patient Instructions - Your cold is getting better slowly, as expected. - We will get a chest X-ray today to be thorough. - Your recent blood work is stable. - Please continue your regular appointments with your other doctors (heart, cancer, and urology). [facility] Medical History First degree AV block Pulmonic stenosis Frozen shoulder Cerebellar stroke Cerebellar cerebrovascular accident (CVA) without late effect Hypersomnia Snoring Mcnabb syndrome BPH (benign prostatic hyperplasia) White matter disease Lacunar infarction Degenerative disc disease, cervical Elevated cholesterol Murmur HTN (hypertension) Retention of urine Surgical History H/O nasal septoplasty History of prostate surgery History of carpal tunnel surgery Hx of shoulder surgery Hx of cholecystectomy Hx of colonoscopy Family History Maternal Aunt Diabetes HTN (hypertension) Mother HTN (hypertension) High cholesterol Family/Other Heart disease Social History Household Members: Spouse and Children Housing: House Are you a primary care transition coordinator to a significant other at home: No Do you presently have visiting nurse or other home services: No Alcohol intake: former Patient Tobacco Use Status: Never used Tobacco e-Cigarette/Vaping Use: Never Used Second Hand Smoke Exposure: No Substance Use Type: Marijuana service: Yes Current occupational status: retired Cognitive needs: No Hearing needs: No Vision needs: No Questionnaire PHQ-9 Over the last 2 weeks, how often have you been bothered by any of the following problems? 1. Little interest or pleasure in doing things: not at all 2. Feeling down, depressed, or hopeless: not at all 3. Trouble falling or staying asleep, or sleeping too much: not at all 4. Feeling tired or having little energy: not at all 5. Poor appetite or overeating: not at all 6. Feeling bad about yourself - or that you are a failure or have let yourself or your family down: not at all 7. Trouble concentrating on things, such as reading the newspaper or watching television: not at all 8. Moving or speaking so slowly that other people could have noticed. Or the opposite - being so fidgety or restless that you have been moving around a lot more than usual: not at all 9. Thoughts that you would be better off or of hurting yourself in some way: not at all Total score: 0 Depression Screening Interpretation: Negative Depression Screening Done: Yes 64625 - PHQ-9 Billing: Yes Source: Developed by Drs. Lm Munoz, Brittany Sharp, Maximiliano Michaels and colleagues, with an educational vanessa from [employer]. Thrive Questionnaire Date Thrive assessed: 10/27/25 I am a: Patient What is your living situation today?: I have a steady place to live Within the past 12 months, did the food you bought not last and you didn't have the money to get more?: Never true Within the past 12 months, did you worry whether your food would run out before you got money to buy more?: Never true Do you have trouble paying for medicines?: No Do you have trouble getting transportation to medical appointments?: No Do you have trouble paying your heating and electricity bill?: No Do you have trouble taking care of your child, family member or friend?: No Do you have trouble with day-to-day activities such as bathing, preparing meals, shopping, managing finances, etc.?: No Are you currently unemployed and looking for a job?: No Are you interested in more education?: No Please select the resources that you would like help with: None Currently or been in a relationship where the following occur: No concerns reported THRIVE Score: 0 AUDIT C Alcohol Use Questionnaire (AUDIT-C) 1. How often do you have a drink containing alcohol?: Never 3. How often do you have six or more drinks on one occasion?: Never Total Score: 0 Score Reviewed/Action Taken: Yes ROLA-7 AMB Questionnaire ROLA-7 Date ROLA - 7 assessed: 10/27/25 Feeling nervous, anxious, or on edge: 0 = Not at all Not being able to stop or control worryin = Not at all Worrying too much about different things: 0 = Not at all Trouble relaxin = Not at all Being so restless that it is hard to sit still: 0 = Not at all Becoming easily annoyed or irritable: 0 = Not at all Feeling afraid as if something awful might happen: 0 = Not at all Total ROLA-7 score (0-4 normal; 5-9 mild; 10-14 moderate; 15-21 severe): 0 Source: Developed by Drs. Lm Munoz, Brittany Sharp, Maximiliano Michaels and colleagues, with an educational vanessa from [employer]. ROLA-7 Assessment Billing ROLA-7 Assessment Tool: ROLA-7 Assessment 07561 Physical exam (Primary Care) Vital Signs: Last Vital Signs Temp 97.3 F 10/27/25 09:09 Pulse 70 10/27/25 09:09 BP 124/72 10/27/25 09:09 Pulse Ox 96 10/27/25 09:09 Oxygen Delivery Method Room Air 10/27/25 09:09 BMI result Body Mass Index 28.7 Tobacco/Smoking Status: Tobacco use Status Tobacco use date assessed 10/27/25 10/27/25 09:14 Patient Tobacco Use Status Never used Tobacco 10/27/25 09:14 e-Cigarette/Vaping Use Never Used 10/27/25 09:14 PHQ-9: PHQ-9 Score PHQ-9: Total score 0 10/27/25 09:14 Depression Screening Interpretation: Negative Thrive Assessment: Date of Thrive Assessment Date Thrive assessed 10/27/25 10/27/25 09:14 Currently or been in a relationship where the following occur: No concerns reported Coding Level of Care Code Est Pt Level 3 (99892) Est Pt Prev Care 40-64y(17013) Diagnoses Cough R05.9 Encounter for routine adult physical exam with abnormal findings Z00.01 Additional Codes ROLA-7 Assessment Billing - ROLA-7 Assessment Tool: ROLA-7 Assessment 39964 ([id number]) PHQ-9 - 64633 - PHQ-9 Billing: Yes ([id number]) Assessment & Plan Assessment & Plan (1) Cough: Code(s): R05.9 - Cough, unspecified Category: Medical (2) Encounter for routine adult physical exam with abnormal findings: Code(s): Z00.01 - Encounter for general adult medical examination with abnormal findings Category: Medical Plan . Orders: Orders XR chest 2V Today R05.9 - Cough, unspecified
--- OUTSIDE RECORDS SUMMARY | 2025-10-27 10:32 | XMS_ITS | Clinical Summary ---
Author Organization [facility] Address [address] [place], [place] [address] Care Team Providers Care Picker And Packer Name Role Phone Darryn Birch MD Unavailable Clovis Lopez MD Primary Care Provider [phone] Nomi Self MD Unavailable [phone] Allergies Active Allergy Reactions Criticality Noted Date [...] and hemochromatosis. Notes reviewed with patient in [employer] portal. Follow up with Hematology as previously [...] patient's age to complete this topic Insurance [facility] Care Teams Picker And Packer Relationship Specialty Start Date End Date Clovis Lopez MD [address] [place] [address] PCP - General Family Medicine 10/04/23 Darryn Birch MD [address] [place] [address] Physician Otolaryngology 10/04/23 Nomi Self MD [address] [place] [address] Primary Icu Rn Cardiovascular Disease 01/18/24
--- OUTSIDE RECORDS SUMMARY | 2025-10-27 10:32 | XMS_ITS | Encounter Summary ---
Author Organization [facility] Address [address] [place] [address] Care Team Providers Care Surgical Assist Name Role Phone Darryn Birch MD Unavailable [phone] Clovis Lopez MD Primary Care Provider Nomi Self MD Unavailable [phone] Encounter Details Date Type Department Care Team (Late st Contact Info) Description 10/18/2024 Scanned Document [facility] Cancer [place] at [facility]: Oncology and Hematology [address] [place] [phone] Provider, External, [address] [place] [address] Social History Tobacco Use Types Packs/Day Years [...] on filedocumented in this encounter Care Teams Surgical Assist Relationship Specialty Start Date End Date Clovis Lopez MD [address] [place] [address] PCP - General Family Medicine 10/04/23 Darryn Birch MD 15 [facility] [address] [place] [address] Physician Otolaryngology 10/04/23 Nomi Self MD [address] [place] [phone] Primary Image Consultant Cardiovascular Disease 01/18/24 documented as of this encounter
--- OUTSIDE RECORDS SUMMARY | 2025-10-27 10:33 | XMS_ITS | Data Portability ---
Author Organization [place] [facility], Allergy Address [address] [address] Care Team Providers Care Story Teller Name Role Phone ORLIN URIBE Referring Provider [phone] Assessment Encounter Date Assessment Date Assessment LastModified [...] psg data. 2024 025 [facility] Sleep Medicine Services, [address] , [place], [address], 12:06:18 Surgeries None recorded. Imaging None recorded. Medication Orders None recorded. Patient TargetsNo targets recorded. Patient InstructionsNo instructions recorded. Reason for Referral None Reported. Problems Name Problem SNOMED Code Status Onset Date Resolution Date Notes Provider Name and Address Organization Details Recorded Time Obstructive sleep apnea syndrome 77320681 Active 2023 NAYA MUNGUIA MD 100 [facility], [address], [place], [address], [facility] 13:24:59 Deviated nasal septum 638694305 Active 2023 NAYA MUNGUIA MD 100 [facility] 100, [place], [address], [facility] 13:25:07 Hypertrophy of nasal turbinates 99262026 Active 2023 NAYA MUNGUIA MD [address] [place] [address] 100, [place], [address], [facility] 13:25:07 Problem Notes None recorded. Procedures Surgical History Date Name Laterality Status Provider Name and Address Organization Details Recorded Time 11/29/2024 FOL_DP completed NAYA MUNGUIA MD [address] [place] [address], [place], [address], [facility] 11/29/2024 12:10:58 Imaging Results None recorded. [...] ICD10 Code Diagnosis IMO Codes Diagnosis Note 11456 NAYA MUNGUIA MD [facility] [address] [address] 11/29/2024 11:12:06 11/29/2024 12:10:43 Obstructive sleep apnea syndrome 28727594 G47.33 Health Concerns Section Related Observation LastModified by Organization Detai ls LastModified Time None Recorded Concern Status LastModified by Organization Details LastModified Time None Recorded Advance Directives Directive None Recorded Payers Insurance Date Sequence Insurance Name Policy Number Policy Piper Covered Member ID Piper Member ID Guarantor Name 02/14/2025 1 [facility] [id number] Delia Colon [id number] Doug Savanna Notes Date Note Type Note Provider Name and Address Organization Details Recorded Time 11/29/2024 text/html ROS as noted in the HPI OSA02/12/[address] Brown 25REI 13.8central and mixed - none recordedCPAP trial - intolerant as mask slipped. 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
--- OUTSIDE RECORDS SUMMARY | 2025-10-27 10:33 | XMS_ITS | Encounter Summary ---
Author Organization [facility] Address [address] [place] [address] Care Team Providers Care Rehab Director Name Role Phone Darryn Birch MD Unavailable [phone] Clovis Lopez MD Primary Care Provider Nomi Self MD Unavailable [phone] Encounter Details Date Type Department Care Team (Late st Contact Info) Description 10/18/2024 Scanned Document [facility] Cancer [place] at [facility]: Oncology and Hematology [address] [place] [address] Provider, External, [address] [place] [address] Social History Tobacco Use Types Packs/Day Years [...] on filedocumented in this encounter Care Teams Rehab Director Relationship Specialty Start Date End Date Clovis Lopez MD [address] [address] PCP - General Family Medicine 10/04/23 Darryn Birch MD [facility] [address] [place] [address] Physician Otolaryngology 10/04/23 Nomi Self MD [address] [place] [phone] Primary Interactive Media Marketing Director Cardiovascular Disease 01/18/24 documented as of this encounter
--- OUTSIDE RECORDS SUMMARY | 2025-10-27 10:33 | XMS_ITS | Encounter Summary ---
Author Organization [facility] Address [address] [place] [address] Care Team Providers Care Polyethylene Combiner Name Role Phone Darryn Birch MD Unavailable [phone] Clovis Lopez MD Primary Care Provider Nomi Self MD Unavailable [phone] Encounter Details Date Type Department Care Team (Late st Contact Info) Description 10/05/2023 Scanned Document [facility] PRIMARY CARE SCAN Primary Care, Scan [...] on filedocumented in this encounter Care Teams Polyethylene Combiner Relationship Specialty Start Date End Date Clovis Lopez MD 262 [facility] [place]y [place] [address] PCP - General Family Medicine 10/04/23 Darryn Birch MD [address] [address] [place] [address] Physician Otolaryngology 10/04/23 Nomi Self MD [address] [place] [address] Primary Community Services Officer Cardiovascular Disease 01/18/24 documented as of this encounter
== END 2025-10-27 10:29 | disposition home or self-care (01) ==
LOC: HO.HMCC 09:04
PROVIDERS: PCP Nurse Practitioner Family; Visit Provider Nurse Practitioner Family
DX: Z00.01 Encounter for general adult medical examination with abnormal findings (principal); R05.9 Cough, unspecified

== ENCOUNTER → 2025-10-27 10:02 | Outpatient (BNV) | payer OTHER, SELFPAY | PROVIDERS: PCP Nurse Practitioner Family; Visit Provider Radiology Diagnostic Radiology | DX: R05.9 Cough, unspecified (principal) | CPT/HCPCS: 71046 ==

== ENCOUNTER 2025-11-14 11:00 | Outpatient (REF) | payer OTHER, SELFPAY ==
--- OUTSIDE RECORDS SUMMARY | 2025-11-14 12:54 | XMS_ITS | Clinical Summary ---
Author Organization [facility] Address [address] [place], [place] [address] Care Team Providers Care Cold Roll Catcher Name Role Phone Darryn Birch MD Unavailable Clovis Lopez NP Primary Care Provider Nomi Self MD Unavailable [phone] Allergies Active Allergy Reactions Criticality Noted Date [...] and hemochromatosis. Notes reviewed with patient in [employer](TM) by [employer] portal. Follow up with Hematology as previously [...] Description 07/16/2026 8:15 AM EDT Office Visit [facility] Cardiology [address] [address] Nomi Self MD [address] [place] [address] Health Maintenance Due Date Last Done Comments Hepatitis C Virus Screening 1961 HIV Screening 1974 DTaP/Tdap/Td Vaccines (1 - Tdap) 1980 Pneumococcal Vaccines 50+ (1 of 2 - PCV) 1980 Colonoscopy 2006 RSV Vaccine 50 years and old er and Patients (1 - Risk 50-74 years 1-dose series) 2011 Zoster (Shingles) Vaccine (1 of 2) 2011 Influenza Vaccine 06/27/2025 COVID-19 Vaccine (1 - 2024-2 6 season) 2025 Hepatitis B Vaccines Aged Out No long er eligible based on patient's age to complete this topic Insurance [facility] Care Teams Cold Roll Catcher Relationship Specialty Start Date End Date Clovis Lopez NP [address] [place] [address] PCP - General Family Medicine 10/04/23 Darryn Birch MD [address] [place] [address] Physician Otolaryngology 10/04/23 Nomi Self MD [address] [facility] [address] [place] [address] Primary Property Management Coordinator Cardiovascular Disease 01/18/24
--- OUTSIDE RECORDS SUMMARY | 2025-11-14 12:54 | XMS_ITS | Encounter Summary ---
Author Organization [facility] Address [address] [place] [address] Care Team Providers Care It Operations Manager Name Role Phone Darryn Birch MD Unavailable Clovis Lopez NP Primary Care Provider Nomi Self MD Unavailable Encounter Details Date Type Department Care Team (Late Contact Info) Description 10/18/2024 Scanned Document [facility] Cancer [place] at [facility]: Oncology and Hematology [address] [place] [phone] Provider, External, [address] [place] [address] Social History Tobacco Use Types Packs/Day Years [...] Description 07/16/2026 8:15 AM EDT Office Visit [facility] Cardiology [place] [address] [facility] [address] [place] [address] Nomi Self MD [address] [place] [address] documented as of this encounter Visit Diagnoses Not on filedocumented in this encounter Care Teams It Operations Manager Relationship Specialty Start Date End Date Clovis Lopez NP [address] [place] [address] PCP - General Family Medicine 10/04/23 Darryn Birch MD [address] [place] [address] Physician Otolaryngology 10/04/23 Nomi Self MD [address] [place] [address] Primary Database Architect Cardiovascular Disease 01/18/24 documented as of this encounter
--- OUTSIDE RECORDS SUMMARY | 2025-11-14 12:54 | XMS_ITS | Encounter Summary ---
Author Organization [facility] Address [address] [place] [address] Care Team Providers Care Paving And Surfacing Labourer Name Role Phone Darryn Birch MD Unavailable [phone] Clovis Lopez NP Primary Care Provider [phone] Nomi Self MD Unavailable [phone] Encounter Details Date Type Department Care Team (Late Contact Info) Description 10/05/2023 Scanned Document [facility] PRIMARY CARE SCAN Primary Care, [...] Description 07/16/2026 8:15 AM EDT Office Visit [facility] Cardiology [place] [address] [facility] [address] [place] [phone] Nomi Self MD [address] [place] [address] documented as of this encounter Visit Diagnoses Not on filedocumented in this encounter Care Teams Paving And Surfacing Labourer Relationship Specialty Start Date End Date Clovis Lopez NP [address] [place] [address] PCP - General Family Medicine 10/04/23 Darryn Birch MD 15 [facility] [address] [place] [address] Physician Otolaryngology 10/04/23 Nomi Self MD [address] [place] [address] Primary Herbicide Service Sales Representative Cardiovascular Disease 01/18/24 documented as of this encounter
--- OUTSIDE RECORDS SUMMARY | 2025-11-14 12:54 | XMS_ITS | Encounter Summary ---
Author Organization [facility] Address [address] [place] [address] Care Team Providers Care Shipping Packer Name Role Phone Darryn Birch MD Unavailable [phone] Clovis Lopez NP Primary Care Provider Nomi Self MD Unavailable [phone] Encounter Details Date Type Department Care Team (Late Contact Info) Description 10/18/2024 Scanned Document [facility] Cancer [place] at [facility]: Oncology and Hematology [address] [place] [address] Provider, External, [address] [place] [address] Social History Tobacco Use Types Packs/Day Years [...] Description 07/16/2026 8:15 AM EDT Office Visit [facility] Cardiology [place] [address] [facility] [address] [place] [address] Nomi Self MD [address] [place] [address] documented as of this encounter Visit Diagnoses Not on filedocumented in this encounter Care Teams Shipping Packer Relationship Specialty Start Date End Date Clovis Lopez NP [address] [place] [address] PCP - General Family Medicine 10/04/23 Darryn Birch MD [address] [place] [address] Physician Otolaryngology 10/04/23 Nomi Self MD [address] [place] [address] Primary Crime Scene Analyst Cardiovascular Disease 01/18/24 documented as of this encounter
[2025-11-14 16:08] LABS: Prostate Specific Antigen 2.33 ng/mL (<0.05-4.0)
== END 2025-11-14 11:01 | disposition home or self-care (01) ==
LOC: HO.HMGCLDS 11:00
PROVIDERS: PCP Nurse Practitioner Family; Visit Provider Urology
DX: Z12.5 Encounter for screening for malignant neoplasm of prostate (principal); N40.1 Benign prostatic hyperplasia with lower urinary tract symptoms; N13.8 Other obstructive and reflux uropathy
CPT/HCPCS: 36415; 84153